=== PATIENT | female | born 1935 | race Caucasian/White ===

== ENCOUNTER → 2016-05-04 | Outpatient (REF) | payer MEDICARE, MEDICAID ==
[~2016-05-04] MED LIST: ACET650S3 PO; AMOX875T2 PO; ASPI1TAB PO; ATEN25TA PO; ATOR1TAB21 PO; BISA10SU4 PR; CALC20SPR; CELE20TA PO; CITA10TA5 PO; CITA20TA4 PO; COLA100C PO; CYMB60CA3 PO; DELT1TAB PO; DULO1CAP2 PO; DULO30CA PO; EYECAP PO; FERR325T69 PO; FERR32TA PO; FLEEENE4 PR; FLUD1TA PO; FURO40TA2 PO; HYDR1TAB97 PO; HYDR25T PO; LIDO1CRE2 TOP; LIDO5DIS36 TD; LOPE2TAB PO; LOPR50TA PO; MAG400TA PO; MAGN400T5 PO; MECL-68 PO; METO25TAB PO; MILKSUS PO; MIRA3350 PO; MIRA33504 PO; MULT1TAB8 PO; NAME10TA PO; OCUVTA PO; OCUVTAB PO; OMEP20CA3 PO; PRED10TA PO; PRED20TAB PO; PREG50CA PO; PROP10TAB PO; SENN-23 PO; SENO8.6T10 PO; TRAM50TA2 PO; VESI10TA PO; VIST25CA PO; VITA200015 PO; ZONE25CA5 PO; ZONI50CA PO; ZONI50CA3 PO
[2016-05-04 10:46] LABS: MEAN CORPUSCULAR HGB CONC 30.8 g/dl (32.0-36.5); MEAN CORPUSCULAR VOLUME 93.9 fl (80.0-96.0); RED CELL DISTRIBUTION WIDTH 15.6 % (11.5-14.5); WHITE BLOOD COUNT 7.2 K/mm3 (4.0-10.0)
[2016-05-04 11:16] LABS: CALCIUM LEVEL 8.9 MG/DL (8.8-10.2); CREATININE FOR GFR 1.04 MG/DL (0.55-1.02); GLOMERULAR FILTRATION RATE 54.4 (>39); MAGNESIUM LEVEL 2.1 MG/DL (1.8-2.4); POTASSIUM SERUM 3.7 MEQ/L (3.5-5.1)
== END ==
PROVIDERS: ATTEND Internal Medicine
DX: I50.9 Heart failure, unspecified (principal); D61.818 Other pancytopenia

== ENCOUNTER → 2016-05-06 | Outpatient (CLI) | payer MEDICARE, MEDICAID | LOC: EEVIPCON 21:30 | PROVIDERS: ATTEND Internal Medicine | DX: R30.0 Dysuria (principal) ==

== ENCOUNTER 2016-05-08 11:54 | Emergency (ER) | payer MEDICARE, MEDICAID ==
[2016-05-08] MEDS ORDERED: fentaNYL 100 MCG/2 ML INJECTION (J3010) As Ordered ONE (12:40)
[2016-05-08 12:55] LABS: BASO # 0.1 K/mm3 (0.0-0.2); BASO % 1.4 % (0.0-1.0); EOS # 0.1 K/mm3 (0.0-0.50); EOS % 2.2 % (0.0-3.0); LARGE UNSTAINED CELL # 0.1 K/mm3 (0.0-0.4); LARGE UNSTAINED CELL % 1.5 % (0.0-4.0); LYMPH # 0.9 K/mm3 (1.5-4.5); LYMPH % 13.5 % (24.0-44.0); MEAN CORPUSCULAR HEMOGLOBIN 28.5 pg (27.0-33.0); MEAN CORPUSCULAR HGB CONC 30.1 g/dl (32.0-36.5); MEAN CORPUSCULAR VOLUME 94.7 fl (80.0-96.0); MONO # 0.3 K/mm3 (0.0-0.8); MONO % 4.9 % (0.0-5.0); NEUTROPHILS # 4.7 K/mm3 (1.8-7.7); NEUTROPHILS % 76.4 % (36.0-66.0); PLATELET COUNT, AUTOMATED 153 k/mm3 (150-450); RED CELL DISTRIBUTION WIDTH 15.5 % (11.5-14.5); WHITE BLOOD COUNT 6.1 K/mm3 (4.0-10.0)
[2016-05-08 13:08] LABS: CALCIUM LEVEL 8.5 MG/DL (8.8-10.2); CREATININE FOR GFR 1.04 MG/DL (0.55-1.02); GLOMERULAR FILTRATION RATE 54.3 (>32); POTASSIUM SERUM 3.9 MEQ/L (3.5-5.1)
--- NOTE | 2016-05-08 15:02 | EDDOCDS ---
Physician Documentation [facility] Name: Katie Mccallum Age: 81 yrs Sex: Female : 1935 Arrival Date: 05/08/2016 Time: 11:54 Bed 10 Private MD: Irma Disposition: 05/08 14:14 Critical Care: Critical care not applicable. pc Disposition: 05/08/16 14:19 Discharged to Home/Self Care. Impression: Fall while being carried or supported by other persons, Displaced transverse fracture of shaft of right tibia, Displaced fracture of right tibial spine, Other fracture of shaft of right fibula - impacted fibular head. - Condition is Stable. - Discharge Instructions: Knee Immobilizer, Tibial and Fibular Fracture, Adult. - Prescriptions for Knee immobilizer to be worn at all trimes. Non-weight bearing. Keep right leg elevated when in chair. Will require Physical Therapy, to be arranged by Orthopedics at next appointment. - Medication Reconciliation, Local Pharmacy Hours form. - Follow up: Orthopaedics, [facility]; When: 4 - 5 days; Reason: Recheck today's complaints, Continuance of care. Follow up: Jai Solis MD; When: 2 - 3 days; Reason: Recheck today's complaints, Continuance of care. - Problem is new. - Symptoms have improved. HPI: 12:33 This 81 yrs old Female presents to ER via Ambulance with complaints of Leg pc Injury. 12:33 The history is obtained from the patient, EMS providers, care home records. She was pc being assisted from bed to her wheelchair and she fell. She believes an aid fell on top of her leg but is not sure. She complains of pain with an obvious deformity to her right proximal tibia. The patient has not experienced similar symptoms in the past. The patient has been recently seen by an orthopedic surgeon, for an ankle fracture . Historical: - Allergies: Motrin (Unknown); - Home Meds: 1. Gabapentin 200 mg Oral 3 times per day 2. Macrobid 100 mg Oral cap 1 cap every 12 hours 3. Celexa 20 mg Oral tab 1 tab once daily 4. Lasix 60mg Oral tab 1 tab 2 times per day 5. gabapentin 100 mg Oral cap 2 caps nightly 6. prednisone 5 mg oral tab 1 tab once daily 7. potassium chloride 10 mEq Oral cpER 1 cap once daily 8. Senna with Docusate Sodium 8.6-50 mg oral tab 2 tabs once daily 9. tramadol 50 mg Oral tab three times a day 10. atenolol 100 mg Oral tab 1 tab once daily 11. aspirin 81 mg Oral chew 1 tab once daily 12. albuterol sulfate 2.5 mg/0.5 mL Inhl nebu every 6 hours and Q 2 hrs prn 13. magnesium oxide 400 mg Oral cap 400 mg twice a day 14. Namenda 10 mg oral tab 1 tab 2 times per day 15. Miralax 17 gram/dose Oral powd 17 g once daily as needed 16. zonisamide 50 mg oral cap 1 cap 2 times per day 17. fludrocortisone 0.1 mg oral tab 1 tab once daily 18. bisacodyl 10 mg Rectal supp 1 suppository Daily as needed 19. Enema Rectal daily as needed 20. acetaminophen 500 mg Oral tab 2 tabs twice a day 21. Vitamin D Oral 2000 unit daily 22. multiple vitamin 1 tab daily 23. ferrous gluconate 324 mg (37.5 mg iron) Oral tab 325 mg twice a day 24. Colace 100 mg oral cap 1 cap 2 times per day - PMHx: afib; Dementia; Fibromyalgia; fracture of T11-T12; Hypertension; Lupus; neuropathy; orthostatic hypotension; Parkinson's Disease; TIA; ventricular tachycardia; Vertigo; - PSHx: Cataract Surgery- Bilateral; Cholecystectomy; Hysterectomy; - The history from nurses notes was reviewed: and I agree with what is documented. - Social history: Smoking status: Patient states was never smoker of tobacco. No barriers to communication noted, The patient speaks fluent Kittitian, Speaks appropriately for age. - Family history: Not pertinent. - : The pt / caregiver states he / she is not on anticoagulants. Home medication list is obtained from the facility JUN. - Hospitalizations: : No recent hospitalization is reported. - Exposure Risk Screening:: None identified. - Immunization history:: All immunizations up-to-date. - Social history:: the patient is a non-smoker, the patient does not drink alcohol. ROS: 12:37 All systems are negative except as listed. pc Exam: 12:37 General Appearance: alert, the patient is in moderate distress. pc 12:37 EENT: normal eye inspection, ears, nose and throat normal, pharynx normal, mucous membranes moist 12:37 Neck: The exam reveals no acute abnormalities. ROM is normal and painless. No nuchal rigidity is noted.. 12:37 Respiratory: no respiratory distress, normal breath sounds. 12:37 CVS: regular pulse rate, regular rhythm, normal S1 and S2, no murmurs, strong peripheral pulses. 12:37 Abdomen: soft, non-tender, no organomegaly, normal bowel sounds. 12:37 Back: 12:37 Skin: skin color is normal, warm, dry. 12:37 Extremities: grossly normal except: noted in the right jaramillo: deformity, pain, swelling, proximal tibia just distal to tubercle. NVT normal distally . 12:37 Neuro: oriented x 3, cranial nerves normal as tested, no motor deficits, no sensory deficits. 12:37 Psych: normal mood. Vital Signs: 12:12 BP 101 / 54; Pulse 53; Resp 18; Temp 98.2(TE); Pulse Ox 2 lpm NC; Weight 90.72 kg / 200 pml lbs (R); Pain 5/10; 12:27 Pulse Ox 99% on 2 lpm NC; pml 14:55 BP 108 / 54; Pulse 55; Resp 18; Temp 97.1; Pulse Ox 96% on 2 lpm NC; Pain 5/10; pml MDM: 12:31 IV Saline Lock ordered. pc 12:31 NS 0.9% 1000 ml IV at 100 mL/hr continuous ordered. pc 12:31 fentaNYL (PF) 25 mcg IVP once ordered. pc 12:32 NOTHING BY MOUTH+DIET ordered. EDMS 12:32 CBC with Diff Ordered. EDMS 12:32 MED Profile Ordered. EDMS 12:33 Knee, Complete Ordered. EDMS 12:33 Tibia/Fibula Ordered. EDMS 12:37 Differential Diagnosis: fall, right tib/fib fracture. Plan: meds, labs, imaging. pc 12:50 [facility] [place] was [place] into [employer] and attached to record. dm19 12:50 Financial registration complete. dm19 13:11 Chest, 1 View Ordered. EDMS 13:31 CBC with Diff Reviewed. pc 13:31 MED Profile Reviewed. pc 14:01 Data reviewed: old medical records, vital signs, nurses notes, lab test results, all pc radiology studies and available results. Test interpretation: LAB - all labs as ordered have been reviewed, interpreted and considered in the overall management of the clinical presentation; X-RAY - interpreted by Radiologist and personally reviewed, 1 view chest no acute disease, Knee Right Fracture TIbial plateau Proximal Tibia Tibia/Fibula Right Fracture Displaced proximal tibia, extending into the tibial plateau, and a nondisplaced fibular head fracture. The patient has been re-examined and re-evaluated. The patient's symptoms have markedly improved after treatment. Physician consultation: Dr. Faustino Garcia regarding patient's condition, and will see patient in ED. 14:14 Disposition: The historical points, examination findings, and any diagnostic results pc supporting the provided diagnosis, were discussed with the patient or legal guardian. The need for outpatient follow up with the provider listed on their discharge instructions was discussed. They were encouraged to return to [facility], or the nearest ED, if symptoms worsen/persist, or for any other questions/concerns. Administered Medications: 12:42 Drug: fentaNYL (PF) 25 mcg [fentanyl (PF) 50 mcg/mL injection solution (0.5 mL)] Route: pml IVP; Site: left hand; 12:52 Drug: NS 0.9% 1000 ml [sodium chloride 0.9 % injection solution] Route: IV; Rate: 100 pml mL/hr; Site: left antecubital; Signatures: Dispatcher [employer] EDMS Joey Warren MD MD pc Jobson, Karen, RN RN kpj Quay, Paulina, RN RN pml McLear, Diane [email or web address] The chart was reviewed and I authenticate all verbal orders and agree with the evaluation and treatment provided.Corrections: (The following items were deleted from the chart) 12:37 12:33 The patient has been recently seen by an orthopedic surgeon, leslie pc 14:12 13:19 TYPE & SCREEN+BBK ordered. EDMS EDMS 14:12 13:19 PT & APTT+LAB ordered. EDMS EDMS Attachments: 12:50 [facility] Payment Agreement [email or web address] MTDD
--- NOTE | 2016-05-08 15:02 | EDDOCDS ---
Nurse's Notes [facility] Name: Katie Mccallum Age: 81 yrs Sex: Female : 1935 Arrival Date: 05/08/2016 Time: 11:54 Bed 10 Private MD: Irma Diagnosis: Fall while being carried or supported by other persons;Displaced transverse fracture of shaft of right tibia;Displaced fracture of right tibial spine;Other fracture of shaft of right fibula-impacted fibular head Presentation: 05/08 12:09 Presenting complaint: Patient states: she was transferring out of bed and she thinks pml she blacked out and when she woke up she was "on the floor with one of the girls landing on top of me, she says she didn't so I must have imagined that" V reports falling during transfer and landing on her knees. pt complains of pain to right knee and swelling and deformity noted to lateral aspect right leg below knee joint. also complains of pain to palpation at lateral margin above knee joint. Adult Sepsis Screening: The patient does not have new or worsening altered mentation. Patient's respiratory rate is less than 22. Systolic blood pressure is greater than 100. Patient has a qSOFA score of 0- Negative Sepsis Screen. Suicide/Homicide risk assessment- the patient denies having any suicidal and/or homicidal ideations and does not present with any other emotional, behavioral or mental health complaints. Status: Patient is not a manager of environmental services or dependent. Transition of care: patient was received from [facility]. 12:09 Acuity: MIC Level 3 pml 12:09 Method Of Arrival: Ambulance pml Triage Assessment: 12:12 General: Appears uncomfortable, Behavior is appropriate for age, cooperative. Pain: pml Location: lateral aspect of right calf Pain currently is 5 out of 10 on a pain scale. The patient is triaged at the bedside. See Assessment in Nurses Notes section of ED record. Neurological: Level of Consciousness is awake, alert, Oriented to person, place, time. Cardiovascular: Capillary refill < 3 seconds. Cardiovascular: Pulses are palpable in right posterior tibial artery and right dorsalis pedis artery. Respiratory: Airway is patent Respiratory effort is even, unlabored. GI: Abdomen is non- distended. Derm: Skin is pink, warm & dry. Swollen area noted on lateral aspect of right calf. Musculoskeletal: Circulation, motion, and sensation intact Capillary refill < 3 seconds. Historical: - Allergies: Motrin (Unknown); - Home Meds: 1. Gabapentin 200 mg Oral 3 times per day 2. Macrobid 100 mg Oral cap 1 cap every 12 hours 3. Celexa 20 mg Oral tab 1 tab once daily 4. Lasix 60mg Oral tab 1 tab 2 times per day 5. gabapentin 100 mg Oral cap 2 caps nightly 6. prednisone 5 mg oral tab 1 tab once daily 7. potassium chloride 10 mEq Oral cpER 1 cap once daily 8. Senna with Docusate Sodium 8.6-50 mg oral tab 2 tabs once daily 9. tramadol 50 mg Oral tab three times a day 10. atenolol 100 mg Oral tab 1 tab once daily 11. aspirin 81 mg Oral chew 1 tab once daily 12. albuterol sulfate 2.5 mg/0.5 mL Inhl nebu every 6 hours and Q 2 hrs prn 13. magnesium oxide 400 mg Oral cap 400 mg twice a day 14. Namenda 10 mg oral tab 1 tab 2 times per day 15. Miralax 17 gram/dose Oral powd 17 g once daily as needed 16. zonisamide 50 mg oral cap 1 cap 2 times per day 17. fludrocortisone 0.1 mg oral tab 1 tab once daily 18. bisacodyl 10 mg Rectal supp 1 suppository Daily as needed 19. Enema Rectal daily as needed 20. acetaminophen 500 mg Oral tab 2 tabs twice a day 21. Vitamin D Oral 2000 unit daily 22. multiple vitamin 1 tab daily 23. ferrous gluconate 324 mg (37.5 mg iron) Oral tab 325 mg twice a day 24. Colace 100 mg oral cap 1 cap 2 times per day - PMHx: afib; Dementia; Fibromyalgia; fracture of T11-T12; Hypertension; Lupus; neuropathy; orthostatic hypotension; Parkinson's Disease; TIA; ventricular tachycardia; Vertigo; - PSHx: Cataract Surgery- Bilateral; Cholecystectomy; Hysterectomy; - The history from nurses notes was reviewed: and I agree with what is documented. - Social history: Smoking status: Patient states was never smoker of tobacco. No barriers to communication noted, The patient speaks fluent Mexican, Speaks appropriately for age. - Family history: Not pertinent. - : The pt / caregiver states he / she is not on anticoagulants. Home medication list is obtained from the facility JUN. - Hospitalizations: : No recent hospitalization is reported. - Exposure Risk Screening:: None identified. - Immunization history:: All immunizations up-to-date. - Social history:: the patient is a non-smoker, the patient does not drink alcohol. Screenin:15 Screening information is obtained from the patient. Fall risk: At risk due to age, gait pml disturbance, immobility, prior history of falls. Assistance ADL's: requires no assistance with activities of daily living. Abuse/DV Screen: The patient / caregiver reports he/she is: not in a situation that causes fear, pain or injury. Nutritional screening: No deficits noted. Advance Directives: Currently, there is no health care proxy. home support is adequate. Assessment: 12:15 General: see triage note. pml 13:39 General: Appears in no apparent distress, comfortable, Behavior is appropriate for age, pml cooperative. Pain: Location: lateral aspect of right calf. Neurological: Level of Consciousness is awake, alert, Oriented to person, place, time. Cardiovascular: Capillary refill < 3 seconds. Respiratory: Airway is patent Respiratory effort is even, unlabored. Derm: Skin is pink, warm & dry. 14:55 General: Appears in no apparent distress, comfortable, Behavior is appropriate for age, pml cooperative. Pain: Location: right leg Pain currently is 6 out of 10 on a pain scale. Neurological: Level of Consciousness is awake, alert, Oriented to person, place, time. Cardiovascular: Capillary refill < 3 seconds. Respiratory: Airway is patent Respiratory effort is even, unlabored. Derm: Skin is pink, warm & dry. Vital Signs: 12:12 BP 101 / 54; Pulse 53; Resp 18; Temp 98.2(TE); Pulse Ox 2 lpm NC; Weight 90.72 kg (R); pml Pain 5/10; 12:27 Pulse Ox 99% on 2 lpm NC; pml 14:55 BP 108 / 54; Pulse 55; Resp 18; Temp 97.1; Pulse Ox 96% on 2 lpm NC; Pain 5/10; pml Vitals: 12:12 Log In Time N/A - ambulance arrival. [facility] ED Course: 11:55 Patient visited by Elvi Altamirano PCA. ar3 11:55 Kianna Miles RN is Primary Nurse. ar3 11:55 Irma is Private Physician. ar3 11:55 Patient moved to Waiting ar3 11:55 Patient moved to 10 ar3 12:06 Joey Warren MD is Attending Physician. pc 12:11 Triage Initiated pml 12:15 The patient / caregiver is instructed regarding the plan of care and ED course. Patient pml has correct armband on for positive identification. Placed in gown. Bed in low position. Call light in reach. Side rails up X2. 12:15 Maintain field IV. Dressing intact. Good blood return noted. Site clean & dry. Gauge & pml site: 22g left hand. 12:16 Patient visited by Kianna Miles,ILANA. pml 12:27 Patient visited by Joey Warren MD. pc 12:37 Patient visited by Kianna Miles RN. pml 12:50 [facility] Payment Agreement was scanned into [employer] and attached to record. dm19 12:52 Discontinued lock intact, bleeding controlled, pressure dressing applied, No pml redness/swelling at site. 12:52 Inserted peripheral IV: 20gauge IV in left antecubital area and blood collected. pml Patient tolerated the procedure well. 12:53 Patient visited by Kianna Miles RN. pml 13:53 Patient visited by Joye Warren MD. pc [facility] pc 14:18 Jai Solis MD is Referral Physician. pc 14:55 Discontinued lock intact, bleeding controlled, pressure dressing applied, No pml redness/swelling at site. No procedures done that require assistance. Knee immobilizer applied on right knee. Patient with positive distal sensation and brisk distal capillary refill after application. Administered Medications: 12:42 Drug: fentaNYL (PF) 25 mcg [fentanyl (PF) 50 mcg/mL injection solution (0.5 mL)] Route: pml IVP; Site: left hand; 12:52 Drug: NS 0.9% 1000 ml [sodium chloride 0.9 % injection solution] Route: IV; Rate: 100 pml mL/hr; Site: left antecubital; Order Results: Lab Order: CBC with Diff; SPEC'M 05/08/16 12:47 Test: WHITE BLOOD COUNT; Value: 6.1; Range: 4.0-10.0; Units: K/mm3; Status: F Test: RED BLOOD COUNT; Value: 3.47; Range: 4.00-5.40; Abnormal: Below low normal; Units: M/mm3; Status: F Test: HEMOGLOBIN; Value: 9.9; Range: 12.0-16.0; Abnormal: Below low normal; Units: g/dl; Status: F Test: HEMATOCRIT; Value: 32.9; Range: 36.0-47.0; Abnormal: Below low normal; Units: %; Status: F Test: MEAN CORPUSCULAR VOLUME; Value: 94.7; Range: 80.0-96.0; Units: fl; Status: F Test: MEAN CORPUSCULAR HEMOGLOBIN; Value: 28.5; Range: 27.0-33.0; Units: pg; Status: F Test: MEAN CORPUSCULAR HGB CONC; Value: 30.1; Range: 32.0-36.5; Abnormal: Below low normal; Units: g/dl; Status: F Test: RED CELL DISTRIBUTION WIDTH; Value: 15.5; Range: 11.5-14.5; Abnormal: Above high normal; Units: %; Status: F Test: PLATELET COUNT, AUTOMATED; Value: 153; Range: 150-450; Units: k/mm3; Status: F Test: NEUTROPHILS %; Value: 76.4; Range: 36.0-66.0; Abnormal: Above high normal; Units: %; Status: F Test: LYMPH %; Value: 13.5; Range: 24.0-44.0; Abnormal: Below low normal; Units: %; Status: F Test: MONO %; Value: 4.9; Range: 0.0-5.0; Units: %; Status: F Test: EOS %; Value: 2.2; Range: 0.0-3.0; Units: %; Status: F Test: BASO %; Value: 1.4; Range: 0.0-1.0; Abnormal: Above high normal; Units: %; Status: F Test: LARGE UNSTAINED CELL %; Value: 1.5; Range: 0.0-4.0; Units: %; Status: F Test: NEUTROPHILS #; Value: 4.7; Range: 1.8-7.7; Units: K/mm3; Status: F Test: LYMPH #; Value: 0.9; Range: 1.5-4.5; Abnormal: Below low normal; Units: K/mm3; Status: F Test: MONO #; Value: 0.3; Range: 0.0-0.8; Units: K/mm3; Status: F Test: EOS #; Value: 0.1; Range: 0.0-0.50; Units: K/mm3; Status: F Test: BASO #; Value: 0.1; Range: 0.0-0.2; Units: K/mm3; Status: F Test: LARGE UNSTAINED CELL #; Value: 0.1; Range: 0.0-0.4; Units: K/mm3; Status: F Lab Order: MED Profile; SPEC'M 05/08/16 12:47 Test: GLUCOSE, FASTING; Value: 122; Range: 83-110; Abnormal: Above high normal; Units: MG/DL; Status: F Test: BLOOD UREA NITROGEN; Value: 27; Range: 7-18; Abnormal: Above high normal; Units: MG/DL; Status: F Test: CREATININE FOR GFR; Value: 1.04; Range: 0.55-1.02; Abnormal: Above high normal; Units: MG/DL; Status: F Test: GLOMERULAR FILTRATION RATE; Value: 54.3; Range: >32; Status: F Test: SODIUM LEVEL; Value: 144; Range: 136-145; Units: MEQ/L; Status: F Test: POTASSIUM SERUM; Value: 3.9; Range: 3.5-5.1; Units: MEQ/L; Status: F Test: CHLORIDE LEVEL; Value: 100; Range: 98-107; Units: MEQ/L; Status: F Test: CARBON DIOXIDE LEVEL; Value: 39; Range: 21-32; Abnormal: Above high normal; Units: MEQ/L; Status: F Test: ANION GAP; Value: 5; Range: 8-16; Abnormal: Below low normal; Units: MEQ/L; Status: F Test: CALCIUM LEVEL; Value: 8.5; Range: 8.8-10.2; Abnormal: Below low normal; Units: MG/DL; Status: F Test Note: ; Units are mL/min/1.73 m2 Chronic Kidney Disease Staging per NKF: Stage I & II GFR >=60 Normal to Mildly Decreased Stage III GFR 30-59 Moderately Decreased Stage IV GFR 15-29 Severely Decreased Stage V GFR <15 Very Little GFR Left ESRD GFR <15 on SCIENTIFIC HELPER Outcome: 14:19 Discharge ordered by Provider. pc 14:55 Discharge Assessment: Patient awake, alert and oriented x 3. No cognitive and/or pml functional deficits noted. Patient verbalized understanding of disposition instructions. patient administered narcotics - yes. Pt provided with safe discharge. The following High Risk Discharge criteria are identified: None. Discharged to home via ambulance. Condition: good Condition: stable. Discharge instructions given to patient, care home, Instructed on discharge instructions, follow up and referral plans. medication usage, Demonstrated understanding of instructions, Pt was receptive of discharge instructions/ teaching. No special radiology studies were completed. Admission hand-off: Report called to [facility]. Property sent home with patient. 15:00 Patient left the ED. [facility] Signatures: Joey Warren MD MD pc Jobson, Karen, RN RN Elvi Martinez, ADDICTION SOCIAL WORKER ADDICTION SOCIAL WORKER ar3 Kianna Miles RN RN pml McLear, Diane dm19 [email or web address]
--- NOTE | 2016-05-08 16:41 | REP ---
Chest x-ray: Single view. History: Preop. Comparison chest x-ray January 09, 2016. Findings: Moderate cardiomegaly is observed. Diffuse interstitial fibrosis pattern is seen in the lower lobes and in the periphery of the upper lobes. This is unchanged allowing for differences in technique. The aorta is calcific and tortuous. There appears to be partial wedging of the T12 vertebral body. Diffuse osteopenia is noted. Impression: Cardiomegaly and diffuse interstitial fibrosis in the lung louise. No acute abnormality. Signed by Albino Grijalva MD 05/08/2016 04:55 P
--- NOTE | 2016-05-08 16:46 | REP ---
Right knee series: Two views. History: Trauma. Findings: There is profound diffuse osteoporosis. A comminuted diametaphyseal fracture of the proximal tibia is seen. This may extend up to the proximal tibial knee joint line. There is an associated impaction fracture of the proximal fibula. Vascular calcification is noted. Impression: Comminuted proximal tibial diametaphyseal fracture which may extend in the knee joint. Associated impacted fracture of the proximal fibula. Signed by Albino Grijalva MD 05/08/2016 04:55 P
--- NOTE | 2016-05-08 16:47 | REP ---
Right tib-fib series: Four views. History: Trauma. Findings: There is marked diffuse osteoporosis. There is a complex fracture of the diametaphyseal zone of the proximal tibia which extends into what appears to be in the lateral tibial plateau. There is an impacted fracture of the proximal fibula. The tibial fracture shows minimal medial displacement at the diametaphyseal zone. There is extensive vascular calcification. Impression: Complex fracture of the diametaphyseal zone of the proximal tibia which extends into the lateral tibial plateau. Associated impacted fracture of the proximal fibular head. Diffuse osteoporosis and vascular calcification. Signed by Albino Grijalva MD 05/08/2016 04:55 P
--- NOTE | 2016-05-10 09:01 | ER ---
DATE OF CONSULTATION: 05/08/2016 She is an 81-year-old female with an orthopedic diagnosis of a right proximal tibia and proximal fibula comminuted fragility fracture and tibial plateau fracture. Orthopedics was consulted to evaluate an recommend treatment. She is an 81-year-old female with a long medical history, to include a history of stroke, which by her own report makes her nonoperative candidate for arthritis in the opposite knee. She has been wheelchair ambulator for some time with occasional assisted weight bearing on her lower extremities for transfers only. During this process, with excessive weight on her right lower extremity, she twisted and felt a "pop" and had severe pain in her right leg. PHYSICAL EXAMINATION: She has swelling and tenderness to palpation along the proximal tibia. She has gross sensation and weak motor intact bilaterally to the lower extremities. Her compartments are soft. The skin is closed. X-rays demonstrate severe osteopenia and a proximal tibia fibula fracture with an interarticular component, overall alignment of the limb is generally straight. IMPRESSION: Osteoporotic fracture of right proximal tibial. RECOMMENDATION: Given the fact that she is currently a non-ambulator and given the status of her osteopenia, would recommend nonoperative management with pain control and knee immobilizer, icing, activity modification and regular followup and x-rays. Emergency room may consult the medicine service for any management of her medical issues if necessary.
--- NOTE | 2016-05-11 11:15 | EDDOCDS ---
Nurse's Notes [facility] Name: Katie Mccallum Age: 81 yrs Sex: Female : 1935 Arrival Date: 05/08/2016 Time: 11:54 Bed 10 Private MD: Irma Diagnosis: Fall while being carried or supported by other persons;Displaced transverse fracture of shaft of right tibia;Displaced fracture of right tibial spine;Other fracture of shaft of right fibula-impacted fibular head Presentation: 05/08 12:09 Presenting complaint: Patient states: she was transferring out of bed and she thinks pml she blacked out and when she woke up she was "on the floor with one of the girls landing on top of me, she says she didn't so I must have imagined that" V reports falling during transfer and landing on her knees. pt complains of pain to right knee and swelling and deformity noted to lateral aspect right leg below knee joint. also complains of pain to palpation at lateral margin above knee joint. Adult Sepsis Screening: The patient does not have new or worsening altered mentation. Patient's respiratory rate is less than 22. Systolic blood pressure is greater than 100. Patient has a qSOFA score of 0- Negative Sepsis Screen. Suicide/Homicide risk assessment- the patient denies having any suicidal and/or homicidal ideations and does not present with any other emotional, behavioral or mental health complaints. 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 Transition of care: patient was received from [facility]. 12:09 Acuity: MIC Level 3 pml 12:09 Method Of Arrival: Ambulance pml Triage Assessment: 12:12 General: Appears uncomfortable, Behavior is appropriate for age, cooperative. Pain: pml Location: lateral aspect of right calf Pain currently is 5 out of 10 on a pain scale. The patient is triaged at the bedside. See Assessment in Nurses Notes section of ED record. Neurological: Level of Consciousness is awake, alert, Oriented to person, place, time. Cardiovascular: Capillary refill < 3 seconds. Cardiovascular: Pulses are palpable in right posterior tibial artery and right dorsalis pedis artery. Respiratory: Airway is patent Respiratory effort is even, unlabored. GI: Abdomen is non- distended. Derm: Skin is pink, warm & dry. Swollen area noted on lateral aspect of right calf. Musculoskeletal: Circulation, motion, and sensation intact Capillary refill < 3 seconds. Historical: - Allergies: Motrin (Unknown); - Home Meds: 1. Gabapentin 200 mg Oral 3 times per day 2. Macrobid 100 mg Oral cap 1 cap every 12 hours 3. Celexa 20 mg Oral tab 1 tab once daily 4. Lasix 60mg Oral tab 1 tab 2 times per day 5. gabapentin 100 mg Oral cap 2 caps nightly 6. prednisone 5 mg oral tab 1 tab once daily 7. potassium chloride 10 mEq Oral cpER 1 cap once daily 8. Senna with Docusate Sodium 8.6-50 mg oral tab 2 tabs once daily 9. tramadol 50 mg Oral tab three times a day 10. atenolol 100 mg Oral tab 1 tab once daily 11. aspirin 81 mg Oral chew 1 tab once daily 12. albuterol sulfate 2.5 mg/0.5 mL Inhl nebu every 6 hours and Q 2 hrs prn 13. magnesium oxide 400 mg Oral cap 400 mg twice a day 14. Namenda 10 mg oral tab 1 tab 2 times per day 15. Miralax 17 gram/dose Oral powd 17 g once daily as needed 16. zonisamide 50 mg oral cap 1 cap 2 times per day 17. fludrocortisone 0.1 mg oral tab 1 tab once daily 18. bisacodyl 10 mg Rectal supp 1 suppository Daily as needed 19. Enema Rectal daily as needed 20. acetaminophen 500 mg Oral tab 2 tabs twice a day 21. Vitamin D Oral 2000 unit daily 22. multiple vitamin 1 tab daily 23. ferrous gluconate 324 mg (37.5 mg iron) Oral tab 325 mg twice a day 24. Colace 100 mg oral cap 1 cap 2 times per day - PMHx: afib; Dementia; Fibromyalgia; fracture of T11-T12; Hypertension; Lupus; neuropathy; orthostatic hypotension; Parkinson's Disease; TIA; ventricular tachycardia; Vertigo; - PSHx: Cataract Surgery- Bilateral; Cholecystectomy; Hysterectomy; - The history from nurses notes was reviewed: and I agree with what is documented. - Social history: Smoking status: Patient states was never smoker of tobacco. No barriers to communication noted, The patient speaks fluent Citizen [place], Speaks appropriately for age. - Family history: Not pertinent. - : The pt / caregiver states he / she is not on anticoagulants. Home medication list is obtained from the facility JUN. - Hospitalizations: : No recent hospitalization is reported. - Exposure Risk Screening:: None identified. - Immunization history:: All immunizations up-to-date. - Social history:: the patient is a non-smoker, the patient does not drink alcohol. Screenin:15 Screening information is obtained from the patient. Fall risk: At risk due to age, gait pml disturbance, immobility, prior history of falls. Assistance ADL's: requires no assistance with activities of daily living. Abuse/DV Screen: The patient / caregiver reports he/she is: not in a situation that causes fear, pain or injury. Nutritional screening: No deficits noted. Advance Directives: Currently, there is no health care proxy. home support is adequate. Assessment: 12:15 General: see triage note. pml 13:39 General: Appears in no apparent distress, comfortable, Behavior is appropriate for age, pml cooperative. Pain: Location: lateral aspect of right calf. Neurological: Level of Consciousness is awake, alert, Oriented to person, place, time. Cardiovascular: Capillary refill < 3 seconds. Respiratory: Airway is patent Respiratory effort is even, unlabored. Derm: Skin is pink, warm & dry. 14:55 General: Appears in no apparent distress, comfortable, Behavior is appropriate for age, pml cooperative. Pain: Location: right leg Pain currently is 6 out of 10 on a pain scale. Neurological: Level of Consciousness is awake, alert, Oriented to person, place, time. Cardiovascular: Capillary refill < 3 seconds. Respiratory: Airway is patent Respiratory effort is even, unlabored. Derm: Skin is pink, warm & dry. Vital Signs: 12:12 BP 101 / 54; Pulse 53; Resp 18; Temp 98.2(TE); Pulse Ox 2 lpm NC; Weight 90.72 kg (R); pml Pain 5/10; 12:27 Pulse Ox 99% on 2 lpm NC; pml 14:55 BP 108 / 54; Pulse 55; Resp 18; Temp 97.1; Pulse Ox 96% on 2 lpm NC; Pain 5/10; pml Vitals: 12:12 Log In Time N/A - ambulance arrival. [facility] ED Course: 11:55 Patient visited by Elvi Altamirano PCA. ar3 11:55 Kianna Miles RN is Primary Nurse. ar3 11:55 Irma is Private Physician. ar3 11:55 Patient moved to Waiting ar3 11:55 Patient moved to 10 ar3 12:06 Joey Warren MD is Attending Physician. pc 12:11 Triage Initiated pml 12:15 The patient / caregiver is instructed regarding the plan of care and ED course. Patient pml has correct armband on for positive identification. Placed in gown. Bed in low position. Call light in reach. Side rails up X2. 12:15 Maintain field IV. Dressing intact. Good blood return noted. Site clean & dry. Gauge & pml site: 22g left hand. 12:16 Patient visited by Kianna Miles,ILANA. pml 12:27 Patient visited by Joey Warren MD. pc 12:37 Patient visited by Kianna Miles RN. pml 12:50 [facility] Payment Agreement was scanned into [employer] and attached to record. dm19 12:52 Discontinued lock intact, bleeding controlled, pressure dressing applied, No pml redness/swelling at site. 12:52 Inserted peripheral IV: 20gauge IV in left antecubital area and blood collected. pml Patient tolerated the procedure well. 12:53 Patient visited by Kianna Miles RN. pml 13:53 Patient visited by Joey Warren MD. pc 14[facility] pc 14:18 Jai Solis MD is Referral Physician. pc 14:55 Discontinued lock intact, bleeding controlled, pressure dressing applied, No pml redness/swelling at site. No procedures done that require assistance. Knee immobilizer applied on right knee. Patient with positive distal sensation and brisk distal capillary refill after application. 17:10 Chest, 1 View Returned. EDMS 17:10 Knee, Complete Returned. EDMS 17:10 Tibia/Fibula Returned. EDMS Administered Medications: 12:42 Drug: fentaNYL (PF) 25 mcg [fentanyl (PF) 50 mcg/mL injection solution (0.5 mL)] Route: pml IVP; Site: left hand; 12:52 Drug: NS 0.9% 1000 ml [sodium chloride 0.9 % injection solution] Route: IV; Rate: 100 pml mL/hr; Site: left antecubital; Order Results: Lab Order: CBC with Diff; SPEC'M 05/08/16 12:47 Test: WHITE BLOOD COUNT; Value: 6.1; Range: 4.0-10.0; Units: K/mm3; Status: F Test: RED BLOOD COUNT; Value: 3.47; Range: 4.00-5.40; Abnormal: Below low normal; Units: M/mm3; Status: F Test: HEMOGLOBIN; Value: 9.9; Range: 12.0-16.0; Abnormal: Below low normal; Units: g/dl; Status: F Test: HEMATOCRIT; Value: 32.9; Range: 36.0-47.0; Abnormal: Below low normal; Units: %; Status: F Test: MEAN CORPUSCULAR VOLUME; Value: 94.7; Range: 80.0-96.0; Units: fl; Status: F Test: MEAN CORPUSCULAR HEMOGLOBIN; Value: 28.5; Range: 27.0-33.0; Units: pg; Status: F Test: MEAN CORPUSCULAR HGB CONC; Value: 30.1; Range: 32.0-36.5; Abnormal: Below low normal; Units: g/dl; Status: F Test: RED CELL DISTRIBUTION WIDTH; Value: 15.5; Range: 11.5-14.5; Abnormal: Above high normal; Units: %; Status: F Test: PLATELET COUNT, AUTOMATED; Value: 153; Range: 150-450; Units: k/mm3; Status: F Test: NEUTROPHILS %; Value: 76.4; Range: 36.0-66.0; Abnormal: Above high normal; Units: %; Status: F Test: LYMPH %; Value: 13.5; Range: 24.0-44.0; Abnormal: Below low normal; Units: %; Status: F Test: MONO %; Value: 4.9; Range: 0.0-5.0; Units: %; Status: F Test: EOS %; Value: 2.2; Range: 0.0-3.0; Units: %; Status: F Test: BASO %; Value: 1.4; Range: 0.0-1.0; Abnormal: Above high normal; Units: %; Status: F Test: LARGE UNSTAINED CELL %; Value: 1.5; Range: 0.0-4.0; Units: %; Status: F Test: NEUTROPHILS #; Value: 4.7; Range: 1.8-7.7; Units: K/mm3; Status: F Test: LYMPH #; Value: 0.9; Range: 1.5-4.5; Abnormal: Below low normal; Units: K/mm3; Status: F Test: MONO #; Value: 0.3; Range: 0.0-0.8; Units: K/mm3; Status: F Test: EOS #; Value: 0.1; Range: 0.0-0.50; Units: K/mm3; Status: F Test: BASO #; Value: 0.1; Range: 0.0-0.2; Units: K/mm3; Status: F Test: LARGE UNSTAINED CELL #; Value: 0.1; Range: 0.0-0.4; Units: K/mm3; Status: F Lab Order: MED Profile; SPEC'M 05/08/16 12:47 Test: GLUCOSE, FASTING; Value: 122; Range: 83-110; Abnormal: Above high normal; Units: MG/DL; Status: F Test: BLOOD UREA NITROGEN; Value: 27; Range: 7-18; Abnormal: Above high normal; Units: MG/DL; Status: F Test: CREATININE FOR GFR; Value: 1.04; Range: 0.55-1.02; Abnormal: Above high normal; Units: MG/DL; Status: F Test: GLOMERULAR FILTRATION RATE; Value: 54.3; Range: >32; Status: F Test: SODIUM LEVEL; Value: 144; Range: 136-145; Units: MEQ/L; Status: F Test: POTASSIUM SERUM; Value: 3.9; Range: 3.5-5.1; Units: MEQ/L; Status: F Test: CHLORIDE LEVEL; Value: 100; Range: 98-107; Units: MEQ/L; Status: F Test: CARBON DIOXIDE LEVEL; Value: 39; Range: 21-32; Abnormal: Above high normal; Units: MEQ/L; Status: F Test: ANION GAP; Value: 5; Range: 8-16; Abnormal: Below low normal; Units: MEQ/L; Status: F Test: CALCIUM LEVEL; Value: 8.5; Range: 8.8-10.2; Abnormal: Below low normal; Units: MG/DL; Status: F Test Note: ; Units are mL/min/1.73 m2 Chronic Kidney Disease Staging per NKF: Stage I & II GFR >=60 Normal to Mildly Decreased Stage III GFR 30-59 Moderately Decreased Stage IV GFR 15-29 Severely Decreased Stage V GFR <15 Very Little GFR Left ESRD GFR <15 on SR. OPERATIONS MANAGER Radiology Order: Knee, Complete Test: Knee, Complete REASON FOR EXAMINATION: Trauma; Right knee series: Two views.; ; History: Trauma.; ; Findings: There is profound diffuse osteoporosis. A comminuted diametaphyseal; fracture of the proximal tibia is seen. This may extend up to the proximal; tibial knee joint line. There is an associated impaction fracture of the; proximal fibula. Vascular calcification is noted.; ; Impression:; ; Comminuted proximal tibial diametaphyseal fracture which may extend in the knee; joint. Associated impacted fracture of the proximal fibula.; ; ; Signed by; Albnio Grijalva MD 05/08/2016 04:55 P; Radiology Order: Tibia/Fibula Test: Tibia/Fibula REASON FOR EXAMINATION: Trauma; Right tib-fib series: Four views.; ; History: Trauma.; ; Findings: There is marked diffuse osteoporosis. There is a complex fracture of; the diametaphyseal zone of the proximal tibia which extends into what appears to; be in the lateral tibial plateau. There is an impacted fracture of the proximal; fibula. The tibial fracture shows minimal medial displacement at the; diametaphyseal zone. There is extensive vascular calcification.; ; Impression:; ; Complex fracture of the diametaphyseal zone of the proximal tibia which extends; into the lateral tibial plateau. Associated impacted fracture of the proximal; fibular head. Diffuse osteoporosis and vascular calcification.; ; ; Signed by; Albino Grijalva MD 05/08/2016 04:55 P; Radiology Order: Chest, 1 View Test: Chest, 1 View REASON FOR EXAMINATION: pre-op; Chest x-ray: Single view.; ; History: Preop. Comparison chest x-ray January 09, 2016.; ; Findings: Moderate cardiomegaly is observed. Diffuse interstitial fibrosis; pattern is seen in the lower lobes and in the periphery of the upper lobes. This; is unchanged allowing for differences in technique. The aorta is calcific and; tortuous. There appears to be partial wedging of the T12 vertebral body.; Diffuse osteopenia is noted.; ; Impression:; ; Cardiomegaly and diffuse interstitial fibrosis in the lung louise. No acute; abnormality.; ; ; Signed by; Albino Grijalva MD 05/08/2016 04:55 P; Outcome: 14:19 Discharge ordered by Provider. 14:55 Discharge Assessment: Patient awake, alert and oriented x 3. No cognitive and/or pml functional deficits noted. Patient verbalized understanding of disposition instructions. patient administered narcotics - yes. Pt provided with safe discharge. The following High Risk Discharge criteria are identified: None. Discharged to home via ambulance. Condition: good Condition: stable. Discharge instructions given to patient, pen[facility]entiary, Instructed on discharge instructions, follow up and referral plans. medication usage, Demonstrated understanding of instructions, Pt was receptive of discharge instructions/ teaching. No special radiology studies were completed. Admission hand-off: Report called to [facility]UNITY [facility]GAN[facility]ATION AIDE. Property sent home with patient. 15:00 [facility] Signatures: Dispatcher [employer] EDMS Joey Warren MD MD pc Jobson, Karen RN RN [facility] Elvi Altamirano, VIGNESH SENIOR JAVA SOFTWARE DEVELOPER ar3 Kianna Miles RN RN Aneta Collins dm19 Chart Complete MTDD
--- NOTE | 2016-05-11 11:15 | EDDOCDS ---
Physician Documentation [facility] Name: Katie Mccallum Age: 81 yrs Sex: Female : 1935 Arrival Date: 05/08/2016 Time: 11:54 Bed 10 Private MD: Irma Disposition: 05/08 14:14 Critical Care: Critical care not applicable. pc Disposition: 05/08/16 14:19 Discharged to Home/Self Care. Impression: Fall while being carried or supported by other persons, Displaced transverse fracture of shaft of right tibia, Displaced fracture of right tibial spine, Other fracture of shaft of right fibula - impacted fibular head. - Condition is Stable. - Discharge Instructions: Knee Immobilizer, Tibial and Fibular Fracture, Adult. - Prescriptions for Knee immobilizer to be worn at all trimes. Non-weight bearing. Keep right leg elevated when in chair. Will require Physical Therapy, to be arranged by Orthopedics at next appointment. - Medication Reconciliation, Local Pharmacy Hours form. - Follow up: Orthopaedics, [facility]; When: 4 - 5 days; Reason: Recheck today's complaints, Continuance of care. Follow up: Jai Solis MD; When: 2 - 3 days; Reason: Recheck today's complaints, Continuance of care. - Problem is new. - Symptoms have improved. HPI: 12:33 This 81 yrs old Female presents to ER via Ambulance with complaints of Leg pc Injury. 12:33 The history is obtained from the patient, EMS providers, [facility] records. She was pc being assisted from bed to her wheelchair and she fell. She believes an aid fell on top of her leg but is not sure. She complains of pain with an obvious deformity to her right proximal tibia. The patient has not experienced similar symptoms in the past. The patient has been recently seen by an orthopedic surgeon, for an ankle fracture . Historical: - Allergies: Motrin (Unknown); - Home Meds: 1. Gabapentin 200 mg Oral 3 times per day 2. Macrobid 100 mg Oral cap 1 cap every 12 hours 3. Celexa 20 mg Oral tab 1 tab once daily 4. Lasix 60mg Oral tab 1 tab 2 times per day 5. gabapentin 100 mg Oral cap 2 caps nightly 6. prednisone 5 mg oral tab 1 tab once daily 7. potassium chloride 10 mEq Oral cpER 1 cap once daily 8. Senna with Docusate Sodium 8.6-50 mg oral tab 2 tabs once daily 9. tramadol 50 mg Oral tab three times a day 10. atenolol 100 mg Oral tab 1 tab once daily 11. aspirin 81 mg Oral chew 1 tab once daily 12. albuterol sulfate 2.5 mg/0.5 mL Inhl nebu every 6 hours and Q 2 hrs prn 13. magnesium oxide 400 mg Oral cap 400 mg twice a day 14. Namenda 10 mg oral tab 1 tab 2 times per day 15. Miralax 17 gram/dose Oral powd 17 g once daily as needed 16. zonisamide 50 mg oral cap 1 cap 2 times per day 17. fludrocortisone 0.1 mg oral tab 1 tab once daily 18. bisacodyl 10 mg Rectal supp 1 suppository Daily as needed 19. Enema Rectal daily as needed 20. acetaminophen 500 mg Oral tab 2 tabs twice a day 21. Vitamin D Oral 2000 unit daily 22. multiple vitamin 1 tab daily 23. ferrous gluconate 324 mg (37.5 mg iron) Oral tab 325 mg twice a day 24. Colace 100 mg oral cap 1 cap 2 times per day - PMHx: afib; Dementia; Fibromyalgia; fracture of T11-T12; Hypertension; Lupus; neuropathy; orthostatic hypotension; Parkinson's Disease; TIA; ventricular tachycardia; Vertigo; - PSHx: Cataract Surgery- Bilateral; Cholecystectomy; Hysterectomy; - The history from nurses notes was reviewed: and I agree with what is documented. - Social history: Smoking status: Patient states was never smoker of tobacco. No barriers to communication noted, The patient speaks fluent [place], Speaks appropriately for age. - Family history: Not pertinent. - : The pt / caregiver states he / she is not on anticoagulants. Home medication list is obtained from the facility JUN. - Hospitalizations: : No recent hospitalization is reported. - Exposure Risk Screening:: None identified. - Immunization history:: All immunizations up-to-date. - Social history:: the patient is a non-smoker, the patient does not drink alcohol. ROS: 12:37 All systems are negative except as listed. pc Exam: 12:37 General Appearance: alert, the patient is in moderate distress. pc 12:37 EENT: normal eye inspection, ears, nose and throat normal, pharynx normal, mucous membranes moist 12:37 Neck: The exam reveals no acute abnormalities. ROM is normal and painless. No nuchal rigidity is noted.. 12:37 Respiratory: no respiratory distress, normal breath sounds. 12:37 CVS: regular pulse rate, regular rhythm, normal S1 and S2, no murmurs, strong peripheral pulses. 12:37 Abdomen: soft, non-tender, no organomegaly, normal bowel sounds. 12:37 Back: 12:37 Skin: skin color is normal, warm, dry. 12:37 Extremities: grossly normal except: noted in the right jaramillo: deformity, pain, swelling, proximal tibia just distal to tubercle. NVT normal distally . 12:37 Neuro: oriented x 3, cranial nerves normal as tested, no motor deficits, no sensory deficits. 12:37 Psych: normal mood. Vital Signs: 12:12 BP 101 / 54; Pulse 53; Resp 18; Temp 98.2(TE); Pulse Ox 2 lpm NC; Weight 90.72 kg / 200 pml lbs (R); Pain 5/10; 12:27 Pulse Ox 99% on 2 lpm NC; pml 14:55 BP 108 / 54; Pulse 55; Resp 18; Temp 97.1; Pulse Ox 96% on 2 lpm NC; Pain 5/10; pml MDM: 12:31 IV Saline Lock ordered. pc 12:31 NS 0.9% 1000 ml IV at 100 mL/hr continuous ordered. pc 12:31 fentaNYL (PF) 25 mcg IVP once ordered. pc 12:32 NOTHING BY MOUTH+DIET ordered. EDMS 12:32 CBC with Diff Ordered. EDMS 12:32 MED Profile Ordered. EDMS 12:33 Knee, Complete Ordered. EDMS 12:33 Tibia/Fibula Ordered. EDMS 12:37 Differential Diagnosis: fall, right tib/fib fracture. Plan: meds, labs, imaging. pc 12:50 [facility] Payment Agreement was scanned into [employer] and attached to record. dm19 12:50 Financial registration complete. dm19 13:11 Chest, 1 View Ordered. EDMS 13:31 CBC with Diff Reviewed. pc 13:31 MED Profile Reviewed. pc 14:01 Data reviewed: old medical records, vital signs, nurses notes, lab test results, all pc radiology studies and available results. Test interpretation: LAB - all labs as ordered have been reviewed, interpreted and considered in the overall management of the clinical presentation; X-RAY - interpreted by Radiologist and personally reviewed, 1 view chest no acute disease, Knee Right Fracture TIbial plateau Proximal Tibia Tibia/Fibula Right Fracture Displaced proximal tibia, extending into the tibial plateau, and a nondisplaced fibular head fracture. The patient has been re-examined and re-evaluated. The patient's symptoms have markedly improved after treatment. Physician consultation: Dr. Faustino Garcia regarding patient's condition, and will see patient in ED. 14:14 Disposition: The historical points, examination findings, and any diagnostic results pc supporting the provided diagnosis, were discussed with the patient or legal guardian. The need for outpatient follow up with the provider listed on their discharge instructions was discussed. They were encouraged to return to [facility], or the nearest ED, if symptoms worsen/persist, or for any other questions/concerns. Administered Medications: 12:42 Drug: fentaNYL (PF) 25 mcg [fentanyl (PF) 50 mcg/mL injection solution (0.5 mL)] Route: pml IVP; Site: left hand; 12:52 Drug: NS 0.9% 1000 ml [sodium chloride 0.9 % injection solution] Route: IV; Rate: 100 pml mL/hr; Site: left antecubital; Signatures: Dispatcher [employer] EDMS Joey Warren MD MD pc Jobson, Karen, RN RN kpj Quay, Paulina, RN RN pml McLear, Diane dm19 The chart was reviewed and I authenticate all verbal orders and agree with the evaluation and treatment provided.Corrections: (The following items were deleted from the chart) 12:37 12:33 The patient has been recently seen by an orthopedic surgeon, leslie pc 14:12 13:19 TYPE & SCREEN+BBK ordered. EDMS EDMS 14:12 13:19 PT & APTT+LAB ordered. EDMS EDMS Attachments: 12:50 [facility] Payment Agreement dm19 Chart Complete MTDD
--- NOTE | 2016-05-11 11:15 | EDDOCDS ---
Physician Documentation [facility] Name: Katie Mccallum Age: 81 yrs Sex: Female : 1935 Arrival Date: 05/08/2016 Time: 11:54 Bed 10 Private MD: Irma Disposition: 05/08 14:14 Critical Care: Critical care not applicable. pc Disposition: 05/08/16 14:19 Discharged to Home/Self Care. Impression: Fall while being carried or supported by other persons, Displaced transverse fracture of shaft of right tibia, Displaced fracture of right tibial spine, Other fracture of shaft of right fibula - impacted fibular head. - Condition is Stable. - Discharge Instructions: Knee Immobilizer, Tibial and Fibular Fracture, Adult. - Prescriptions for Knee immobilizer to be worn at all trimes. Non-weight bearing. Keep right leg elevated when in chair. Will require Physical Therapy, to be arranged by Orthopedics at next appointment. - Medication Reconciliation, Local Pharmacy Hours form. - Follow up: Orthopaedics, [facility]; When: 4 - 5 days; Reason: Recheck today's complaints, Continuance of care. Follow up: Jai Solis MD; When: 2 - 3 days; Reason: Recheck today's complaints, Continuance of care. - Problem is new. - Symptoms have improved. HPI: 12:33 This 81 yrs old Female presents to ER via Ambulance with complaints of Leg pc Injury. 12:33 The history is obtained from the patient, EMS providers, group home records. She was pc being assisted from bed to her wheelchair and she fell. She believes an aid fell on top of her leg but is not sure. She complains of pain with an obvious deformity to her right proximal tibia. The patient has not experienced similar symptoms in the past. The patient has been recently seen by an orthopedic surgeon, for an ankle fracture . Historical: - Allergies: Motrin (Unknown); - Home Meds: 1. Gabapentin 200 mg Oral 3 times per day 2. Macrobid 100 mg Oral cap 1 cap every 12 hours 3. Celexa 20 mg Oral tab 1 tab once daily 4. Lasix 60mg Oral tab 1 tab 2 times per day 5. gabapentin 100 mg Oral cap 2 caps nightly 6. prednisone 5 mg oral tab 1 tab once daily 7. potassium chloride 10 mEq Oral cpER 1 cap once daily 8. Senna with Docusate Sodium 8.6-50 mg oral tab 2 tabs once daily 9. tramadol 50 mg Oral tab three times a day 10. atenolol 100 mg Oral tab 1 tab once daily 11. aspirin 81 mg Oral chew 1 tab once daily 12. albuterol sulfate 2.5 mg/0.5 mL Inhl nebu every 6 hours and Q 2 hrs prn 13. magnesium oxide 400 mg Oral cap 400 mg twice a day 14. Namenda 10 mg oral tab 1 tab 2 times per day 15. Miralax 17 gram/dose Oral powd 17 g once daily as needed 16. zonisamide 50 mg oral cap 1 cap 2 times per day 17. fludrocortisone 0.1 mg oral tab 1 tab once daily 18. bisacodyl 10 mg Rectal supp 1 suppository Daily as needed 19. Enema Rectal daily as needed 20. acetaminophen 500 mg Oral tab 2 tabs twice a day 21. Vitamin D Oral 2000 unit daily 22. multiple vitamin 1 tab daily 23. ferrous gluconate 324 mg (37.5 mg iron) Oral tab 325 mg twice a day 24. Colace 100 mg oral cap 1 cap 2 times per day - PMHx: afib; Dementia; Fibromyalgia; fracture of T11-T12; Hypertension; Lupus; neuropathy; orthostatic hypotension; Parkinson's Disease; TIA; ventricular tachycardia; Vertigo; - PSHx: Cataract Surgery- Bilateral; Cholecystectomy; Hysterectomy; - The history from nurses notes was reviewed: and I agree with what is documented. - Social history: Smoking status: Patient states was never smoker of tobacco. No barriers to communication noted, The patient speaks fluent Kazakh, Speaks appropriately for age. - Family history: Not pertinent. - : The pt / caregiver states he / she is not on anticoagulants. Home medication list is obtained from the facility JUN. - Hospitalizations: : No recent hospitalization is reported. - Exposure Risk Screening:: None identified. - Immunization history:: All immunizations up-to-date. - Social history:: the patient is a non-smoker, the patient does not drink alcohol. ROS: 12:37 All systems are negative except as listed. pc Exam: 12:37 General Appearance: alert, the patient is in moderate distress. pc 12:37 EENT: normal eye inspection, ears, nose and throat normal, pharynx normal, mucous membranes moist 12:37 Neck: The exam reveals no acute abnormalities. ROM is normal and painless. No nuchal rigidity is noted.. 12:37 Respiratory: no respiratory distress, normal breath sounds. 12:37 CVS: regular pulse rate, regular rhythm, normal S1 and S2, no murmurs, strong peripheral pulses. 12:37 Abdomen: soft, non-tender, no organomegaly, normal bowel sounds. 12:37 Back: 12:37 Skin: skin color is normal, warm, dry. 12:37 Extremities: grossly normal except: noted in the right jaramillo: deformity, pain, swelling, proximal tibia just distal to tubercle. NVT normal distally . 12:37 Neuro: oriented x 3, cranial nerves normal as tested, no motor deficits, no sensory deficits. 12:37 Psych: normal mood. Vital Signs: 12:12 BP 101 / 54; Pulse 53; Resp 18; Temp 98.2(TE); Pulse Ox 2 lpm NC; Weight 90.72 kg / 200 pml lbs (R); Pain 5/10; 12:27 Pulse Ox 99% on 2 lpm NC; pml 14:55 BP 108 / 54; Pulse 55; Resp 18; Temp 97.1; Pulse Ox 96% on 2 lpm NC; Pain 5/10; pml MDM: 12:31 IV Saline Lock ordered. pc 12:31 NS 0.9% 1000 ml IV at 100 mL/hr continuous ordered. pc 12:31 fentaNYL (PF) 25 mcg IVP once ordered. pc 12:32 NOTHING BY MOUTH+DIET ordered. EDMS 12:32 CBC with Diff Ordered. EDMS 12:32 MED Profile Ordered. EDMS 12:33 Knee, Complete Ordered. EDMS 12:33 Tibia/Fibula Ordered. EDMS 12:37 Differential Diagnosis: fall, right tib/fib fracture. Plan: meds, labs, imaging. pc 12:[address] [facility] Payment Agreement was scanned into [employer] and attached to record. [id number] 12:50 Financial registration complete. dm19 13:11 Chest, 1 View Ordered. EDMS 13:31 CBC with Diff Reviewed. pc 13:31 MED Profile Reviewed. pc 14:01 Data reviewed: old medical records, vital signs, nurses notes, lab test results, all pc radiology studies and available results. Test interpretation: LAB - all labs as ordered have been reviewed, interpreted and considered in the overall management of the clinical presentation; X-RAY - interpreted by Radiologist and personally reviewed, 1 view chest no acute disease, Knee Right Fracture TIbial plateau Proximal Tibia Tibia/Fibula Right Fracture Displaced proximal tibia, extending into the tibial plateau, and a nondisplaced fibular head fracture. The patient has been re-examined and re-evaluated. The patient's symptoms have markedly improved after treatment. Physician consultation: Dr. Faustino Garcia regarding patient's condition, and will see patient in ED. 14:14 Disposition: The historical points, examination findings, and any diagnostic results pc supporting the provided diagnosis, were discussed with the patient or legal guardian. The need for outpatient follow up with the provider listed on their discharge instructions was discussed. They were encouraged to return to [facility], or the nearest ED, if symptoms worsen/persist, or for any other questions/concerns. Administered Medications: 12:42 Drug: fentaNYL (PF) 25 mcg [fentanyl (PF) 50 mcg/mL injection solution (0.5 mL)] Route: pml IVP; Site: left hand; 12:52 Drug: NS 0.9% 1000 ml [sodium chloride 0.9 % injection solution] Route: IV; Rate: 100 pml mL/hr; Site: left antecubital; Signatures: Dispatcher [employer] EDMS Joey Warren MD MD pc Jobson, Karen, RN RN kpj Quay, Paulina, RN RN pml McLear, Diane [email or web address] The chart was reviewed and I authenticate all verbal orders and agree with the evaluation and treatment provided.Corrections: (The following items were deleted from the chart) 12:37 12:33 The patient has been recently seen by an orthopedic surgeon, leslie pc 14:12 13:19 TYPE & SCREEN+BBK ordered. EDMS EDMS 14:12 13:19 PT & APTT+LAB ordered. EDMS EDMS Attachments: 12:50 [facility] Payment Agreement [email or web address] Chart Complete MTDD
== END 2016-05-08 15:00 | disposition home or self-care (01) ==
LOC: M ED 11:54
DX: M80.061A Age-related osteoporosis with current pathological fracture, right lower leg, initial encounter for fracture (principal); I10 Essential (primary) hypertension; I48.91 Unspecified atrial fibrillation; I95.1 Orthostatic hypotension; G62.9 Polyneuropathy, unspecified; G20 Parkinson's disease; F03.90 Unspecified dementia, unspecified severity, without behavioral disturbance, psychotic disturbance, mood disturbance, and anxiety; M32.9 Systemic lupus erythematosus, unspecified; M79.7 Fibromyalgia; I47.2 Ventricular tachycardia; R42 Dizziness and giddiness; Z86.73 Personal history of transient ischemic attack (TIA), and cerebral infarction without residual deficits; Z88.8 Allergy status to other drugs, medicaments and biological substances; Z79.899 Other long term (current) drug therapy; Z79.52 Long term (current) use of systemic steroids; Z79.82 Long term (current) use of aspirin; Z79.891 Long term (current) use of opiate analgesic
CPT/HCPCS: 36415; 71010; 73564; 73590; 80048; 85025; 96374; 99284; J3010

== ENCOUNTER → 2016-05-10 | Outpatient (REF) | payer MEDICARE, MEDICAID ==
[~2016-05-10] MED LIST changes: +ALBU83IN INH; +ASPI81CH PO; +ATEN100T PO; +FURO20TA2 PO; +GABA-279 PO; +GABA300C3 PO; +KLOR1CAP2 PO; +NITR100C37 PO; +PRED5TA PO; +SENN8.6T7 PO; +TYLE325T5 PO; +TYLE500T78 PO
[2016-05-10 12:17] LABS: MEAN CORPUSCULAR HEMOGLOBIN 29.7 pg (27.0-33.0); MEAN CORPUSCULAR HGB CONC 32.5 g/dl (32.0-36.5); MEAN CORPUSCULAR VOLUME 91.5 fl (80.0-96.0); WHITE BLOOD COUNT 6.8 K/mm3 (4.0-10.0)
[2016-05-10 13:17] LABS: CALCIUM LEVEL 8.4 MG/DL (8.8-10.2); CREATININE FOR GFR 1.27 MG/DL (0.55-1.02); GLOMERULAR FILTRATION RATE 43.1 (>32); POTASSIUM SERUM 4.1 MEQ/L (3.5-5.1)
== END ==
PROVIDERS: ATTEND Internal Medicine
DX: D64.9 Anemia, unspecified (principal); R73.9 Hyperglycemia, unspecified; Z79.899 Other long term (current) drug therapy

== ENCOUNTER 2016-05-12 15:50 | Inpatient (IN) | payer MEDICARE, MEDICAID ==
[~2016-05-12] VITALS: Ht 172.7 cm; Wt 93.8 kg
[~2016-05-12 15:50] MED LIST changes: -ALBU83IN INH; -ASPI81CH PO; -ATEN100T PO; -FURO20TA2 PO; -GABA-279 PO; -GABA300C3 PO; +HYDR-3713 PO; -HYDR1TAB97 PO; -KLOR1CAP2 PO; +LOPR1TAB6 PO; -LOPR50TA PO; -NITR100C37 PO; -PRED5TA PO; +PROP10TA56 PO; -PROP10TAB PO; -SENN8.6T7 PO; -TYLE325T5 PO; -TYLE500T78 PO
[2016-05-12 16:42] LABS: BASO # 0.1 K/mm3 (0.0-0.2); EOS # 0.1 K/mm3 (0.0-0.50); EOS % 1.5 % (0.0-3.0); LARGE UNSTAINED CELL # 0.1 K/mm3 (0.0-0.4); LYMPH # 0.8 K/mm3 (1.5-4.5); LYMPH % 10.8 % (24.0-44.0); MEAN CORPUSCULAR HEMOGLOBIN 28.6 pg (27.0-33.0); MEAN CORPUSCULAR HGB CONC 31.6 g/dl (32.0-36.5); MEAN CORPUSCULAR VOLUME 90.4 fl (80.0-96.0); MONO # 0.4 K/mm3 (0.0-0.8); MONO % 5.5 % (0.0-5.0); NEUTROPHILS # 5.2 K/mm3 (1.8-7.7); NEUTROPHILS % 79.3 % (36.0-66.0); PLATELET COUNT, AUTOMATED 150 k/mm3 (150-450); RED CELL DISTRIBUTION WIDTH 16.4 % (11.5-14.5); WHITE BLOOD COUNT 6.5 K/mm3 (4.0-10.0)
[2016-05-12 17:04] LABS: ALBUMIN 2.8 GM/DL (3.2-5.2); ALBUMIN/GLOBULIN RATIO 0.68 (1.00-1.93); BILIRUBIN,DIRECT 0.2 MG/DL (0.0-0.2); BILIRUBIN,TOTAL 0.6 MG/DL (0.2-1.0); CALCIUM LEVEL 8.4 MG/DL (8.8-10.2); CREATININE FOR GFR 1.57 MG/DL (0.55-1.02); GLOMERULAR FILTRATION RATE 33.7 (>32); POTASSIUM SERUM 4.2 MEQ/L (3.5-5.1); TOTAL PROTEIN 6.9 GM/DL (6.4-8.2)
--- NOTE | 2016-05-12 17:26 | REP ---
CT brain without contrast 05/12/2016: Indication: CVA greater than 4.5 hours. Comparison: CT scanning 10/11/2015, 07/17/2015 Findings: Ventricles are of normal size and configuration for age. Calcifications are seen in the basal ganglia bilaterally and in the cerebellum bilaterally consistent with iron deposition. The appearance is not significantly changed on prior study. There is no intracranial hemorrhage or extra-axial fluid collection. Small amount of periventricular and subcortical white matter hypodensities are noted consistent with mild chronic small vessel ischemic disease. Dense calcification is seen in the distal right vertebral artery, and in the bilateral carotid siphons. The skull is without fracture. Visualized portions of the paranasal sinuses and mastoid sinuses are clear. Impression: No acute intracranial pathology or hemorrhage. Mild chronic small vessel ischemic disease. Moderate bilateral basal ganglia and cerebellar calcifications consistent with iron deposition. Extensive atherosclerotic disease. Signed by Nikkie De Leon MD 05/13/2016 08:02 P
--- NOTE | 2016-05-12 17:42 | REP ---
Portable chest: 05/12/2016: Comparison 05/08/2016, 01/09/2016. Clinical history: Infiltrate. Altered mental status. Supine portable chest shows elevation of the right diaphragm as on the previous study. There are right upper quadrant surgical clips. There is underlying fibrosis as before and crowding of markings due to low levels of inflation overall. Some atelectatic changes in the left base. Underlying fibrosis is grossly similar to previous studies. Tortuous calcified aorta. I do not see any definite vascular congestion or layering effusion. Airway deviates around the aorta. Impression: 1. COPD fibrosis and elevated right diaphragm with volume loss right hemithorax. Heavier basilar fibrotic or atelectatic changes left greater than right with crowding of markings. No rahul edema. Tortuous calcified aorta and the cardiac silhouette enlarge but not changed from previous study. Signed by Landon Willett MD 05/12/2016 08:02 P
[2016-05-12] MEDS ORDERED: TICAGRELOR 90 MG TABLET (BRILINTA) As Ordered ONE (17:54)
[2016-05-12] MEDS ORDERED: ASPIRIN 81 MG CHEW TABLET As Ordered ONE (17:54)
[2016-05-12] MEDS ORDERED: ENOXAPARIN 100MG/1ML SYRINGE (J1650) SC SCH (18:00)
[2016-05-12] MEDS ORDERED: NITROGLYCERIN 0.4 MG SUBL TABLET SL PRN (18:00)
[2016-05-12] MEDS ORDERED: NITR100C37 PO ×2 (18:14)
--- NOTE | 2016-05-12 18:15 | ECGEPIP ---
Stationary ECG Study [facility] - ED Test Date: 2016-05-12 Pat Name: CECIL CASPER Department: Room: - Gender: F Feller Operator: aster : 1935 Requested By: JAVON Mi Order Number: [id number] Reading MD: Shaylee De Measurements Intervals [place] Rate: 55 P: 50 OH: 173 QRS: -17 QRSD: 93 T: -29 QT: 434 QTc: 418 Interpretive Statements SINUS BRADYCARDIA MODERATE VOLTAGE CRITERIA FOR LVH, CONSIDER NORMAL VARIANT ST DEVIATION AND MODERATE T-WAVE ABNORMALITY, CONSIDER ANTERIOR ISCHEMIA, MORE PRONOUNCED COMPARED 10/12/15, CLINICAL CORRELATION Electronically Signed On 05-12-2016 18:15:07 EST by Shaylee De
[2016-05-12] MEDS ORDERED: GABA300C3 PO (18:17)
[2016-05-12] MEDS ORDERED: FURO20TA2 PO (18:17)
[2016-05-12] MEDS ORDERED: CITA20TA4 PO (18:17)
[2016-05-12] MEDS ORDERED: GABA-279 PO (18:17)
[2016-05-12] MEDS ORDERED: ASPI81CH PO (18:31)
[2016-05-12] MEDS ORDERED: TYLE325T5 PO (18:31)
[2016-05-12] MEDS ORDERED: KLOR1CAP2 PO (18:31)
[2016-05-12] MEDS ORDERED: PRED5TA PO (18:31)
[2016-05-12] MEDS ORDERED: SENN8.6T7 PO (18:31)
[2016-05-12] MEDS ORDERED: ALBU83IN INH ×2 (18:31)
[2016-05-12] MEDS ORDERED: ATEN100T PO (18:31)
[2016-05-12] MEDS ORDERED: TYLE500T78 PO (18:31)
[2016-05-12] MEDS ORDERED: TRAM50TA2 PO (18:31)
[2016-05-12 19:47] LABS: RETIC HEMOGLOBIN CONTENT CHr 32.4 PG (24-36); RETICULOCYTE ABSOLUTE ADVIA212 79 x10(9)/L (17-77)
[2016-05-12 19:53] LABS: REASON FOR REVIEW COMPREHENSIVE REVIEW
[2016-05-12 19:59] LABS: PERCENT SATURATION 12.1 % (13.2-37.4)
[2016-05-12] MEDS ORDERED: MORPHINE 2 MG/ML 1ML SYRINGE As Ordered ONE (20:19)
[2016-05-12] MEDS ORDERED: FLEET ENEMA PR PRN (20:30)
[2016-05-12] MEDS ORDERED: MIRALAX *UNIT DOSE* 17GM PACKET PO PRN (20:30)
[2016-05-12] MEDS ORDERED: MOM 30ML SUSPENSION UDC PO PRN (20:30)
[2016-05-12] MEDS ORDERED: BISACODYL 10 MG SUPP PR PRN (20:30)
[2016-05-12] MEDS ORDERED: FUROSEMIDE 20 MG TAB PO SCH (21:00)
--- NOTE | 2016-05-12 21:00 | REPUSA ---
CLINICAL HISTORY: Altered mental status. TECHNIQUE: MRI of the brain was performed utilizing multiple sequences in axial, coronal and sagittal planes without IV contrast material. COMMENTS: Comparison is made with the prior MRI dated 10/13/2015. Correlation is made also with CT of the brain of the same date. Note is made of several small foci demonstrating restricted diffusion in the left and right parietal lobe most compatible with embolic stroke phenomenon. This is new in comparison with the prior MRI. There are dense calcifications noted within left and right basal ganglia. This is better seen on CT. Dense calcification is also seen within left and right cerebellum. The sella and parasellar region are unremarkable in appearance. The corpus callosum and cerebellar to nsils are of normal configuration and position. There are no intra or extra-axial collections. There is no mass effect or midline shift. There is no evidence of hematoma formation. There is no hydroceph alus. The visualized arterial structures demonstrate normal appearing flow voids. The seventh and eighth ne rve bundles are visualized and are unremarkable in appearance. Several foci of T2/FLAIR hyperintensity are noted in the bilateral periventricular and subcortical wh ite matter compatible with mild chronic white matter ischemic changes. Generalized proportionate dilatation of ventricles and sulci is present compatible with age-appropria te parenchymal atrophy. IMPRESSION: 1. Several small foci demonstrating restricted diffusion in the left and right parietal lobe most com patible with acute embolic stroke. This is new in comparison with the prior MRI. 2. There are dense calcifications noted within left and right basal ganglia. This is better seen on CT. Dense calcification is also seen within left and right cerebellum. 3. Generalized age-appropriate parenchymal atrophy. 4. Mild chronic white matter microvascular ischemic changes. Message was left for Dr Mariano with an answering service. Thank you for your kind referral of this patient. We appreciate the opportunity to participate in thi s patient's care.
--- NOTE | 2016-05-12 22:13 | HPE ---
DATE OF ADMISSION: 05/12/2016 Patient is a [facility] resident at [facility]. INPATIENT HOSPITALIST: Gennaro Anne. CHIEF COMPLAINT: Word finding difficulty. Chest pain. 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 According to the son patient was having difficulty finding the correct words to say and appeared to be disoriented asking "how did we get back so fast." when they were still at the orthopedic appointment today. Patient complained of "my chest is hurting." for the past three days according to the daughter without accompanying diaphoresis, palpitations, lightheadedness, cyanosis or feeling of a pending doom. No medications were given at the penitentiary aside for her chronic pain medications given for the fracture Ultram one tab, 50 mg every 8 hours and Tylenol 2 tabs twice daily. Patient was recently diagnosed with urinary tract infection started on Macrobid and was sent to the emergency room for further evaluation for altered mental status and complains of chest pain. Fingerstick was 218. Patient is oriented. CT of the head showed no acute intracranial pathology or hemorrhage, mild chronic small vessel ischemic disease and moderate bilateral basal ganglia and cerebral calcifications consistent with iron deposition and extensive atherosclerotic disease. She currently denies nausea or vomiting, epigastric discomfort, fever, chills or cough, complains of her chest hurting in the mid sternal area without any radiation rating this as 1-2 out of 10. No recent weight gain, weight loss, changes in appetite. She has been mostly bed bound secondary to the recent tibial fibular fracture. In the emergency room she was found to be hypoxic at 75% on room air, was emergently placed on 4 liters nasal canal at 98%. Electrocardiogram showed T-wave inversions in the lateral leads V1 through V5. Troponin was elevated at 1.67. Hospitalist was called for admission for acute coronary syndrome with complaints of chest pain and electrocardiogram findings. PAST MEDICAL HISTORY: 1. Lupus. 2. Parkinson's disease. 3. Dementia. 4. Fibromyalgia. 5. Atrial fibrillation. 6. Compression fracture T11-T12. 7. Neuropathy. 8. Orthostatic hypotension. 9. Transient ischemic attack (TIA). 10. Nonsustained V-tach 11. Chronic vertigo. 12. Echocardiogram in August 2015 showed grade 2 diastolic dysfunction. Ejection fraction of 70% read by Dr. Soraida Newby. 13. Seizure versus narcolepsy on chronic zonisamide with abnormal EEG. 14. Chronic hypoxic respiratory failure on 2 liters of oxygen. 15. Urinary tract infection with enteric coccus faecalis and Klebsiella. 16. 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 17. Chronic kidney disease stage 3. Baseline creatinine 1.2 to 1.3. PAST SURGICAL HISTORY: 1. Cholecystectomy. 2. Hysterectomy. SOCIAL HISTORY: [facility]. Nonsmoker. No alcohol use. Prior to penitentiary patient lived with her son. DO NOT RESUSCITATE, DO NOT INTUBATE. REVIEW OF SYSTEMS: Poor historian per history of present illness obtained from the son and daughter at the bed side. PHYSICAL EXAMINATION: Blood pressure 103/51, pulse 61, respiratory rate 16, temperature 98.3, 75% on room air, 98% on 4 liters nasal cannula. 94.62 kilos, 68 inches in height. GENERAL: Patient is oriented to person only. Disoriented to time and date. Answers questions appropriately. Word findings difficulties with mild expressive aphagia and no slurring of speech. Speech is nonfluent and slow to answer but appropriate. No facial asymmetry. Tongue is midline. No sensory disturbances in the face bilaterally. Motor function is limited by right tibia fibular fracture. Bilateral upper extremities motor function is 5/5. Pupils are round and reactive. Moist mucous membranes. No jugular venous distention or thyromegaly, cervical lymphadenopathy, or pharyngeal erythema. LUNGS: Clear to auscultation. No wheezing, rales or rhonchi. HEART: S1, S2. Sinus bradycardia. No murmurs noted. ABDOMEN: Obese, soft, non-tender, non-distended. Positive bowel sounds. No hepatosplenomegaly. No rebound or guarding. EXTREMITIES: No cyanosis, clubbing or pitting edema. Palpable pulses. Patient has wound on the left anterior leg which is well-healed and scabbed. Right lower extremity is in a cast due to recent tibial fibular fracture. IMAGING: Electrocardiogram sinus bradycardia. Ventricular rate of 55. T-wave inversion V1 to V5. CT of the head no acute intracranial pathology or hemorrhage. Mild chronic small vessel ischemic disease. Moderate bibasilar bilateral basal ganglia, cerebellar calcifications consistent with iron deposition. Extensive atherosclerotic disease. LABORATORY DATA: White count 6.5, hemoglobin 8.4, previous hemoglobin 05/10/2016 was 8.5 and 26, unchanged. Platelet count of 150. Sodium 144, potassium 4.2, chloride 99, bicarbonate 39, BUN 45, creatinine 1.57, glucose of 143. Calcium 8.4, iron 40, TRBC 331, AST 38, ALT 21, alkaline phosphatase 92, troponin 1.67, total CK 98, MB fraction 1.1, relative index 1.12, myoglobin is pending. ASSESSMENT AND PLAN: This is an 81-year-old female with history of transient ischemic attack (TIA), atrial fibrillation on chronic aspirin, not on anticoagulation due to history of recurrent falls, dementia, Parkinson's disease , neuropathy, orthostatic hypotension, hypertension compression [id number] to T12 , non sustained T-tach, chronic vertigo, seizure versus narcolepsy, chronic hypoxic respiratory failure on 2 liters of oxygen with a recent fall a week ago with a right tibia fibular fracture presents to the emergency room with word finding difficulties and complains of three days of chest pain found to have a non St elevation myocardial infarction (IN) with T-wave inversions in the lateral leads, troponin 1.67 admitted for medical management as well as word finding difficulties. CT of the head is negative. Patient will be admitted for an inpatient for two midnights, assigned to Dr. Gennaro Anne at 7 a.m. on 05/13/2016 for the following issues: 1. Non ST elevation myocardial infarction (IN) acute coronary syndrome. Patient continues to have substernal chest pain minimal at this time at 2/10. Currently on aspirin on Lovenox. Continue with atenolol. Dr. Willams has been consulted for medical management. Patient has refused transfer to [place] for cardiac catheterization. Monitor for ongoing symptoms. Nitroglycerine as needed. Defer to Dr. Willams for institution of Plavix or statins. No overt GI bleed, we will transfuse one unit of blood to decrease the <<13:37>> ischemia that can be caused by severe anemia. Patient has been consented via Health Care Proxy. Patient's son signed the consent form for blood transfusion. Continue to monitor cardiac markers every 8 hours and monitor for ongoing symptoms. She will be admitted to Progressive care unit (PCU) under telemetry. 2. Word finding difficulties. CT of the head is negative. Iron deposition and bilateral basal ganglia and cerebellum per Dr. Matias's a common finding. Awaiting MRI of the brain report. No formal consult for neurology. Continue with neuro checks every 4 hours. Naomy FLYNN for any new neurological findings. Continue with aspirin and Lovenox for now. 3. Acute on chronic hypoxic respiratory failure on chronic 2 liters of oxygen. Patient was found to be 75% on room air in the emergency room is currently on 4 liters of oxygen. In light of patient's recent tibia and fibular fracture and hypoxia and complains of chest pain, patient will be evaluated for pulmonary embolism with a V/Q scan. We are unable to do a CT angio of the chest in light of patient's creatinine of 1.57 and chronic kidney disease stage 3 with increased risk of contrast induced neuropathy. Therefore patient will be treated with Lovenox for acute coronary syndrome, non ST elevation myocardial infarction (IN) and rule out pulmonary embolism in the morning. Patient is not tachycardic as she takes atenolol for her paroxysmal atrial fibrillation which is currently sinus rhythm. 4. Recent history of urinary tract infection. Check UA urine, C S. This may be a potential source of her confusion as well. We will discontinue patient's Macrobid for now in light of patient's renal failure. Await culture results before starting on antibiotics as she is asymptomatic currently. 5. Atrial fibrillation currently sinus bradycardia. Continue on atenolol with holding parameters. Currently on aspirin due to her risk of increased bleeding with recurrent falls. 6. History of Lupus, seizure induced by Lupus, currently on zonisamide. Followed as outpatient by neurology. 7. Right tibia fibular fracture. Continue with current management as recommended by orthopedic surgery as outpatient. Patient had been bed rest. Conservative management not a surgical candidate. Monitor for bleeding due to institution of anticoagulation. 8. Depression. Continue on Celexa. 9. Neuropathy. Continue on gabapentin. 10. History of dementia. 11. History of Parkinson's disease. Continue on current neurologic medications. 12. History of orthostatic hypotension. Continue on fludrocortisone. 13. Expressive Aphasia. CT Brain showed no acute intracranial pathology. Per Neurology property assessment monitor, Dr. Damir Matias, iron deposition in bilateral basal ganglia and cerebellum is a common finding. Admit to telemetry, neurochecks q4hrs. If no contraindication, continue on ASA, start on statin, and check an MRI Brain. If positive MRI Brain for acute CVA, speech therapy and continue with lovenox for anticoagulation in light of patient's history of Atrial Fibrillation. Monitor for any new neurological deficits as an embolic CVA has a risk of bleeding. Will formally consult Neurology if the MRI of the brain shows acute CVA. Patient will be assigned to Dr. Gennaro Anne at 7 a.m. on 0-05/13/2016. CODE STATUS: DO NOT RESUSCITATE, DO NOT INTUBATE. 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 Matias was informed and was formally consulted. He agrees in anticoagulation for now, but will discuss with the patient and her family risk of bleeding. [facility]asha
[2016-05-12] MEDS ORDERED: DOCUSATE SODIUM 100 MG CAP As Ordered ONE (22:16)
[2016-05-12] MEDS ORDERED: ENOXAPARIN 30 MG/0.3 ML SYR (J1650) As Ordered ONE (22:16)
[2016-05-12] MEDS ORDERED: GABAPENTIN 100 MG CAP As Ordered ONE (22:16)
[2016-05-12] MEDS ORDERED: traMADol 50 MG TAB As Ordered ONE (22:17)
[2016-05-12] MEDS ORDERED: ENOXAPARIN 60 MG/0.6 ML SYR (J1650) As Ordered ONE (22:17)
[2016-05-12] MEDS: ZONISAMIDE 50 MG CAP (ZONEGRAN) PO SCH (22:25)
[2016-05-12] MEDS: GABAPENTIN 100 MG CAP PO SCH (22:25)
[2016-05-12] MEDS: MEMANTINE 5MG TABLET (NAMENDA) PO SCH (22:25)
[2016-05-12] MEDS: SENOKOT S TAB PO SCH (22:25)
[2016-05-12] MEDS: DOCUSATE SODIUM 100 MG CAP PO SCH (22:25)
[2016-05-12] MEDS: MAGNESIUM OXIDE 400 MG TAB (MAG-OX) PO SCH (22:25)
[2016-05-12] MEDS: traMADol 50 MG TAB PO SCH (22:25)
[2016-05-12] MEDS: ENOXAPARIN 100MG/1ML SYRINGE (J1650) SC SCH (22:25)
[2016-05-12] MEDS: ALBUTEROL SULFATE 2.5 MG/0.5 ML INH NEB SOLN INH SCH (22:32)
[2016-05-13] VITALS (8 sets, daily range): BP systolic 102–149; BP diastolic 55–86
[2016-05-13] MEDS: FUROSEMIDE 20 MG TAB PO SCH ×3 (01:11→17:00)
[2016-05-13] MEDS ORDERED: ENOXAPARIN 100MG/1ML SYRINGE (J1650) As Ordered ONE (01:21)
[2016-05-13] MEDS: ENOXAPARIN 100MG/1ML SYRINGE (J1650) SC SCH ×2 (01:28→21:10)
[2016-05-13] MEDS: GABAPENTIN 300 MG CAP PO SCH ×2 (06:49→10:16)
[2016-05-13 07:21] LABS: MEAN CORPUSCULAR HEMOGLOBIN 30.1 pg (27.0-33.0); MEAN CORPUSCULAR HGB CONC 33.2 g/dl (32.0-36.5); MEAN CORPUSCULAR VOLUME 90.7 fl (80.0-96.0); RED CELL DISTRIBUTION WIDTH 15.8 % (11.5-14.5); WHITE BLOOD COUNT 6.8 K/mm3 (4.0-10.0)
[2016-05-13 07:37] LABS: CALCIUM LEVEL 8.2 MG/DL (8.8-10.2); CREATININE FOR GFR 1.36 MG/DL (0.55-1.02); GLOMERULAR FILTRATION RATE 39.8 (>32); POTASSIUM SERUM 3.5 MEQ/L (3.5-5.1)
[2016-05-13] MEDS ORDERED: ALBUTEROL SULFATE 2.5 MG/0.5 ML INH NEB SOLN As Ordered ONE ×2 (08:10→12:40)
[2016-05-13] MEDS: ALBUTEROL SULFATE 2.5 MG/0.5 ML INH NEB SOLN INH SCH ×4 (08:17→19:22)
--- NOTE | 2016-05-13 08:48 | REP ---
BILATERAL LOWER EXTREMITY VENOUS DOPPLER: Indication: 81 -year-old female, exclude DVT. LEFT LOWER EXTREMITY FINDINGS: Color-flow, spectral wave, and hammonds scale imaging were used to evaluate the deep lower extremity veins at common femoral, superficial femoral and popliteal venous levels. There is normal compressibility of veins at the above stated levels. There is normal response to augmentation of flow. The profunda femoris vein is also patent. IMPRESSION: No evidence of DVT in the left lower extremity. RIGHT LOWER EXTREMITY FINDINGS: Color-flow Doppler, spectral wave Doppler and hammonds scale imaging used to evaluate the deep right lower extremity veins at common femoral, superficial femoral and popliteal venous levels. The popliteal veins were not able to be visualized due to patient's leg cast from the tibia/fibular fracture. The remainder of the deep veins to include common femoral vein, proximal mid and distal superficial femoral veins as well as the origin of the right profunda femoris and greater saphenous veins were patent and compressible. IMPRESSION: No visualized deep venous thrombosis in right lower extremity. Popliteal vein, however, could not be assessed due to overlying cast from tibial/fibular fracture. Signed by Nikkie De Leon MD 05/13/2016 08:04 P
[2016-05-13] MEDS ORDERED: ATENOLOL 50 MG TAB PO SCH (09:00)
[2016-05-13] MEDS: MAGNESIUM OXIDE 400 MG TAB (MAG-OX) PO SCH ×2 (10:14→21:10)
[2016-05-13] MEDS: ASPIRIN 81 MG CHEW TABLET PO SCH (10:14)
[2016-05-13] MEDS: DOCUSATE SODIUM 100 MG CAP PO SCH ×2 (10:14→21:10)
[2016-05-13] MEDS: VITAMIN D 1,000 INTERNATIONAL UNITS TABLET PO SCH (10:14)
[2016-05-13] MEDS: DULoxetine 30 MG CAP (CYMBALTA) PO SCH (10:14)
[2016-05-13] MEDS: ATORVASTATIN 20 MG TAB PO SCH (10:14)
[2016-05-13] MEDS: MEMANTINE 5MG TABLET (NAMENDA) PO SCH ×2 (10:15→21:10)
[2016-05-13] MEDS: SENOKOT S TAB PO SCH ×2 (10:15→21:10)
[2016-05-13] MEDS: CitaloPRAM (CeleXA) 20 MG TAB PO SCH (10:15)
[2016-05-13] MEDS: FLUDROCORTISONE ACETATE 0.1 MG TAB PO SCH (10:15)
[2016-05-13] MEDS: PANTOPRAZOLE 40MG TAB (PROTONIX) PO SCH (10:15)
[2016-05-13] MEDS: ZONISAMIDE 50 MG CAP (ZONEGRAN) PO SCH ×2 (10:15→21:11)
[2016-05-13] MEDS: predniSONE 5 MG TAB PO SCH (10:16)
[2016-05-13] MEDS ORDERED: traMADol 50 MG TAB As Ordered ONE ×2 (12:20→16:16)
[2016-05-13] MEDS: traMADol 50 MG TAB PO SCH ×3 (12:22→21:09)
--- NOTE | 2016-05-13 13:44 | REP ---
VENTILATION-PERFUSION LUNG SCAN: History: Hypoxia and chest pain. Tib-fib fracture. Comparison chest x-ray is from the previous day. Technique: 1.0 mCi technetium 99m DTPA aerosol is utilized for the ventilation study and is followed by a 5.3 mCi intravenous dose of technetium-99m MAA for the perfusion exam. Eight planar images are acquired for each portion of the exam. Scintigraphic findings: There is mild central bronchial deposition of inspired ventilatory tracer bilaterally. There is a matched VQ defect in the posterior segment of the right upper lobe visible on posterior oblique images. No other significant perfusion defect is seen. Impression: Low probability scan for pulmonary embolus. Signed by Albino Grijalva MD 05/13/2016 03:10 P
--- NOTE | 2016-05-13 17:24 | IPNPDOC ---
Date of Service/Time 05/13/16 Progress Note SUBJECTIVE: The patient complains of feeling tired and weak she denies chest pressure shortness of breath lightheadedness or dizziness at this time she denies nausea vomiting or diaphoresis. She does exhibit some difficulty with word finding as per her children but I do not appreciate any significant deficit OBJECTIVE: PHYSICAL EXAMINATION: VITAL SIGNS: Mildly bradycardic otherwise Please see below. GENERAL: Frail obese elderly female lying flat in bed he does not appear to be in any acute distress HEENT: Pupils recommend rectal N do not appreciate any facial droop cranial 2 through 12 appear grossly intact CARDIOVASCULAR: S1-S2 bradycardic irregularly irregular. RESPIRATORY: Clear to auscultation anteriorly the patient refuses to cooperate with the posterior exam. ABDOMINAL: Sounds present abdomen soft EXTREMITIES: No clubbing cyanosis or edema NEUROLOGICAL: Nonfocal on my exam LABORATORY DATA: Improved anemia status post 1 unit PRBCs hgb 9.2 up from 8.4, elevated reticulocyte count, elevated troponin at 1.6 trending 1.7 and 1.8-6 within normal limits otherwise Please see below. MICROBIOLOGY: Urine culture pending otherwise Please see below. IMAGING: Patient had a CT scan of the head revealed no intracranial pathology or hemorrhage extensive atherosclerotic disease Chest x-ray COPD fibrosis and elevated right diaphragm no rahul edema cardiac silhouette enlarged but unchanged from previous study MRI of the brain left and right parietal lobe most compatible with acute embolic stroke Dunst desiccation noted within the left and right basal ganglia discussed occasional seen within the left and right cerebellum Duplex ultrasound revealed no evidence of DVT bilaterally VQ scan reveals low probability for PE Echocardiogram: Ordered but not yet completed. DVT prophylaxis ordered?: Therapeutic Lovenox ASSESSMENT AND PLAN: This is a 81-year-old female with acute CVA and an STEMI in the setting of a recent fall with inoperable femur fracture on the right. Problem #1 NSTEMI: The patient is being anticoagulated she is on aspirin and beta mary and a statin she did receive Brilinta patient has been seen and evaluated by cardiology that help is greatly appreciated cardiac catheterization was offered and the patient's family declined this intervention and as such we are treating medically as best capable knowing that her clinical status remains quite guarded Problem #2 acute CVA the patient on aspirin and statin given her acute coronary syndrome PTOT has not been involved to evaluate as of yet she is not having any difficulty with swallowing acid to see no indication for speech therapy evaluation she is tolerating a 2 g sodium diet quite well Dr. Matias of neurology consult at. The patient has a history of known atrial fibrillation and the decision not to anticoagulate was made in the past and the patient's propensity for frequent falls. The patient has had a fall recently at her long-term with an inoperable right femur fracture. Inoperable secondary to her comorbidities and advanced age the patient is essentially bedridden now. She is likely a better candidate for anticoagulation at this time Problem #3 right femoral fracture: The patient previously seen by orthopedic surgery previously and is not a candidate for any operative repair given her advanced age comorbidities systems previously made Problem #4 dementia: The patient is a long-term resident she is on Namenda she does not remember previous conversations, felt to be related to Parkinson's disease Problem #5 seizure disorder the patient on zonisamide problem #6 depression fibromyalgia the patient is on Celexa Cymbalta Problem #7 systemic lupus the patient is on prednisone Problem #8 chronic pain the patient on Neurontin all TRAM Problem #9 Chronic hypoxic respiratory failure the patient is chronically on 2 L of home O2. Problem #10 chronic kidney disease: The patient is continued on her home diuretic Problem #11 gastroesophageal reflux disease patient is on Protonix Problem #12 vitamin E deficiency the patient is on supplementation Problem #13 urinary tract infection: The patient was on Macrobid on the outpatient setting at this time we are holding antibiotics her UA is not suggestive of an infection and urine cultures pending DISPOSITION: Given the multitude of comorbidities her immobility her overall prognosis is quite poor I did discuss this with her children bedside this morning we will attempt best medical therapy she is a DNR/DNI should her condition worsen would discuss with healthcare proxy potential comfort measures before escalating care any further. VS, I&O, 24H, Fishbone VS, I&O, 24H, Fishbone Vital Signs Date Time Temp Pulse Resp B/P Pulse Ox O2 Delivery O2 Flow Rate FiO2 05/13/16 16:22 18 05/13/16 16:00 98.3 59 113/64 100 Nasal Cannula 3.0 I&O- Last 24 Hours up to 6 AM 05/13/16 06:00 Intake Total 0 ml Output Total 300 ml Balance -300 ml Laboratory Tests 2 05/12/16 23:56: Creatine Kinase MB 1.3, Creatine Kinase MB Relative Index 1.38, Total Creatine Kinase 94, Troponin I 1.70*H 05/13/16 00:06: Urine Amorphous Sediment , Urine Appearance CLEAR, Urine Color YELLOW, Urine pH 7.0, Urine Specific [place] 1.011, Urine Protein NEGATIVE, Urine Glucose (UA) NEGATIVE, Urine Ketones NEGATIVE, Urine Urobilinogen 0.2, Urine Bilirubin NEGATIVE, Urine Leukocyte Esterase TRACEH, Urine Bacteria (Auto) NEGATIVE, Urine Blood NEGATIVE, Urine Calcium Carbonate Cryst(Auto) , Urine Calcium Oxalate Cryst (Auto) , Urine Calcium Phosphate [place] (Auto) , Urine Cellular Casts , Urine Cystine Crystals , Urine Granular Casts (Auto) , Urine Hyaline Casts (Auto) 8, Urine Leucine Crystals , Urine Mucus (Auto) SMALL, Urine Nitrite NEGATIVE, Urine Oval Fat Bodies (Auto) , Urine RBC (Auto) 3, Urine Renal Epithelial Cells , Urine Sperm (Auto) , Urine Squamous Epithelial Cells 0 , Urine Transitional Epithelial Cells , Urine Trichomonas (Auto) , Urine Triple Phosphate Cryst (Auto) , Urine Tyrosine Crystals , Urine Uric Acid Crystals ( Auto) , Urine WBC (Auto) 3, Urine Waxy Casts (Auto) , Urine Yeast-Like Cells ( Auto) 05/13/16 06:53: Troponin I 1.83*H, Anion Gap 8, Blood Urea Nitrogen 43H, Creatinine 1.36H, Sodium Level 144, Potassium Level 3.5, Chloride Level 100, Carbon Dioxide Level 36H, Calcium Level 8.2L, Glomerular Filtration Rate 39.8 05/13/16 16:14: Laboratory Tests 05/13/16 06:53 Calcium Level 8.2 L, Red Blood Count 3.05 L, Mean Corpuscular Volume 90.7, Mean Corpuscular Hemoglobin 30.1, Mean Corpuscular Hemoglobin Concent 33.2, Red Cell Distribution Width 15.8 H Microbiology 05/13/16 Urine Culture, Received Pending TAMMIE HERNANDEZ MD May 13, 2016 17:24
[2016-05-13] MEDS ORDERED: FUROSEMIDE 20 MG TAB As Ordered ONE (17:47)
[2016-05-13] MEDS: METOPROLOL TART 25 MG TABLET PO SCH (18:00)
--- NOTE | 2016-05-13 18:10 | EDDOCDS ---
Nurse's Notes [facility] Name: Cecil Mccallum Age: 81 yrs Sex: Female : 1935 Arrival Date: 05/12/2016 Time: 15:50 Bed Admit Hold Private MD: Irma Diagnosis: Non-ST elevation (NSTEMI) myocardial infarction;Anemia, unspecified Presentation: 05/12 15:55 Presenting complaint: Patient states: [facility] , SKILLED. ALTERED MENTAL [facility] STATUS NOTED TODAY. Has UTI, on macrobid, and 1 week ago fell and incurred tib/ fib fx. FS 218 en route. Adult Sepsis Screening: Patient has new or worsening altered mentation (1 point). Patient's respiratory rate is less than 22. Systolic blood pressure is greater than 100. Patient has a qSOFA score of 1- Negative Sepsis Screen. Suicide/Homicide risk assessment- the patient denies having any suicidal and/or homicidal ideations and does not present with any other emotional, behavioral or mental health complaints. Status: Patient is not a coordinator cardiopulmonary services or dependent. Transition of care: patient was not received from another setting of care. 15:55 Acuity: MIC Level 4 [facility] 15:55 Method Of Arrival: Ambulance [facility] Triage Assessment: 16:08 General: Appears alert and aware of surroundings recognizes son. Neurological: Level of [facility] Consciousness is awake, Oriented to person. Historical: - Allergies: Motrin (Unknown, Vomit); - Home Meds: 1. acetaminophen 500 mg Oral tab 2 tabs twice a day 2. albuterol sulfate 2.5 mg/0.5 mL Inhl nebu every 6 hours and Q 2 hrs prn 3. aspirin 81 mg Oral tab 1 tab once daily 4. atenolol 100 mg Oral tab 1 tab once daily 5. bisacodyl 10 mg Rectal supp 1 suppository Daily as needed 6. Celexa 20 mg Oral tab 1 tab once daily 7. Colace 100 mg oral cap 1 cap 2 times per day 8. Macrobid 100 mg Oral cap 1 cap every 12 hours 9. Lasix 60mg Oral tab 1 tab 2 times per day 10. gabapentin 300 mg oral tab twice a day 11. Gabapentin 200 mg Oral once daily 12. prednisone 5 mg/mL Oral conc once daily 13. potassium chloride 20 mEq oral TbER once daily 14. Senna with Docusate Sodium 8.6-50 mg oral tab 2 tabs once daily 15. Ultram 50 mg Oral tab 1 tab every 8 h 16. atenolol 100 mg Oral tab 1 tab once daily 17. magnesium oxide 400 mg Oral cap 400 mg twice a day 18. Namenda 10 mg oral tab 1 tab 2 times per day 19. Miralax 17 gram/dose Oral powd 17 g once daily as needed 20. zonisamide 50 mg oral cap 1 cap 2 times per day 21. fludrocortisone 0.1 mg oral tab 1 tab once daily 22. Cymbalta 60 mg Oral cpDR 1 cap once daily - PMHx: afib; Dementia; Fibromyalgia; fracture of T11-T12; Hypertension; Lupus; neuropathy; orthostatic hypotension; Parkinson's Disease; TIA; ventricular tachycardia; Vertigo; - PSHx: Cholecystectomy; Hysterectomy; - Social history: Smoking status: Patient states was never smoker of tobacco. No barriers to communication noted, The patient speaks fluent Qatari. - Family history: Not pertinent. - : The pt / caregiver states he / she is not on anticoagulants. Home medication list is obtained from family members. - Exposure Risk Screening:: None identified. - Advance directive:: Yes. Screenin:09 Screening information is obtained from the patient. Fall risk: At risk due to prior [facility] history of falls. Assistance ADL's: Requires assistance with meal preparation, this assistance is provided by residence staff, bathing, assistance is provided by residence staff, dressing, assistance is provided by residence staff, toileting, assistance is provided by residence staff, ambulation, assistance is provided by residence staff, housework, assistance is provided by residence staff, medication administration, assistance is provided by residence staff. Abuse/DV Screen: The patient / caregiver reports he/she is: not in a situation that causes fear, pain or injury. Nutritional screening: No deficits noted. Advance Directives: Currently, there is a health care proxy, son, zak mccallum. There is an active DNR order There is a living will, There is an active Power of Employment Programs Analyst, britt mccallum. home support is adequate. Assessment: 16:13 General: Appears quietly resting o=n stretcher. alert to place and time. has no k recollection of leg FX. denies pain. PERRLA strength equal bilaterally to ext. Neurological: Level of Consciousness is awake, confused, Coat Hanger Shaper Machine Operator are equal bilaterally Moves all extremities. Speech is normal, Facial symmetry appears normal, Pupils are PERRLA. Cardiovascular: Capillary refill < 3 seconds Clubbing of nail beds is absent Heart tones S1 S2 present. Respiratory: No deficits noted. Airway is patent Respiratory effort is even, unlabored, Respiratory pattern is regular, Breath sounds are clear bilaterally. GI: Abdomen is flat, non- distended. 17:41 General: Appears splint in place to right leg. pulse is intact. CARPET MEASURER less than 2 sec. jmk rolled from side to side to accommodate rectal exam and tolerated well. denies discomfort. reports fatigue, and just wants to sleep. comfort measures provided. 19:47 General: Appears in no apparent distress, comfortable, well developed, Behavior is jp6 appropriate for age, cooperative, flat, pleasant. Pain: Denies pain. Neurological: Level of Consciousness is awake, confused. EENT: No deficits noted. Cardiovascular: No deficits noted. Capillary refill < 3 seconds Heart tones S1 S2 present Rhythm is atrial fibrillation. Respiratory: No deficits noted. Airway is patent Respiratory effort is even, unlabored, Respiratory pattern is regular, Breath sounds are clear bilaterally. GI: Abdomen is flat, non- distended Bowel sounds present X 4 quads. : No deficits noted. Derm: Skin is dry, Skin is pale, Skin temperature is warm. Musculoskeletal: No deficits noted. 21:00 Reassessment: Patient appears in no apparent distress at this time. Patient denies pain jp6 at this time. General: Behavior is appropriate for age, cooperative. Neurological: Level of Consciousness is awake, alert, confused. Cardiovascular: Rhythm is atrial fibrillation with no ectopy. Respiratory: Airway is patent Respiratory effort is even, unlabored, Respiratory pattern is regular, symmetrical. Derm: Skin is dry, Skin is pale, Skin temperature is warm. 22:00 Reassessment: Patient appears in no apparent distress at this time. Patient denies pain jp6 at this time. Neurological: Level of Consciousness is awake, alert, confused. Cardiovascular: Rhythm is atrial fibrillation with no ectopy. Respiratory: Airway is patent Respiratory effort is even, unlabored, Respiratory pattern is regular, symmetrical, Derm: Skin is dry, Skin is pale, Skin temperature is warm. Musculoskeletal: Circulation, motion, and sensation intact Swelling present in right leg. 23:04 Reassessment: Patient appears in no apparent distress at this time. Patient denies pain jp6 at this time. General: Appears in no apparent distress, comfortable, Behavior is appropriate for age, cooperative. Neurological: Level of Consciousness is awake, alert, confused. Cardiovascular: Rhythm is atrial fibrillation with no ectopy. Respiratory: Airway is patent Respiratory effort is even, unlabored, Respiratory pattern is regular, symmetrical. : No deficits noted. Derm: Skin is dry, Skin is pale, Skin temperature is warm. 05/13 00:12 Reassessment: Patient appears in no apparent distress at this time. Patient denies pain jp6 at this time. repeat cardiac enzymes and UA and UC obtained and sent.Pt continually taking oxygen off-reapplied several times.. Cardiovascular: Rhythm is atrial fibrillation with no ectopy. Derm: Skin is dry, Skin is pale, Skin temperature is warm. Vital Signs: 05/12 16:02 BP 103 / 51 RA Supine (auto/reg); Pulse 61; Resp 16; Temp 98.3(TE); Pulse Ox 75% on rs6 R/A; Weight 94.62 kg (M); Height 68 in. (172.72 cm) (M); 16:02 Pulse Ox 98% on 4 lpm NC; rs6 17:42 Pulse 57 MON; Pulse Ox 97% ; jmk 17:43 BP 137 / 62 (auto/); jmk 17:44 Pulse 57 MON; Pulse Ox 98% ; jmk 17:45 BP 112 / 64 (auto/); jmk 19:44 BP 118 / 59 (auto/); jp6 19:45 Pulse 55 MON; Pulse Ox 98% ; jp6 19:59 Pulse 56 MON; Pulse Ox 98% ; jp6 20:00 BP 115 / 57 (auto/); jp6 20:09 Pulse 56 MON; Pulse Ox 78% ; jp6 20:20 Pulse 56 MON; Pulse Ox 99% ; jp6 20:30 BP 124 / 59 (auto/); jp6 20:30 Pulse 54 MON; Pulse Ox 99% ; jp6 20:54 Pulse 52 MON; Pulse Ox 100% ; jp6 21:00 BP 103 / 67 (auto/); jp6 21:02 Pulse 54 MON; Pulse Ox 99% ; jp6 21:30 BP 103 / 60 (auto/); jp6 21:30 Pulse 56 MON; Pulse Ox 95% ; jp6 22:00 BP 123 / 66 (auto/); jp6 22:00 Pulse 54 MON; jp6 22:23 BP 127 / 61 (auto/); jp6 22:25 Pulse 55 MON; Pulse Ox 100% ; jp6 22:26 Pulse 55 MON; Pulse Ox 99% ; jp6 22:26 Resp 18; Temp 98(O); Pulse Ox 98% on 4 lpm NC; jp6 22:30 BP 114 / 57 (auto/); jp6 22:31 Pulse 54 MON; jp6 23:00 BP 118 / 83 (auto/); jp6 23:00 Pulse 68 MON; jp6 23:16 BP 108 / 72 (auto/); jp6 23:27 Pulse 91 MON; Pulse Ox 95% ; jp6 23:29 Pulse 60 MON; Pulse Ox 95% ; jp6 23:30 BP 110 / 63 (auto/); jp6 05/13 00:00 BP 102 / 56 (auto/); jp6 00:01 Pulse 57 MON; Pulse Ox 95% ; jp6 00:01 Resp 16; Temp 98.2; Pulse Ox 98% on 4 lpm NC; Pain 0/10; jp6 05/12 16:02 Body Mass Index 31.72 (94.62 kg, 172.72 cm) rs6 Vitals: 05/12 16:02 Log In Time N/A - ambulance arrival. rs6 ED Course: 15:52 Patient visited by Samreen Schulte, Referral Agent. lbd 15:52 Irma is Private Physician. lbd 15:52 Patient moved to Waiting lbd 15:53 Patient moved to 1 lbd 15:57 Triage Initiated jmk 16:03 Patient visited by Jeniffer Montoya PCA. rs6 16:03 Javon Joiner MD is Attending Physician. br1 16:09 The patient / caregiver is instructed regarding the plan of care and ED course. jmk 16:15 Patient visited by Javon Joiner MD. br1 16:25 EKG done. (by ED staff). Reviewed by Javon Joiner MD. jlf 16:30 Patient visited by Jm Busch PCA. jlf 17:16 Patient visited by Jm Busch PCA. jlf 17:42 bus driver/monitor on. jmk 17:42 Maintain field IV. Gauge & site: 18 rac. jmk 17:52 Patient visited by Jm Busch PCA. jlf 18:02 hSira Mariano is Hospitalizing Provider. br1 18:11 Patient moved to Admit Hold mcp 18:14 CT Head Without Contrast Returned. EDMS 18:14 Chest, 1 View Returned. EDMS 18:18 [place] [place] Agreement was scanned into [employer] and attached to record. zo 18:37 Patient moved to 1 mcp 18:37 Patient moved to Admit Hold mcp 18:55 Patient moved to MRI ml3 19:00 Patient moved to Admit Hold ml3 19:08 Amanda Vargas,RN is Primary Nurse. jp6 19:08 Patient visited by Amanda Vargas,ILANA. jp6 19:13 EKG-ADULT Returned. EDMS 19:45 O2 via nasal cannula \T\ 4L/min. jp6 20:54 Blood products: PRBCs X 1 unit given. See transfusion record. jp6 21:31 MRI Brain without Contrast Returned. EDMS 21:45 Cleaned of incontinence. Linen changed. jose elias 23:00 No procedures done that require assistance. jp6 01/12 07:33 Patient moved to I8 / 16 eg2 07:33 Patient moved to Ultrasound eg2 08:10 Patient moved to I8 / 16 eg2 09:10 Duplex, Ext LOWER veins, bilat Returned. EDMS 09:30 Patient moved to Admit Hold srm 13:36 T-Sheet-- Draft Copy was scanned into [employer] and attached to record. gb 13:45 VENT & PERFUSION LUNG SCAN Returned. EDMS Administered Medications: 05/12 18:05 Drug: Aspirin 81 mg [aspirin 81 mg chewable tablet (1 tabs)] Route: PO; jmk 18:05 Drug: Brilinta 180 mg Route: PO; [facility] Point of Care Testing: Blood Glucose: 16:42 Blood Glucose: 196 mg/dL; [facility] Ranges: Order Results: Lab Order: CBC with Diff; SPEC'M 05/12/16 16:21 Test: WHITE BLOOD COUNT; Value: 6.5; Range: 4.0-10.0; Units: K/mm3; Status: F Test: RED BLOOD COUNT; Value: 2.94; Range: 4.00-5.40; Abnormal: Below low normal; Units: M/mm3; Status: F Test: HEMOGLOBIN; Value: 8.4; Range: 12.0-16.0; Abnormal: Below low normal; Units: g/dl; Status: F Test: HEMATOCRIT; Value: 26.5; Range: 36.0-47.0; Abnormal: Below low normal; Units: %; Status: F Test: MEAN CORPUSCULAR VOLUME; Value: 90.4; Range: 80.0-96.0; Units: fl; Status: F Test: MEAN CORPUSCULAR HEMOGLOBIN; Value: 28.6; Range: 27.0-33.0; Units: pg; Status: F Test: MEAN CORPUSCULAR HGB CONC; Value: 31.6; Range: 32.0-36.5; Abnormal: Below low normal; Units: g/dl; Status: F Test: RED CELL DISTRIBUTION WIDTH; Value: 16.4; Range: 11.5-14.5; Abnormal: Above high normal; Units: %; Status: F Test: PLATELET COUNT, AUTOMATED; Value: 150; Range: 150-450; Units: k/mm3; Status: F Test: NEUTROPHILS %; Value: 79.3; Range: 36.0-66.0; Abnormal: Above high normal; Units: %; Status: F Test: LYMPH %; Value: 10.8; Range: 24.0-44.0; Abnormal: Below low normal; Units: %; Status: F Test: MONO %; Value: 5.5; Range: 0.0-5.0; Abnormal: Above high normal; Units: %; Status: F Test: EOS %; Value: 1.5; Range: 0.0-3.0; Units: %; Status: F Test: BASO %; Value: 1.0; Range: 0.0-1.0; Units: %; Status: F Test: LARGE UNSTAINED CELL %; Value: 2.0; Range: 0.0-4.0; Units: %; Status: F Test: NEUTROPHILS #; Value: 5.2; Range: 1.8-7.7; Units: K/mm3; Status: F Test: LYMPH #; Value: 0.8; Range: 1.5-4.5; Abnormal: Below low normal; Units: K/mm3; Status: F Test: MONO #; Value: 0.4; Range: 0.0-0.8; Units: K/mm3; Status: F Test: EOS #; Value: 0.1; Range: 0.0-0.50; Units: K/mm3; Status: F Test: BASO #; Value: 0.1; Range: 0.0-0.2; Units: K/mm3; Status: F Test: LARGE UNSTAINED CELL #; Value: 0.1; Range: 0.0-0.4; Units: K/mm3; Status: F Lab Order: Cardiac Injury Profile; SPEC'M 05/12/16 16:21 Test: CPK CREATINE PHOSPHOKINASE; Value: 98; Range: 26-192; Units: U/L; Status: F Test: CK-MB VALUE MASS; Value: 1.1; Range: 0.0-3.6; Units: NG/ML; Status: F Test: MB/CK RELATIVE INDEX; Value: 1.12; Range: < OR =4; Status: F Test Note: ; DIAGNOSIS CRITERIA MMB ng/ml Relative Index (RI) NON-AMI < or = 5 N/A [place] ZONE > 5 < or = 4 AMI > 5 > 4 Lab Order: Liver Profile; SPEC'M 05/12/16 16:21 Test: AST/SGOT; Value: 38; Range: 15-37; Abnormal: Above high normal; Units: U/L; Status: F Test: ALT/SGPT; Value: 21; Range: 12-78; Units: U/L; Status: F Test: ALKALINE PHOSPHATASE; Value: 92; Range: 45-117; Units: U/L; Status: F Test: BILIRUBIN,TOTAL; Value: 0.6; Range: 0.2-1.0; Units: MG/DL; Status: F Test: BILIRUBIN,DIRECT; Value: 0.2; Range: 0.0-0.2; Units: MG/DL; Status: F Test: TOTAL PROTEIN; Value: 6.9; Range: 6.4-8.2; Units: GM/DL; Status: F Test: ALBUMIN; Value: 2.8; Range: 3.2-5.2; Abnormal: Below low normal; Units: GM/DL; Status: F Test: ALBUMIN/GLOBULIN RATIO; Value: 0.68; Range: 1.00-1.93; Abnormal: Below low normal; Status: F Lab Order: MED Profile; SPEC'05/12/16 16:21 Test: GLUCOSE, FASTING; Value: 143; Range: 83-110; Abnormal: Above high normal; Units: MG/DL; Status: F Test: BLOOD UREA NITROGEN; Value: 45; Range: 7-18; Abnormal: Above high normal; Units: MG/DL; Status: F Test: CREATININE FOR GFR; Value: 1.57; Range: 0.55-1.02; Abnormal: Above high normal; Units: MG/DL; Status: F Test: GLOMERULAR FILTRATION RATE; Value: 33.7; Range: >32; Status: F Test: SODIUM LEVEL; Value: 144; Range: 136-145; Units: MEQ/L; Status: F Test: POTASSIUM SERUM; Value: 4.2; Range: 3.5-5.1; Units: MEQ/L; Status: F Test: CHLORIDE LEVEL; Value: 99; Range: 98-107; Units: MEQ/L; Status: F Test: CARBON DIOXIDE LEVEL; Value: 39; Range: 21-32; Abnormal: Above high normal; Units: MEQ/L; Status: F Test: ANION GAP; Value: 6; Range: 8-16; Abnormal: Below low normal; Units: MEQ/L; Status: F Test: CALCIUM LEVEL; Value: 8.4; Range: 8.8-10.2; Abnormal: Below low normal; Units: MG/DL; Status: F Test Note: ; Units are mL/min/1.73 m2 Chronic Kidney Disease Staging per NKF: Stage I & II GFR >=60 Normal to Mildly Decreased Stage III GFR 30-59 Moderately Decreased Stage IV GFR 15-29 Severely Decreased Stage V GFR <15 Very Little GFR Left ESRD GFR <15 on EARTH MOVING MACHINE OPERATOR Lab Order: Thyroid Stimulating Hormone; SPEC'05/12/16 16:21 Test: THYROID STIMULATING HORMONE; Value: 2.650; Range: 0.358-3.740; Units: uIU/ML; Status: F Lab Order: Troponin; SPEC'05/12/16 16:21 Test: TROPONIN I; Value: 1.67; Range: < 0.10; Abnormal: Above upper panic limits; Units: NG/ML; Status: F Test Note: ; Troponin I Reference Interval for [employer] LOCI: 99th Percentile= 0.00-0.045 ng/ml Risk Stratification: <= 0.10 ng/ml Decreased Risk for Adverse Clinical Events. 0.10-1.50 ng/ml Increased Risk for Adverse Clinical Events. Evaluation of additional criterion and/or repeat testing in 2-6 hours is suggested to rule out myocardial damage. >= 1.50 ng/ml Indicative of Myocardial Injury. Lab Order: Urinalysis; SPEC'M 05/13/16 00:06 Test: APPEARANCE, URINE; Value: CLEAR; Range: CLEAR; Status: F Test: COLOR, URINE; Value: YELLOW; Range: YELLOW; Status: F Test: PH,URINE; Value: 7.0; Range: 5.0-9.0; Units: UNITS; Status: F Test: SPECIFIC GRAVITY URINE AUTO; Value: 1.011; Range: 1.002-1.035; Status: F Test: PROTEIN, URINE AUTO; Value: NEGATIVE; Range: NEGATIVE; Units: mg/dL; Status: F Test: GLUCOSE, URINE (UA) AUTO; Value: NEGATIVE; Range: NEGATIVE; Units: mg/dL; Status: F Test: KETONE, URINE AUTO; Value: NEGATIVE; Range: NEGATIVE; Units: mg/dL; Status: F Test: UROBILINOGEN, URINE AUTO; Value: 0.2; Range: 0.0-2.0; Units: mg/dL; Status: F Test: BILIRUBIN, URINE AUTO; Value: NEGATIVE; Range: NEGATIVE; Status: F Test: NITRITE, URINE AUTO; Value: NEGATIVE; Range: NEGATIVE; Status: F Test: LEUKOCYTE ESTERASE, URINE AUTO; Value: TRACE; Range: NEGATIVE; Abnormal: Above high normal; Status: F Test: BLOOD, URINE BLOOD; Value: NEGATIVE; Range: NEGATIVE; Status: F Test: WBC, URINE AUTO; Value: 3; Range: 0-3; Units: /HPF; Status: F Test: RBC, URINE AUTO; Value: 3; Range: 0-3; Units: /HPF; Status: F Test: BACTERIA, URINE AUTO; Value: NEGATIVE; Range: NEGATIVE; Status: F Test: SQUAMOUS EPITHELIAL CELL UR AU; Value: 0; Range: 0-6; Units: /HPF; Status: F Test: MUCUS, URINE; Value: SMALL; Range: NEGATIVE; Status: F Test: HYALINE CAST, URINE AUTO; Value: 8; Range: 0-1; Units: /LPF; Status: F Lab Order: Fingerstick Blood Sugar; [facility] 05/12/16 16:41 Test: BEDSIDE GLUCOSE; Value: 196; Range: 83-110; Abnormal: Above high normal; Units: MG/DL; Status: F Lab Order: CARDIAC MARKER PANEL; [facility] 05/12/16 23:56 Test: CPK CREATINE PHOSPHOKINASE; Value: 94; Range: 26-192; Units: U/L; Status: F Test: CK-MB VALUE MASS; Value: 1.3; Range: 0.0-3.6; Units: NG/ML; Status: F Test: MB/CK RELATIVE INDEX; Value: 1.38; Range: < OR =4; Status: F Test: TROPONIN I; Value: 1.70; Range: < 0.10; Abnormal: Above upper panic limits; Units: NG/ML; Status: F Test Note: ; DIAGNOSIS CRITERIA MMB ng/ml Relative Index (RI) NON-AMI < or = 5 N/A [place]ONE > 5 < or = 4 AMI > 5 > 4 Lab Order: COMPLETE BLOOD COUNT; [facility] 05/13/16 06:53 Test: WHITE BLOOD COUNT; Value: 6.8; Range: 4.0-10.0; Units: K/mm3; Status: F Test: RED BLOOD COUNT; Value: 3.05; Range: 4.00-5.40; Abnormal: Below low normal; Units: M/mm3; Status: F Test: HEMOGLOBIN; Value: 9.2; Range: 12.0-16.0; Abnormal: Below low normal; Units: g/dl; Status: F Test: HEMATOCRIT; Value: 27.7; Range: 36.0-47.0; Abnormal: Below low normal; Units: %; Status: F Test: MEAN CORPUSCULAR VOLUME; Value: 90.7; Range: 80.0-96.0; Units: fl; Status: F Test: MEAN CORPUSCULAR HEMOGLOBIN; Value: 30.1; Range: 27.0-33.0; Units: pg; Status: F Test: MEAN CORPUSCULAR HGB CONC; Value: 33.2; Range: 32.0-36.5; Units: g/dl; Status: F Test: RED CELL DISTRIBUTION WIDTH; Value: 15.8; Range: 11.5-14.5; Abnormal: Above high normal; Units: %; Status: F Test: PLATELET COUNT, AUTOMATED; Value: 150; Range: 150-450; Units: k/mm3; Status: F Lab Order: TYPE & SCREEN; [facility]05/12/16 16:22 Test: BLOOD TYPE; Value: A POS; Status: F Test: AB SCREEN (INDIRECT LESLIE)GEL; Value: NEGATIVE; Status: F Test: IMMEDIATE SPIN CROSSMATCH; Value: [id number] A POSITIVE Compatible? Y; Status: F Lab Order: PATHOLOGIST REVIEW COMPREHENSI; 05/12/16 16:21 Test: SLIDE REVIEW; Value: Report; Status: F Test: SOURCE; Value: PERIPHERAL SMEAR; Status: F Test: REASON FOR REVIEW; Value: COMPREHENSIVE REVIEW; Status: F Test Note: ; Slide and/or specimen referred to Pathologist for review. Results of the review are located in the EMR Pathology module under Peripheral Smear when completed. Lab Order: RETICULOCYTE COUNT; [facility]05/12/16 16:21 Test: RETICULOCYTE % [id number]; Value: 2.70; Range: 0.5-1.5; Abnormal: Above high normal; Units: %; Status: F Test: RETICULOCYTE ABSOLUTE [id number]; Value: 79; Range: 17-77; Abnormal: Above high normal; Units: x10(9)/L; Status: F Test: RETIC HEMOGLOBIN CONTENT CHr; Value: 32.4; Range: 24-36; Units: PG; Status: F Lab Order: TOTAL IRON BINDING CAPACIT; [facility]05/12/16 16:21 Test: IRON (FE); Value: 40; Range: 50-170; Abnormal: Below low normal; Units: UG/DL; Status: F Test: TOTAL IRON BINDING CAPACITY; Value: 331; Range: 250-450; Units: UG/DL; Status: F Test: PERCENT SATURATION; Value: 12.1; Range: 13.2-37.4; Abnormal: Below low normal; Units: %; Status: F Lab Order: FERRITIN; [facility] 05/12/16 16:21 Test: FERRITIN; Value: 144; Range: 8-252; Units: NG/ML; Status: F Lab Order: TROPONIN; [facility] 05/13/16 06:53 Test: TROPONIN I; Value: 1.83; Range: < 0.10; Abnormal: Above upper panic limits; Units: NG/ML; Status: F Test Note: ; Troponin I Reference Interval for [employer] LOCI: 99th Percentile= 0.00-0.045 ng/ml Risk Stratification: <= 0.10 ng/ml Decreased Risk for Adverse Clinical Events. 0.10-1.50 ng/ml Increased Risk for Adverse Clinical Events. Evaluation of additional criterion and/or repeat testing in 2-6 hours is suggested to rule out myocardial damage. >= 1.50 ng/ml Indicative of Myocardial Injury. Lab Order: BASIC METABOLIC PROFILE; [facility]' 05/13/16 06:53 Test: GLUCOSE, FASTING; Value: 105; Range: 83-110; Units: MG/DL; Status: F Test: BLOOD UREA NITROGEN; Value: 43; Range: 7-18; Abnormal: Above high normal; Units: MG/DL; Status: F Test: CREATININE FOR GFR; Value: 1.36; Range: 0.55-1.02; Abnormal: Above high normal; Units: MG/DL; Status: F Test: GLOMERULAR FILTRATION RATE; Value: 39.8; Range: >32; Status: F Test: SODIUM LEVEL; Value: 144; Range: 136-145; Units: MEQ/L; Status: F Test: POTASSIUM SERUM; Value: 3.5; Range: 3.5-5.1; Units: MEQ/L; Status: F Test: CHLORIDE LEVEL; Value: 100; Range: 98-107; Units: MEQ/L; Status: F Test: CARBON DIOXIDE LEVEL; Value: 36; Range: 21-32; Abnormal: Above high normal; Units: MEQ/L; Status: F Test: ANION GAP; Value: 8; Range: 8-16; Units: MEQ/L; Status: F Test: CALCIUM LEVEL; Value: 8.2; Range: 8.8-10.2; Abnormal: Below low normal; Units: MG/DL; Status: F Test Note: ; Units are mL/min/1.73 m2 Chronic Kidney Disease Staging per NKF: Stage I & II GFR >=60 Normal to Mildly Decreased Stage III GFR 30-59 Moderately Decreased Stage IV GFR 15-29 Severely Decreased Stage V GFR <15 Very Little GFR Left ESRD GFR <15 on EARTH MOVING MACHINE OPERATOR Lab Order: TROPONIN; SPEC'M 05/13/16 16:14 Test: TROPONIN I; Value: 1.30; Range: < 0.10; Abnormal: High; Units: NG/ML; Status: F Test Note: ; Troponin I Reference Interval for [employer] LOCI: 99th Percentile= 0.00-0.045 ng/ml Risk Stratification: <= 0.10 ng/ml Decreased Risk for Adverse Clinical Events. 0.10-1.50 ng/ml Increased Risk for Adverse Clinical Events. Evaluation of additional criterion and/or repeat testing in 2-6 hours is suggested to rule out myocardial damage. >= 1.50 ng/ml Indicative of Myocardial Injury. Radiology Order: CT Head Without Contrast Test: CT Head Without Contrast REASON FOR EXAMINATION: CVA >4.5hrs; CT brain without contrast 05/12/2016:; ; Indication: CVA greater than 4.5 hours.; ; Comparison: CT scanning 10/11/2015, 07/17/2015; ; Findings: are of normal size and configuration for age.; Ossifications are seen in the basal ganglia bilaterally and in the cerebellum; bilaterally consistent with iron deposition. The appearance is not significantly; changed on prior study. There is no intracranial hemorrhage or extra-axial fluid; collection. Small amount of periventricular and subcortical white matter; hypodensities are noted consistent with mild chronic small vessel ischemic; disease.; ; Dense calcification is seen in the distal right vertebral artery, and in the; bilateral carotid siphons.; ; There is single basal ganglia calcification and cerebellar calcification.; ; The skull is without fracture. Visualized portions of the paranasal sinuses and; mastoid sinuses are clear.; ; Impression:; No acute intracranial pathology or hemorrhage. Mild chronic small vessel ischemic; disease.; ; Moderate bilateral basal ganglia and cerebellar calcifications consistent with; iron deposition. Extensive atherosclerotic disease.; ; ; ; ; Unreviewed; Radiology Order: Chest, 1 View Test: Chest, 1 View REASON FOR EXAMINATION: altered eval for infiltrate; Portable chest: 05/12/2016:; ; Comparison 05/08/2016, 01/09/2016.; ; Clinical history: Infiltrate. Altered mental status.; ; Supine portable chest shows elevation of the right diaphragm as on the previous; study. There are right upper quadrant surgical clips. There is underlying; fibrosis as before and crowding of markings due to low levels of inflation; overall. Some atelectatic changes in the left base. Underlying fibrosis is; grossly similar to previous studies. Tortuous calcified aorta. I do not see any; definite vascular congestion or layering effusion. Airway deviates around the; aorta.; ; Impression:; ; 1. COPD fibrosis and elevated right diaphragm with volume loss right hemithorax.; Heavier basilar fibrotic or atelectatic changes left greater than right with; crowding of markings. No rahul edema. Tortuous calcified aorta and the cardiac; silhouette enlarge but not changed from previous study.; ; ; Signed by; Landon Wileltt MD 05/12/2016 08:02 P; Radiology Order: EKG-ADULT Test: EKG-ADULT REASON FOR EXAMINATION: dysrhythmia; Stationary ECG Study; [facility] - ED; ; Test Date: 2016-05-12; Pat Name: CECIL MCCALLUM Department:; Room: -; Gender: F Systems Spec: aster; : 1935 Requested By: JAVON Mi; Order Number: [id number] Reading MD: Shaylee De; Measurements; Intervals [place]; Rate: 55 P: 50; VA: 173 QRS: -17; QRSD: 93 T: -29; QT: 434; QTc: 418; Interpretive Statements; SINUS BRADYCARDIA; MODERATE VOLTAGE CRITERIA FOR LVH, CONSIDER NORMAL VARIANT; ST DEVIATION AND MODERATE T-WAVE ABNORMALITY, CONSIDER ANTERIOR ISCHEMIA,; MORE; PRONOUNCED COMPARED 10/12/15, CLINICAL CORRELATION; ; Electronically Signed On 05-12-2016 18:15:07 EST by Shaylee De; Radiology Order: MRI Brain without Contrast Test: MRI Brain without Contrast REASON FOR EXAMINATION: AMS IRON DEPOSITION ON CT BRAIN; ; CLINICAL HISTORY: Altered mental status.; ; TECHNIQUE: MRI of the brain was performed utilizing multiple sequences in axial, coronal and sagittal; planes without IV contrast material.; ; COMMENTS:; Comparison is made with the prior MRI dated 10/13/2015. Correlation is made also with CT of the brain; of the same date.; ; Note is made of several small foci demonstrating restricted diffusion in the left and right parietal; lobe most compatible with embolic stroke phenomenon. This is new in comparison with the prior MRI.; There are dense calcifications noted within left and right basal ganglia. This is better seen on CT.; Dense calcification is also seen within left and right cerebellum.; ; The sella and parasellar region are unremarkable in appearance. The corpus callosum and cerebellar to; nsils are of normal configuration and position. There are no intra or extra-axial collections. There; is no mass effect or midline shift. There is no evidence of hematoma formation. There is no hydroceph; alus.; ; The visualized arterial structures demonstrate normal appearing flow voids. The seventh and eighth ne; rve bundles are visualized and are unremarkable in appearance.; ; Several foci of T2/FLAIR hyperintensity are noted in the bilateral periventricular and subcortical wh; ite matter compatible with mild chronic white matter ischemic changes.; ; Generalized proportionate dilatation of ventricles and sulci is present compatible with age-appropria; te parenchymal atrophy.; ; IMPRESSION:; 1. Several small foci demonstrating restricted diffusion in the left and right parietal lobe most com; patible with acute embolic stroke. This is new in comparison with the prior MRI.; 2. There are dense calcifications noted within left and right basal ganglia. This is better seen on; CT. Dense calcification is also seen within left and right cerebellum.; 3. Generalized age-appropriate parenchymal atrophy.; 4. Mild chronic white matter microvascular ischemic changes.; ; Message was left for Dr Mariano with an answering service.; ; ; Thank you for your kind referral of this patient. We appreciate the opportunity to participate in thi; s patient's care.; ; ; Radiology Order: VENT & PERFUSION LUNG SCAN Test: VENT & PERFUSION LUNG SCAN REASON FOR EXAMINATION: hypoxia chest pain tib fib fracture; VENTILATION-PERFUSION LUNG SCAN:; ; History: Hypoxia and chest pain. Tib-fib fracture.; ; Comparison chest x-ray is from the previous day.; ; Technique: 1.0 mCi technetium 99m DTPA aerosol is utilized for the ventilation; study and is followed by a 5.3 mCi intravenous dose of technetium-99m MAA for the; perfusion exam. Eight planar images are acquired for each portion of the exam.; ; Scintigraphic findings: There is mild central bronchial deposition of inspired; ventilatory tracer bilaterally. There is a matched VQ defect in the posterior; segment of the right upper lobe visible on posterior oblique images. No other; significant perfusion defect is seen.; ; Impression:; ; Low probability scan for pulmonary embolus.; ; ; Signed by; Albino Grijalva MD 05/13/2016 03:10 P; Radiology Order: Duplex, Ext LOWER veins, bilat Test: Duplex, Ext LOWER veins, bilat REASON FOR EXAMINATION: dvt; BILATERAL LOWER EXTREMITY VENOUS DOPPLER:; ; Indication: 81 -year-old female, exclude DVT.; ; ; LEFT LOWER EXTREMITY FINDINGS:; Color-flow, spectral wave, and shelton scale imaging were used to evaluate the lower; extremity vein, common femoral, superficial femoral and popliteal venous levels.; There is normal compressibility of veins at the above stated levels. There is; normal response to augmentation of flow. The profunda femoris vein is also; patent.; ; IMPRESSION:; No evidence of DVT in the left lower extremity.; ; ; RIGHT LOWER EXTREMITY FINDINGS:; Color-flow Doppler, spectral wave Doppler and shelton scale imaging used to evaluate; the deep right lower extremity veins at common femoral, superficial femoral and; popliteal venous levels. The popliteal veins were not able to be visualized due; to patient's leg cast from the tibia/fibular fracture. The remainder of the deep; veins to include common femoral vein, proximal mid and distal superficial femoral; veins as well as the origin of the right profunda femoris and greater saphenous; veins were patent and compressible.; ; IMPRESSION:; No visualized deep venous thrombosis in right lower extremity. Popliteal vein,; however, could not be assessed due to overlying cast from tibial/fibular; fracture.; ; ; ; ; ; ; ; ; ; Unreviewed; Outcome: 18:03 Decision to Hospitalize by Provider. br1 05/13 18:08 Patient left the ED. nr1 Signatures: Dispatcher [employer] EDMS Samreen Schulte, Referral Agent Unit lbd Chapincito Willoughby RN RN jmk Michelson, Staci, RN RN srm Peters, Mary, RN RN Ann Marie Stallings, Reg Reg gb Travis, NattyGlo, Referral Agent Unit ml3 Laly Chawla eg2 Andrew Yoon Brian, MD MD br1 Ric, Tess, PAYER SPECIALIST PAYER SPECIALIST jose elias [place], Peytonain, PAYER SPECIALIST PAYER SPECIALIST jlf Montoya, Jeniffer, PAYER SPECIALIST PAYER SPECIALIST rs6 Grisel Sarabia,RN ILANA Eng, Renetta, PAYER SPECIALIST PAYER SPECIALIST polan Amanda Vargas,RN RN jp6 Corrections: (The following items were deleted from the chart) 00:16 00:11 URINALYSIS sent. cln EDMS 00:17 00:11 URINE CULTURE sent. cln EDMS MTDD
--- NOTE | 2016-05-13 18:10 | EDDOCDS ---
Physician Documentation [facility] Name: Katie Mccallum Age: 81 yrs Sex: Female : 1935 Arrival Date: 05/12/2016 Time: 15:50 Bed Admit Hold Private : Irma Disposition: 05/12/16 18:03 Hospitalization ordered by Shira Mariano for Inpatient Admission. Preliminary diagnosis are Non-ST elevation (NSTEMI) myocardial infarction, Anemia, unspecified. - [facility] - Status is Inpatient Admission. nr1 - Condition is Stable. - Problem is new. - Symptoms are unchanged. Historical: - Allergies: Motrin (Unknown, Vomit); - Home Meds: 1. acetaminophen 500 mg Oral tab 2 tabs twice a day 2. albuterol sulfate 2.5 mg/0.5 mL Inhl nebu every 6 hours and Q 2 hrs prn 3. aspirin 81 mg Oral tab 1 tab once daily 4. atenolol 100 mg Oral tab 1 tab once daily 5. bisacodyl 10 mg Rectal supp 1 suppository Daily as needed 6. Celexa 20 mg Oral tab 1 tab once daily 7. Colace 100 mg oral cap 1 cap 2 times per day 8. Macrobid 100 mg Oral cap 1 cap every 12 hours 9. Lasix 60mg Oral tab 1 tab 2 times per day 10. gabapentin 300 mg oral tab twice a day 11. Gabapentin 200 mg Oral once daily 12. prednisone 5 mg/mL Oral conc once daily 13. potassium chloride 20 mEq oral TbER once daily 14. Senna with Docusate Sodium 8.6-50 mg oral tab 2 tabs once daily 15. Ultram 50 mg Oral tab 1 tab every 8 h 16. atenolol 100 mg Oral tab 1 tab once daily 17. magnesium oxide 400 mg Oral cap 400 mg twice a day 18. Namenda 10 mg oral tab 1 tab 2 times per day 19. Miralax 17 gram/dose Oral powd 17 g once daily as needed 20. zonisamide 50 mg oral cap 1 cap 2 times per day 21. fludrocortisone 0.1 mg oral tab 1 tab once daily 22. Cymbalta 60 mg Oral cpDR 1 cap once daily - PMHx: afib; Dementia; Fibromyalgia; fracture of T11-T12; Hypertension; Lupus; neuropathy; orthostatic hypotension; Parkinson's Disease; TIA; ventricular tachycardia; Vertigo; - PSHx: Cholecystectomy; Hysterectomy; - Social history: Smoking status: Patient states was never smoker of tobacco. No barriers to communication noted, The patient speaks fluent Upper Sorbian. - Family history: Not pertinent. - : The pt / caregiver states he / she is not on anticoagulants. Home medication list is obtained from family members. - Exposure Risk Screening:: None identified. - Advance directive:: Yes. Vital Signs: 05/12 16:02 BP 103 / 51 RA Supine (auto/reg); Pulse 61; Resp 16; Temp 98.3(TE); Pulse Ox 75% on rs6 R/A; Weight 94.62 kg / 208.6 lbs (M); Height 68 in. (172.72 cm) (M); 16:02 Pulse Ox 98% on 4 lpm NC; rs6 17:42 Pulse 57 MON; Pulse Ox 97% ; jmk 17:43 BP 137 / 62 (auto/); jmk 17:44 Pulse 57 MON; Pulse Ox 98% ; jmk 17:45 BP 112 / 64 (auto/); jmk 19:44 BP 118 / 59 (auto/); jp6 19:45 Pulse 55 MON; Pulse Ox 98% ; jp6 19:59 Pulse 56 MON; Pulse Ox 98% ; jp6 20:00 BP 115 / 57 (auto/); jp6 20:09 Pulse 56 MON; Pulse Ox 78% ; jp6 20:20 Pulse 56 MON; Pulse Ox 99% ; jp6 20:30 BP 124 / 59 (auto/); jp6 20:30 Pulse 54 MON; Pulse Ox 99% ; jp6 20:54 Pulse 52 MON; Pulse Ox 100% ; jp6 21:00 BP 103 / 67 (auto/); jp6 21:02 Pulse 54 MON; Pulse Ox 99% ; jp6 21:30 BP 103 / 60 (auto/); jp6 21:30 Pulse 56 MON; Pulse Ox 95% ; jp6 22:00 BP 123 / 66 (auto/); jp6 22:00 Pulse 54 MON; jp6 22:23 BP 127 / 61 (auto/); jp6 22:25 Pulse 55 MON; Pulse Ox 100% ; jp6 22:26 Pulse 55 MON; Pulse Ox 99% ; jp6 22:26 Resp 18; Temp 98(O); Pulse Ox 98% on 4 lpm NC; jp6 22:30 BP 114 / 57 (auto/); jp6 22:31 Pulse 54 MON; jp6 23:00 BP 118 / 83 (auto/); jp6 23:00 Pulse 68 MON; jp6 23:16 BP 108 / 72 (auto/); jp6 23:27 Pulse 91 MON; Pulse Ox 95% ; jp6 23:29 Pulse 60 MON; Pulse Ox 95% ; jp6 23:30 BP 110 / 63 (auto/); jp6 01 00:00 BP 102 / 56 (auto/); jp6 00:01 Pulse 57 MON; Pulse Ox 95% ; jp6 00:01 Resp 16; Temp 98.2; Pulse Ox 98% on 4 lpm NC; Pain 0/10; jp6 05/12 16:02 Body Mass Index 31.72 (94.62 kg, 172.72 cm) rs6 MDM: 05/12 16:17 Machine Sprayer/Pulse Ox/q 15 min VS ordered. br1 16:17 Accucheck ordered. br1 16:17 IV Saline Lock ordered. br1 16:17 Rhythm Strip to chart ordered. br1 16:17 CBC with Diff Ordered. EDMS 16:18 Cardiac Injury Profile Ordered. EDMS 16:18 Liver Profile Ordered. EDMS 16:18 MED Profile Ordered. EDMS 16:18 Thyroid Stimulating Hormone Ordered. EDMS 16:18 Troponin Ordered. EDMS 16:18 Urinalysis Ordered. EDMS 16:18 Urine Culture Ordered. EDMS 16:18 Chest, 1 View Ordered. EDMS 16:18 CT Head Without Contrast Ordered. EDMS 16:18 ECG WITH READING ER PHYS+CARDIAG ordered. EDMS 16:49 Fingerstick Blood Sugar Ordered. EDMS 17:02 CBC with Diff Reviewed. br1 17:02 Fingerstick Blood Sugar Reviewed. br1 17:03 BED REQUEST+ADM ordered. EDMS 17:10 Liver Profile Reviewed. br1 17:10 MED Profile Reviewed. br1 17:10 Troponin Reviewed. br1 17:52 Aspirin Chewable Tablet 81 mg PO once ordered. br1 17:52 Brilinta 180 mg PO once ordered. br1 17:58 ED course: EKG shows ST depression/TWI. Trop 1.67. Patient denies any active chest br1 pain. Daughter thinks there was an episode of chest pain 2 days ago. Discussed with patient and family. Patient is DNR/DNI. Does not want cardiac catheterization or transfer to [place] at this time. Discussed with Dr. Willams, agrees with patient staying at [facility], will see patient, recommends aspirin 81 mg and Brilinta 180 mg now. Recommends discussing with Ortho for Lovenox approval. Discussed with Dr. Lira of Ortho, okay for Lovenox. Discussed with Dr. Schwartz - agrees with plan, will admit patient.. 18:00 MRI Brain without Contrast Ordered. EDMS 18:03 Liver Profile Reviewed. br1 18:03 MED Profile Reviewed. br1 18:03 Troponin Reviewed. br1 18:03 Cardiac Injury Profile Reviewed. br1 18:03 Thyroid Stimulating Hormone Reviewed. br1 18:07 Admission / Observation Status ordered. EDMS 18:07 ECHOCARD,DOPPLER/COLOR FLOW ordered. EDMS 18:07 2 GRAM SODIUM DIET ordered. EDMS 18:15 Financial registration complete. zo 18:18 [facility] [place] was [place] into [employer] and attached to record. zo 19:33 CARDIAC MARKER PANEL Ordered. EDMS 19:34 COMPLETE BLOOD COUNT Ordered. EDMS 19:35 PACKED CELLS Ordered. EDMS 19:35 TYPE & SCREEN Ordered. EDMS 20:18 VENT & PERFUSION LUNG SCAN Ordered. EDMS 05/13 06:28 TROPONIN Ordered. EDMS 06:35 BASIC METABOLIC PROFILE Ordered. EDMS 07:01 Duplex, Ext LOWER veins, bilat Ordered. EDMS 13:36 T-Sheet-- Draft Copy was scanned into [employer] and attached to record. gb 15:56 TROPONIN Ordered. EDIA Point of Care Testing: Blood Glucose: 05/12 16:42 Blood Glucose: 196 mg/dL; brittany Ranges: Administered Medications: 18:05 Drug: Aspirin 81 mg [aspirin 81 mg chewable tablet (1 tabs)] Route: PO; brittany 18:05 Drug: Brilinta 180 mg Route: PO; brittany Signatures: Dispatcher [employer] EDIA Jose Miguel Girard RN RN dwg Knapp, Jean, RN RN jmk Barnhardt, Gloria, Reg Reg Andrew Gomez Brian, MD MD br1 Rillera,Grisel,RN Amanda Ortiz RN RN jp6 The chart was reviewed and I authenticate all verbal orders and agree with the evaluation and treatment provided.Corrections: (The following items were deleted from the chart) 19:41 19:36 IRON (FE) ordered. EDMS EDMS :41 19:36 TOTAL IRON BINDING CAPACIT ordered. EDMS EDMS : 19:36 FERRITIN ordered. EDMS EDMS 19:36 RETICULOCYTE COUNT ordered. EDMS EDMS : 19:36 PATHOLOGIST REVIEW COMPREHENSI ordered. EDMS EDMS 05/13 00:16 05/12 21:01 URINALYSIS ordered. EDMS EDMS 05/13 00:17 05/12 20:59 URINE CULTURE ordered. EDMS EDMS 05/13 06:29 05/12 19:33 CARDIAC MARKER PANEL ordered. EDMS EDMS 05/13 06:30 05/12 19:33 CARDIAC MARKER PANEL ordered. EDMS EDMS 05/13 06:35 05/12 19:34 BASIC METABOLIC PROFILE ordered. EDMS EDMS Attachments: 18:18 [facility] [place] Agreement zo 05/13 13:36 T-Sheet-- Draft Copy gb MTDD
--- NOTE | 2016-05-13 18:42 | CR ---
DATE OF CONSULTATION: 05/13/2016 REFERRING PHYSICIAN: Dr. Anne. INDICATION: [id number] myocardial infarction. HISTORY OF PRESENT ILLNESS: Mrs. Mccallum is known to me. She is an 81-year-old lady who resides in [facility]. She presented to emergency room after she was found confused and with difficulty finding words and had also some complaints about chest pains. On presentation to hospital, she had nonspecific repolarization abnormalities on EKG suggestive of ischemia and her cardiac enzymes were mildly elevated; troponin was 1.7. It is not clear when she had her symptoms. Based on history provided principally by the family, it appears that she had some complains about chest discomfort for several days. She also fell last Tuesday and broke her jaramillo and there apparently was some concern about her cardiac condition at that point as well. At her bedside, the patient tells me that she does not have any chest discomfort as we speak. Unfortunately, she is able to provide only very limited history due to underlying dementia and probably to some degree also due to consequences of pain medications she has been receiving. The patient is not known to have established coronary artery disease. She had episode of nonsustained ventricular tachycardia during her prior hospitalization 6 months ago. At that point, I saw her in the hospital and then later in the office but we decided not to pursue any further evaluation due to her poor mental status and declining overall condition. PAST MEDICAL HISTORY: 1. Parkinson's disease. 2. Dementia. 3. Depression. 4. Recurrent episodes of orthostatic hypotension. 5. Lupus. 6. History of transient ischemic attack (TIA). 7. History of seizure disorder. 8. Chronic respiratory insufficiency with O2 dependency. 9. Chronic renal insufficiency, stage III. 10. Fibromyalgia. SURGICAL HISTORY: Positive for cholecystectomy and hysterectomy. She reports intolerance to MOTRIN. OUTPATIENT MEDICATIONS: According to my office note, she was taking atenolol 50 mg two tablets a day, Lipitor 20 mg a day, Cymbalta 60 mg a day, multivitamin, fludrocortisone 0.1 mg a day, furosemide three tablets a day and gabapentin 100 mg two tablets three times a day, Milk of Magnesia, MiraLAX, memantine 10 mg a day, magnesium oxide 400 mg twice a day, loperimide, prednisone 10 mg a day, iron gluconate, hydrocodone/acetaminophen as needed, hydroxyzine as needed, omeprazole 20 mg a day, Ultram and zonisamide 50 mg twice a day SOCIAL HISTORY: The patient is a . She is a [facility] resident. She is the mother of six children. She never smoked and there is no alcohol use. FAMILY HISTORY: Her mother of Hodgkin's disease and father of heart disease at the age of 87. SURGICAL HISTORY: Positive for hysterectomy, cholecystectomy and eye surgery. REVIEW OF SYSTEMS: The review of systems is somewhat difficult to obtain, but it appears that as of lately the patient has been essentially completely sedentary. She is not able to walk without assistance and basically is transported via wheelchair. There has been chronic shortness of breath and chronic complains about back pain and depression. According to her family, there was not, to their recollection, a recent chest discomfort until the last few days. There have been numerous episodes of syncope that were felt to be orthostatic in nature. No recent abdominal symptoms. The rest is unable to obtain. PHYSICAL EXAMINATION: Mrs. Mccallum is an elderly female who appears probably older than her age. She lays in emergency room bed and does not appear to be any distress but does appear unhappy. Vital signs: Blood pressure was 122/70, heart rate was in low 50s. She saturates in mid 90s on 3 liters of oxygen by nasal cannula. She is alert and oriented time one. Her jugular venous pressure (JVP) is not elevated. Lungs are relatively clear to auscultation even though air movement has been rather shallow. Heart exam reveals regular rhythm. I do not appreciate gallop or rub, but there is a murmur best heard left from the sternum, systolic ejection about 2/6 intensity. Abdomen is soft without tenderness or rebound tenderness. There is a cast applied on her right jaramillo and knee. There is definite hematoma discoloration peripherally from the cast. Peripheral pulses palpable on both sides. Neurologically, there is generalized weakness, she will respond to simple commands and is able to carry a conversation that is to some degree meaningful LABORATORY DATA: As of this morning, hemoglobin 9.2, hematocrit 27 and platelet count 150,000. Basic metabolic panel: Potassium 3.5, BUN 43, creatinine 1.4 and glucose 105. Troponin I initially 1.7, remains about flat even though there has been slight increase as time goes. CK, CK-MB have been negative. ECG reveals sinus rhythm and subtle precordial T-wave abnormalities. She had a VQ scan and lower extremity ultrasound revealing no evidence for deep vein thrombosis (DVT). 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 There are extensive vascular calcifications. Chest x-ray reveals abnormalities consistent with COPD and fibrosis. CURRENT MEDICATIONS: Pantoprazole 40 mg daily, Lipitor 80 mg a day, aspirin 81 mg a day, atenolol 100 mg a day, vitamin D, citalopram 20 mg a day, Cymbalta 60 mg a day, fludrocortisone 0.1 mg a day, prednisone 5 mg a day and gabapentin 300 mg a day, enoxaparin 90 mg once a day and Namenda 10 mg twice a day, Ultram 50 mg three times a day, zonisamide 50 mg twice a day, and bronchodilators and morphine as needed. She initially received 180 mg of Brilinta, and she takes furosemide 20 mg twice a day. ASSESSMENT AND PLAN: Mrs. Mccallum is an 81-year-old female who has Parkinson's disease and dementia, and she presents with acute coronary syndrome and also evidence for probably acute stroke which is probably embolic in nature. I had a discussion with her family. Unfortunately, the patient's mental status is not good enough to make informed decisions. We agree that we will continue medical support, but no heroics will be performed. She previously was decided to be DO NOT INTUBATE/DO NOT RESUSCITATE (DNI/DNR) and this will be followed. I think it is reasonable to continue administration of aspirin, Lovenox, possibly also a second antiplatelet agent. I would continue beta mary with holding parameters for her blood pressure and heart rate and high-dose atorvastatin. At this point, I am mostly concerned about her neurologic status as her orientation is marginal at baseline, and she has a strong history of depression. I had a discussion with her son and two [id number], and I explained that even though her prognosis is certainly guarded, she probably will survive with purely medical management. Their few questions were answered.
[2016-05-13] MEDS: GABAPENTIN 100 MG CAP PO SCH (21:09)
[2016-05-14] MEDS ORDERED: SLF 3 ML SYR IV PRN (01:15)
[2016-05-14 05:00] VITALS: BP 117/56
[2016-05-14] MEDS: SLF 3 ML SYR IV SCH ×3 (05:21→21:49)
[2016-05-14] MEDS: METOPROLOL TART 25 MG TABLET PO SCH ×5 (05:21→23:53)
[2016-05-14 05:29] LABS: MEAN CORPUSCULAR HEMOGLOBIN 29.4 pg (27.0-33.0); MEAN CORPUSCULAR HGB CONC 32.6 g/dl (32.0-36.5); RED CELL DISTRIBUTION WIDTH 16.9 % (11.5-14.5); WHITE BLOOD COUNT 6.6 K/mm3 (4.0-10.0)
[2016-05-14 05:41] LABS: CALCIUM LEVEL 8.2 MG/DL (8.8-10.2); CREATININE FOR GFR 1.29 MG/DL (0.55-1.02); GLOMERULAR FILTRATION RATE 42.3 (>32); POTASSIUM SERUM 3.4 MEQ/L (3.5-5.1)
[2016-05-14] MEDS: GABAPENTIN 300 MG CAP PO SCH ×2 (06:28→12:43)
--- NOTE | 2016-05-14 07:15 | CR ---
DATE OF CONSULTATION: 05/13/2016 REFERRING PHYSICIAN: Dr. Gennaro Anne REASON FOR CONSULTATION: Word-finding difficulty. HISTORY OF PRESENT ILLNESS: Katie Mccallum is an 81-year-old woman who lives at a residential facility and has a DO NOT RESUSCITATE, DO NOT INTUBATE order that is in place who has been on oxygen for hypoxemia, atrial fibrillation, dementia, and Parkinson's disease who fell last Tuesday and has fracture of the right leg and she is wearing a brace. She presented to [facility] after she was noted to be disoriented and had difficulty with her speech. She was found to have basal ganglia calcifications and calcifications in her bilateral cerebellum. She was also found to have non-ST elevation myocardial infarction with elevated troponin. She was started on aspirin and Lovenox because of her coronary artery disease. The patient complains of right leg pain. She denies any neck or back pain. She denies any chest pain. She denies any numbness or weakness in her arms or legs currently. She does complain of headache currently. PAST MEDICAL HISTORY: 1. Lupus. 2. Parkinson's disease. 3. Dementia. 4. Fibromyalgia. 5. Atrial fibrillation. 6. Neuropathy. 7. Orthostatic hypotension. 8. Hypoxemia. 9. Pancytopenia. 10. Chronic kidney disease. 11. Cholecystectomy. 12. Hysterectomy. SOCIAL HISTORY: She was at residential facility. She has a capital DO NOT RESUSCITATE and DO NOT INTUBATE order in place. The patient used to live with her son in the past. FAMILY HISTORY: Noncontributory. REVIEW OF SYSTEMS: All systems were reviewed and found to be noncontributory. PHYSICAL EXAMINATION: Temperature 97.2, pulse 58, blood pressure 128/56, and 93% saturation on room air. Heart: Irregularly irregular. Lungs: Clear to auscultation. Abdomen: Soft, nontender, nondistended. She has subcutaneous petechiae under skin of her legs and arms. No pedal edema. Neurological Examination: The patient is awake, alert, oriented to self mostly. She is able to tell me name of month and year. She is unable to tell me the name of the president, city and name of hospital. Extraocular muscles are intact. No facial weakness. Tongue and uvula are midline. 5/5 strength in all four extremities. Deep tendon reflexes are 1+ in arms and knees and absent at ankles. Right knee reflex could not be tested due to her brace. She has decreased cold, pinprick vibration sensation in her feet. Gait could not be tested. DIAGNOSTIC STUDIES: CT scan of head is described above. She had MRI scan of brain after CT scan which showed small left parietal ischemic strokes. She has a questionable right parietal small lacunar stroke. ASSESSMENT: 1. 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 The right parietal lesion is questionable. 2. Acute non-ST elevation myocardial infarction. 3. Chronic bilateral basal ganglia and cerebellar calcifications. PLAN 1. Continue aspirin 81 mg by mouth daily and she is also on Lovenox at renally adjusted dose. 2. Physical and occupational therapy. 3. Follow with our office in 2 weeks after hospital discharge.
[2016-05-14] MEDS: ALBUTEROL SULFATE 2.5 MG/0.5 ML INH NEB SOLN INH SCH ×4 (07:42→20:00)
[2016-05-14 08:00] VITALS: BP 128/59
[2016-05-14] MEDS: ZONISAMIDE 50 MG CAP (ZONEGRAN) PO SCH ×2 (09:12→21:50)
[2016-05-14] MEDS: ATORVASTATIN 20 MG TAB PO SCH (09:12)
[2016-05-14] MEDS: SENOKOT S TAB PO SCH ×2 (09:13→21:50)
[2016-05-14] MEDS: MEMANTINE 5MG TABLET (NAMENDA) PO SCH ×2 (09:13→21:50)
[2016-05-14] MEDS: DULoxetine 30 MG CAP (CYMBALTA) PO SCH (09:13)
[2016-05-14] MEDS: predniSONE 5 MG TAB PO SCH (09:14)
[2016-05-14] MEDS: DOCUSATE SODIUM 100 MG CAP PO SCH ×2 (09:14→21:50)
[2016-05-14] MEDS: ASPIRIN 81 MG CHEW TABLET PO SCH (09:14)
[2016-05-14] MEDS: MAGNESIUM OXIDE 400 MG TAB (MAG-OX) PO SCH ×2 (09:14→21:50)
[2016-05-14] MEDS: traMADol 50 MG TAB PO SCH ×3 (09:14→21:51)
[2016-05-14] MEDS: CitaloPRAM (CeleXA) 20 MG TAB PO SCH (09:14)
[2016-05-14] MEDS: PANTOPRAZOLE 40MG TAB (PROTONIX) PO SCH (09:14)
[2016-05-14] MEDS: FLUDROCORTISONE ACETATE 0.1 MG TAB PO SCH (09:14)
[2016-05-14] MEDS: FUROSEMIDE 20 MG TAB PO SCH ×2 (09:15→17:53)
[2016-05-14] MEDS: VITAMIN D 1,000 INTERNATIONAL UNITS TABLET PO SCH (09:18)
--- NOTE | 2016-05-14 10:03 | IPNPDOC ---
[facility] Cardiology Progress Note Date of Service/Time The patient was seen on 05/14/16 at 09:52. Cardiology Progress Note Ms Mccallum is an 81 y/o female who initially presented with the complaint of decreasing mental status, increased confusion, vague chest pressure complaints, word finding difficulties and found to have NSTEMI on EKG in the ED. OBJECTIVE: PHYSICAL EXAMINATION: VITAL SIGNS: Please see below. GENERAL APPEARANCE: appears comfortable, laying in bed, pleasant but lethargic, appears difficulty with communicating efficiently with word choice HEENT: NCAT, nares patent b/l, EOMI, moist mucus membranes LUNGS: diminished bases b/l, no rhonchi, rales or wheezing appreciated HEART: normal s1 and s2, no murmurs, rubs or gallops can be appreciated ABDOMEN: soft, non-distended, non-tender, no organomegaly, [id number] SKIN: dry but intact EXTREMITIES: +1 edema b/l LE, note right lower extremity has soft brace from fall one week ago at care home that resulted in fracture NEUROLOGICAL: lethargic, arousable to verbal and painful stimuli PSYCHIATRIC: seems lethargic, decreased mental status from baseline as per family, attempts to answer questions but has some difficultly articulating responses LABORATORY WORK: Please see below. ASSESSMENT AND PLAN: Ms Mccallum was visited by Neurology for her findings of embolic stroke to the left parietal region, recommended continued anticoagulation with aspirin and Lovenox, agree with this plan. The patient's blood pressure (128/59 today) and heart rate ( 57-86 BPM) have been stable on her atorvastatin and metoprolol medical therapy. Her troponin has also decreased to 1.16 today from 1.30. At this point, would not recommend further changes in medication. Vital Signs/I&O VS/I&O Vital Signs Date Time Temp Pulse Resp B/P Pulse Ox O2 Delivery O2 Flow Rate FiO2 05/14/16 09:14 20 05/14/16 08:00 98.3 86 128/59 93 Nasal Cannula 2.0 I&O- Last 24 Hours up to 6 AM 05/14/16 06:00 Intake Total 990 ml Output Total 300 ml Balance 690 ml Laboratory Data 24H LABS Laboratory Tests 2 05/13/16 16:14: Troponin I 1.30#H 05/14/16 05:09: Troponin I 1.16H, Anion Gap 6L, Blood Urea Nitrogen 38H, Creatinine 1.29H, Sodium Level 145, Potassium Level 3.4L, Chloride Level 103, Carbon Dioxide Level 36H, Calcium Level 8.2L, Glomerular Filtration Rate 42.3 CBC/BMP Laboratory Tests 05/14/16 05:09 Calcium Level 8.2 L, Red Blood Count 3.06 L, Mean Corpuscular Volume 90.0, Mean Corpuscular Hemoglobin 29.4, Mean Corpuscular Hemoglobin Concent 32.6, Red Cell Distribution Width 16.9 H Microbiology Microbiology 05/13/16 Urine Culture - Final, Complete GME ATTESTATION GME ATTESTATION My preceptor for this patient encounter was physically present in the building during the encounter and was fully available. As needed, all aspects of the patient interview, examination, medical decision making process, and medical care plan development were reviewed and approved by the preceptor. Preceptor is aware and concurs with the plan as stated in the body of this note and will attest to such by his/her cosignature. LINDA JAIMES DO May 14, 2016 10:03
--- NOTE | 2016-05-14 10:14 | IPNPDOC ---
Date of Service/Time 05/14/16 Progress Note SUBJECTIVE: The patient complains of feeling tired she denies any chest pain shortness of breath or pain otherwise at this time OBJECTIVE: PHYSICAL EXAMINATION: VITAL SIGNS: Mildly bradycardic otherwise Please see below. GENERAL: Frail obese elderly female lying flat in bed she does not appear to be in any acute distress HEENT: I do not appreciate any facial droop cranial nerves 2 through 12 appear grossly intact CARDIOVASCULAR: S1-S2 bradycardic appears regular at this time RESPIRATORY: Clear to auscultation anteriorly the patient refuses to cooperate with the posterior exam. ABDOMINAL: Sounds present abdomen soft EXTREMITIES: No clubbing cyanosis or edema NEUROLOGICAL: Nonfocal on my exam LABORATORY DATA: Improved anemia status post 1 unit PRBCs with stable response mild thrombocytopenia downtrending troponin, potassium 3.4 magnesium level pending otherwise Please see below. MICROBIOLOGY: Urine culture negative otherwise Please see below. IMAGING: Patient had a CT scan of the head revealed no intracranial pathology or hemorrhage extensive atherosclerotic disease, Chest x-ray COPD fibrosis and elevated right diaphragm no rahul edema cardiac silhouette enlarged but unchanged from previous study MRI of the brain left and right parietal lobe most compatible with acute embolic stroke Dunst desiccation noted within the left and right basal ganglia discussed occasional seen within the left and right cerebellum Duplex ultrasound revealed no evidence of DVT bilaterally VQ scan reveals low probability for PE Echocardiogram: Ordered but not yet completed. DVT prophylaxis ordered?: Therapeutic Lovenox ASSESSMENT AND PLAN: This is a 81-year-old female with acute CVA and NSTEMI in the setting of a recent fall with inoperable fracture on the right. Problem #1 NSTEMI: The patient is being anticoagulated with renally dosed Lovenox she is on aspirin and beta mary and a statin she did receive Brilinta patient has been seen and evaluated by cardiology that help is greatly appreciated cardiac catheterization was offered and the patient's family declined this intervention and as such we are treating medically as best capable knowing that her clinical status remains quite guarded Problem #2 acute CVA the patient on aspirin and statin. Physical therapy has not been ordered as the patient is bedridden secondary to an inoperable fracture NOT documented ordered today as well as speech eval. Dr. Matias of neurology has seen the patient and recommended outpatient follow-up with neurology. The patient has a history of known atrial fibrillation and the decision not to anticoagulate was made in the past due to the the patient's propensity for frequent falls. The patient has had a [facility] with an inoperable right femur fracture. Inoperable secondary to her comorbidities and advanced age the patient is essentially bedridden now. She is likely a better candidate for anticoagulation at this time will allow her to stabilize over the next several days before deciding on any long-term anticoagulation. This may be embolic related atrial ablation versus cardiogenic source secondary to her OR Problem #3 right femoral fracture: The patient previously seen by orthopedic surgery previously and is not a candidate for any operative repair given her advanced age comorbidities systems previously made Problem #4 dementia: The patient is a prison resident she is on Namenda she does not remember previous conversations, felt to be related to Parkinson's disease Problem #5 seizure disorder the patient on zonisamide problem #6 depression fibromyalgia the patient is on Celexa Cymbalta Problem #7 systemic lupus the patient is on prednisone Problem #8 chronic pain the patient on Neurontin ulTRAM Problem #9 Chronic hypoxic respiratory failure the patient is chronically on 2 L of home O2. She is at her baseline Problem #10 chronic kidney disease: The patient is continued on her home diuretic Problem #11 gastroesophageal reflux disease patient is on Protonix Problem #12 vitamin d deficiency the patient is on supplementation Problem #13 urinary tract infection: The patient was on Macrobid on the outpatient setting her UA is unremarkable here and urine cultures negative is been discontinued DISPOSITION: Given the multitude of comorbidities and her immobility her overall prognosis is quite poor I did discuss this with her children previously we will attempt best medical therapy she is a DNR/DNI should her condition worsen would discuss with healthcare proxy potential comfort measures before escalating care any further. Should she continue to remain stable she may be able to return back to her prison as early as this coming week VS, I&O, 24H, Fishbone VS, I&O, 24H, Fishbone Vital Signs Date Time Temp Pulse Resp B/P Pulse Ox O2 Delivery O2 Flow Rate FiO2 05/14/16 09:14 20 05/14/16 08:00 98.3 86 128/59 93 Nasal Cannula 2.0 I&O- Last 24 Hours up to 6 AM 05/14/16 06:00 Intake Total 990 ml Output Total 300 ml Balance 690 ml Laboratory Tests 2 05/13/16 16:14: Troponin I 1.30#H 05/14/16 05:09: Troponin I 1.16H, Anion Gap 6L, Blood Urea Nitrogen 38H, Creatinine 1.29H, Sodium Level 145, Potassium Level 3.4L, Chloride Level 103, Carbon Dioxide Level 36H, Calcium Level 8.2L, Glomerular Filtration Rate 42.3 Laboratory Tests 05/14/16 05:09 Calcium Level 8.2 L, Red Blood Count 3.06 L, Mean Corpuscular Volume 90.0, Mean Corpuscular Hemoglobin 29.4, Mean Corpuscular Hemoglobin Concent 32.6, Red Cell Distribution Width 16.9 H Microbiology 05/13/16 Urine Culture - Final, Complete TAMMIE HERNANDEZ MD May 14, 2016 10:14
[2016-05-14 10:54] LABS: MAGNESIUM LEVEL 2.6 MG/DL (1.8-2.4)
[2016-05-14 12:00] VITALS: BP 119/58
[2016-05-14] MEDS: MORPHINE 2 MG/ML 1ML SYRINGE IV PRN (12:44)
[2016-05-14 16:00] VITALS: BP 101/57
[2016-05-14 20:00] VITALS: BP 106/55
--- NOTE | 2016-05-14 20:33 | ECHO ---
DATE OF PROCEDURE: 05/14/2016 REFERRING PHYSICIAN: Gennaro Anne MD PATIENT LOCATION: Room 3213 REASON FOR ECHOCARDIOGRAM: Abnormal EKG. 2D MEASUREMENTS: IVS: 1.4 cm LV: 4.4 cm LVPW: 1.3 cm LA: 4.2 cm Aorta: 3.3 cm DOPPLER MEASUREMENTS: Peak velocity across the aortic valve: 2.1 m/s Peak velocity across the LVOT: 0.76 m/s Mitral E: 0.87, Mitral A: 0.79, with a ratio of 1.1 Maximum tricuspid valve velocity: 2.8 m/s 2D COMMENTS: 1. Mildly increased left ventricular wall thickness with normal left ventricular size and a normal global left ventricular systolic function. The estimated global left ventricular systolic ejection fraction is 65 to 70%. 2. Mildly enlarged left atrium. Normal right atrium and right ventricle. 3. The atrial septum appeared to be normal without evidence of defect or shunt. 4. Normal aortic root. 5. No pericardial effusion seen. 6. Mildly calcified aortic valve with minimal restricted leaflet motion. Mildly calcified mitral annulus with normal anterior mitral valve leaflet motion. Normal tricuspid valve. The pulmonic valve and proximal pulmonary artery branches were not well visualized. 7. The inferior vena cava was not visualized. DOPPLER: It detects mild aortic regurgitation, mild to moderate mitral regurgitation and mild tricuspid regurgitation. The calculated pulmonary artery systolic pressure varies between 30 to 40 mmHg. Assessment of the left ventricular diastolic function appeared to be normal. IMPRESSION: 1. Normal global left ventricular systolic function with mild concentric left ventricular hypertrophy. 2. Aortic valve sclerosis with mild aortic regurgitation and mild aortic stenosis. 3. Mitral annulus calcification with mildly enlarged left atrium and mild to moderate mitral regurgitation. 3. Mild tricuspid regurgitation with mild pulmonary hypertension.
[2016-05-14] MEDS: ENOXAPARIN 100MG/1ML SYRINGE (J1650) SC SCH (21:48)
[2016-05-14] MEDS: GABAPENTIN 100 MG CAP PO SCH (21:51)
[2016-05-14] MEDS: ACETAMINOPHEN TAB 650MG DOSE (2X325MG) PO PRN (23:49)
[2016-05-15] VITALS (7 sets, daily range): BP systolic 103–140; BP diastolic 54–69
[2016-05-15 05:28] LABS: MEAN CORPUSCULAR HEMOGLOBIN 29.5 pg (27.0-33.0); MEAN CORPUSCULAR HGB CONC 32.6 g/dl (32.0-36.5); MEAN CORPUSCULAR VOLUME 90.5 fl (80.0-96.0)
[2016-05-15 05:41] LABS: CALCIUM LEVEL 8.5 MG/DL (8.8-10.2); CREATININE FOR GFR 1.23 MG/DL (0.55-1.02); GLOMERULAR FILTRATION RATE 44.7 (>32); POTASSIUM SERUM 3.2 MEQ/L (3.5-5.1)
[2016-05-15] MEDS: METOPROLOL TART 25 MG TABLET PO SCH ×3 (06:00→18:26)
[2016-05-15] MEDS: SLF 3 ML SYR IV SCH ×3 (06:32→22:21)
[2016-05-15] MEDS: ALBUTEROL SULFATE 2.5 MG/0.5 ML INH NEB SOLN INH SCH ×4 (07:08→19:40)
[2016-05-15] MEDS: GABAPENTIN 300 MG CAP PO SCH ×2 (07:15→12:37)
[2016-05-15] MEDS: ZONISAMIDE 50 MG CAP (ZONEGRAN) PO SCH ×2 (08:48→22:19)
[2016-05-15] MEDS: ATORVASTATIN 20 MG TAB PO SCH (08:48)
[2016-05-15] MEDS: MEMANTINE 5MG TABLET (NAMENDA) PO SCH ×2 (08:48→22:19)
[2016-05-15] MEDS: VITAMIN D 1,000 INTERNATIONAL UNITS TABLET PO SCH (08:48)
[2016-05-15] MEDS: predniSONE 5 MG TAB PO SCH (08:49)
[2016-05-15] MEDS: traMADol 50 MG TAB PO SCH ×3 (08:49→22:21)
[2016-05-15] MEDS: MAGNESIUM OXIDE 400 MG TAB (MAG-OX) PO SCH ×2 (08:50→22:20)
[2016-05-15] MEDS: PANTOPRAZOLE 40MG TAB (PROTONIX) PO SCH (08:50)
[2016-05-15] MEDS: SENOKOT S TAB PO SCH ×2 (08:50→22:19)
[2016-05-15] MEDS: DOCUSATE SODIUM 100 MG CAP PO SCH ×2 (08:50→22:19)
[2016-05-15] MEDS: FUROSEMIDE 20 MG TAB PO SCH ×2 (08:50→16:52)
[2016-05-15] MEDS: DULoxetine 30 MG CAP (CYMBALTA) PO SCH (08:51)
[2016-05-15] MEDS: FLUDROCORTISONE ACETATE 0.1 MG TAB PO SCH (08:51)
[2016-05-15] MEDS: CitaloPRAM (CeleXA) 20 MG TAB PO SCH (08:51)
[2016-05-15] MEDS: ASPIRIN 81 MG CHEW TABLET PO SCH (08:51)
[2016-05-15] MEDS ORDERED: POTASSIUM CHLORIDE 10 MEQ SR TABLET PO ONE (12:30)
--- NOTE | 2016-05-15 12:31 | IPNPDOC ---
Date/Time Seen The patient was seen on 05/15/16 at 12:26. Progress Note SUBJECTIVE: The patient complains of feeling tired she denies any chest pain shortness of breath PHYSICAL EXAMINATION: VITAL SIGNS: Mildly bradycardic otherwise Please see below. GENERAL: Frail obese elderly female lying in bed she does not appear to be in any acute distress HEENT: I do not appreciate any facial droop cranial nerves 2 through 12 appear grossly intact CARDIOVASCULAR: S1-S2 bradycardic appears regular at this time RESPIRATORY: Clear to auscultation ABDOMINAL: Sounds present abdomen soft EXTREMITIES: No clubbing cyanosis or edema NEUROLOGICAL: Nonfocal on my exam LABORATORY DATA: Downtrending hemoglobin platelets although only mildly, hypokalemia repleted Please see below. MICROBIOLOGY: Urine culture negative otherwise Please see below. IMAGING: Patient had a CT scan of the head revealed no intracranial pathology or hemorrhage extensive atherosclerotic disease, Chest x-ray COPD fibrosis and elevated right diaphragm no rahul edema cardiac silhouette enlarged but unchanged from previous study MRI of the brain left and right parietal lobe most compatible with acute embolic stroke Dunst desiccation noted within the left and right basal ganglia discussed occasional seen within the left and right cerebellum Duplex ultrasound revealed no evidence of DVT bilaterally VQ scan reveals low probability for PE Echocardiogram: Normal global LV systolic function with mild concentric LVH DVT prophylaxis ordered?: Therapeutic renally dosed Lovenox ASSESSMENT AND PLAN: This is a 81-year-old female with acute CVA and NSTEMI in the setting of a recent fall with inoperable fracture on the right. Problem #1 NSTEMI: The patient is being anticoagulated with renally dosed Lovenox she is on aspirin and beta mary {although she is not receiving it secondary to bradycardia arrhythmia] and a statin she did receive Brilinta upon arrival patient has been seen and evaluated by cardiology that help is greatly appreciated, cardiac catheterization was offered and the patient's family declined this intervention and as such we are treating medically as best capable knowing that her clinical status remains quite guarded Problem #2 acute CVA the patient on aspirin and statin therapeutical renally dosed Lovenox. Physical therapy has not been ordered as the patient is bedridden secondary to an inoperable fracture. Dr. Matias of neurology has seen the patient and recommended outpatient follow-up with neurology. The patient has a history of known atrial fibrillation and the decision not to anticoagulate was made in the past due to the the patient's propensity for frequent falls. The patient has had a fall recently at her detention with an inoperable right femur fracture. Inoperable secondary to her comorbidities and advanced age the patient is essentially bedridden now. She is likely a better candidate for anticoagulation at this time. I did discuss with Dr. Newby we will allow her to stabilize over the next several days before deciding on any long-term anticoagulation. This may be embolic related atrial ablation. Problem #3 right femoral fracture: The patient previously seen by orthopedic surgery previously and is not a candidate for any operative repair given her advanced age comorbidities systems previously made Problem #4 dementia: The patient is a detention resident she is on Namenda she does not remember previous conversations, felt to be related to Parkinson's disease Problem #5 seizure disorder the patient on zonisamide problem #6 depression fibromyalgia the patient is on Celexa Cymbalta Problem #7 systemic lupus the patient is on prednisone Problem #8 chronic pain the patient on Neurontin ulTRAM Problem #9 Chronic hypoxic respiratory failure the patient is chronically on 2 L of home O2. She is at her baseline Problem #10 chronic kidney disease: The patient is continued on her home diuretic Problem #11 gastroesophageal reflux disease patient is on Protonix Problem #12 vitamin d deficiency the patient is on supplementation Problem #13 urinary tract infection: The patient was on Macrobid on the outpatient setting her UA is unremarkable here and urine cultures negative is been discontinued DISPOSITION: Given the multitude of comorbidities and her immobility her overall prognosis is quite poor, I did discuss this with her children previously we will attempt best medical therapy she is a DNR/DNI should her condition worsen would discuss with healthcare proxy potential comfort measures before escalating care any further. Should she continue to remain stable she may be able to return back to her detention as early as this coming week VS, I&O, 24H, Fishbone VS, I&O, 24H, Fishbone Vital Signs Date Time Temp Pulse Resp B/P Pulse Ox O2 Delivery O2 Flow Rate FiO2 05/15/16 08:57 Nasal Cannula 2.0 05/15/16 08:49 18 05/15/16 08:00 96.2 56 110/54 97 I&O- Last 24 Hours up to 6 AM 05/15/16 06:00 Intake Total 985 ml Output Total 50 ml Balance 935 ml Laboratory Tests 2 05/15/16 04:57: Anion Gap 5L, Blood Urea Nitrogen 33H, Creatinine 1.23H, Sodium Level 146H, Potassium Level 3.2L, Chloride Level 102, Carbon Dioxide Level 39H, Calcium Level 8.5L, Glomerular Filtration Rate 44.7 Laboratory Tests 05/15/16 04:57 Calcium Level 8.5 L, Red Blood Count 2.94 L, Mean Corpuscular Volume 90.5, Mean Corpuscular Hemoglobin 29.5, Mean Corpuscular Hemoglobin Concent 32.6, Red Cell Distribution Width 17.0 H Microbiology 05/13/16 Urine Culture - Final, Complete TAMMIE HERNANDEZ MD May 15, 2016 12:31
[2016-05-15] MEDS: ACETAMINOPHEN TAB 650MG DOSE (2X325MG) PO PRN (13:35)
--- NOTE | 2016-05-15 19:09 | EDDOCDS ---
Physician Documentation [facility] Name: Katie Mccallum Age: 81 yrs Sex: Female : 1935 Arrival Date: 05/12/2016 Time: 15:50 Bed Admit Hold Private : Irma Disposition: 05/12/16 18:03 Hospitalization ordered by Shira Mariano for Inpatient Admission. Preliminary diagnosis are Non-ST elevation (NSTEMI) myocardial infarction, Anemia, unspecified. - [facility] - Status is Inpatient Admission. nr1 - Condition is Stable. - Problem is new. - Symptoms are unchanged. Historical: - Allergies: Motrin (Unknown, Vomit); - Home Meds: 1. acetaminophen 500 mg Oral tab 2 tabs twice a day 2. albuterol sulfate 2.5 mg/0.5 mL Inhl nebu every 6 hours and Q 2 hrs prn 3. aspirin 81 mg Oral tab 1 tab once daily 4. atenolol 100 mg Oral tab 1 tab once daily 5. bisacodyl 10 mg Rectal supp 1 suppository Daily as needed 6. Celexa 20 mg Oral tab 1 tab once daily 7. Colace 100 mg oral cap 1 cap 2 times per day 8. Macrobid 100 mg Oral cap 1 cap every 12 hours 9. Lasix 60mg Oral tab 1 tab 2 times per day 10. gabapentin 300 mg oral tab twice a day 11. Gabapentin 200 mg Oral once daily 12. prednisone 5 mg/mL Oral conc once daily 13. potassium chloride 20 mEq oral TbER once daily 14. Senna with Docusate Sodium 8.6-50 mg oral tab 2 tabs once daily 15. Ultram 50 mg Oral tab 1 tab every 8 h 16. atenolol 100 mg Oral tab 1 tab once daily 17. magnesium oxide 400 mg Oral cap 400 mg twice a day 18. Namenda 10 mg oral tab 1 tab 2 times per day 19. Miralax 17 gram/dose Oral powd 17 g once daily as needed 20. zonisamide 50 mg oral cap 1 cap 2 times per day 21. fludrocortisone 0.1 mg oral tab 1 tab once daily 22. Cymbalta 60 mg Oral cpDR 1 cap once daily - PMHx: afib; Dementia; Fibromyalgia; fracture of T11-T12; Hypertension; Lupus; neuropathy; orthostatic hypotension; Parkinson's Disease; TIA; ventricular tachycardia; Vertigo; - PSHx: Cholecystectomy; Hysterectomy; - Social history: Smoking status: Patient states was never smoker of tobacco. No barriers to communication noted, The patient speaks fluent Persian. - Family history: Not pertinent. - : The pt / caregiver states he / she is not on anticoagulants. Home medication list is obtained from family members. - Exposure Risk Screening:: None identified. - Advance directive:: Yes. Vital Signs: 05/12 16:02 BP 103 / 51 RA Supine (auto/reg); Pulse 61; Resp 16; Temp 98.3(TE); Pulse Ox 75% on rs6 R/A; Weight 94.62 kg / 208.6 lbs (M); Height 68 in. (172.72 cm) (M); 16:02 Pulse Ox 98% on 4 lpm NC; rs6 17:42 Pulse 57 MON; Pulse Ox 97% ; jmk 17:43 BP 137 / 62 (auto/); jmk 17:44 Pulse 57 MON; Pulse Ox 98% ; jmk 17:45 BP 112 / 64 (auto/); jmk 19:44 BP 118 / 59 (auto/); jp6 19:45 Pulse 55 MON; Pulse Ox 98% ; jp6 19:59 Pulse 56 MON; Pulse Ox 98% ; jp6 20:00 BP 115 / 57 (auto/); jp6 20:09 Pulse 56 MON; Pulse Ox 78% ; jp6 20:20 Pulse 56 MON; Pulse Ox 99% ; jp6 20:30 BP 124 / 59 (auto/); jp6 20:30 Pulse 54 MON; Pulse Ox 99% ; jp6 20:54 Pulse 52 MON; Pulse Ox 100% ; jp6 21:00 BP 103 / 67 (auto/); jp6 21:02 Pulse 54 MON; Pulse Ox 99% ; jp6 21:30 BP 103 / 60 (auto/); jp6 21:30 Pulse 56 MON; Pulse Ox 95% ; jp6 22:00 BP 123 / 66 (auto/); jp6 22:00 Pulse 54 MON; jp6 22:23 BP 127 / 61 (auto/); jp6 22:25 Pulse 55 MON; Pulse Ox 100% ; jp6 22:26 Pulse 55 MON; Pulse Ox 99% ; jp6 22:26 Resp 18; Temp 98(O); Pulse Ox 98% on 4 lpm NC; jp6 22:30 BP 114 / 57 (auto/); jp6 22:31 Pulse 54 MON; jp6 23:00 BP 118 / 83 (auto/); jp6 23:00 Pulse 68 MON; jp6 23:16 BP 108 / 72 (auto/); jp6 23:27 Pulse 91 MON; Pulse Ox 95% ; jp6 23:29 Pulse 60 MON; Pulse Ox 95% ; jp6 23:30 BP 110 / 63 (auto/); jp6 01 00:00 BP 102 / 56 (auto/); jp6 00:01 Pulse 57 MON; Pulse Ox 95% ; jp6 00:01 Resp 16; Temp 98.2; Pulse Ox 98% on 4 lpm NC; Pain 0/10; jp6 05/12 16:02 Body Mass Index 31.72 (94.62 kg, 172.72 cm) rs6 MDM: 05/12 16:17 Retail Zone Specialist/Pulse Ox/q 15 min VS ordered. br1 16:17 Accucheck ordered. br1 16:17 IV Saline Lock ordered. br1 16:17 Rhythm Strip to chart ordered. br1 16:17 CBC with Diff Ordered. EDMS 16:18 Cardiac Injury Profile Ordered. EDMS 16:18 Liver Profile Ordered. EDMS 16:18 MED Profile Ordered. EDMS 16:18 Thyroid Stimulating Hormone Ordered. EDMS 16:18 Troponin Ordered. EDMS 16:18 Urinalysis Ordered. EDMS 16:18 Urine Culture Ordered. EDMS 16:18 Chest, 1 View Ordered. EDMS 16:18 CT Head Without Contrast Ordered. EDMS 16:18 ECG WITH READING ER PHYS+CARDIAG ordered. EDMS 16:49 Fingerstick Blood Sugar Ordered. EDMS 17:02 CBC with Diff Reviewed. br1 17:02 Fingerstick Blood Sugar Reviewed. br1 17:03 BED REQUEST+ADM ordered. EDMS 17:10 Liver Profile Reviewed. br1 17:10 MED Profile Reviewed. br1 17:10 Troponin Reviewed. br1 17:52 Aspirin Chewable Tablet 81 mg PO once ordered. br1 17:52 Brilinta 180 mg PO once ordered. br1 17:58 ED course: EKG shows ST depression/TWI. Trop 1.67. Patient denies any active chest br1 pain. Daughter thinks there was an episode of chest pain 2 days ago. Discussed with patient and family. Patient is DNR/DNI. Does not want cardiac catheterization or transfer to [place] at this time. Discussed with Dr. Willams, agrees with patient staying at [facility], will see patient, recommends aspirin 81 mg and Brilinta 180 mg now. Recommends discussing with Ortho for Lovenox approval. Discussed with Dr. Lira of Ortho, okay for Lovenox. Discussed with Dr. Schwartz - agrees with plan, will admit patient.. 18:00 MRI Brain without Contrast Ordered. EDMS 18:03 Liver Profile Reviewed. br1 18:03 MED Profile Reviewed. br1 18:03 Troponin Reviewed. br1 18:03 Cardiac Injury Profile Reviewed. br1 18:03 Thyroid Stimulating Hormone Reviewed. br1 18:07 Admission / Observation Status ordered. EDMS 18:07 ECHOCARD,DOPPLER/COLOR FLOW ordered. EDMS 18:07 2 GRAM SODIUM DIET ordered. EDMS 18:15 Financial registration complete. zo 18:18 [facility] Payment Agreement was scanned into [employer] and attached to record. zo 19:33 CARDIAC MARKER PANEL Ordered. EDMS 19:34 COMPLETE BLOOD COUNT Ordered. EDMS 19:35 PACKED CELLS Ordered. EDMS 19:35 TYPE & SCREEN Ordered. EDMS 20:18 VENT & PERFUSION LUNG SCAN Ordered. EDMS 05/13 06:28 TROPONIN Ordered. EDMS 06:35 BASIC METABOLIC PROFILE Ordered. EDMS 07:01 Duplex, Ext LOWER veins, bilat Ordered. EDMS 13:36 T-Sheet-- Draft Copy was scanned into [employer] and attached to record. gb 15:56 TROPONIN Ordered. EDPR Point of Care Testing: Blood Glucose: 05/12 16:42 Blood Glucose: 196 mg/dL; brittany Ranges: Administered Medications: 18:05 Drug: Aspirin 81 mg [aspirin 81 mg chewable tablet (1 tabs)] Route: PO; brittany 18:05 Drug: Brilinta 180 mg Route: PO; brittany Signatures: Dispatcher [employer] EDPR Jose Miguel Girard RN RN dwg Knapp, Jean, RN RN jmk Barnhardt, Gloria, Reg Reg Andrew Gomez Brian, MD MD br1 Grisel Sarabia RN RN nr1 Amanda Vargas RN RN jp6 The chart was reviewed and I authenticate all verbal orders and agree with the evaluation and treatment provided.Corrections: (The following items were deleted from the chart) 19:41 19:36 IRON (FE) ordered. EDMS EDMS :41 19:36 TOTAL IRON BINDING CAPACIT ordered. EDMS EDMS : 19:36 FERRITIN ordered. EDMS EDMS 19:36 RETICULOCYTE COUNT ordered. EDMS EDMS : 19:36 PATHOLOGIST REVIEW COMPREHENSI ordered. EDMS EDMS 05/13 00:16 05/12 21:01 URINALYSIS ordered. EDMS EDMS 05/13 00:17 05/12 20:59 URINE CULTURE ordered. EDMS EDMS 05/13 06:29 05/12 19:33 CARDIAC MARKER PANEL ordered. EDMS EDMS 05/13 06:30 05/12 19:33 CARDIAC MARKER PANEL ordered. EDMS EDMS 05/13 06:35 05/12 19:34 BASIC METABOLIC PROFILE ordered. EDMS EDMS Attachments: 18:18 [facility] Payment Agreement zo 05/13 13:36 T-Sheet-- Draft Copy gb Chart Complete MTDD
--- NOTE | 2016-05-15 19:09 | EDDOCDS ---
Physician Documentation [facility] Name: Katie Mccallum Age: 81 yrs Sex: Female : 1935 Arrival Date: 05/12/2016 Time: 15:50 Bed Admit Hold Private : Irma Disposition: 05/12/16 18:03 Hospitalization ordered by Shira Mariano for Inpatient Admission. Preliminary diagnosis are Non-ST elevation (NSTEMI) myocardial infarction, Anemia, unspecified. - [facility]. - Status is Inpatient Admission. nr1 - Condition is Stable. - Problem is new. - Symptoms are unchanged. Historical: - Allergies: Motrin (Unknown, Vomit); - Home Meds: 1. acetaminophen 500 mg Oral tab 2 tabs twice a day 2. albuterol sulfate 2.5 mg/0.5 mL Inhl nebu every 6 hours and Q 2 hrs prn 3. aspirin 81 mg Oral tab 1 tab once daily 4. atenolol 100 mg Oral tab 1 tab once daily 5. bisacodyl 10 mg Rectal supp 1 suppository Daily as needed 6. Celexa 20 mg Oral tab 1 tab once daily 7. Colace 100 mg oral cap 1 cap 2 times per day 8. Macrobid 100 mg Oral cap 1 cap every 12 hours 9. Lasix 60mg Oral tab 1 tab 2 times per day 10. gabapentin 300 mg oral tab twice a day 11. Gabapentin 200 mg Oral once daily 12. prednisone 5 mg/mL Oral conc once daily 13. potassium chloride 20 mEq oral TbER once daily 14. Senna with Docusate Sodium 8.6-50 mg oral tab 2 tabs once daily 15. Ultram 50 mg Oral tab 1 tab every 8 h 16. atenolol 100 mg Oral tab 1 tab once daily 17. magnesium oxide 400 mg Oral cap 400 mg twice a day 18. Namenda 10 mg oral tab 1 tab 2 times per day 19. Miralax 17 gram/dose Oral powd 17 g once daily as needed 20. zonisamide 50 mg oral cap 1 cap 2 times per day 21. fludrocortisone 0.1 mg oral tab 1 tab once daily 22. Cymbalta 60 mg Oral cpDR 1 cap once daily - PMHx: afib; Dementia; Fibromyalgia; fracture of T11-T12; Hypertension; Lupus; neuropathy; orthostatic hypotension; Parkinson's Disease; TIA; ventricular tachycardia; Vertigo; - PSHx: Cholecystectomy; Hysterectomy; - Social history: Smoking status: Patient states was never smoker of tobacco. No barriers to communication noted, The patient speaks fluent Thai. - Family history: Not pertinent. - : The pt / caregiver states he / she is not on anticoagulants. Home medication list is obtained from family members. - Exposure Risk Screening:: None identified. - Advance directive:: Yes. Vital Signs: 05/12 16:02 BP 103 / 51 RA Supine (auto/reg); Pulse 61; Resp 16; Temp 98.3(TE); Pulse Ox 75% on rs6 R/A; Weight 94.62 kg / 208.6 lbs (M); Height 68 in. (172.72 cm) (M); 16:02 Pulse Ox 98% on 4 lpm NC; rs6 17:42 Pulse 57 MON; Pulse Ox 97% ; jmk 17:43 BP 137 / 62 (auto/); jmk 17:44 Pulse 57 MON; Pulse Ox 98% ; jmk 17:45 BP 112 / 64 (auto/); jmk 19:44 BP 118 / 59 (auto/); jp6 19:45 Pulse 55 MON; Pulse Ox 98% ; jp6 19:59 Pulse 56 MON; Pulse Ox 98% ; jp6 20:00 BP 115 / 57 (auto/); jp6 20:09 Pulse 56 MON; Pulse Ox 78% ; jp6 20:20 Pulse 56 MON; Pulse Ox 99% ; jp6 20:30 BP 124 / 59 (auto/); jp6 20:30 Pulse 54 MON; Pulse Ox 99% ; jp6 20:54 Pulse 52 MON; Pulse Ox 100% ; jp6 21:00 BP 103 / 67 (auto/); jp6 21:02 Pulse 54 MON; Pulse Ox 99% ; jp6 21:30 BP 103 / 60 (auto/); jp6 21:30 Pulse 56 MON; Pulse Ox 95% ; jp6 22:00 BP 123 / 66 (auto/); jp6 22:00 Pulse 54 MON; jp6 22:23 BP 127 / 61 (auto/); jp6 22:25 Pulse 55 MON; Pulse Ox 100% ; jp6 22:26 Pulse 55 MON; Pulse Ox 99% ; jp6 22:26 Resp 18; Temp 98(O); Pulse Ox 98% on 4 lpm NC; jp6 22:30 BP 114 / 57 (auto/); jp6 22:31 Pulse 54 MON; jp6 23:00 BP 118 / 83 (auto/); jp6 23:00 Pulse 68 MON; jp6 23:16 BP 108 / 72 (auto/); jp6 23:27 Pulse 91 MON; Pulse Ox 95% ; jp6 23:29 Pulse 60 MON; Pulse Ox 95% ; jp6 23:30 BP 110 / 63 (auto/); jp6 01 00:00 BP 102 / 56 (auto/); jp6 00:01 Pulse 57 MON; Pulse Ox 95% ; jp6 00:01 Resp 16; Temp 98.2; Pulse Ox 98% on 4 lpm NC; Pain 0/10; jp6 05/12 16:02 Body Mass Index 31.72 (94.62 kg, 172.72 cm) rs6 MDM: 05/12 16:17 Pricing Supervisor/Pulse Ox/q 15 min VS ordered. br1 16:17 Accucheck ordered. br1 16:17 IV Saline Lock ordered. br1 16:17 Rhythm Strip to chart ordered. br1 16:17 CBC with Diff Ordered. EDMS 16:18 Cardiac Injury Profile Ordered. EDMS 16:18 Liver Profile Ordered. EDMS 16:18 MED Profile Ordered. EDMS 16:18 Thyroid Stimulating Hormone Ordered. EDMS 16:18 Troponin Ordered. EDMS 16:18 Urinalysis Ordered. EDMS 16:18 Urine Culture Ordered. EDMS 16:18 Chest, 1 View Ordered. EDMS 16:18 CT Head Without Contrast Ordered. EDMS 16:18 ECG WITH READING ER PHYS+CARDIAG ordered. EDMS 16:49 Fingerstick Blood Sugar Ordered. EDMS 17:02 CBC with Diff Reviewed. br1 17:02 Fingerstick Blood Sugar Reviewed. br1 17:03 BED REQUEST+ADM ordered. EDMS 17:10 Liver Profile Reviewed. br1 17:10 MED Profile Reviewed. br1 17:10 Troponin Reviewed. br1 17:52 Aspirin Chewable Tablet 81 mg PO once ordered. br1 17:52 Brilinta 180 mg PO once ordered. br1 17:58 ED course: EKG shows ST depression/TWI. Trop 1.67. Patient denies any active chest br1 pain. Daughter thinks there was an episode of chest pain 2 days ago. Discussed with patient and family. Patient is DNR/DNI. Does not want cardiac catheterization or transfer to [place] at this time. Discussed with Dr. Willams, agrees with patient staying at [facility], will see patient, recommends aspirin 81 mg and Brilinta 180 mg now. Recommends discussing with Ortho for Lovenox approval. Discussed with Dr. Lira of Ortho, okay for Lovenox. Discussed with Dr. Schwartz - agrees with plan, will admit patient.. 18:00 MRI Brain without Contrast Ordered. EDMS 18:03 Liver Profile Reviewed. br1 18:03 MED Profile Reviewed. br1 18:03 Troponin Reviewed. br1 18:03 Cardiac Injury Profile Reviewed. br1 18:03 Thyroid Stimulating Hormone Reviewed. br1 18:07 Admission / Observation Status ordered. EDMS 18:07 ECHOCARD,DOPPLER/COLOR FLOW ordered. EDMS 18:07 2 GRAM SODIUM DIET ordered. EDMS 18:15 Financial registration complete. zo 18:18 [facility] Payment Agreement was scanned into [employer] and attached to record. zo 19:33 CARDIAC MARKER PANEL Ordered. EDMS 19:34 COMPLETE BLOOD COUNT Ordered. EDMS 19:35 PACKED CELLS Ordered. EDMS 19:35 TYPE & SCREEN Ordered. EDMS 20:18 VENT & PERFUSION LUNG SCAN Ordered. EDMS 05/13 06:28 TROPONIN Ordered. EDMS 06:35 BASIC METABOLIC PROFILE Ordered. EDMS 07:01 Duplex, Ext LOWER veins, bilat Ordered. EDMS 13:36 T-Sheet-- Draft Copy was scanned into [employer] and attached to record. gb 15:56 TROPONIN Ordered. EDMI Point of Care Testing: Blood Glucose: 05/12 16:42 Blood Glucose: 196 mg/dL; brittany Ranges: Administered Medications: 18:05 Drug: Aspirin 81 mg [aspirin 81 mg chewable tablet (1 tabs)] Route: PO; brittany 18:05 Drug: Brilinta 180 mg Route: PO; brittany Signatures: Dispatcher [employer] EDMI Jose Miguel Girard RN RN dwg Knapp, Jean, RN RN jmk Barnhardt, Gloria, Reg Reg Andrew Gomez Brian, MD MD br1 Grisel Sarabia RN RN nr1 Amanda Vargas RN RN jp6 The chart was reviewed and I authenticate all verbal orders and agree with the evaluation and treatment provided.Corrections: (The following items were deleted from the chart) 19:41 19:36 IRON (FE) ordered. EDMS EDMS :41 19:36 TOTAL IRON BINDING CAPACIT ordered. EDMS EDMS : 19:36 FERRITIN ordered. EDMS EDMS 19:36 RETICULOCYTE COUNT ordered. EDMS EDMS : 19:36 PATHOLOGIST REVIEW COMPREHENSI ordered. EDMS EDMS 05/13 00:16 05/12 21:01 URINALYSIS ordered. EDMS EDMS 05/13 00:17 05/12 20:59 URINE CULTURE ordered. EDMS EDMS 05/13 06:29 05/12 19:33 CARDIAC MARKER PANEL ordered. EDMS EDMS 05/13 06:30 05/12 19:33 CARDIAC MARKER PANEL ordered. EDMS EDMS 05/13 06:35 05/12 19:34 BASIC METABOLIC PROFILE ordered. EDMS EDMS Attachments: 18:18 [facility] Payment Agreement zo 05/13 13:36 T-Sheet-- Draft Copy gb Chart Complete MTDD
--- NOTE | 2016-05-15 19:09 | EDDOCDS ---
Nurse's Notes [facility] Name: Cecil Mccallum Age: 81 yrs Sex: Female : 1935 Arrival Date: 05/12/2016 Time: 15:50 Bed Admit Hold Private MD: Irma Diagnosis: Non-ST elevation (NSTEMI) myocardial infarction;Anemia, unspecified Presentation: 05/12 15:55 Presenting complaint: Patient states: [facility] , SKILLED. ALTERED MENTAL [facility] STATUS NOTED TODAY. Has UTI, on macrobid, and 1 week ago fell and incurred tib/ fib fx. FS 218 en route. Adult Sepsis Screening: Patient has new or worsening altered mentation (1 point). Patient's respiratory rate is less than 22. Systolic blood pressure is greater than 100. Patient has a qSOFA score of 1- Negative Sepsis Screen. Suicide/Homicide risk assessment- the patient denies having any suicidal and/or homicidal ideations and does not present with any other emotional, behavioral or mental health complaints. Status: Patient is not a account manager forest service or dependent. Transition of care: patient was not received from another setting of care. 15:55 Acuity: MIC Level 4 [facility] 15:55 Method Of Arrival: Ambulance [facility] Triage Assessment: 16:08 General: Appears alert and aware of surroundings recognizes son. Neurological: Level of [facility] Consciousness is awake, Oriented to person. Historical: - Allergies: Motrin (Unknown, Vomit); - Home Meds: 1. acetaminophen 500 mg Oral tab 2 tabs twice a day 2. albuterol sulfate 2.5 mg/0.5 mL Inhl nebu every 6 hours and Q 2 hrs prn 3. aspirin 81 mg Oral tab 1 tab once daily 4. atenolol 100 mg Oral tab 1 tab once daily 5. bisacodyl 10 mg Rectal supp 1 suppository Daily as needed 6. Celexa 20 mg Oral tab 1 tab once daily 7. Colace 100 mg oral cap 1 cap 2 times per day 8. Macrobid 100 mg Oral cap 1 cap every 12 hours 9. Lasix 60mg Oral tab 1 tab 2 times per day 10. gabapentin 300 mg oral tab twice a day 11. Gabapentin 200 mg Oral once daily 12. prednisone 5 mg/mL Oral conc once daily 13. potassium chloride 20 mEq oral TbER once daily 14. Senna with Docusate Sodium 8.6-50 mg oral tab 2 tabs once daily 15. Ultram 50 mg Oral tab 1 tab every 8 h 16. atenolol 100 mg Oral tab 1 tab once daily 17. magnesium oxide 400 mg Oral cap 400 mg twice a day 18. Namenda 10 mg oral tab 1 tab 2 times per day 19. Miralax 17 gram/dose Oral powd 17 g once daily as needed 20. zonisamide 50 mg oral cap 1 cap 2 times per day 21. fludrocortisone 0.1 mg oral tab 1 tab once daily 22. Cymbalta 60 mg Oral cpDR 1 cap once daily - PMHx: afib; Dementia; Fibromyalgia; fracture of T11-T12; Hypertension; Lupus; neuropathy; orthostatic hypotension; Parkinson's Disease; TIA; ventricular tachycardia; Vertigo; - PSHx: Cholecystectomy; Hysterectomy; - Social history: Smoking status: Patient states was never smoker of tobacco. No barriers to communication noted, The patient speaks fluent [place]. - Family history: Not pertinent. - : The pt / caregiver states he / she is not on anticoagulants. Home medication list is obtained from family members. - Exposure Risk Screening:: None identified. - Advance directive:: Yes. Screenin:09 Screening information is obtained from the patient. Fall risk: At risk due to prior [facility] history of falls. Assistance ADL's: Requires assistance with meal preparation, this assistance is provided by residence staff, bathing, assistance is provided by residence staff, dressing, assistance is provided by residence staff, toileting, assistance is provided by residence staff, ambulation, assistance is provided by residence staff, housework, assistance is provided by residence staff, medication administration, assistance is provided by residence staff. Abuse/DV Screen: The patient / caregiver reports he/she is: not in a situation that causes fear, pain or injury. Nutritional screening: No deficits noted. Advance Directives: Currently, there is a health care proxy, son, zak mccallum. There is an active DNR order There is a living will, There is an active Power of Core Oven Tender, britt mccallum. home support is adequate. Assessment: 16:13 General: Appears quietly resting o=n stretcher. alert to place and time. has no k recollection of leg FX. denies pain. PERRLA strength equal bilaterally to ext. Neurological: Level of Consciousness is awake, confused, Lopper are equal bilaterally Moves all extremities. Speech is normal, Facial symmetry appears normal, Pupils are PERRLA. Cardiovascular: Capillary refill < 3 seconds Clubbing of nail beds is absent Heart tones S1 S2 present. Respiratory: No deficits noted. Airway is patent Respiratory effort is even, unlabored, Respiratory pattern is regular, Breath sounds are clear bilaterally. GI: Abdomen is flat, non- distended. 17:41 General: Appears splint in place to right leg. pulse is intact. CUTTER INSPECTOR less than 2 sec. jmk rolled from side to side to accommodate rectal exam and tolerated well. denies discomfort. reports fatigue, and just wants to sleep. comfort measures provided. 19:47 General: Appears in no apparent distress, comfortable, well developed, Behavior is jp6 appropriate for age, cooperative, flat, pleasant. Pain: Denies pain. Neurological: Level of Consciousness is awake, confused. EENT: No deficits noted. Cardiovascular: No deficits noted. Capillary refill < 3 seconds Heart tones S1 S2 present Rhythm is atrial fibrillation. Respiratory: No deficits noted. Airway is patent Respiratory effort is even, unlabored, Respiratory pattern is regular, Breath sounds are clear bilaterally. GI: Abdomen is flat, non- distended Bowel sounds present X 4 quads. : No deficits noted. Derm: Skin is dry, Skin is pale, Skin temperature is warm. Musculoskeletal: No deficits noted. 21:00 Reassessment: Patient appears in no apparent distress at this time. Patient denies pain jp6 at this time. General: Behavior is appropriate for age, cooperative. Neurological: Level of Consciousness is awake, alert, confused. Cardiovascular: Rhythm is atrial fibrillation with no ectopy. Respiratory: Airway is patent Respiratory effort is even, unlabored, Respiratory pattern is regular, symmetrical. Derm: Skin is dry, Skin is pale, Skin temperature is warm. 22:00 Reassessment: Patient appears in no apparent distress at this time. Patient denies pain jp6 at this time. Neurological: Level of Consciousness is awake, alert, confused. Cardiovascular: Rhythm is atrial fibrillation with no ectopy. Respiratory: Airway is patent Respiratory effort is even, unlabored, Respiratory pattern is regular, symmetrical, Derm: Skin is dry, Skin is pale, Skin temperature is warm. Musculoskeletal: Circulation, motion, and sensation intact Swelling present in right leg. 23:04 Reassessment: Patient appears in no apparent distress at this time. Patient denies pain jp6 at this time. General: Appears in no apparent distress, comfortable, Behavior is appropriate for age, cooperative. Neurological: Level of Consciousness is awake, alert, confused. Cardiovascular: Rhythm is atrial fibrillation with no ectopy. Respiratory: Airway is patent Respiratory effort is even, unlabored, Respiratory pattern is regular, symmetrical. : No deficits noted. Derm: Skin is dry, Skin is pale, Skin temperature is warm. 05/13 00:12 Reassessment: Patient appears in no apparent distress at this time. Patient denies pain jp6 at this time. repeat cardiac enzymes and UA and UC obtained and sent.Pt continually taking oxygen off-reapplied several times.. Cardiovascular: Rhythm is atrial fibrillation with no ectopy. Derm: Skin is dry, Skin is pale, Skin temperature is warm. Vital Signs: 05/12 16:02 BP 103 / 51 RA Supine (auto/reg); Pulse 61; Resp 16; Temp 98.3(TE); Pulse Ox 75% on rs6 R/A; Weight 94.62 kg (M); Height 68 in. (172.72 cm) (M); 16:02 Pulse Ox 98% on 4 lpm NC; rs6 17:42 Pulse 57 MON; Pulse Ox 97% ; jmk 17:43 BP 137 / 62 (auto/); jmk 17:44 Pulse 57 MON; Pulse Ox 98% ; jmk 17:45 BP 112 / 64 (auto/); jmk 19:44 BP 118 / 59 (auto/); jp6 19:45 Pulse 55 MON; Pulse Ox 98% ; jp6 19:59 Pulse 56 MON; Pulse Ox 98% ; jp6 20:00 BP 115 / 57 (auto/); jp6 20:09 Pulse 56 MON; Pulse Ox 78% ; jp6 20:20 Pulse 56 MON; Pulse Ox 99% ; jp6 20:30 BP 124 / 59 (auto/); jp6 20:30 Pulse 54 MON; Pulse Ox 99% ; jp6 20:54 Pulse 52 MON; Pulse Ox 100% ; jp6 21:00 BP 103 / 67 (auto/); jp6 21:02 Pulse 54 MON; Pulse Ox 99% ; jp6 21:30 BP 103 / 60 (auto/); jp6 21:30 Pulse 56 MON; Pulse Ox 95% ; jp6 22:00 BP 123 / 66 (auto/); jp6 22:00 Pulse 54 MON; jp6 22:23 BP 127 / 61 (auto/); jp6 22:25 Pulse 55 MON; Pulse Ox 100% ; jp6 22:26 Pulse 55 MON; Pulse Ox 99% ; jp6 22:26 Resp 18; Temp 98(O); Pulse Ox 98% on 4 lpm NC; jp6 22:30 BP 114 / 57 (auto/); jp6 22:31 Pulse 54 MON; jp6 23:00 BP 118 / 83 (auto/); jp6 23:00 Pulse 68 MON; jp6 23:16 BP 108 / 72 (auto/); jp6 23:27 Pulse 91 MON; Pulse Ox 95% ; jp6 23:29 Pulse 60 MON; Pulse Ox 95% ; jp6 23:30 BP 110 / 63 (auto/); jp6 05/13 00:00 BP 102 / 56 (auto/); jp6 00:01 Pulse 57 MON; Pulse Ox 95% ; jp6 00:01 Resp 16; Temp 98.2; Pulse Ox 98% on 4 lpm NC; Pain 0/10; jp6 05/12 16:02 Body Mass Index 31.72 (94.62 kg, 172.72 cm) rs6 Vitals: 05/12 16:02 Log In Time N/A - ambulance arrival. rs6 ED Course: 15:52 Patient visited by Samreen Schulte, Deck Mate. lbd 15:52 Irma is Private Physician. lbd 15:52 Patient moved to Waiting lbd 15:53 Patient moved to 1 lbd 15:57 Triage Initiated jmk 16:03 Patient visited by Jeniffer Montoya PCA. rs6 16:03 Javon Joiner MD is Attending Physician. br1 16:09 The patient / caregiver is instructed regarding the plan of care and ED course. jmk 16:15 Patient visited by Javon Joiner MD. br1 16:25 EKG done. (by ED staff). Reviewed by Javon Joiner MD. jlf 16:30 Patient visited by Jm Busch PCA. jlf 17:16 Patient visited by Jm Busch PCA. jlf 17:42 appointment manager on. jmk 17:42 Maintain field IV. Gauge & site: 18 rac. jmk 17:52 Patient visited by Jm Busch PCA. jlf 18:02 Shira Mariano is Hospitalizing Provider. br1 18:11 Patient moved to Admit Hold mcp 18:14 CT Head Without Contrast Returned. EDMS 18:14 Chest, 1 View Returned. EDMS 18:18 [facility] Payment Agreement was scanned into [employer] and attached to record. zo 18:37 Patient moved to 1 mcp 18:37 Patient moved to Admit Hold mcp 18:55 Patient moved to MRI ml3 19:00 Patient moved to Admit Hold ml3 19:08 Amanda Vargas,RN is Primary Nurse. jp6 19:08 Patient visited by Amanda Vargas,ILANA. jp6 19:13 EKG-ADULT Returned. EDMS 19:45 O2 via nasal cannula \T\ 4L/min. jp6 20:54 Blood products: PRBCs X 1 unit given. See transfusion record. jp6 21:31 MRI Brain without Contrast Returned. EDMS 21:45 Cleaned of incontinence. Linen changed. jose elias 23:00 No procedures done that require assistance. jp6 01/12 07:33 Patient moved to I8 / 16 eg2 07:33 Patient moved to Ultrasound eg2 08:10 Patient moved to I8 / 16 eg2 09:10 Duplex, Ext LOWER veins, bilat Returned. EDMS 09:30 Patient moved to Admit Hold srm 13:36 T-Sheet-- Draft Copy was scanned into [employer] and attached to record. gb 13:45 VENT & PERFUSION LUNG SCAN Returned. EDMS Administered Medications: 05/12 18:05 Drug: Aspirin 81 mg [aspirin 81 mg chewable tablet (1 tabs)] Route: PO; jmk 18:05 Drug: Brilinta 180 mg Route: PO; [facility] Point of Care Testing: Blood Glucose: 16:42 Blood Glucose: 196 mg/dL; [facility] Ranges: Order Results: Lab Order: CBC with Diff; SPEC'M 05/12/16 16:21 Test: WHITE BLOOD COUNT; Value: 6.5; Range: 4.0-10.0; Units: K/mm3; Status: F Test: RED BLOOD COUNT; Value: 2.94; Range: 4.00-5.40; Abnormal: Below low normal; Units: M/mm3; Status: F Test: HEMOGLOBIN; Value: 8.4; Range: 12.0-16.0; Abnormal: Below low normal; Units: g/dl; Status: F Test: HEMATOCRIT; Value: 26.5; Range: 36.0-47.0; Abnormal: Below low normal; Units: %; Status: F Test: MEAN CORPUSCULAR VOLUME; Value: 90.4; Range: 80.0-96.0; Units: fl; Status: F Test: MEAN CORPUSCULAR HEMOGLOBIN; Value: 28.6; Range: 27.0-33.0; Units: pg; Status: F Test: MEAN CORPUSCULAR HGB CONC; Value: 31.6; Range: 32.0-36.5; Abnormal: Below low normal; Units: g/dl; Status: F Test: RED CELL DISTRIBUTION WIDTH; Value: 16.4; Range: 11.5-14.5; Abnormal: Above high normal; Units: %; Status: F Test: PLATELET COUNT, AUTOMATED; Value: 150; Range: 150-450; Units: k/mm3; Status: F Test: NEUTROPHILS %; Value: 79.3; Range: 36.0-66.0; Abnormal: Above high normal; Units: %; Status: F Test: LYMPH %; Value: 10.8; Range: 24.0-44.0; Abnormal: Below low normal; Units: %; Status: F Test: MONO %; Value: 5.5; Range: 0.0-5.0; Abnormal: Above high normal; Units: %; Status: F Test: EOS %; Value: 1.5; Range: 0.0-3.0; Units: %; Status: F Test: BASO %; Value: 1.0; Range: 0.0-1.0; Units: %; Status: F Test: LARGE UNSTAINED CELL %; Value: 2.0; Range: 0.0-4.0; Units: %; Status: F Test: NEUTROPHILS #; Value: 5.2; Range: 1.8-7.7; Units: K/mm3; Status: F Test: LYMPH #; Value: 0.8; Range: 1.5-4.5; Abnormal: Below low normal; Units: K/mm3; Status: F Test: MONO #; Value: 0.4; Range: 0.0-0.8; Units: K/mm3; Status: F Test: EOS #; Value: 0.1; Range: 0.0-0.50; Units: K/mm3; Status: F Test: BASO #; Value: 0.1; Range: 0.0-0.2; Units: K/mm3; Status: F Test: LARGE UNSTAINED CELL #; Value: 0.1; Range: 0.0-0.4; Units: K/mm3; Status: F Lab Order: Cardiac Injury Profile; SPEC'M 05/12/16 16:21 Test: CPK CREATINE PHOSPHOKINASE; Value: 98; Range: 26-192; Units: U/L; Status: F Test: CK-MB VALUE MASS; Value: 1.1; Range: 0.0-3.6; Units: NG/ML; Status: F Test: MB/CK RELATIVE INDEX; Value: 1.12; Range: < OR =4; Status: F Test Note: ; DIAGNOSIS CRITERIA MMB ng/ml Relative Index (RI) NON-AMI < or = 5 N/A [place]ONE > 5 < or = 4 AMI > 5 > 4 Lab Order: Liver Profile; SPEC'M 05/12/16 16:21 Test: AST/SGOT; Value: 38; Range: 15-37; Abnormal: Above high normal; Units: U/L; Status: F Test: ALT/SGPT; Value: 21; Range: 12-78; Units: U/L; Status: F Test: ALKALINE PHOSPHATASE; Value: 92; Range: 45-117; Units: U/L; Status: F Test: BILIRUBIN,TOTAL; Value: 0.6; Range: 0.2-1.0; Units: MG/DL; Status: F Test: BILIRUBIN,DIRECT; Value: 0.2; Range: 0.0-0.2; Units: MG/DL; Status: F Test: TOTAL PROTEIN; Value: 6.9; Range: 6.4-8.2; Units: GM/DL; Status: F Test: ALBUMIN; Value: 2.8; Range: 3.2-5.2; Abnormal: Below low normal; Units: GM/DL; Status: F Test: ALBUMIN/GLOBULIN RATIO; Value: 0.68; Range: 1.00-1.93; Abnormal: Below low normal; Status: F Lab Order: MED Profile; SPEC'05/12/16 16:21 Test: GLUCOSE, FASTING; Value: 143; Range: 83-110; Abnormal: Above high normal; Units: MG/DL; Status: F Test: BLOOD UREA NITROGEN; Value: 45; Range: 7-18; Abnormal: Above high normal; Units: MG/DL; Status: F Test: CREATININE FOR GFR; Value: 1.57; Range: 0.55-1.02; Abnormal: Above high normal; Units: MG/DL; Status: F Test: GLOMERULAR FILTRATION RATE; Value: 33.7; Range: >32; Status: F Test: SODIUM LEVEL; Value: 144; Range: 136-145; Units: MEQ/L; Status: F Test: POTASSIUM SERUM; Value: 4.2; Range: 3.5-5.1; Units: MEQ/L; Status: F Test: CHLORIDE LEVEL; Value: 99; Range: 98-107; Units: MEQ/L; Status: F Test: CARBON DIOXIDE LEVEL; Value: 39; Range: 21-32; Abnormal: Above high normal; Units: MEQ/L; Status: F Test: ANION GAP; Value: 6; Range: 8-16; Abnormal: Below low normal; Units: MEQ/L; Status: F Test: CALCIUM LEVEL; Value: 8.4; Range: 8.8-10.2; Abnormal: Below low normal; Units: MG/DL; Status: F Test Note: ; Units are mL/min/1.73 m2 Chronic Kidney Disease Staging per NKF: Stage I & II GFR >=60 Normal to Mildly Decreased Stage III GFR 30-59 Moderately Decreased Stage IV GFR 15-29 Severely Decreased Stage V GFR <15 Very Little GFR Left ESRD GFR <15 on FUNERAL PLANNING COUNSELOR Lab Order: Thyroid Stimulating Hormone; SPEC'05/12/16 16:21 Test: THYROID STIMULATING HORMONE; Value: 2.650; Range: 0.358-3.740; Units: uIU/ML; Status: F Lab Order: Troponin; SPEC'05/12/16 16:21 Test: TROPONIN I; Value: 1.67; Range: < 0.10; Abnormal: Above upper panic limits; Units: NG/ML; Status: F Test Note: ; Troponin I Reference Interval for [employer] LOCI: 99th Percentile= 0.00-0.045 ng/ml Risk Stratification: <= 0.10 ng/ml Decreased Risk for Adverse Clinical Events. 0.10-1.50 ng/ml Increased Risk for Adverse Clinical Events. Evaluation of additional criterion and/or repeat testing in 2-6 hours is suggested to rule out myocardial damage. >= 1.50 ng/ml Indicative of Myocardial Injury. Lab Order: Urinalysis; SPEC'M 05/13/16 00:06 Test: APPEARANCE, URINE; Value: CLEAR; Range: CLEAR; Status: F Test: COLOR, URINE; Value: YELLOW; Range: YELLOW; Status: F Test: PH,URINE; Value: 7.0; Range: 5.0-9.0; Units: UNITS; Status: F Test: SPECIFIC GRAVITY URINE AUTO; Value: 1.011; Range: 1.002-1.035; Status: F Test: PROTEIN, URINE AUTO; Value: NEGATIVE; Range: NEGATIVE; Units: mg/dL; Status: F Test: GLUCOSE, URINE (UA) AUTO; Value: NEGATIVE; Range: NEGATIVE; Units: mg/dL; Status: F Test: KETONE, URINE AUTO; Value: NEGATIVE; Range: NEGATIVE; Units: mg/dL; Status: F Test: UROBILINOGEN, URINE AUTO; Value: 0.2; Range: 0.0-2.0; Units: mg/dL; Status: F Test: BILIRUBIN, URINE AUTO; Value: NEGATIVE; Range: NEGATIVE; Status: F Test: NITRITE, URINE AUTO; Value: NEGATIVE; Range: NEGATIVE; Status: F Test: LEUKOCYTE ESTERASE, URINE AUTO; Value: TRACE; Range: NEGATIVE; Abnormal: Above high normal; Status: F Test: BLOOD, URINE BLOOD; Value: NEGATIVE; Range: NEGATIVE; Status: F Test: WBC, URINE AUTO; Value: 3; Range: 0-3; Units: /HPF; Status: F Test: RBC, URINE AUTO; Value: 3; Range: 0-3; Units: /HPF; Status: F Test: BACTERIA, URINE AUTO; Value: NEGATIVE; Range: NEGATIVE; Status: F Test: SQUAMOUS EPITHELIAL CELL UR AU; Value: 0; Range: 0-6; Units: /HPF; Status: F Test: MUCUS, URINE; Value: SMALL; Range: NEGATIVE; Status: F Test: HYALINE CAST, URINE AUTO; Value: 8; Range: 0-1; Units: /LPF; Status: F Lab Order: Fingerstick Blood Sugar; [facility] 05/12/16 16:41 Test: BEDSIDE GLUCOSE; Value: 196; Range: 83-110; Abnormal: Above high normal; Units: MG/DL; Status: F Lab Order: CARDIAC MARKER PANEL; [facility] 05/12/16 23:56 Test: CPK CREATINE PHOSPHOKINASE; Value: 94; Range: 26-192; Units: U/L; Status: F Test: CK-MB VALUE MASS; Value: 1.3; Range: 0.0-3.6; Units: NG/ML; Status: F Test: MB/CK RELATIVE INDEX; Value: 1.38; Range: < OR =4; Status: F Test: TROPONIN I; Value: 1.70; Range: < 0.10; Abnormal: Above upper panic limits; Units: NG/ML; Status: F Test Note: ; DIAGNOSIS CRITERIA MMB ng/ml Relative Index (RI) NON-AMI < or = 5 N/A [place] > 5 < or = 4 AMI > 5 > 4 Lab Order: COMPLETE BLOOD COUNT; [facility] 05/13/16 06:53 Test: WHITE BLOOD COUNT; Value: 6.8; Range: 4.0-10.0; Units: K/mm3; Status: F Test: RED BLOOD COUNT; Value: 3.05; Range: 4.00-5.40; Abnormal: Below low normal; Units: M/mm3; Status: F Test: HEMOGLOBIN; Value: 9.2; Range: 12.0-16.0; Abnormal: Below low normal; Units: g/dl; Status: F Test: HEMATOCRIT; Value: 27.7; Range: 36.0-47.0; Abnormal: Below low normal; Units: %; Status: F Test: MEAN CORPUSCULAR VOLUME; Value: 90.7; Range: 80.0-96.0; Units: fl; Status: F Test: MEAN CORPUSCULAR HEMOGLOBIN; Value: 30.1; Range: 27.0-33.0; Units: pg; Status: F Test: MEAN CORPUSCULAR HGB CONC; Value: 33.2; Range: 32.0-36.5; Units: g/dl; Status: F Test: RED CELL DISTRIBUTION WIDTH; Value: 15.8; Range: 11.5-14.5; Abnormal: Above high normal; Units: %; Status: F Test: PLATELET COUNT, AUTOMATED; Value: 150; Range: 150-450; Units: k/mm3; Status: F Lab Order: TYPE & SCREEN; [facility]05/12/16 16:22 Test: BLOOD TYPE; Value: A POS; Status: F Test: AB SCREEN (INDIRECT LESLIE)GEL; Value: NEGATIVE; Status: F Test: IMMEDIATE SPIN CROSSMATCH; Value: [id number] A POSITIVE Compatible? Y; Status: F Lab Order: PATHOLOGIST REVIEW COMPREHENSI; 05/12/16 16:21 Test: SLIDE REVIEW; Value: Report; Status: F Test: SOURCE; Value: PERIPHERAL SMEAR; Status: F Test: REASON FOR REVIEW; Value: COMPREHENSIVE REVIEW; Status: F Test Note: ; Slide and/or specimen referred to Pathologist for review. Results of the review are located in the EMR Pathology module under Peripheral Smear when completed. Lab Order: RETICULOCYTE COUNT; [facility]05/12/16 16:21 Test: RETICULOCYTE % [id number]; Value: 2.70; Range: 0.5-1.5; Abnormal: Above high normal; Units: %; Status: F Test: RETICULOCYTE ABSOLUTE [id number]; Value: 79; Range: 17-77; Abnormal: Above high normal; Units: x10(9)/L; Status: F Test: RETIC HEMOGLOBIN CONTENT CHr; Value: 32.4; Range: 24-36; Units: PG; Status: F Lab Order: TOTAL IRON BINDING CAPACIT; [facility]05/12/16 16:21 Test: IRON (FE); Value: 40; Range: 50-170; Abnormal: Below low normal; Units: UG/DL; Status: F Test: TOTAL IRON BINDING CAPACITY; Value: 331; Range: 250-450; Units: UG/DL; Status: F Test: PERCENT SATURATION; Value: 12.1; Range: 13.2-37.4; Abnormal: Below low normal; Units: %; Status: F Lab Order: FERRITIN; [facility]'M 05/12/16 16:21 Test: FERRITIN; Value: 144; Range: 8-252; Units: NG/ML; Status: F Lab Order: TROPONIN; [facility]'M 05/13/16 06:53 Test: TROPONIN I; Value: 1.83; Range: < 0.10; Abnormal: Above upper panic limits; Units: NG/ML; Status: F Test Note: ; Troponin I Reference Interval for [employer] LOCI: 99th Percentile= 0.00-0.045 ng/ml Risk Stratification: <= 0.10 ng/ml Decreased Risk for Adverse Clinical Events. 0.10-1.50 ng/ml Increased Risk for Adverse Clinical Events. Evaluation of additional criterion and/or repeat testing in 2-6 hours is suggested to rule out myocardial damage. >= 1.50 ng/ml Indicative of Myocardial Injury. Lab Order: BASIC METABOLIC PROFILE; [facility]' 05/13/16 06:53 Test: GLUCOSE, FASTING; Value: 105; Range: 83-110; Units: MG/DL; Status: F Test: BLOOD UREA NITROGEN; Value: 43; Range: 7-18; Abnormal: Above high normal; Units: MG/DL; Status: F Test: CREATININE FOR GFR; Value: 1.36; Range: 0.55-1.02; Abnormal: Above high normal; Units: MG/DL; Status: F Test: GLOMERULAR FILTRATION RATE; Value: 39.8; Range: >32; Status: F Test: SODIUM LEVEL; Value: 144; Range: 136-145; Units: MEQ/L; Status: F Test: POTASSIUM SERUM; Value: 3.5; Range: 3.5-5.1; Units: MEQ/L; Status: F Test: CHLORIDE LEVEL; Value: 100; Range: 98-107; Units: MEQ/L; Status: F Test: CARBON DIOXIDE LEVEL; Value: 36; Range: 21-32; Abnormal: Above high normal; Units: MEQ/L; Status: F Test: ANION GAP; Value: 8; Range: 8-16; Units: MEQ/L; Status: F Test: CALCIUM LEVEL; Value: 8.2; Range: 8.8-10.2; Abnormal: Below low normal; Units: MG/DL; Status: F Test Note: ; Units are mL/min/1.73 m2 Chronic Kidney Disease Staging per NKF: Stage I & II GFR >=60 Normal to Mildly Decreased Stage III GFR 30-59 Moderately Decreased Stage IV GFR 15-29 Severely Decreased Stage V GFR <15 Very Little GFR Left ESRD GFR <15 on [employer]ING COUNSELOR Lab Order: TROPONIN; SPEC'M 05/13/16 16:14 Test: TROPONIN I; Value: 1.30; Range: < 0.10; Abnormal: High; Units: NG/ML; Status: F Test Note: ; Troponin I Reference Interval for [employer] LOCI: 99th Percentile= 0.00-0.045 ng/ml Risk Stratification: <= 0.10 ng/ml Decreased Risk for Adverse Clinical Events. 0.10-1.50 ng/ml Increased Risk for Adverse Clinical Events. Evaluation of additional criterion and/or repeat testing in 2-6 hours is suggested to rule out myocardial damage. >= 1.50 ng/ml Indicative of Myocardial Injury. Radiology Order: CT Head Without Contrast Test: CT Head Without Contrast REASON FOR EXAMINATION: CVA >4.5hrs; CT brain without contrast 05/12/2016:; ; Indication: CVA greater than 4.5 hours.; ; Comparison: CT scanning 10/11/2015, 07/17/2015; ; Findings: are of normal size and configuration for age.; Ossifications are seen in the basal ganglia bilaterally and in the cerebellum; bilaterally consistent with iron deposition. The appearance is not significantly; changed on prior study. There is no intracranial hemorrhage or extra-axial fluid; collection. Small amount of periventricular and subcortical white matter; hypodensities are noted consistent with mild chronic small vessel ischemic; disease.; ; Dense calcification is seen in the distal right vertebral artery, and in the; bilateral carotid siphons.; ; There is single basal ganglia calcification and cerebellar calcification.; ; The skull is without fracture. Visualized portions of the paranasal sinuses and; mastoid sinuses are clear.; ; Impression:; No acute intracranial pathology or hemorrhage. Mild chronic small vessel ischemic; disease.; ; Moderate bilateral basal ganglia and cerebellar calcifications consistent with; iron deposition. Extensive atherosclerotic disease.; ; ; ; ; Unreviewed; Radiology Order: Chest, 1 View Test: Chest, 1 View REASON FOR EXAMINATION: altered eval for infiltrate; Portable chest: 05/12/2016:; ; Comparison 05/08/2016, 01/09/2016.; ; Clinical history: Infiltrate. Altered mental status.; ; Supine portable chest shows elevation of the right diaphragm as on the previous; study. There are right upper quadrant surgical clips. There is underlying; fibrosis as before and crowding of markings due to low levels of inflation; overall. Some atelectatic changes in the left base. Underlying fibrosis is; grossly similar to previous studies. Tortuous calcified aorta. I do not see any; definite vascular congestion or layering effusion. Airway deviates around the; aorta.; ; Impression:; ; 1. COPD fibrosis and elevated right diaphragm with volume loss right hemithorax.; Heavier basilar fibrotic or atelectatic changes left greater than right with; crowding of markings. No rhaul edema. 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; : 1935 Requested By: JAVON Mi; Order Number: [id number] Reading MD: Shaylee De; Measurements; Intervals [place]; Rate: 55 P: 50; IL: 173 QRS: -17; QRSD: 93 T: -29; QT: 434; QTc: 418; Interpretive Statements; SINUS BRADYCARDIA; MODERATE VOLTAGE CRITERIA FOR LVH, CONSIDER NORMAL VARIANT; ST DEVIATION AND MODERATE T-WAVE ABNORMALITY, CONSIDER ANTERIOR ISCHEMIA,; MORE; PRONOUNCED COMPARED 10/12/15, CLINICAL CORRELATION; ; Electronically Signed On 05-12-2016 18:15:07 EST by Shaylee De; Radiology Order: MRI Brain without Contrast Test: MRI Brain without Contrast REASON FOR EXAMINATION: AMS IRON DEPOSITION ON CT BRAIN; ; CLINICAL HISTORY: Altered mental status.; ; TECHNIQUE: MRI of the brain was performed utilizing multiple sequences in axial, coronal and sagittal; planes without IV contrast material.; ; COMMENTS:; Comparison is made with the prior MRI dated 10/13/2015. Correlation is made also with CT of the brain; of the same date.; ; Note is made of several small foci demonstrating restricted diffusion in the left and right parietal; lobe most compatible with embolic stroke phenomenon. This is new in comparison with the prior MRI.; There are dense calcifications noted within left and right basal ganglia. This is better seen on CT.; Dense calcification is also seen within left and right cerebellum.; ; The sella and parasellar region are unremarkable in appearance. The corpus callosum and cerebellar to; nsils are of normal configuration and position. There are no intra or extra-axial collections. There; is no mass effect or midline shift. There is no evidence of hematoma formation. There is no hydroceph; alus.; ; The visualized arterial structures demonstrate normal appearing flow voids. The seventh and eighth ne; rve bundles are visualized and are unremarkable in appearance.; ; Several foci of T2/FLAIR hyperintensity are noted in the bilateral periventricular and subcortical wh; ite matter compatible with mild chronic white matter ischemic changes.; ; Generalized proportionate dilatation of ventricles and sulci is present compatible with age-appropria; te parenchymal atrophy.; ; IMPRESSION:; 1. Several small foci demonstrating restricted diffusion in the left and right parietal lobe most com; patible with acute embolic stroke. This is new in comparison with the prior MRI.; 2. There are dense calcifications noted within left and right basal ganglia. This is better seen on; CT. Dense calcification is also seen within left and right cerebellum.; 3. Generalized age-appropriate parenchymal atrophy.; 4. Mild chronic white matter microvascular ischemic changes.; ; Message was left for Dr Mariano with an answering service.; ; ; Thank you for your kind referral of this patient. We appreciate the opportunity to participate in thi; s patient's care.; ; ; Radiology Order: VENT & PERFUSION LUNG SCAN Test: VENT & PERFUSION LUNG SCAN REASON FOR EXAMINATION: hypoxia chest pain tib fib fracture; VENTILATION-PERFUSION LUNG SCAN:; ; History: Hypoxia and chest pain. Tib-fib fracture.; ; Comparison chest x-ray is from the previous day.; ; Technique: 1.0 mCi technetium 99m DTPA aerosol is utilized for the ventilation; study and is followed by a 5.3 mCi intravenous dose of technetium-99m MAA for the; perfusion exam. Eight planar images are acquired for each portion of the exam.; ; Scintigraphic findings: There is mild central bronchial deposition of inspired; ventilatory tracer bilaterally. There is a matched VQ defect in the posterior; segment of the right upper lobe visible on posterior oblique images. No other; significant perfusion defect is seen.; ; Impression:; ; Low probability scan for pulmonary embolus.; ; ; Signed by; Albino Grijalva MD 05/13/2016 03:10 P; Radiology Order: Duplex, Ext LOWER veins, bilat Test: Duplex, Ext LOWER veins, bilat REASON FOR EXAMINATION: dvt; BILATERAL LOWER EXTREMITY VENOUS DOPPLER:; ; Indication: 81 -year-old female, exclude DVT.; ; ; LEFT LOWER EXTREMITY FINDINGS:; Color-flow, spectral wave, and shelton scale imaging were used to evaluate the lower; extremity vein, common femoral, superficial femoral and popliteal venous levels.; There is normal compressibility of veins at the above stated levels. There is; normal response to augmentation of flow. The profunda femoris vein is also; patent.; ; IMPRESSION:; No evidence of DVT in the left lower extremity.; ; ; RIGHT LOWER EXTREMITY FINDINGS:; Color-flow Doppler, spectral wave Doppler and shelton scale imaging used to evaluate; the deep right lower extremity veins at common femoral, superficial femoral and; popliteal venous levels. The popliteal veins were not able to be visualized due; to patient's leg cast from the tibia/fibular fracture. The remainder of the deep; veins to include common femoral vein, proximal mid and distal superficial femoral; veins as well as the origin of the right profunda femoris and greater saphenous; veins were patent and compressible.; ; IMPRESSION:; No visualized deep venous thrombosis in right lower extremity. Popliteal vein,; however, could not be assessed due to overlying cast from tibial/fibular; fracture.; ; ; ; ; ; ; ; ; ; Unreviewed; Outcome: 18:03 Decision to Hospitalize by Provider. br1 05/13 18:08 Patient left the ED. nr1 Signatures: Dispatcher [employer] EDMS Samreen Schulte, Deck Mate Unit lbd Chapincito Willoughby RN RN jmk Michelson, Staci, RN RN srm Peters, Mary, RN RN Ann Marie Stallings, Reg Reg gb Travis, aNttyGlo, Deck Mate [facility] ml3 Laly Chawla eg2 Andrew Yoon Brian, MD MD br1 Ric, Tess, [employer] jose elias Easley, Peytonain, [employer] jlf Montoya, Jeniffer, [employer] rs6 Grisel Sarabia,RN ILANA Eng, Renetta, [employer] cln Amanda Vargas,RN RN jp6 Corrections: (The following items were deleted from the chart) 00:16 00:11 URINALYSIS sent. cln EDMS 00:17 00:11 URINE CULTURE sent. cln EDMS Chart Complete MTDD
[2016-05-15] MEDS: GABAPENTIN 100 MG CAP PO SCH (22:19)
[2016-05-15] MEDS: ENOXAPARIN 100MG/1ML SYRINGE (J1650) SC SCH (22:19)
[2016-05-16] VITALS: BP 102/57
[2016-05-16] MEDS: ACETAMINOPHEN TAB 650MG DOSE (2X325MG) PO PRN (00:12)
[2016-05-16 04:00] VITALS: BP 101/58
[2016-05-16 05:31] LABS: MEAN CORPUSCULAR VOLUME 93.6 fl (80.0-96.0); RED CELL DISTRIBUTION WIDTH 15.9 % (11.5-14.5); WHITE BLOOD COUNT 5.8 K/mm3 (4.0-10.0)
[2016-05-16] MEDS: METOPROLOL TART 25 MG TABLET PO SCH ×5 (05:33→23:29)
[2016-05-16 05:41] LABS: CALCIUM LEVEL 8.5 MG/DL (8.8-10.2); CREATININE FOR GFR 1.22 MG/DL (0.55-1.02); GLOMERULAR FILTRATION RATE 45.1 (>32); POTASSIUM SERUM 3.7 MEQ/L (3.5-5.1)
[2016-05-16] MEDS: GABAPENTIN 300 MG CAP PO SCH ×2 (06:10→12:26)
[2016-05-16] MEDS: SLF 3 ML SYR IV SCH ×3 (06:11→22:43)
[2016-05-16] MEDS ORDERED: FUROSEMIDE 40 MG/4 ML VIAL (J1940) IV ONE (06:30)
[2016-05-16] MEDS: ALBUTEROL SULFATE 2.5 MG/0.5 ML INH NEB SOLN INH SCH ×4 (07:11→20:05)
[2016-05-16 08:00] VITALS: BP 114/66
[2016-05-16] MEDS: MEMANTINE 5MG TABLET (NAMENDA) PO SCH (08:33)
[2016-05-16] MEDS: SENOKOT S TAB PO SCH ×2 (08:33→22:39)
[2016-05-16] MEDS: ZONISAMIDE 50 MG CAP (ZONEGRAN) PO SCH ×2 (08:33→22:38)
[2016-05-16] MEDS: ATORVASTATIN 20 MG TAB PO SCH (08:33)
[2016-05-16] MEDS: traMADol 50 MG TAB PO SCH ×3 (08:34→22:40)
[2016-05-16] MEDS: DULoxetine 30 MG CAP (CYMBALTA) PO SCH (08:34)
[2016-05-16] MEDS: VITAMIN D 1,000 INTERNATIONAL UNITS TABLET PO SCH (08:35)
[2016-05-16] MEDS: MAGNESIUM OXIDE 400 MG TAB (MAG-OX) PO SCH ×2 (08:35→21:00)
[2016-05-16] MEDS: DOCUSATE SODIUM 100 MG CAP PO SCH ×2 (08:36→22:38)
[2016-05-16] MEDS: FUROSEMIDE 20 MG TAB PO SCH ×2 (08:36→16:18)
[2016-05-16] MEDS: predniSONE 5 MG TAB PO SCH (08:36)
[2016-05-16] MEDS: ASPIRIN 81 MG CHEW TABLET PO SCH (08:36)
[2016-05-16] MEDS: PANTOPRAZOLE 40MG TAB (PROTONIX) PO SCH (08:36)
[2016-05-16] MEDS: FLUDROCORTISONE ACETATE 0.1 MG TAB PO SCH (08:36)
[2016-05-16] MEDS: CitaloPRAM (CeleXA) 20 MG TAB PO SCH (08:36)
--- NOTE | 2016-05-16 09:22 | IPNPDOC ---
Date/Time Seen The patient was seen on 05/16/16 at 09:18. Progress Note SUBJECTIVE: The patient complains of feeling tired she does not remember me R recognize me she denies chest pain shortness of breath s PHYSICAL EXAMINATION: VITAL SIGNS: Mildly bradycardic otherwise Please see below. GENERAL: Frail obese elderly female sitting up in bed eating breakfast she does not appear to be in any acute distress HEENT: I do not appreciate any facial droop cranial nerves 2 through 12 appear grossly intact CARDIOVASCULAR: S1-S2 bradycardic appears regular at this time RESPIRATORY: Clear to auscultation ABDOMINAL: Sounds present abdomen soft EXTREMITIES: No clubbing cyanosis or edema NEUROLOGICAL: Nonfocal on my exam LABORATORY DATA: Downtrending hemoglobin platelets platelets although only mildly otherwise Please see below. MICROBIOLOGY: Urine culture negative otherwise Please see below. IMAGING: Patient had a CT scan of the head revealed no intracranial pathology or hemorrhage extensive atherosclerotic disease, Chest x-ray COPD fibrosis and elevated right diaphragm no rahul edema cardiac silhouette enlarged but unchanged from previous study MRI of the brain left and right parietal lobe most compatible with acute embolic stroke Dunst desiccation noted within the left and right basal ganglia discussed occasional seen within the left and right cerebellum Duplex ultrasound revealed no evidence of DVT bilaterally VQ scan reveals low probability for PE Echocardiogram: Normal global LV systolic function with mild concentric LVH DVT prophylaxis ordered?: Therapeutic renally dosed Lovenox ASSESSMENT AND PLAN: This is a 81-year-old female with acute CVA and NSTEMI in the setting of a recent fall with inoperable fracture on the right. Problem #1 NSTEMI: The patient is being anticoagulated with renally dosed Lovenox today is day 4 she is on aspirin and beta mary {although she is not receiving it at all secondary to bradycardia} and a statin, she did receive Brilinta upon arrival. patient has been seen and evaluated by cardiology that help is greatly appreciated, cardiac catheterization was offered and the patient 's family declined this intervention and as such we are treating medically as best capable knowing that her clinical status remains quite guarded Problem #2 acute CVA the patient on aspirin and statin therapeutical renally dosed Lovenox. Physical therapy has has been ordered the patient is nonweightbearing on the right. Dr. Matias of neurology has seen the patient and recommended outpatient follow-up with neurology. The patient has a history of known atrial fibrillation and the decision not to anticoagulate was made in the past due to the the patient's propensity for frequent falls. The patient has had a fall recently at her care home with an inoperable right femur fracture. Inoperable secondary to her comorbidities and advanced age the patient is nowhere near as mobile at this time. She is likely a better candidate for anticoagulation at this time. I did discuss with Dr. Newby we will allow her to stabilize over the next several days before deciding on any long-term anticoagulation. This may be embolic related atrial ablation. Problem #3 right femoral fracture: The patient previously seen by orthopedic surgery previously and is not a candidate for any operative repair given her advanced age comorbidities systems previously made she is nonweightbearing on the right Problem #4 dementia: The patient is a care home resident she is on Namenda she does not remember previous conversations, felt to be related to Parkinson's disease fairly advanced dementia Problem #5 seizure disorder the patient on zonisamide problem #6 depression fibromyalgia the patient is on Celexa Cymbalta Problem #7 systemic lupus the patient is on prednisone Problem #8 chronic pain the patient on Neurontin ulTRAM Problem #9 Chronic hypoxic respiratory failure the patient is chronically on 2 L of home O2. She is at her baseline Problem #10 chronic kidney disease: The patient is continued on her home diuretic Problem #11 gastroesophageal reflux disease patient is on Protonix Problem #12 vitamin d deficiency the patient is on supplementation Problem #13 urinary tract infection: The patient was on Macrobid on the outpatient setting her UA is unremarkable here and urine cultures negative is been discontinued DISPOSITION: Given the multitude of comorbidities and her immobility her overall prognosis is quite poor, I did discuss this with her children previously we will attempt best medical therapy she is a DNR/DNI should her condition worsen would discuss with healthcare proxy potential comfort measures before escalating care any further. Should she continue to remain stable she may be able to return back to her care home as early as this coming week VS, I&O, 24H, Reina VS, I&O, 24H, Reina Vital Signs Date Time Temp Pulse Resp B/P Pulse Ox O2 Delivery O2 Flow Rate FiO2 05/16/16 08:41 Room Air 05/16/16 08:34 18 05/16/16 08:00 96.5 62 114/66 97 2.0 I&O- Last 24 Hours up to 6 AM 05/16/16 06:00 Intake Total 1500 ml Output Total 0 ml Balance 1500 ml Laboratory Tests 2 05/16/16 04:49: Anion Gap 6L, Blood Urea Nitrogen 27H, Creatinine 1.22H, Sodium Level 145, Potassium Level 3.7, Chloride Level 103, Carbon Dioxide Level 36H, Calcium Level 8.5L, Glomerular Filtration Rate 45.1 Laboratory Tests 05/16/16 04:49 Calcium Level 8.5 L, Red Blood Count 2.81 L, Mean Corpuscular Volume 93.6, Mean Corpuscular Hemoglobin 30.0, Mean Corpuscular Hemoglobin Concent 32.0, Red Cell Distribution Width 15.9 H Microbiology 05/13/16 Urine Culture - Final, Complete TAMMIE HERNANDEZ MD May 16, 2016 09:22
[2016-05-16 14:00] VITALS: BP 122/68
[2016-05-16 22:00] VITALS: BP 123/87
[2016-05-16] MEDS: GABAPENTIN 100 MG CAP PO SCH (22:41)
[2016-05-16] MEDS: ENOXAPARIN 100MG/1ML SYRINGE (J1650) SC SCH (23:34)
[2016-05-17] MEDS: MORPHINE 2 MG/ML 1ML SYRINGE IV PRN ×2 (01:19→06:24)
[2016-05-17 06:00] VITALS: BP 120/66
[2016-05-17] MEDS: SLF 3 ML SYR IV SCH ×3 (06:00→22:00)
[2016-05-17] MEDS: METOPROLOL TART 25 MG TABLET PO SCH (06:00)
[2016-05-17] MEDS: GABAPENTIN 300 MG CAP PO SCH ×2 (06:24→13:47)
[2016-05-17 06:34] LABS: MEAN CORPUSCULAR HEMOGLOBIN 30.2 pg (27.0-33.0); MEAN CORPUSCULAR HGB CONC 32.9 g/dl (32.0-36.5); MEAN CORPUSCULAR VOLUME 91.8 fl (80.0-96.0); RED CELL DISTRIBUTION WIDTH 15.5 % (11.5-14.5); WHITE BLOOD COUNT 6.2 K/mm3 (4.0-10.0)
[2016-05-17 06:49] LABS: CALCIUM LEVEL 8.6 MG/DL (8.8-10.2); CREATININE FOR GFR 1.13 MG/DL (0.55-1.02); GLOMERULAR FILTRATION RATE 49.3 (>32); POTASSIUM SERUM 3.5 MEQ/L (3.5-5.1)
[2016-05-17] MEDS: traMADol 50 MG TAB PO SCH ×4 (09:00→20:51)
[2016-05-17] MEDS: MAGNESIUM OXIDE 400 MG TAB (MAG-OX) PO SCH ×2 (09:00→20:50)
[2016-05-17] MEDS: ALBUTEROL SULFATE 2.5 MG/0.5 ML INH NEB SOLN INH SCH ×4 (09:19→19:44)
[2016-05-17 10:08] LABS: INR 1.17
[2016-05-17] MEDS: ATORVASTATIN 20 MG TAB PO SCH (10:34)
[2016-05-17] MEDS: VITAMIN D 1,000 INTERNATIONAL UNITS TABLET PO SCH (10:34)
[2016-05-17] MEDS: ZONISAMIDE 50 MG CAP (ZONEGRAN) PO SCH ×2 (10:36→20:50)
[2016-05-17] MEDS: CitaloPRAM (CeleXA) 20 MG TAB PO SCH (10:37)
[2016-05-17] MEDS: SENOKOT S TAB PO SCH ×2 (10:37→20:50)
[2016-05-17] MEDS: FLUDROCORTISONE ACETATE 0.1 MG TAB PO SCH (10:37)
[2016-05-17] MEDS: ASPIRIN 81 MG CHEW TABLET PO SCH (10:37)
[2016-05-17] MEDS: predniSONE 5 MG TAB PO SCH (10:37)
[2016-05-17] MEDS: PANTOPRAZOLE 40MG TAB (PROTONIX) PO SCH (10:37)
[2016-05-17] MEDS: DULoxetine 30 MG CAP (CYMBALTA) PO SCH (10:37)
[2016-05-17] MEDS: DOCUSATE SODIUM 100 MG CAP PO SCH ×2 (10:44→20:50)
[2016-05-17] MEDS: FUROSEMIDE 20 MG TAB PO SCH ×2 (10:45→17:00)
[2016-05-17 12:10] LABS: MAGNESIUM LEVEL 2.1 MG/DL (1.8-2.4)
--- NOTE | 2016-05-17 13:48 | IPNPDOC ---
[facility] Cardiology Progress Note Date of Service/Time The patient was seen on 05/17/16 at 13:38. Cardiology Progress Note SUBJECTIVE: Ms. Mccallum is an 81 y/o female who initially presented with the complaint of decreasing mental status, increased confusion, vague chest pressure complaints, word finding difficulties and found to have NSTEMI on EKG in the ED. OBJECTIVE: PHYSICAL EXAMINATION: VITAL SIGNS: Please see below. GENERAL APPEARANCE: laying comfortably in bed, in no acute distress HEENT: NCAT, nares patent b/l, PERRLA, EOMI LUNGS: CTA b/l, no wheezing, rhonchi or rales appreciated HEART: normal s1 and s1, no murmurs, gallops, rubs appreciated ABDOMEN: soft, non-tender, non-distended, no pain to palpitation, NABSx4 SKIN: intact but dry EXTREMITIES: no edema, cyanosis or clubbing appreciated NEUROLOGICAL: no focal deficits appreciated PSYCHIATRIC: fatigued but appropriate LABORATORY WORK: Please see below. ASSESSMENT AND PLAN: Ms Landa blood pressure and heart rate have been stable on her current medical therapy of atorvastatin, her metoprolol has been discontinued, her heart rate has been in the 60's and her blood pressure has been around 120's/66. She appears comfortable today and denies CP, sob or palpitations and appears in no acute distress. Her troponin has decreased to 1.13 She was also found to have an embolic stroke in the left parietal region. The question now is whether to continue her anticoagulation due to her atrial fibrillation and this would be advised as the patient is now going to be primarily bed bound due to her leg injury. She is currently anticoagulated with 81 mg of Aspirin, the lovenox has been discontinued. No further recommendations or changes at this time. Vital Signs/I&O VS/I&O Vital Signs Date Time Temp Pulse Resp B/P Pulse Ox O2 Delivery O2 Flow Rate FiO2 05/17/16 10:47 18 05/17/16 10:00 Nasal Cannula 2.0 05/17/16 06:00 97.1 65 120/66 95 I&O- Last 24 Hours up to 6 AM 05/17/16 06:00 Intake Total 1580 ml Balance 1580 ml Laboratory Data 24H LABS Laboratory Tests 2 05/17/16 06:20: Prothromb Time International Ratio 1.17, Prothrombin Time 15.0H 05/17/16 06:23: Anion Gap 6L, Blood Urea Nitrogen 20H, Creatinine 1.13H, Sodium Level 144, Potassium Level 3.5, Chloride Level 102, Carbon Dioxide Level 36H, Calcium Level 8.6L, Glomerular Filtration Rate 49.3, Magnesium Level 2.1 CBC/BMP Laboratory Tests 05/17/16 06:23 Calcium Level 8.6 L, Red Blood Count 3.67 L, Mean Corpuscular Volume 91.8, Mean Corpuscular Hemoglobin 30.2, Mean Corpuscular Hemoglobin Concent 32.9, Red Cell Distribution Width 15.5 H Microbiology Microbiology 05/13/16 Urine Culture - Final, Complete GME ATTESTATION GME ATTESTATION My preceptor for this patient encounter was physically present in the building during the encounter and was fully available. As needed, all aspects of the patient interview, examination, medical decision making process, and medical care plan development were reviewed and approved by the preceptor. Preceptor is aware and concurs with the plan as stated in the body of this note and will attest to such by his/her cosignature. LINDA JAIMES DO May 17, 2016 13:48
[2016-05-17 14:00] VITALS: BP 107/56
--- NOTE | 2016-05-17 16:18 | IPNPDOC ---
Date/Time Seen The patient was seen on 05/17/16 at 16:14. Progress Note SUBJECTIVE: The patient complains of feeling tired, but otherwise denies other symptoms PHYSICAL EXAMINATION: VITAL SIGNS: Mildly bradycardic otherwise Please see below. GENERAL: Frail obese elderly female sitting up in bed eshe does not appear to be in any acute distress HEENT: I do not appreciate any facial droop cranial nerves 2 through 12 appear grossly intact CARDIOVASCULAR: S1-S2 bradycardic appears regular at this time RESPIRATORY: Clear to auscultation ABDOMINAL: Sounds present abdomen soft EXTREMITIES: No clubbing cyanosis or edema NEUROLOGICAL: Nonfocal on my exam LABORATORY DATA: improved hemoglobin, stable platelets otherwise Please see below. MICROBIOLOGY: Urine culture negative otherwise Please see below. IMAGING: Patient had a CT scan of the head revealed no intracranial pathology or hemorrhage extensive atherosclerotic disease, Chest x-ray COPD fibrosis and elevated right diaphragm no rahul edema cardiac silhouette enlarged but unchanged from previous study MRI of the brain left and right parietal lobe most compatible with acute embolic stroke Dunst desiccation noted within the left and right basal ganglia discussed occasional seen within the left and right cerebellum Duplex ultrasound revealed no evidence of DVT bilaterally VQ scan reveals low probability for PE Echocardiogram: Normal global LV systolic function with mild concentric LVH DVT prophylaxis ordered?: Therapeutic renally dosed Lovenox ASSESSMENT AND PLAN: This is a 81-year-old female with acute CVA and NSTEMI in the setting of a recent fall with inoperable fracture on the right. Problem #1 NSTEMI: The patient is been anticoagulated with renally dosed Lovenox for 5 days which I will discontinue at this time. she is on aspirin but not tolerating beta mary due to bradycardia and as such has been discontinued. She is on a statin, she did receive Brilinta upon arrival. patient has been seen and evaluated by cardiology that help is greatly appreciated, cardiac catheterization was offered and the patient's family declined this intervention and as such we are treating medically as best capable knowing that her clinical status remains quite guarded Problem #2 acute CVA the patient on aspirin and statin therapeutical renally dosed Lovenox. Physical therapy has has been ordered the patient is nonweightbearing on the right. Dr. Matias of neurology has seen the patient and recommended outpatient follow-up with neurology. The patient has a history of known atrial fibrillation and the decision not to anticoagulate was made in the past due to the the patient's propensity for frequent falls. The [facility] with an inoperable right femur fracture. Inoperable secondary to her comorbidities and advanced age the patient is nowhere near as mobile at this time. She is likely a better candidate for anticoagulation at this time. I did discuss with Dr. Newby we have decided to start the patient on coumadin. Problem #3 right femoral fracture: The patient previously seen by orthopedic surgery previously and is not a candidate for any operative repair given her advanced age comorbidities systems previously made she is nonweightbearing on the right Problem #4 dementia: The patient is a jail resident she is on Namenda she does not remember previous conversations, felt to be related to Parkinson's disease fairly advanced dementia Problem #5 seizure disorder the patient on zonisamide problem #6 depression fibromyalgia the patient is on Celexa Cymbalta Problem #7 systemic lupus the patient is on prednisone Problem #8 chronic pain the patient on Neurontin ulTRAM Problem #9 Chronic hypoxic respiratory failure the patient is chronically on 2 L of home O2. She is at her baseline Problem #10 chronic kidney disease: The patient is continued on her home diuretic Problem #11 gastroesophageal reflux disease patient is on Protonix Problem #12 vitamin d deficiency the patient is on supplementation Problem #13 urinary tract infection: The patient was on Macrobid on the outpatient setting her UA is unremarkable here and urine cultures negative is been discontinued DISPOSITION: Given the multitude of comorbidities and her immobility her overall prognosis is quite poor, I did discuss this with her children previously we will attempt best medical therapy she is a DNR/DNI should her condition worsen would discuss with healthcare proxy potential comfort measures before escalating care any further. Should she continue to remain stable she may be able to return back to her jail in the coming days VS, I&O, 24H, Fishbone VS, I&O, 24H, Fishbone Vital Signs Date Time Temp Pulse Resp B/P Pulse Ox O2 Delivery O2 Flow Rate FiO2 05/17/16 10:47 18 05/17/16 10:00 Nasal Cannula 2.0 05/17/16 06:00 97.1 65 120/66 95 I&O- Last 24 Hours up to 6 AM 05/17/16 06:00 Intake Total 1580 ml Balance 1580 ml Laboratory Tests 2 05/17/16 06:20: Prothromb Time International Ratio 1.17, Prothrombin Time 15.0H 05/17/16 06:23: Anion Gap 6L, Blood Urea Nitrogen 20H, Creatinine 1.13H, Sodium Level 144, Potassium Level 3.5, Chloride Level 102, Carbon Dioxide Level 36H, Calcium Level 8.6L, Glomerular Filtration Rate 49.3, Magnesium Level 2.1 Laboratory Tests 05/17/16 06:23 Calcium Level 8.6 L, Red Blood Count 3.67 L, Mean Corpuscular Volume 91.8, Mean Corpuscular Hemoglobin 30.2, Mean Corpuscular Hemoglobin Concent 32.9, Red Cell Distribution Width 15.5 H Microbiology 05/13/16 Urine Culture - Final, Complete TAMMIE HERNANDEZ MD May 17, 2016 16:18
[2016-05-17] MEDS ORDERED: WARFARIN SOD 5 MG TAB PO SCH (17:00)
[2016-05-17] MEDS: GABAPENTIN 100 MG CAP PO SCH (20:50)
[2016-05-17 22:00] VITALS: BP 116/64
[2016-05-18] MEDS: GABAPENTIN 300 MG CAP PO SCH (05:37)
[2016-05-18 06:00] VITALS: BP 123/61
[2016-05-18 06:59] LABS: INR 1.11
[2016-05-18] MEDS ORDERED: NITR4TASL SL (07:38)
[2016-05-18] MEDS ORDERED: PANT40TA2 PO (07:38)
[2016-05-18] MEDS ORDERED: COUM1TAB17 PO (07:38)
[2016-05-18] MEDS ORDERED: FURO20TA2 PO (07:38)
[2016-05-18] MEDS ORDERED: ATOR1TAB21 PO (07:38)
[2016-05-18] MEDS: ALBUTEROL SULFATE 2.5 MG/0.5 ML INH NEB SOLN INH SCH ×2 (07:41→11:12)
[2016-05-18] MEDS: ASPIRIN 81 MG CHEW TABLET PO SCH (09:28)
[2016-05-18] MEDS: SENOKOT S TAB PO SCH (09:28)
[2016-05-18] MEDS: VITAMIN D 1,000 INTERNATIONAL UNITS TABLET PO SCH (09:28)
[2016-05-18] MEDS: predniSONE 5 MG TAB PO SCH (09:28)
[2016-05-18] MEDS: FLUDROCORTISONE ACETATE 0.1 MG TAB PO SCH (09:28)
[2016-05-18] MEDS: ZONISAMIDE 50 MG CAP (ZONEGRAN) PO SCH (09:29)
[2016-05-18] MEDS: DOCUSATE SODIUM 100 MG CAP PO SCH (09:29)
[2016-05-18] MEDS: traMADol 50 MG TAB PO SCH (09:29)
[2016-05-18] MEDS: PANTOPRAZOLE 40MG TAB (PROTONIX) PO SCH (09:29)
[2016-05-18] MEDS: CitaloPRAM (CeleXA) 20 MG TAB PO SCH (09:29)
[2016-05-18] MEDS: DULoxetine 30 MG CAP (CYMBALTA) PO SCH (09:29)
[2016-05-18] MEDS: ATORVASTATIN 20 MG TAB PO SCH (09:30)
[2016-05-18] MEDS: FUROSEMIDE 20 MG TAB PO SCH (09:30)
[2016-05-18] MEDS: MAGNESIUM OXIDE 400 MG TAB (MAG-OX) PO SCH (09:30)
--- NOTE | 2016-05-18 12:20 | DSES ---
DATE OF ADMISSION: 05/12/2016 DATE OF DISCHARGE: PRIMARY CARE PROVIDER: [facility] CONSULTANTS: Dr. Matias and Dr. Newby PROCEDURES: None. COMPLICATIONS: None. ADMISSION/DISCHARGE DIAGNOSES: 1. Altered mental status with possible underlying transient ischemic attack. 2. Acute on chronic hypoxic respiratory failure requiring 2 liters of oxygen supplementation. 3. Recent history of urinary tract infection (UTI). 4. Atrial fibrillation with sinus bradycardia. 5. 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 6. Tibia and fibular fractures, felt not to be a surgical candidate by orthopedics. 7. Depression with history of fibromyalgia. 8. Systemic lupus erythematosus, on chronic prednisone. 9. Chronic pain syndrome. 10. Chronic kidney disease at baseline. 11. Gastroesophageal reflux disease (GERD). 12. Vitamin D deficiency. BRIEF HOSPITAL COURSE: Ms. Mccallum is a pleasant 81-year-old female who presented to the emergency department with altered mental status and felt to have a transient ischemic attack versus CVA and associated non ST elevation myocardial infarction in the setting of a recent fall, which was resulting in a right tibia fibular fracture and felt to be a nonsurgical candidate due to her multiple comorbidities and risk factors. Dr. Matias has seen the patient and medications were adjusted. She is currently on aspirin, statin therapy. She does have a known history of atrial fibrillation previously and it was decided not to anticoagulate her due to being a fall risk; however, due to the inoperable right tib-fib fracture, she likely will remain immobile. This was discussed with the family, who elected to go ahead and start her on anticoagulation therapy due to her elevated CHADs-VASc score, which was recommended by Dr. Newby as well, which she can followup outpatient and the half-way can continue to adjust her Coumadin dosing based on her INR with an INR goal between 2 to 3. She does have some underlying dementia that she continues on Namenda for, which may be related to her underlying Parkinson's disease. At any rate, she was felt to be close to her baseline today and appropriate for discharge back to the half-way. For further information regarding intake, physical, laboratories, diagnostics, please refer to the history and physical, refer to Dr. Matias and Dr. Newby's consultation notes as well for further delineation regarding neurologic and cardiac issues. PHYSICAL EXAMINATION: Today, temperature is 98.4, pulse 65, respiratory rate 18, blood pressure 123/61, SpO2 is 97% on 2 liters. GENERAL: The patient appears to be in no acute distress. Alert and oriented. HEENT: Unremarkable. LUNGS: Clear. HEART: Regular rate and rhythm. ABDOMEN: Soft. EXTREMITIES: No edema. No calf tenderness. LABORATORY DATA: White count 6.2, hemoglobin 11.1, platelets 138. Sodium 144, potassium 3.5, chloride 102, bicarbonate 36, anion gap 6, BUN is 20, creatinine 1.13 and at baseline, glucose is 94. DISCHARGE CONDITION: Good. DISPOSITION: Discharge to [facility]. DISCHARGE MEDICATIONS: - Lipitor 80 mg daily - Lasix 20 mg twice a day - Nitro Stat sublingual nitroglycerin 0.4 mg every 5 minutes angina - pantoprazole 40 mg daily - warfarin 5 mg daily - Tylenol 650 mg every 6 hours as needed - albuterol inhaler one to two puffs every 4 to 6 hours as needed - aspirin 81 mg daily - atenolol 100 mg daily - Bisacodyl 10 mg per rectum daily as needed for constipation - vitamin D 2000 units daily - citalopram 20 mg daily - docusate/Senna two tablets by mouth twice a day - Colace 100 mg twice a day - Cymbalta 60 mg daily - fludrocortisone 0.1 mg daily - gabapentin 300 mg twice a day and 200 mg at night - KlorCon 20 mEq daily - mag oxide 400 mg twice a day - Namenda 10 mg twice a day - milk of magnesia 30 mL daily as needed for constipation - nitrofurantoin 100 mg daily - MiraLAX 17 grams daily - prednisone 5 mg daily - Fleet enema one daily as needed for constipation - Tramadol 50 mg three times a day as needed for chronic back pain - zonisamide 50 mg twice a day DISCHARGE INSTRUCTIONS: Discharge to [facility]. She will need appropriate followup with her primary care provider. She will need INR check sometime later this week with appropriate Coumadin adjusting with a goal of INR between 2 to 3 regarding her atrial fibrillation and anticoagulation therapy. Continue with current diet. Return to the emergency department if symptoms worsen or progress. Discharge took approximately 35 minutes.
== END 2016-05-18 11:20 | DRG 280 ==
LOC: M ED 15:50 → M ED INP 17:58 → M PCU 05-13 17:53 → M MS5PR 05-16 11:43
PROVIDERS: ADMIT General Practice; ATTEND Internal Medicine
DX: I21.4 Non-ST elevation (NSTEMI) myocardial infarction (principal); J96.21 Acute and chronic respiratory failure with hypoxia; I63.40 Cerebral infarction due to embolism of unspecified cerebral artery; N39.0 Urinary tract infection, site not specified; D64.9 Anemia, unspecified; Z66 Do not resuscitate; Z79.899 Other long term (current) drug therapy; I48.91 Unspecified atrial fibrillation; K21.9 Gastro-esophageal reflux disease without esophagitis; E55.9 Vitamin D deficiency, unspecified; N18.3 Chronic kidney disease, stage 3 (moderate); Z79.52 Long term (current) use of systemic steroids; M79.7 Fibromyalgia; F32.9 Major depressive disorder, single episode, unspecified; G40.909 Epilepsy, unspecified, not intractable, without status epilepticus; G89.4 Chronic pain syndrome; Z79.82 Long term (current) use of aspirin; G20 Parkinson's disease; Z99.81 Dependence on supplemental oxygen; J44.9 Chronic obstructive pulmonary disease, unspecified; J84.10 Pulmonary fibrosis, unspecified

== ENCOUNTER → 2016-05-19 | Outpatient (REF) ==
[~2016-05-19] MED LIST changes: +ALBU83IN INH; +ASPI81CH PO; +ATEN100T PO; +COUM1TAB17 PO; +FURO20TA2 PO; +GABA-279 PO; +GABA300C3 PO; +KLOR1CAP2 PO; +NITR100C37 PO; +NITR4TASL SL; +PANT40TA2 PO; +PRED5TA PO; +SENN8.6T7 PO; +TYLE325T5 PO; +TYLE500T78 PO
[2016-05-19 19:21] LABS: CALCIUM LEVEL 8.3 MG/DL (8.8-10.2); CREATININE FOR GFR 1.33 MG/DL (0.55-1.02); GLOMERULAR FILTRATION RATE 40.9 (>32); POTASSIUM SERUM 4.3 MEQ/L (3.5-5.1)
[2016-05-19 20:12] LABS: MEAN CORPUSCULAR HEMOGLOBIN 29.8 pg (27.0-33.0); MEAN CORPUSCULAR HGB CONC 30.9 g/dl (32.0-36.5); MEAN CORPUSCULAR VOLUME 96.5 fl (80.0-96.0); WHITE BLOOD COUNT 8.6 K/mm3 (4.0-10.0)
== END ==
PROVIDERS: ATTEND Internal Medicine
DX: R50.9 Fever, unspecified (principal)

== ENCOUNTER → 2016-05-20 | Outpatient (REF) ==
--- NOTE | 2016-05-20 16:45 | REP ---
CHEST, ONE VIEW: HISTORY: Shortness of breath. COMPARISON: 05/12/2016 There is poor inspiratory effort. An increase in interstitial markings is present in the lungs consistent with chronic interstitial fibrosis. The cardiac silhouette is enlarged. The pulmonary vasculature is normal in appearance. IMPRESSION: 1. Chronic interstitial fibrosis. 2. Cardiomegaly. Signed by Juvencio Bernal MD 05/20/2016 04:47 P
== END ==
PROVIDERS: ATTEND Internal Medicine
DX: R06.02 Shortness of breath (principal); R06.2 Wheezing; I51.7 Cardiomegaly; J84.112 Idiopathic pulmonary fibrosis

== ENCOUNTER → 2016-05-25 | Outpatient (REF) ==
[2016-05-25 10:55] LABS: MEAN CORPUSCULAR HEMOGLOBIN 29.4 pg (27.0-33.0); MEAN CORPUSCULAR HGB CONC 31.5 g/dl (32.0-36.5); MEAN CORPUSCULAR VOLUME 93.4 fl (80.0-96.0); RED CELL DISTRIBUTION WIDTH 14.7 % (11.5-14.5); WHITE BLOOD COUNT 7.9 K/mm3 (4.0-10.0)
[2016-05-25 11:14] LABS: CALCIUM LEVEL 8.7 MG/DL (8.8-10.2); CREATININE FOR GFR 1.36 MG/DL (0.55-1.02); GLOMERULAR FILTRATION RATE 39.8 (>32); POTASSIUM SERUM 4.1 MEQ/L (3.5-5.1)
== END ==
PROVIDERS: ATTEND Internal Medicine
DX: I50.9 Heart failure, unspecified (principal)

== ENCOUNTER → 2016-05-26 | Outpatient (REF) ==
[2016-05-26 14:38] LABS: INR 17.87
[2016-05-26 23:44] LABS: INR 12.63
== END ==
PROVIDERS: ATTEND Internal Medicine
DX: I48.91 Unspecified atrial fibrillation (principal); I63.9 Cerebral infarction, unspecified

== ENCOUNTER → 2016-05-26 | Outpatient (REF) | payer MEDICARE, MEDICAID | LOC: M LAB 23:14 | PROVIDERS: ATTEND Internal Medicine | DX: R79.1 Abnormal coagulation profile (principal) ==

== ENCOUNTER → 2016-05-27 | Outpatient (REF) | payer MEDICARE, MEDICAID ==
[2016-05-27 06:12] LABS: INR 4.45
== END ==
PROVIDERS: ATTEND Internal Medicine
DX: R79.1 Abnormal coagulation profile (principal)

== ENCOUNTER → 2016-05-30 | Outpatient (REF) | payer MEDICAID, MEDICARE ==
[2016-05-30 17:51] LABS: INR 6.39
== END ==
PROVIDERS: ATTEND Internal Medicine
DX: I48.91 Unspecified atrial fibrillation (principal); I63.9 Cerebral infarction, unspecified

== ENCOUNTER → 2016-06-01 | Outpatient (REF) ==
[2016-06-01 10:56] LABS: MEAN CORPUSCULAR HEMOGLOBIN 29.2 pg (27.0-33.0); MEAN CORPUSCULAR HGB CONC 30.6 g/dl (32.0-36.5); MEAN CORPUSCULAR VOLUME 95.4 fl (80.0-96.0); RED CELL DISTRIBUTION WIDTH 15.4 % (11.5-14.5); WHITE BLOOD COUNT 9.5 K/mm3 (4.0-10.0)
[2016-06-01 10:57] LABS: INR 1.76
[2016-06-01 11:10] LABS: CALCIUM LEVEL 8.2 MG/DL (8.8-10.2); CREATININE FOR GFR 1.04 MG/DL (0.55-1.02); GLOMERULAR FILTRATION RATE 54.3 (>32)
== END ==
PROVIDERS: ATTEND Internal Medicine
DX: I50.9 Heart failure, unspecified (principal); I48.91 Unspecified atrial fibrillation; Z79.01 Long term (current) use of anticoagulants

== ENCOUNTER → 2016-06-03 | Outpatient (REF) ==
[2016-06-03 14:50] LABS: MEAN CORPUSCULAR VOLUME 93.6 fl (80.0-96.0); RED CELL DISTRIBUTION WIDTH 15.6 % (11.5-14.5); WHITE BLOOD COUNT 6.3 K/mm3 (4.0-10.0)
== END ==
PROVIDERS: ATTEND Internal Medicine
DX: D64.9 Anemia, unspecified (principal)

== ENCOUNTER → 2016-06-04 | Outpatient (REF) ==
[2016-06-04 10:02] LABS: INR 2.1
== END ==
PROVIDERS: ATTEND Internal Medicine
DX: I48.91 Unspecified atrial fibrillation (principal)

== ENCOUNTER → 2016-06-07 | Outpatient (REF) ==
[2016-06-07 15:17] LABS: MEAN CORPUSCULAR HEMOGLOBIN 29.6 pg (27.0-33.0); MEAN CORPUSCULAR HGB CONC 31.4 g/dl (32.0-36.5); MEAN CORPUSCULAR VOLUME 94.4 fl (80.0-96.0); RED CELL DISTRIBUTION WIDTH 15.5 % (11.5-14.5)
[2016-06-07 15:23] LABS: INR 3.12
[2016-06-07 15:55] LABS: CREATININE FOR GFR 0.99 MG/DL (0.55-1.02); GLOMERULAR FILTRATION RATE 57.5 (>32); POTASSIUM SERUM 3.9 MEQ/L (3.5-5.1)
== END ==
PROVIDERS: ATTEND Internal Medicine
DX: I48.91 Unspecified atrial fibrillation (principal)

== ENCOUNTER → 2016-06-11 | Outpatient (REF) ==
[2016-06-11 11:43] LABS: INR 2.29
== END ==
PROVIDERS: ATTEND Internal Medicine
DX: I48.91 Unspecified atrial fibrillation (principal)

== ENCOUNTER → 2016-06-22 | Outpatient (REF) | payer MEDICARE, MEDICAID ==
[2016-06-22 12:14] LABS: CALCIUM LEVEL 8.5 MG/DL (8.8-10.2); CREATININE FOR GFR 0.96 MG/DL (0.55-1.02); GLOMERULAR FILTRATION RATE 59.5 (>32); MAGNESIUM LEVEL 2.3 MG/DL (1.8-2.4); POTASSIUM SERUM 4.2 MEQ/L (3.5-5.1)
[2016-06-22 12:17] LABS: MEAN CORPUSCULAR HEMOGLOBIN 29.5 pg (27.0-33.0); MEAN CORPUSCULAR HGB CONC 31.3 g/dl (32.0-36.5); MEAN CORPUSCULAR VOLUME 94.4 fl (80.0-96.0); RED CELL DISTRIBUTION WIDTH 15.1 % (11.5-14.5); WHITE BLOOD COUNT 6.2 K/mm3 (4.0-10.0)
== END ==
PROVIDERS: ATTEND Internal Medicine
DX: I50.9 Heart failure, unspecified (principal)

== ENCOUNTER → 2016-07-15 | Outpatient (REF) ==
[2016-07-15 15:48] LABS: CALCIUM LEVEL 8.1 MG/DL (8.8-10.2); CREATININE FOR GFR 1.03 MG/DL (0.55-1.02); GLOMERULAR FILTRATION RATE 54.9 (>32); POTASSIUM SERUM 4.3 MEQ/L (3.5-5.1)
== END ==
PROVIDERS: ATTEND Internal Medicine
DX: I50.9 Heart failure, unspecified (principal)

== ENCOUNTER → 2016-07-19 | Outpatient (REF) ==
[2016-07-19 12:22] LABS: CALCIUM LEVEL 8.3 MG/DL (8.8-10.2); CREATININE FOR GFR 0.99 MG/DL (0.55-1.02); GLOMERULAR FILTRATION RATE 57.5 (>32); POTASSIUM SERUM 3.8 MEQ/L (3.5-5.1)
== END ==
PROVIDERS: ATTEND Internal Medicine
DX: I50.9 Heart failure, unspecified (principal); N18.9 Chronic kidney disease, unspecified

== ENCOUNTER → 2016-07-28 | Outpatient (REF) ==
[2016-07-28 11:03] LABS: MEAN CORPUSCULAR HEMOGLOBIN 29.1 pg (27.0-33.0); MEAN CORPUSCULAR HGB CONC 30.7 g/dl (32.0-36.5); RED CELL DISTRIBUTION WIDTH 14.9 % (11.5-14.5); WHITE BLOOD COUNT 5.7 K/mm3 (4.0-10.0)
[2016-07-28 11:09] LABS: CALCIUM LEVEL 8.4 MG/DL (8.8-10.2); CREATININE FOR GFR 1.19 MG/DL (0.55-1.02); GLOMERULAR FILTRATION RATE 46.5 (>32); MAGNESIUM LEVEL 2.4 MG/DL (1.8-2.4); POTASSIUM SERUM 3.8 MEQ/L (3.5-5.1)
== END ==
PROVIDERS: ATTEND Internal Medicine
DX: I50.9 Heart failure, unspecified (principal)

== ENCOUNTER → 2016-08-24 | Outpatient (REF) ==
[~2016-08-24] MED LIST changes: -COLA100C PO; +COLA100C3 PO; +GABA-282 PO; -GABA300C3 PO
[2016-08-24 11:16] LABS: MEAN CORPUSCULAR HEMOGLOBIN 28.6 pg (27.0-33.0); MEAN CORPUSCULAR HGB CONC 30.1 g/dl (32.0-36.5); MEAN CORPUSCULAR VOLUME 95.1 fl (80.0-96.0)
[2016-08-24 11:24] LABS: CALCIUM LEVEL 8.7 MG/DL (8.8-10.2); CREATININE FOR GFR 1.17 MG/DL (0.55-1.02); GLOMERULAR FILTRATION RATE 47.4 (>32); MAGNESIUM LEVEL 2.3 MG/DL (1.8-2.4); POTASSIUM SERUM 3.7 MEQ/L (3.5-5.1)
== END ==
PROVIDERS: ATTEND Internal Medicine
DX: I50.9 Heart failure, unspecified (principal)

== ENCOUNTER → 2016-08-26 | Outpatient (CLI) | payer MEDICARE, MEDICAID ==
--- NOTE | 2016-08-29 23:42 | ECWPNPC ---
PATIENT NAME: CECIL CASPER : 1935 GENDER: FEMALE VISIT DATE: 08/26/2016 DISCHARGE DATE: 08/26/16 1339 VISIT LOCKED DATE TIME: PHYSICIAN: JOSE FLORES RESOURCE: JOSE FLORES REASON FOR APPOINTMENT 1. LOW BACK PAIN HISTORY OF PRESENT ILLNESS HISTORY OF PRESENT ILLNESS: PAIN THE PATIENT DESCRIBES THE PAIN... 81 YEAR OLD FEMALE PATIENT WITH HISTORY OF CHRONIC LOW BACK PAIN. PATIENT DESCRIBES THE PAIN SHARP, STABBING, AND SORE WITH A PAIN SCORE OF 5-7/10 ON TODAY'S VISIT. PATIENT RECEIVED A L4-L5 LESI ON 04-23-2016 AND STATES THAT SHE RECEIVED GOOD PAIN RELIEF FOR ABOUT 3 MONTHS, AND A FEW WEEKS AGO THE PAIN RETURNED WITH RADIATING PAIN DOWN THE LEGS. PATIENT DENIES UNEXPLAINABLE WEIGHT LOSS, FEVER, CHILLS, NEW CHANGES ON HER URINARY OR BOWEL CONTROL. FALL RISK SCREENING: SCREENING :NO FALLS IN THE PAST YEAR CURRENT MEDICATIONS TAKING NAMENDA 10 MG TABLET 1 TABLET ORALLY TWICE A DAY TAKING DULOXETINE HCL 60 MG CAPSULE DELAYED RELEASE PARTICLES 1 CAPSULE ORALLY ONCE A DAY TAKING ACETAMINOPHEN EXTRA STRENGTH 500 MG TABLET 1 TABLET NEEDED ORALLY EVERY 6 HRS TAKING SENNA-DOCUSATE SODIUM 8.6-50 MG TABLET 1 TABLET IN THE EVENING NEEDED ORALLY ONCE A DAY TAKING ASPIR-81 81 MG TABLET DELAYED RELEASE 1 TABLET ORALLY ONCE A DAY TAKING COLACE 100 MG CAPSULE 1 CAPSULE NEEDED ORALLY BID TAKING MAGNESIUM OXIDE 400 MG CAPSULE 1 CAPSULE ORALLY TWICE A DAY TAKING PREDNISONE 5 MG TABLET 1 TABLET ORALLY ONCE A DAY TAKING ZONISAMIDE 50 MG CAPSULE 1 CAPSULE ORALLY TWICE A DAY TAKING VITAMIN D3 1000 UNIT CAPSULE 1 CAPSULE ORALLY ONCE A DAY TAKING ALBUTEROL SULFATE HFA 108 (90 BASE) MCG/ACT AEROSOL SOLUTION 2 PUFFS NEEDED INHALATION EVERY 4 HRS TAKING ATENOLOL 100 MG TABLET 1 TABLET ORALLY ONCE A DAY TAKING LASIX 60 MG TABLET 1 TABLET ORALLY BID TAKING GABAPENTIN 100 MG CAPSULE 2 TABS ORALLY ONCE DAILY TAKING ENSURE - LIQUID ORALLY DIRECTED TAKING POTASSIUM CHLORIDE 20 MEQ PACKET 1 PACKET WITH FOOD ORALLY ONCE A DAY TAKING NITROQUICK SUBLINGUALLY TAKING BISACODYL 10 MG SUPPOSITORY 1 SUPPOSITORY NEEDED RECTAL ONCE A DAY TAKING ENEMA - ENEMA RECTAL TAKING MILK OF MAGNESIA 1200 MG/15ML SUSPENSION 5 ML NEEDED ORALLY FOUR TIMES A DAY TAKING ABILIFY 2 MG TABLET 1 TABLET ORALLY ONCE A DAY TAKING ASPERCREME 10 % LOTION EXTERNALLY TAKING SALINE NASAL SPRAY 0.65 % SOLUTION NASALLY TAKING HYDROCODONE-ACETAMINOPHEN 5-325 MG TABLET 1 TAB ORALLY EVERY 6 HRS NEEDED FOR PAIN TAKING ATORVASTATIN CALCIUM 20 MG TABLET 1 TABLET ORALLY ONCE A DAY NOT-TAKING TRAMADOL HCL 50 MG TABLET ORALLY DIRECTED NOT-TAKING CELEXA 20 MG TABLET 1 TABLET ORALLY ONCE A DAY NOT-TAKING PENNSAID 2 % SOLUTION 2 APPLICATIONS TO AFFECTED AREA TRANSDERMAL TWICE A DAY FOR LEFT KNEE PAIN NOT-TAKING MIRALAX _ POWDER 17 GRAMS/LARGE TEASPOON ORALLY ONCE A DAY NOT-TAKING FLUDROCORTISONE ACETATE 0.1 MG TABLET 1 TABLET ORALLY ONCE A DAY NOT-TAKING FERROUS GLUCONATE 324 (38 FE) MG TABLET 1 TABLET ORALLY TWICE A DAY NOT-TAKING MULTIVITAMIN TABLET CHEWABLE ORALLY ONCE DAILY NOT-TAKING LIDODERM 5 % PATCH 1 PATCH TO INTACT SKIN REMOVE AFTER 12 HOURS EXTERNALLY ONCE A DAY NOT-TAKING FUROSEMIDE 40 MG TABLET 1 TABLET ORALLY ONCE A DAY NOT-TAKING VOLTAREN 1 % GEL 2 GRAMS TO LOW BACK TRANSDERMAL THREE TIMES DAILY NOT-TAKING LYRICA 50 MG CAPSULE 1 CAPSULE ORALLY THREE TIMES A DAY NOT-TAKING OCCUVITE _ TABLET 1 TAB(S) ORAL DAILY NOT-TAKING HYDROXYZINE HCL 25 MG TABLET 1 TABLET NEEDED ORALLY EVERY 8 HRS NOT-TAKING BENZONATATE 200 MG CAPSULE 1 CAPSULE NEEDED ORALLY THREE TIMES A DAY NOT-TAKING OMEPRAZOLE 20 MG TABLET DELAYED RELEASE 1 TABLET ORALLY ONCE A DAY NOT-TAKING LOPERAMIDE HCL 2 MG CAPSULE 1 CAPSULE ORALLY 8 TIME(S) A DAY/PRN MEDICATION LIST REVIEWED AND RECONCILED WITH THE PATIENT PAST MEDICAL HISTORY DEPRESSION GERD ALLERGIES LUPUS ANEMIA CVA 11/2010 PARKINSON'S DISEASE MILD RENAL INSUFFICIENCY IMPAIRED FASTING GLUCOSE SEIZURE DISORDER ORTHOSTATIC HYPOTENSION ALLERGIES MOTRIN: N/V MYCOPHENOLATE MOFETIL HCL: DIZZINESS SURGICAL HISTORY CATARAC SURGERY BOTH EYES HYSTERECTOMY COMPLETE CHOLECYSTECTOMY FAMILY HISTORY NO FAMILY HISTORY DOCUMENTED. SOCIAL HISTORY GENERAL: TOBACCO USE ARE YOU A:NONSMOKER LEARNING BARRIERS / SPECIAL NEEDS ORIENTED TO PLAN OF CARE: PATIENT, PAIN MANAGEMENT PATIENT, ORIENTED TO PLAN OF CARE: PATIENT, PAIN MANAGEMENT PATIENT. NEW PATIENT PAIN DIARY TODAY'S VISITNOTES FROM 0-10, WHAT LEVEL IS YOUR PAIN TODAY?0 PAIN CLINIC PFS, CLERGY, PUBLIC HEALTH REFERRALS PFS REFERRAL NEEDED?NO CLERGY REFERRAL NEEDED?NO PUBLIC HEALTH REFERRAL NEEDED?NO WAS THE PROVIDER NOTIFIED OF ANY PERTINENT INFO?NO PFS REFERRAL NEEDED?NO CLERGY REFERRAL NEEDED?NO PUBLIC HEALTH REFERRAL NEEDED?NO WAS THE PROVIDER NOTIFIED OF ANY PERTINENT INFO?NO HOSPITALIZATION/MAJOR DIAGNOSTIC PROCEDURE NO HOSPITALIZATION HISTORY. REVIEW OF SYSTEMS CONSTITUTIONAL: ANY CHANGE IN YOUR MEDICAL CONDITION? NO . CHILLS NO . FEVER NO . INFECTION: DO YOU HAVE NEW INFECTIONS? NO . DO YOU HAVE HISTORY OF MRSA? NO . MUSCULOSKELETAL: ANY NEW PATTERNS OF PAIN OR NUMBNESS? NO . GASTROENTEROLOGY: ANY NEW CHANGE IN BOWEL CONTROL? NO . GENITOURINARY: ANY NEW CHANGE IN BLADDER CONTROL? NO . IS THERE A CHANCE YOU COULD BE ? NO . HEMATOLOGY/LYMPH: DO YOU TAKE ANY BLOOD THINNERS? (FOR EXAMPLE- COUMADIN, PLAVIX, AGGRENOX, PLATEL, PRADAXA, OR XARELTO) NO . WHEN WAS YOUR LAST DOSE? DATE: TIME: . NEUROLOGY: HAVE YOU FALLEN IN THE PAST 6 MONTHS? YES . ANY NEW EXTREMITY NUMBNESS OR WEAKNESS? NO . CARDIOLOGY: DO YOU HAVE A PACEMAKER OR DEFIBRILLATOR? NO . RESPIRATORY: HAVE YOU BEEN SICK IN THE PAST WEEK? NO . FEVER NO . FLU LIKE SYMPTOMS? NO . COUGH NO . INTEGUMENTARY: DO YOU HAVE ANY RASHES OR OPEN SORES? NO . ALLERGIC/IMMUNO: ARE YOU ALLERGIC TO SHELLFISH OR IV DYE? NO . ANY NEW ALLERGIES? NO . PSYCHIATRIC: DO YOU HAVE THOUGHTS OF HURTING YOURSELF OR SOMEONE ELSE? NO . ARE YOU ABUSED, NEGLECTED, OR IN AN UNSAFE ENVIRONMENT? NO . ENDOCRINOLOGY: ARE YOU DIABETIC? NO . OTHER: DO YOU NEED ANY PRESCRIPTIONS? NO . IF YES, PLEASE LIST: ____ . ANY NEW PROBLEMS WITH YOUR MEDICATIONS? NO . WHEN DID YOU LAST EAT? ____ . WHEN DID YOU LAST DRINK? ____ . WHAT DID YOU LAST DRINK? ____ . NAME OF PERSON DRIVING YOU HOME? ____ . DO YOU HAVE ANY OTHER QUESTIONS OR CONCERNS NO . REVIEWED BY: PROVIDER: JOSE FLORES MD . VITAL SIGNS WT 212.0 LBS, HT 5'3", BMI 37.55 INDEX, BP 118/66 MM HG, HR 68 /MIN, RR 16 /MIN, TEMP 97.5 F, OXYGEN SAT % 2L/94%, SAFE IN ENV? (Y/N) Y, NA INITIALS TL 1306, REVIEWED BY: ZHENG. EXAMINATION : PATIENT IS ALERT O X 3 AND COOPERATIVE. PATIENT CAME IN TODAY IN A WHEEL CHAIR. THERE IS TENDERNESS IN THE LOW BACK PARASPINAL MUSCLE GROUP. MRI OF THE LUMBAR SPINE DONE ON 09/19/2015 SHOWS STENOSIS, FACET ARTHROPATHY, AND DISC BULGES AT MULTIPLE LEVELS. ASSESSMENTS INTERVERTEBRAL DISC DISORDERS WITH RADICULOPATHY, LUMBAR REGION - M51.16 (PRIMARY) SPINAL STENOSIS, LUMBAR REGION - M48.06 TREATMENT INTERVERTEBRAL DISC DISORDERS WITH RADICULOPATHY, LUMBAR REGION NOTES: WE DISCUSSED SEVERAL ISSUES WITH MRS. CASPER'S PAIN MANAGEMENT CASE. AT THIS TIME THE PATIENT WILL CONTINUE WITH THE SAME MEDICATION REGIME THAT SHE IS ON. AFTER EXAMINING THE PATIENT, REVIEWING THE MRI, AND WITH GOOD RESULTS FROM THE LAST LESI, PATIENT IS A GOOD CANDIDATE FOR ANOTHER LESI. WE DISCUSSED THE RISK, BENEFITS, AND ALTERNATIVES AND THE PATIENT WOULD LIKE TO PROCEED. PATIENT WILL BE BOOKED PENDING APPROVAL. SINCE THE PATIENT IS TAKING A BLOOD THINNER, I DISCUSSED WITH HER THAT SHE WILL NEED TO STOP IT FOR 5 DAYS PRIOR TO THE INJECTION. INSTRUCTIONS WERE GIVEN, QUESTIONS WERE ANSWERED, PATIENT REPORTS UNDERSTANDING AND AGREES WITH THE PLAN. I, LESLEY OATES, DOCUMENTED THE ABOVE INFORMATION ACTING A SCRIBE FOR DR. FLORES. I HAVE REVIEWED THE ABOVE DOCUMENT, WRITTEN BY LESLEY CULLENIBJunior AND I VERIFY THAT IT IS ACCURATE. OTHERS NOTES: WHAT IS LUMBAR EPIDURAL INJECTION? MATERIAL WAS PRINTED. PROCEDURE CODES FA211 ESTABILISHED PATIENT [facility]AC[facility] CHARGE G2830 PAIN ASSESS POS TOOL F/U PLAN DOC G8427 DOC MEDS VERIFIED W/PT OR RE DISPOSITION & COMMUNICATION FOLLOW UP LESI PENDING APPROVAL ELECTRONICALLY SIGNED BY JOSE FLORES MD ON 08/29/2016 AT 12:40 PM EDT DISCLAIMER : THIS IS A VISIT SUMMARY EXTRACTED FROM THE [employer] CHART. IT IS NOT A COPY OF THE [employer] PROGRESS NOTE. BOUCHRA
== END ==
LOC: M PAIN 13:00
PROVIDERS: ATTEND Anesthesiology
DX: G89.29 Other chronic pain (principal); M51.16 Intervertebral disc disorders with radiculopathy, lumbar region; M48.06 Spinal stenosis, lumbar region; F32.9 Major depressive disorder, single episode, unspecified; K21.9 Gastro-esophageal reflux disease without esophagitis; M32.9 Systemic lupus erythematosus, unspecified; G20 Parkinson's disease; G40.909 Epilepsy, unspecified, not intractable, without status epilepticus; I95.1 Orthostatic hypotension; Z88.6 Allergy status to analgesic agent; Z88.8 Allergy status to other drugs, medicaments and biological substances; Z79.82 Long term (current) use of aspirin; Z79.52 Long term (current) use of systemic steroids; Z79.899 Other long term (current) drug therapy

== ENCOUNTER → 2016-08-30 | Outpatient (CLI) | payer MEDICARE, MEDICAID ==
[~2016-08-30] MED LIST changes: +ISOVUE-M 300 61% 15ML VIAL (Q9967) As Ordered ONE; +LIDOCAINE 1% SDV INJ 30 ML VIAL As Ordered ONE; +methylPREDNISolone SUSP 40 MG/ML (DEPO-medrol) VIAL (J1030) As Ordered ONE
--- NOTE | 2016-08-30 17:19 | REP ---
FLUOROSCOPIC GUIDED SPINAL INJECTION: The films were reviewed with Dr. Ayala. The patient has a history of low back pain. The portable C-ARM was provided in the OR by Dr. Easton for fluoroscopic guidance. 2 intraoperative fluoroscopic spot films were obtained for needle placement verification for lumbar epidural injection. The films are on the PACS system and are available for review. 15 seconds of fluoroscopic time was utilized for this procedure. Reviewed by JANNET Gonsales 08/31/2016 05:42 PEdited and Signed by Jose Miguel Ayala MD 08/31/2016 07:42 P
--- NOTE | 2016-09-05 23:37 | ECWPNPC ---
PATIENT NAME: CECIL CASPER : 1935 GENDER: FEMALE VISIT DATE: 08/30/2016 DISCHARGE DATE: 08/30/16 1122 VISIT LOCKED DATE TIME: PHYSICIAN: JOSE FLORES RESOURCE: JOSE FLORES REASON FOR APPOINTMENT 1. LESI HISTORY OF PRESENT ILLNESS HISTORY OF PRESENT ILLNESS: PAIN THE PATIENT DESCRIBES THE PAIN... FALL RISK SCREENING: SCREENING :NO FALLS IN THE PAST YEAR CURRENT MEDICATIONS TAKING NAMENDA 10 MG TABLET 1 TABLET ORALLY TWICE A DAY, NOTES: 08/29/16 4PM TAKING DULOXETINE HCL 60 MG CAPSULE DELAYED RELEASE PARTICLES 1 CAPSULE ORALLY ONCE A DAY, NOTES: 08/29/16 TAKING ACETAMINOPHEN EXTRA STRENGTH 500 MG TABLET 1 TABLET NEEDED ORALLY EVERY 6 HRS, NOTES: 08/29/16 1232 TAKING SENNA-DOCUSATE SODIUM 8.6-50 MG TABLET 1 TABLET IN THE EVENING NEEDED ORALLY ONCE A DAY, NOTES: 08/29/162049 TAKING ASPIR-81 81 MG TABLET DELAYED RELEASE 1 TABLET ORALLY ONCE A DAY, NOTES: 08/29/16 1000 TAKING COLACE 100 MG CAPSULE 1 CAPSULE NEEDED ORALLY BID, NOTES: 08/29/16 0947 TAKING MAGNESIUM OXIDE 400 MG CAPSULE 1 CAPSULE ORALLY TWICE A DAY, NOTES: 08/29/16 1613 TAKING PREDNISONE 5 MG TABLET 1 TABLET ORALLY ONCE A DAY, NOTES: 08/29/16 1002 TAKING ZONISAMIDE 50 MG CAPSULE 1 CAPSULE ORALLY TWICE A DAY, NOTES: 08/29/16 09 TAKING VITAMIN D3 1000 UNIT CAPSULE 1 CAPSULE ORALLY ONCE A DAY, NOTES: 08/29/160946 TAKING ALBUTEROL SULFATE HFA 108 (90 BASE) MCG/ACT AEROSOL SOLUTION 2 PUFFS NEEDED INHALATION EVERY 4 HRS TAKING ATENOLOL 100 MG TABLET 1 TABLET ORALLY ONCE A DAY, NOTES: 08/29/16 1003 TAKING LASIX 60 MG TABLET 1 TABLET ORALLY BID, NOTES: 08/29/16 100 TAKING GABAPENTIN 100 MG CAPSULE 2 TABS ORALLY ONCE DAILY, NOTES: 08/30/16 0631 TAKING ENSURE - LIQUID ORALLY DIRECTED TAKING POTASSIUM CHLORIDE 20 MEQ PACKET 1 PACKET WITH FOOD ORALLY ONCE A DAY, NOTES: 08/29/16 1003 TAKING NITROQUICK SUBLINGUALLY TAKING BISACODYL 10 MG SUPPOSITORY 1 SUPPOSITORY NEEDED RECTAL ONCE A DAY TAKING ENEMA - ENEMA RECTAL TAKING MILK OF MAGNESIA 1200 MG/15ML SUSPENSION 5 ML NEEDED ORALLY FOUR TIMES A DAY TAKING ABILIFY 2 MG TABLET 1 TABLET ORALLY ONCE A DAY, NOTES: 08/29/16 1002 TAKING ASPERCREME 10 % LOTION EXTERNALLY , NOTES: 08/29/16 TAKING SALINE NASAL SPRAY 0.65 % SOLUTION NASALLY , NOTES: 08/29/161001 TAKING ATORVASTATIN CALCIUM 20 MG TABLET 1 TABLET ORALLY ONCE A DAY, NOTES: 08/29/162049 TAKING PERCOCET 5-325 MG TABLET 1/2 TABLET NEEDED ORALLY 1/2 TABLET TID, NOTES: LAST AUGUST 30 AT 0632 NOT-TAKING HYDROCODONE-ACETAMINOPHEN 5-325 MG TABLET 1 TAB ORALLY EVERY 6 HRS NEEDED FOR PAIN NOT-TAKING TRAMADOL HCL 50 MG TABLET ORALLY DIRECTED NOT-TAKING CELEXA 20 MG TABLET 1 TABLET ORALLY ONCE A DAY NOT-TAKING PENNSAID 2 % SOLUTION 2 APPLICATIONS TO AFFECTED AREA TRANSDERMAL TWICE A DAY FOR LEFT KNEE PAIN NOT-TAKING MIRALAX _ POWDER 17 GRAMS/LARGE TEASPOON ORALLY ONCE A DAY NOT-TAKING FLUDROCORTISONE ACETATE 0.1 MG TABLET 1 TABLET ORALLY ONCE A DAY NOT-TAKING FERROUS GLUCONATE 324 (38 FE) MG TABLET 1 TABLET ORALLY TWICE A DAY NOT-TAKING MULTIVITAMIN TABLET CHEWABLE ORALLY ONCE DAILY NOT-TAKING LIDODERM 5 % PATCH 1 PATCH TO INTACT SKIN REMOVE AFTER 12 HOURS EXTERNALLY ONCE A DAY NOT-TAKING FUROSEMIDE 40 MG TABLET 1 TABLET ORALLY ONCE A DAY NOT-TAKING VOLTAREN 1 % GEL 2 GRAMS TO LOW BACK TRANSDERMAL THREE TIMES DAILY NOT-TAKING LYRICA 50 MG CAPSULE 1 CAPSULE ORALLY THREE TIMES A DAY NOT-TAKING OCCUVITE _ TABLET 1 TAB(S) ORAL DAILY NOT-TAKING HYDROXYZINE HCL 25 MG TABLET 1 TABLET NEEDED ORALLY EVERY 8 HRS NOT-TAKING BENZONATATE 200 MG CAPSULE 1 CAPSULE NEEDED ORALLY THREE TIMES A DAY NOT-TAKING OMEPRAZOLE 20 MG TABLET DELAYED RELEASE 1 TABLET ORALLY ONCE A DAY NOT-TAKING LOPERAMIDE HCL 2 MG CAPSULE 1 CAPSULE ORALLY 8 TIME(S) A DAY/PRN MEDICATION LIST REVIEWED AND RECONCILED WITH THE PATIENT PAST MEDICAL HISTORY DEPRESSION GERD ALLERGIES LUPUS ANEMIA CVA 11/2010 PARKINSON'S DISEASE MILD RENAL INSUFFICIENCY IMPAIRED FASTING GLUCOSE SEIZURE DISORDER ORTHOSTATIC HYPOTENSION ALLERGIES MOTRIN: N/V MYCOPHENOLATE MOFETIL HCL: DIZZINESS REVIEW OF SYSTEMS CONSTITUTIONAL: ANY CHANGE IN YOUR MEDICAL CONDITION? NO . CHILLS NO . FEVER NO . INFECTION: DO YOU HAVE NEW INFECTIONS? NO . DO YOU HAVE HISTORY OF MRSA? NO . MUSCULOSKELETAL: ANY NEW PATTERNS OF PAIN OR NUMBNESS? NO . GASTROENTEROLOGY: ANY NEW CHANGE IN BOWEL CONTROL? NO . GENITOURINARY: ANY NEW CHANGE IN BLADDER CONTROL? NO . IS THERE A CHANCE YOU COULD BE ? NO . HEMATOLOGY/LYMPH: DO YOU TAKE ANY BLOOD THINNERS? (FOR EXAMPLE- COUMADIN, PLAVIX, AGGRENOX, PLATEL, PRADAXA, OR XARELTO) NO . WHEN WAS YOUR LAST DOSE? DATE: TIME: . NEUROLOGY: HAVE YOU FALLEN IN THE PAST 6 MONTHS? YES, FELL OUT OF WHEELCHAIR LAST NIGHT WHEN REACHING FOR SOMETHING. STATES NO INJURY FROM THIS . ANY NEW EXTREMITY NUMBNESS OR WEAKNESS? NO . CARDIOLOGY: DO YOU HAVE A PACEMAKER OR DEFIBRILLATOR? NO . RESPIRATORY: HAVE YOU BEEN SICK IN THE PAST WEEK? NO . FEVER NO . FLU LIKE SYMPTOMS? NO . COUGH NO . INTEGUMENTARY: DO YOU HAVE ANY RASHES OR OPEN SORES? NO . ALLERGIC/IMMUNO: ARE YOU ALLERGIC TO SHELLFISH OR IV DYE? NO . ANY NEW ALLERGIES? NO . PSYCHIATRIC: DO YOU HAVE THOUGHTS OF HURTING YOURSELF OR SOMEONE ELSE? NO . ARE YOU ABUSED, NEGLECTED, OR IN AN UNSAFE ENVIRONMENT? NO . ENDOCRINOLOGY: ARE YOU DIABETIC? NO . OTHER: DO YOU NEED ANY PRESCRIPTIONS? NO . IF YES, PLEASE LIST: ____ . ANY NEW PROBLEMS WITH YOUR MEDICATIONS? NO . WHEN DID YOU LAST EAT? LAST NIGHT . WHEN DID YOU LAST DRINK? 0630 . WHAT DID YOU LAST DRINK? ORANGE JUICE . NAME OF PERSON DRIVING YOU HOME? [employer] . DO YOU HAVE ANY OTHER QUESTIONS OR CONCERNS PT ON 2 LITERS OF OXYGEN AT [id number] . REVIEWED BY: PROVIDER: . VITAL SIGNS WT 212 LBS, HT 5'3", BMI 37.55 INDEX, BP 105/53 MM HG, HR 63 /MIN, RR 16 /MIN, TEMP 98.2 F, OXYGEN SAT % 98%, NA INITIALS SC 09:41, REVIEWED BY: NL. ASSESSMENTS INTERVERTEBRAL DISC DISORDERS WITH RADICULOPATHY, LUMBAR REGION - M51.16 (PRIMARY) PROCEDURES PRE PROCEDURE DIAGNOSIS LUMBAR DISC DISORDER WITH RADICULOPATHY POST PROCEDURE DIAGNOSIS LUMBAR DISC DISORDER WITH RADICULOPATHY PROCEDURE LUMBAR EPIDURAL STEROID INJECTION UNDER FLUOROSCOPIC GUIDANCE SURGEON DR. JOSE FLORES SYSTEM ENGINEER NONE ANESTHESIA LOCAL PRE PROCEDURE NOTE THE PATIENT HAS A HISTORY OF CHRONIC LOW BACK PAIN. I EVALUATE THE PATIENT AND REVIEWED THE CHART. I WENT OVER THE RISKS, ALTERNATIVES, AND BENEFITS ASSOCIATED WITH THIS PROCEDURE. THE PATIENT WOULD LIKE TO PROCEED AND GIVE CONSENT TO PERFORMED THE PROCEDURE. THE PATIENT DENIES UNEXPLAINABLE WEIGHT LOSS, FEVER, CHILLS, OR NEW CHANGES IN URINARY OR BOWEL CONTROL DESCRIPTION OF PROCEDURE THE PATIENT WAS BROUGHT TO THE PROCEDURE ROOM AND PLACED IN THE PRONE POSITION. THE LUMBOSACRAL AREA WAS CLEANED WITH BETADINE SOLUTION AND DRAPED ASEPTICALLY. THE PROCEDURE WAS DONE UNDER STERILE CONDITIONS. I CHECKED LATERALITY AND THE LEVEL WHERE THE PROCEDURE WAS GOING TO BE PERFORMED WITH THE PATIENT AND THE SUPPORTING STAFF AT THE MOMENT OF THE TIME OUT IN THE PROCEDURE ROOM. UNDER FLUOROSCOPIC GUIDANCE, THE TARGET POINT WAS SELECTED AT THE INTERLAMINAR LEVEL OF L4-L5. LIDOCAINE WAS USED TO NUMB THE SKIN AND THE SUBCUTANEOUS TISSUE BELOW IT. EPIDURAL TUOHY NEEDLE, 17-GAUGE, WAS ADVANCED UNDER FLUOROSCOPIC GUIDANCE AND FOLLOWING PATIENT FEEDBACK UNTIL THE EPIDURAL SPACE WAS REACHED, 7 CM DEEP INTO THE SKIN BY THE LOSS OF RESISTANCE TECHNIQUE. ISOVUE M DYE 30%, 0.25 ML, WAS INJECTED SHOWING ADEQUATE SPREAD OF THE DYE. THEN, A SOLUTION OF 3 ML OF NORMAL SALINE WITH DEPO-MEDROL 60 MG WAS INJECTED SLOWLY FOLLOWING PATIENT FEEDBACK. THERE WAS NO EVIDENCE OF BLOOD, PARESTHESIA OR CEREBROSPINAL FLUID DURING THE PROCEDURE. THE PATIENT WAS SENT TO THE RECOVERY ROOM. THE PATIENT WAS MOVING THE EXTREMITIES AND DOING WELL. THERE WAS NO COMPLICATION DURING THE PROCEDURE. FLUOROSCOPY TIME WAS 15 SECONDS POST PROCEDURE NOTE THE PATIENT WILL BE SEEN IN A FOLLOW UP IN THE NEXT FEW WEEKS. INSTRUCTIONS WERE GIVEN, QUESTIONS WERE ANSWERED, AND THE PATIENT EXPRESSED UNDERSTANDING AND AGREES WITH THE PLAN. I, DONALD GUZMÁN, DOCUMENTED THE ABOVE INFORMATION ACTING A SCRIBE FOR DR. FLORES. I HAVE REVIEWED THE ABOVE DOCUMENT, WRITTEN BY DONALD MCKENZIE AND I VERIFY THAT IT IS ACCURATE DIAGNOSTIC IMAGING [facility] FLUORO GUIDE SPINE INJECTION (PAIN)[id number] PROCEDURE CODES 03942 LUMBAR/SACRAL W/ IMAGING 6045F RADXPS IN END [id number] PXD DISPOSITION & COMMUNICATION FOLLOW UP 3 WEEKS ELECTRONICALLY SIGNED BY JOSE FLORES MD ON 09/05/2016 AT 05:41 PM EDT DISCLAIMER : THIS IS A VISIT SUMMARY EXTRACTED FROM THE [employer] CHART. IT IS NOT A COPY OF THE [employer] PROGRESS NOTE. BOUCHRA
== END ==
LOC: M PAIN 09:30
PROVIDERS: ATTEND Anesthesiology
DX: G89.29 Other chronic pain (principal); M51.16 Intervertebral disc disorders with radiculopathy, lumbar region; F32.9 Major depressive disorder, single episode, unspecified; K21.9 Gastro-esophageal reflux disease without esophagitis; M32.9 Systemic lupus erythematosus, unspecified; D64.9 Anemia, unspecified; G20 Parkinson's disease; N18.9 Chronic kidney disease, unspecified; G40.919 Epilepsy, unspecified, intractable, without status epilepticus; Z88.6 Allergy status to analgesic agent; Z88.8 Allergy status to other drugs, medicaments and biological substances; Z79.82 Long term (current) use of aspirin; Z79.52 Long term (current) use of systemic steroids
CPT/HCPCS: 62323; J1030; Q9967

== ENCOUNTER → 2016-09-22 | Outpatient (REF) | payer MEDICARE, MEDICAID ==
[~2016-09-22] MED LIST changes: -ISOVUE-M 300 61% 15ML VIAL (Q9967) As Ordered ONE; -LIDOCAINE 1% SDV INJ 30 ML VIAL As Ordered ONE; -methylPREDNISolone SUSP 40 MG/ML (DEPO-medrol) VIAL (J1030) As Ordered ONE
[2016-09-22 08:12] LABS: MEAN CORPUSCULAR HEMOGLOBIN 29.2 pg (27.0-33.0); MEAN CORPUSCULAR HGB CONC 30.5 g/dl (32.0-36.5); MEAN CORPUSCULAR VOLUME 95.8 fl (80.0-96.0); RED CELL DISTRIBUTION WIDTH 15.6 % (11.5-14.5); WHITE BLOOD COUNT 5.2 K/mm3 (4.0-10.0)
[2016-09-22 08:17] LABS: CALCIUM LEVEL 8.4 MG/DL (8.8-10.2); CREATININE FOR GFR 0.99 MG/DL (0.55-1.02); GLOMERULAR FILTRATION RATE 57.5 (>32); MAGNESIUM LEVEL 2.3 MG/DL (1.8-2.4); POTASSIUM SERUM 3.6 MEQ/L (3.5-5.1)
== END ==
PROVIDERS: ATTEND Internal Medicine
DX: I50.9 Heart failure, unspecified (principal)

== ENCOUNTER → 2016-09-23 | Outpatient (CLI) | payer MEDICARE, MEDICAID ==
[~2016-09-23] MED LIST changes: +ABIL1TAB13 PO; +ASPE4PAD TOP; +ATOR80TA59 PO; -COLA100C3 PO; +COLA100C5 PO; +ENEM1ENE4 PR; +FLUD0.1T PO; -FLUD1TA PO; +HYDR-3363 PO; -HYDR25T PO; +LEVA1TAB2 PO; -LIDO5DIS36 TD; +LIDO5DIS41 TD; +LOPE2CAP PO; -LOPE2TAB PO; +METO25TA PO; +MOM30SS PO; -NITR100C37 PO; +NITR100C39 PO; +OXYC1TAB23 PO; +PERC5TAB12 PO; +POTA10CA PO; -VESI10TA PO; +VESI10TA2 PO; +XARE15TA PO; +XARE20TA PO; +ZONI100C2 PO
--- NOTE | 2016-10-06 02:26 | ECWPNPC ---
PATIENT NAME: CECIL CASPER : 1935 GENDER: FEMALE VISIT DATE: 09/23/2016 DISCHARGE DATE: 09/23/16 1556 VISIT LOCKED DATE TIME: PHYSICIAN: JOSE FLORES RESOURCE: JOSE FLORES HISTORY OF PRESENT ILLNESS HISTORY OF PRESENT ILLNESS: PAIN THE PATIENT DESCRIBES THE PAIN... 81 YEAR OLD FEMALE PATIENT WITH HISTORY OF CHRONIC LOW BACK PAIN. PATIENT DESCRIBES THE PAIN ACHING WITH A PAIN SCORE OF 5/10 ON TODAY'S VISIT. PATIENT REPORTS THAT THE PAIN IN THE LEGS IS A LOT BETTER SINCE THE LUMBAR EPIDURAL INJECTION, BUT THE BACK PAIN IS STILL THERE. PATIENT DENIES UNEXPLAINABLE WEIGHT LOSS, FEVER, CHILLS, NEW CHANGES ON HER URINARY OR BOWEL CONTROL. FALL RISK SCREENING: SCREENING :NO FALLS IN THE PAST YEAR CURRENT MEDICATIONS TAKING NAMENDA 10 MG TABLET 1 TABLET ORALLY TWICE A DAY TAKING DULOXETINE HCL 60 MG CAPSULE DELAYED RELEASE PARTICLES 1 CAPSULE ORALLY ONCE A DAY TAKING ACETAMINOPHEN EXTRA STRENGTH 500 MG TABLET 1 TABLET NEEDED ORALLY EVERY 6 HRS, NOTES: 08/29/16 1232 TAKING SENNA-DOCUSATE SODIUM 8.6-50 MG TABLET 1 TABLET IN THE EVENING NEEDED ORALLY ONCE A DAY, NOTES: 08/29/162049 TAKING ASPIR-81 81 MG TABLET DELAYED RELEASE 1 TABLET ORALLY ONCE A DAY, NOTES: 08/29/16 1000 TAKING COLACE 100 MG CAPSULE 1 CAPSULE NEEDED ORALLY BID, NOTES: 08/29/16 0947 TAKING MAGNESIUM OXIDE 400 MG CAPSULE 1 CAPSULE ORALLY TWICE A DAY, NOTES: 08/29/16 1613 TAKING PREDNISONE 5 MG TABLET 1 TABLET ORALLY ONCE A DAY, NOTES: 08/29/16 1002 TAKING ZONISAMIDE 50 MG CAPSULE 1 CAPSULE ORALLY TWICE A DAY, NOTES: 08/29/16 09 TAKING VITAMIN D3 1000 UNIT CAPSULE 1 CAPSULE ORALLY ONCE A DAY, NOTES: 08/29/1646 TAKING ALBUTEROL SULFATE HFA 108 (90 BASE) MCG/ACT AEROSOL SOLUTION 2 PUFFS NEEDED INHALATION EVERY 4 HRS TAKING ATENOLOL 100 MG TABLET 1 TABLET ORALLY ONCE A DAY, NOTES: 08/29/16 1003 TAKING LASIX 60 MG TABLET 1 TABLET ORALLY BID, NOTES: 08/29/16 1003 TAKING GABAPENTIN 100 MG CAPSULE 2 TABS ORALLY ONCE DAILY, NOTES: 08/30/16 0631 TAKING ENSURE - LIQUID ORALLY DIRECTED TAKING POTASSIUM CHLORIDE 20 MEQ PACKET 1 PACKET WITH FOOD ORALLY ONCE A DAY, NOTES: 08/29/16 1003 TAKING NITROQUICK SUBLINGUALLY TAKING BISACODYL 10 MG SUPPOSITORY 1 SUPPOSITORY NEEDED RECTAL ONCE A DAY TAKING ENEMA - ENEMA RECTAL TAKING MILK OF MAGNESIA 1200 MG/15ML SUSPENSION 5 ML NEEDED ORALLY FOUR TIMES A DAY TAKING ABILIFY 2 MG TABLET 1 TABLET ORALLY ONCE A DAY, NOTES: 08/29/16 1002 TAKING ASPERCREME 10 % LOTION EXTERNALLY , NOTES: 08/29/16 TAKING SALINE NASAL SPRAY 0.65 % SOLUTION NASALLY , NOTES: 08/29/161001 TAKING ATORVASTATIN CALCIUM 20 MG TABLET 1 TABLET ORALLY ONCE A DAY, NOTES: 08/29/162049 TAKING PERCOCET 5-325 MG TABLET 1/2 TABLET NEEDED ORALLY 1/2 TABLET TID, NOTES: LAST AUGUST 30 AT 0632 TAKING XARELTO 20 MG TABLET 1 TABLET WITH FOOD ORALLY ONCE A DAY NOT-TAKING HYDROCODONE-ACETAMINOPHEN 5-325 MG TABLET 1 TAB ORALLY EVERY 6 HRS NEEDED FOR PAIN NOT-TAKING TRAMADOL HCL 50 MG TABLET ORALLY DIRECTED NOT-TAKING CELEXA 20 MG TABLET 1 TABLET ORALLY ONCE A DAY NOT-TAKING PENNSAID 2 % SOLUTION 2 APPLICATIONS TO AFFECTED AREA TRANSDERMAL TWICE A DAY FOR LEFT KNEE PAIN NOT-TAKING MIRALAX _ POWDER 17 GRAMS/LARGE TEASPOON ORALLY ONCE A DAY NOT-TAKING FLUDROCORTISONE ACETATE 0.1 MG TABLET 1 TABLET ORALLY ONCE A DAY NOT-TAKING FERROUS GLUCONATE 324 (38 FE) MG TABLET 1 TABLET ORALLY TWICE A DAY NOT-TAKING MULTIVITAMIN TABLET CHEWABLE ORALLY ONCE DAILY NOT-TAKING LIDODERM 5 % PATCH 1 PATCH TO INTACT SKIN REMOVE AFTER 12 HOURS EXTERNALLY ONCE A DAY NOT-TAKING FUROSEMIDE 40 MG TABLET 1 TABLET ORALLY ONCE A DAY NOT-TAKING VOLTAREN 1 % GEL 2 GRAMS TO LOW BACK TRANSDERMAL THREE TIMES DAILY NOT-TAKING LYRICA 50 MG CAPSULE 1 CAPSULE ORALLY THREE TIMES A DAY NOT-TAKING OCCUVITE _ TABLET 1 TAB(S) ORAL DAILY NOT-TAKING HYDROXYZINE HCL 25 MG TABLET 1 TABLET NEEDED ORALLY EVERY 8 HRS NOT-TAKING BENZONATATE 200 MG CAPSULE 1 CAPSULE NEEDED ORALLY THREE TIMES A DAY NOT-TAKING OMEPRAZOLE 20 MG TABLET DELAYED RELEASE 1 TABLET ORALLY ONCE A DAY NOT-TAKING LOPERAMIDE HCL 2 MG CAPSULE 1 CAPSULE ORALLY 8 TIME(S) A DAY/PRN MEDICATION LIST REVIEWED AND RECONCILED WITH THE PATIENT PAST MEDICAL HISTORY DEPRESSION GERD ALLERGIES LUPUS ANEMIA CVA 11/2010 PARKINSON'S DISEASE MILD RENAL INSUFFICIENCY IMPAIRED FASTING GLUCOSE SEIZURE DISORDER ORTHOSTATIC HYPOTENSION ALLERGIES MOTRIN: N/V MYCOPHENOLATE MOFETIL HCL: DIZZINESS SURGICAL HISTORY NO SURGICAL HISTORY DOCUMENTED. FAMILY HISTORY NO FAMILY HISTORY DOCUMENTED. SOCIAL HISTORY GENERAL: TOBACCO USE ARE YOU A:NONSMOKER LEARNING BARRIERS / SPECIAL NEEDS ORIENTED TO PLAN OF CARE: PATIENT, PAIN MANAGEMENT PATIENT, ORIENTED TO PLAN OF CARE: PATIENT, PAIN MANAGEMENT PATIENT. NEW PATIENT PAIN DIARY TODAY'S VISITNOTES FROM 0-10, WHAT LEVEL IS YOUR PAIN TODAY?0 PAIN CLINIC PFS, CLERGY, PUBLIC HEALTH REFERRALS PFS REFERRAL NEEDED?NO CLERGY REFERRAL NEEDED?NO PUBLIC HEALTH REFERRAL NEEDED?NO WAS THE PROVIDER NOTIFIED OF ANY PERTINENT INFO?NO PFS REFERRAL NEEDED?NO CLERGY REFERRAL NEEDED?NO PUBLIC HEALTH REFERRAL NEEDED?NO WAS THE PROVIDER NOTIFIED OF ANY PERTINENT INFO?NO HOSPITALIZATION/MAJOR DIAGNOSTIC PROCEDURE NO HOSPITALIZATION HISTORY. REVIEW OF SYSTEMS CONSTITUTIONAL: ANY CHANGE IN YOUR MEDICAL CONDITION? NO . CHILLS NO . FEVER NO . INFECTION: DO YOU HAVE NEW INFECTIONS? NO . DO YOU HAVE HISTORY OF MRSA? NO . MUSCULOSKELETAL: ANY NEW PATTERNS OF PAIN OR NUMBNESS? NO . GASTROENTEROLOGY: ANY NEW CHANGE IN BOWEL CONTROL? NO . GENITOURINARY: ANY NEW CHANGE IN BLADDER CONTROL? NO . IS THERE A CHANCE YOU COULD BE ? NO . HEMATOLOGY/LYMPH: DO YOU TAKE ANY BLOOD THINNERS? (FOR EXAMPLE- COUMADIN, PLAVIX, AGGRENOX, PLATEL, PRADAXA, OR XARELTO) NO . WHEN WAS YOUR LAST DOSE? DATE: TIME: . NEUROLOGY: HAVE YOU FALLEN IN THE PAST 6 MONTHS? YES, HAS NOT FALLEN SINCE LAST INJECTION. . ANY NEW EXTREMITY NUMBNESS OR WEAKNESS? NO . CARDIOLOGY: DO YOU HAVE A PACEMAKER OR DEFIBRILLATOR? NO . RESPIRATORY: HAVE YOU BEEN SICK IN THE PAST WEEK? NO . FEVER NO . FLU LIKE SYMPTOMS? NO . COUGH NO . INTEGUMENTARY: DO YOU HAVE ANY RASHES OR OPEN SORES? NO . ALLERGIC/IMMUNO: ARE YOU ALLERGIC TO SHELLFISH OR IV DYE? NO . ANY NEW ALLERGIES? NO . PSYCHIATRIC: DO YOU HAVE THOUGHTS OF HURTING YOURSELF OR SOMEONE ELSE? NO . ARE YOU ABUSED, NEGLECTED, OR IN AN UNSAFE ENVIRONMENT? NO . ENDOCRINOLOGY: ARE YOU DIABETIC? YES . OTHER: DO YOU NEED ANY PRESCRIPTIONS? NO . IF YES, PLEASE LIST: ____ . ANY NEW PROBLEMS WITH YOUR MEDICATIONS? NO . WHEN DID YOU LAST EAT? ____ . WHEN DID YOU LAST DRINK? ____ . WHAT DID YOU LAST DRINK? ____ . NAME OF PERSON DRIVING YOU HOME? ____ . DO YOU HAVE ANY OTHER QUESTIONS OR CONCERNS YES, NOT MUCH RELIEF FROM PROCEDURE.A LITTLE BETTER NOW.&QUOT; CAN SHE HAVE ANOTHER SHOT?&QUOT; . REVIEWED BY: PROVIDER: JOSE FLORES MD . VITAL SIGNS WT 212 LBS, HT 5'3", BMI 37.55 INDEX, BP 114/60 MM HG, HR 58 /MIN, RR 16 /MIN, TEMP 97.2 F, OXYGEN SAT % 99%, NA INITIALS SC 15:00, REVIEWED BY: CM. EXAMINATION : PATIENT IS ALERT O X 3 AND COOPERATIVE. PATIENT CAME IN A WHEEL CHAIR TODAY. THERE IS TENDERNESS IN THE LOW BACK. MRI OF THE LUMBAR SPINE DONE ON 09/19/2015 SHOWS STENOSIS, FACET ARTHROPATHY, AND DISC BULGES AT MULTIPLE LEVELS. ASSESSMENTS SPONDYLOSIS WITHOUT MYELOPATHY OR RADICULOPATHY, LUMBAR REGION - M47.816 (PRIMARY) SPONDYLOSIS WITHOUT MYELOPATHY OR RADICULOPATHY, LUMBOSACRAL REGION - M47.817 TREATMENT SPONDYLOSIS WITHOUT MYELOPATHY OR RADICULOPATHY, LUMBAR REGION NOTES: WE DISCUSSED SEVERAL ISSUES WITH MRS. CASPER'S PAIN MANAGEMENT CASE. AT THIS TIME THE PATIENT WILL CONTINUE WITH THE SAME MEDICATION REGIMEN A BEFORE. AFTER EXAMINING THE PATIENT AND REVIEWING THE MRI OF THE LUMBAR SPINE PATIENT IS A GOOD CANDIDATE FOR A LUMBAR FACET BLOCK THERAPEUTIC INJECTION. PATIENT IS TAKING XARELTO AND DISCUSSED WITH THE PATIENT THAT I WILL NEED A CLEARANCE FROM HER PRIMARY FOR THE INJECTION AND FOR HER TO STOP XARELTO FOR A SET NUMBER OF DAYS. WE DISCUSSED THE RISK, BENEFITS, AND ALTERNATIVES AND THE PATIENT WOULD LIKE TO PROCEED FORWARD. PATIENT WILL BE BOOKED PENDING APPROVAL. PATIENT WILL FOLLOW UP WITH ELVIRA GARCIA IN 1 MONTH. INSTRUCTIONS WERE GIVEN, QUESTIONS WERE ANSWERED, PATIENT REPORTS UNDERSTANDING AND AGREES WITH THE PLAN. I, LESLEY OATES, DOCUMENTED THE ABOVE INFORMATION ACTING A SCRIBE FOR DR. FLORES. I HAVE REVIEWED THE ABOVE DOCUMENT, WRITTEN BY LESLEY MCKENZIE AND I VERIFY THAT IT IS ACCURATE. PROCEDURE CODES FA211 ESTABILISHED PATIENT [facility] CHARGE G8730 PAIN ASSESS POS TOOL F/U PLAN DOC G8427 DOC MEDS VERIFIED W/PT OR RE DISPOSITION & COMMUNICATION FOLLOW UP 4 WEEKS ELECTRONICALLY SIGNED BY JOSE FLORES MD ON 10/05/2016 AT 06:20 PM EDT DISCLAIMER : THIS IS A VISIT SUMMARY EXTRACTED FROM THE [employer] CHART. IT IS NOT A COPY OF THE [employer] PROGRESS NOTE. ANNYD
== END ==
LOC: M PAIN 14:20
PROVIDERS: ATTEND Anesthesiology
DX: M47.816 Spondylosis without myelopathy or radiculopathy, lumbar region (principal); M47.817 Spondylosis without myelopathy or radiculopathy, lumbosacral region; G89.29 Other chronic pain; Z79.82 Long term (current) use of aspirin; Z79.891 Long term (current) use of opiate analgesic; Z79.899 Other long term (current) drug therapy; Z88.6 Allergy status to analgesic agent; Z88.8 Allergy status to other drugs, medicaments and biological substances; F03.90 Unspecified dementia, unspecified severity, without behavioral disturbance, psychotic disturbance, mood disturbance, and anxiety; N18.3 Chronic kidney disease, stage 3 (moderate); F32.9 Major depressive disorder, single episode, unspecified; M79.1 Myalgia; M51.27 Other intervertebral disc displacement, lumbosacral region; M48.06 Spinal stenosis, lumbar region; M51.17 Intervertebral disc disorders with radiculopathy, lumbosacral region; M51.16 Intervertebral disc disorders with radiculopathy, lumbar region

== ENCOUNTER → 2016-10-21 | Outpatient (REF) | payer MEDICARE, MEDICAID ==
[~2016-10-21] MED LIST changes: -ABIL1TAB13 PO; +ABIL2TAB2 PO; +ATOR1TAB18 PO; -ATOR80TA59 PO; +COLA100C3 PO; -COLA100C5 PO; -FLUD0.1T PO; +FLUD1TA PO; -HYDR-3363 PO; +HYDR25T PO; -LEVA1TAB2 PO; +LIDO5DIS36 TD; -LIDO5DIS41 TD; -LOPE2CAP PO; +LOPE2TAB PO; +NITR100C37 PO; -NITR100C39 PO; -PERC5TAB12 PO; +PERC5TAB6 PO; +VESI10TA PO; -VESI10TA2 PO; -XARE15TA PO
[2016-10-21 12:19] LABS: CALCIUM LEVEL 8.6 MG/DL (8.8-10.2); CREATININE FOR GFR 1.38 MG/DL (0.55-1.02); GLOMERULAR FILTRATION RATE 39.2 (>32)
== END ==
PROVIDERS: ATTEND Internal Medicine
DX: I50.9 Heart failure, unspecified (principal)

== ENCOUNTER 2016-10-24 08:33 | Emergency (ER) | payer MEDICARE, MEDICAID ==
[~2016-10-24] VITALS: Ht 157.5 cm; Wt 96.4 kg
[~2016-10-24 08:33] MED LIST changes: -ABIL2TAB2 PO; -ASPE4PAD TOP; -ATOR1TAB18 PO; -COLA100C3 PO; +COLA100C5 PO; -ENEM1ENE4 PR; +FLUD0.1T PO; -FLUD1TA PO; +HYDR-3363 PO; -HYDR25T PO; -LIDO5DIS36 TD; +LIDO5DIS41 TD; +LOPE2CAP PO; -LOPE2TAB PO; -METO25TA PO; -MOM30SS PO; -NITR100C37 PO; +NITR100C39 PO; -OXYC1TAB23 PO; -PERC5TAB6 PO; -POTA10CA PO; -VESI10TA PO; +VESI10TA2 PO; -XARE20TA PO; -ZONI100C2 PO
[2016-10-24] MEDS ORDERED: OXYC1TAB23 PO (09:46)
[2016-10-24] MEDS ORDERED: METO25TA PO (09:48)
[2016-10-24] MEDS ORDERED: ABIL1TAB13 PO (09:48)
[2016-10-24] MEDS ORDERED: XARE20TA PO (09:48)
[2016-10-24 10:13] VITALS: BP 119/56
--- NOTE | 2016-10-24 11:26 | REP ---
LEFT ANKLE COMPLETE: 10/24/2016 CLINICAL HISTORY: Trauma. COMPARISON: None. FINDINGS: Four views are provided. The bones are severely demineralized. The mortise joint is symmetric and preserved. I do not see a talar dome osteochondral defect. There is soft tissue swelling about the lower leg and ankle. Degenerative changes at the inferior margins of the medial and lateral malleoli. Diffuse vascular calcifications throughout the trifurcation vessels of the lower leg to the ankle. Subtalar joints are intact. There is a small Achilles and larger plantar calcaneal spur. There is soft tissue swelling about the heel. Talonavicular and calcaneocuboid joints are grossly intact. Swelling anterior to the ankle is noted. I cannot confirm a definite fracture but the demineralization and overlap of bones may certainly obscure a nondisplaced fracture. IMPRESSION: 1. No visible displaced fracture or focal lesion. Bones demineralized with degenerative changes at the ankle and hind foot. 2. Soft tissue swelling around the ankle and hind foot. The mortise joint is preserved. Tarsal bones grossly intact. There are heel spurs and vascular calcifications of the trifurcation vessels throughout the lower leg and ankle. Signed by Landon Willett MD 10/24/2016 07:32 P
== END 2016-10-24 11:34 | disposition home or self-care (01) ==
LOC: EDBD 08:33 → M ED 10:30
DX: S93.402A Sprain of unspecified ligament of left ankle, initial encounter (principal); W17.89XA Other fall from one level to another, initial encounter; Y92.129 Unspecified place in nursing home as the place of occurrence of the external cause; Y93.9 Activity, unspecified; Y99.9 Unspecified external cause status; M77.32 Calcaneal spur, left foot; F03.90 Unspecified dementia, unspecified severity, without behavioral disturbance, psychotic disturbance, mood disturbance, and anxiety; G89.29 Other chronic pain; M54.5 Low back pain; I48.91 Unspecified atrial fibrillation; Z86.73 Personal history of transient ischemic attack (TIA), and cerebral infarction without residual deficits; R56.9 Unspecified convulsions; F32.9 Major depressive disorder, single episode, unspecified; N18.9 Chronic kidney disease, unspecified; K21.9 Gastro-esophageal reflux disease without esophagitis; Z79.899 Other long term (current) drug therapy; Z88.6 Allergy status to analgesic agent

== ENCOUNTER → 2016-10-25 | Outpatient (REF) | payer MEDICARE, MEDICAID ==
[~2016-10-25] MED LIST changes: +ABIL1TAB13 PO; +ASPE4PAD TOP; +ATOR80TA59 PO; +ENEM1ENE4 PR; +LEVA1TAB2 PO; +METO25TA PO; +MOM30SS PO; +OXYC1TAB23 PO; +PERC5TAB12 PO; +POTA10CA PO; +XARE15TA PO; +XARE20TA PO; +ZONI100C2 PO
--- NOTE | 2016-10-25 12:23 | REP ---
Portable chest, 12, 23 p.m., 10/25/2016, single AP view, the patient upright: Comparisons are the AP chest of 05/20/2016 and AP and lateral chest of 10/13/2015. The patient's chin superimposed over the upper lung zones suggesting kyphosis which may result in decreased lung volumes. There is diffuse interstitial coarsening, unchanged from both prior studies. Could this represent chronic lung disease or chronic pulmonary vascular engorgement. There are no focal infiltrates. No definite pleural effusions are identified. Cardiac size appears upper normal, unchanged. Impression: No significant interval change. I suspect there is kyphosis with the patient's head and chin superimposed over the upper lobes, likely resulting in reduced lung volumes. Signed by Jose Miguel Sanchez MD 10/25/2016 12:14 P
[2016-10-25 13:05] LABS: BASO % 0.4 % (0.0-1.0); EOS # 0.4 K/mm3 (0.0-0.50); LARGE UNSTAINED CELL # 0.1 K/mm3 (0.0-0.4); LARGE UNSTAINED CELL % 1.3 % (0.0-4.0); LYMPH # 1.5 K/mm3 (1.5-4.5); MEAN CORPUSCULAR HEMOGLOBIN 27.7 pg (27.0-33.0); MEAN CORPUSCULAR HGB CONC 30.2 g/dl (32.0-36.5); MEAN CORPUSCULAR VOLUME 91.6 fl (80.0-96.0); MONO # 0.6 K/mm3 (0.0-0.8); MONO % 7.3 % (0.0-5.0); NEUTROPHILS % 70.1 % (36.0-66.0); PLATELET COUNT, AUTOMATED 243 k/mm3 (150-450); RED CELL DISTRIBUTION WIDTH 16.1 % (11.5-14.5); WHITE BLOOD COUNT 8.6 K/mm3 (4.0-10.0)
[2016-10-25 13:58] LABS: ALBUMIN 2.8 GM/DL (3.2-5.2); ALBUMIN/GLOBULIN RATIO 0.64 (1.00-1.93); BILIRUBIN,TOTAL 0.6 MG/DL (0.2-1.0); CALCIUM LEVEL 8.6 MG/DL (8.8-10.2); CREATININE FOR GFR 1.37 MG/DL (0.55-1.02); GLOMERULAR FILTRATION RATE 39.5 (>32); POTASSIUM SERUM 3.5 MEQ/L (3.5-5.1); TOTAL PROTEIN 7.2 GM/DL (6.4-8.2)
[2016-10-25 14:01] LABS: ERYTHROCYTE SEDIMENTATION RATE 126 mm/hr (0-30)
== END ==
PROVIDERS: ATTEND Internal Medicine
DX: R09.02 Hypoxemia (principal)

== ENCOUNTER 2016-10-26 12:16 | Outpatient (CLI) | payer MEDICARE, MEDICAID ==
[~2016-10-26 12:16] MED LIST changes: -ASPE4PAD TOP; -ATOR80TA59 PO; -ENEM1ENE4 PR; -LEVA1TAB2 PO; -MOM30SS PO; -PERC5TAB12 PO; -POTA10CA PO; -XARE15TA PO; -ZONI100C2 PO
[2016-10-26 22:00] VITALS: BP 136/63
[2016-10-28] MEDS ORDERED: ASPE4PAD TOP (12:28)
[2016-10-28] MEDS ORDERED: PRED5TA PO (12:28)
[2016-10-28] MEDS ORDERED: ATEN100T PO (12:28)
[2016-10-28] MEDS ORDERED: POTA10CA PO (15:06)
[2016-10-28] MEDS ORDERED: MOM30SS PO (15:35)
[2016-10-28] MEDS ORDERED: ATOR80TA59 PO (15:35)
[2016-10-28] MEDS ORDERED: NITR4TASL SL (15:35)
[2016-10-28] MEDS ORDERED: ENEM1ENE4 PR (15:35)
[2016-10-28] MEDS ORDERED: ZONI100C2 PO (15:35)
[2016-10-28] MEDS ORDERED: FURO20TA2 PO (15:35)
[2016-10-28] MEDS ORDERED: CYMB60CA3 PO (15:35)
[2016-10-28] MEDS ORDERED: DULO1CAP2 PO (15:35)
[2016-10-28] MEDS ORDERED: PERC5TAB12 PO (15:35)
[2016-10-28] MEDS ORDERED: MILKSUS PO (16:56)
== END 2016-10-27 00:05 ==
LOC: M OPCLI4PV 12:16 → M MSPAV 12:19 → M OPCLI4PV 10-27 00:05
PROVIDERS: ATTEND Nurse Practitioner Adult Health
DX: D64.9 Anemia, unspecified (principal); R09.02 Hypoxemia; Z88.8 Allergy status to other drugs, medicaments and biological substances; Z79.01 Long term (current) use of anticoagulants

== ENCOUNTER 2016-10-28 11:21 | Inpatient (IN) | payer MEDICARE, MEDICAID ==
[~2016-10-28] VITALS: Ht 172.7 cm; Wt 94.4 kg
[~2016-10-28 11:21] MED LIST changes: -ASPE4PAD TOP; -ATOR80TA59 PO; -ENEM1ENE4 PR; -LEVA1TAB2 PO; -MOM30SS PO; -PERC5TAB12 PO; -POTA10CA PO; -XARE15TA PO; -ZONI100C2 PO
[2016-10-28] MEDS ORDERED: NS 1,000 ML IV SCH (12:21)
[2016-10-28] MEDS ORDERED: ASPE4PAD TOP (12:28)
[2016-10-28] MEDS ORDERED: PRED5TA PO (12:28)
[2016-10-28] MEDS ORDERED: ATEN100T PO (12:28)
[2016-10-28 12:41] LABS: BASO % 0.4 % (0.0-1.0); EOS # 0.3 K/mm3 (0.0-0.50); EOS % 4.5 % (0.0-3.0); LARGE UNSTAINED CELL # 0.1 K/mm3 (0.0-0.4); LARGE UNSTAINED CELL % 1.4 % (0.0-4.0); LYMPH # 0.7 K/mm3 (1.5-4.5); MEAN CORPUSCULAR HEMOGLOBIN 28.9 pg (27.0-33.0); MEAN CORPUSCULAR HGB CONC 31.1 g/dl (32.0-36.5); MONO # 0.3 K/mm3 (0.0-0.8); MONO % 4.9 % (0.0-5.0); NEUTROPHILS # 5.5 K/mm3 (1.8-7.7); NEUTROPHILS % 78.7 % (36.0-66.0); PLATELET COUNT, AUTOMATED 204 k/mm3 (150-450); RED CELL DISTRIBUTION WIDTH 15.1 % (11.5-14.5); WHITE BLOOD COUNT 6.9 K/mm3 (4.0-10.0)
[2016-10-28 13:02] LABS: ALBUMIN 2.7 GM/DL (3.2-5.2); ALBUMIN/GLOBULIN RATIO 0.61 (1.00-1.93); BILIRUBIN,DIRECT 0.2 MG/DL (0.0-0.2); BILIRUBIN,TOTAL 0.5 MG/DL (0.2-1.0); CALCIUM LEVEL 8.4 MG/DL (8.8-10.2); CREATININE FOR GFR 1.51 MG/DL (0.55-1.02); FREE T4 1.05 NG/DL (0.76-1.46); GLOMERULAR FILTRATION RATE 35.3 (>32); POTASSIUM SERUM 3.4 MEQ/L (3.5-5.1); TOTAL PROTEIN 7.1 GM/DL (6.4-8.2)
--- NOTE | 2016-10-28 13:05 | REP ---
CT BRAIN WITHOUT CONTRAST: HISTORY: Altered mental status. Comparison brain CT study is from May 12, 2016. CT FINDINGS: Bone window settings show no bony calvarial lesion. There is heavy vascular calcification in the distal carotid and distal vertebral arteries bilaterally. Digital lateral toll ticket clerk radiograph is unremarkable. On soft tissue window settings, there is multifocal parenchymal dystrophic calcification involving the basal ganglia and cerebellar hemispheres bilaterally. This is unchanged from the comparison CT study of May 12, 2016. 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 This is unchanged from July 17, 2015 study. There is no evidence of intracranial hemorrhage. No infarct, extra-axial fluid collection, mass, or midline shift is seen. IMPRESSION: Vascular calcification, diffuse atrophy, and basal ganglia and bilateral cerebellar dystrophic calcification pattern unchanged. No acute intracranial lesion. Signed by Albino Grijalva MD 10/28/2016 03:33 P
--- NOTE | 2016-10-28 13:05 | REP ---
Clinical: Altered mental status. Technique: AP and lateral. Comparison: 05/20/2016. Findings: Evaluation is severely limited by technique and poor inspiratory effort. Diffuse chronic interstitial changes are similar to prior examination. Superimposed pulmonary vascular congestion and scattered atelectasis cannot be excluded. Impression: Limited examination. Cannot exclude pulmonary vascular congestion as well as scattered atelectasis. Signed by Cody Villalobos MD 10/28/2016 12:56 P
[2016-10-28] MEDS ORDERED: POTASSIUM CHLORIDE 10 MEQ SR TABLET PO ONE (13:30)
[2016-10-28] MEDS ORDERED: cefTRIAXone SOD 1 GM in D5W MINI-BAG PLUS 50 ML IV ONE (14:00)
[2016-10-28] MEDS ORDERED: AZITHROMYCIN INJ 500 MG, VIAL MATE ADAPTER 1 EACH in D5W 250 ML IV ONE (14:00)
--- NOTE | 2016-10-28 14:23 | REP ---
Clinical: Trauma. Technique: AP and lateral views of the left tibia / fibula. Findings: Advanced osteopenia and degenerative changes at the knee and ankle joint noted along with extensive atherosclerotic changes to the vasculature. No acute fracture dislocation identified. No subcutaneous emphysema or radiodense foreign body. Impression: Osteopenia and degenerative changes. No acute fracture or dislocation. Signed by Cody Villalobos MD 10/28/2016 02:14 P
[2016-10-28] MEDS ORDERED: POTA10CA PO (15:06)
[2016-10-28] MEDS ORDERED: CYMB60CA3 PO (15:35)
[2016-10-28] MEDS ORDERED: DULO1CAP2 PO (15:35)
[2016-10-28] MEDS ORDERED: ENEM1ENE4 PR (15:35)
[2016-10-28] MEDS ORDERED: NITR4TASL SL (15:35)
[2016-10-28] MEDS ORDERED: FURO20TA2 PO (15:35)
[2016-10-28] MEDS ORDERED: ATOR80TA59 PO (15:35)
[2016-10-28] MEDS ORDERED: MOM30SS PO (15:35)
[2016-10-28] MEDS ORDERED: ZONI100C2 PO (15:35)
[2016-10-28] MEDS ORDERED: PERC5TAB12 PO (15:35)
[2016-10-28] MEDS ORDERED: MILKSUS PO (16:56)
[2016-10-28] MEDS ORDERED: ACETAMINOPHEN TAB 650MG DOSE (2X325MG) PO PRN (17:15)
[2016-10-28] MEDS ORDERED: DEXTROSE 50% 50 ML SYRINGE IV PRN (17:15)
[2016-10-28] MEDS ORDERED: ASPIRIN 81 MG CHEW TABLET PO ONE (17:15)
[2016-10-28 18:35] VITALS: BP 122/60
[2016-10-28] MEDS: HumaLOG INSULIN (NovoLOG) PER UNIT SC SCH ×2 (18:57→21:00)
[2016-10-28 20:00] VITALS: BP 126/53
[2016-10-28 22:30] VITALS: BP 115/56
[2016-10-28] MEDS ORDERED: BISACODYL 10 MG SUPP PR PRN (23:00)
[2016-10-28] MEDS ORDERED: NITROGLYCERIN 0.4 MG SUBL TABLET SL PRN (23:00)
[2016-10-28] MEDS ORDERED: PERCOCET 5MG/325MG TAB PO PRN (23:00)
[2016-10-28] MEDS ORDERED: MOM 30ML SUSPENSION UDC PO PRN (23:00)
[2016-10-28] MEDS ORDERED: ALBUTEROL SULFATE 2.5 MG/0.5 ML INH NEB SOLN INH PRN (23:00)
[2016-10-28] MEDS: SENOKOT S TAB PO SCH (23:37)
[2016-10-28] MEDS: ZONISAMIDE 50 MG CAP (ZONEGRAN) PO SCH (23:37)
[2016-10-28] MEDS: GABAPENTIN 100 MG CAP PO SCH (23:38)
[2016-10-28] MEDS: ATORVASTATIN 20 MG TAB PO SCH (23:38)
[2016-10-28] MEDS: MAGNESIUM OXIDE 400 MG TAB (MAG-OX) PO SCH (23:38)
[2016-10-28] MEDS: DULoxetine 30 MG CAP (CYMBALTA) PO SCH (23:39)
[2016-10-28] MEDS: PERCOCET 5MG/325MG TAB PO SCH (23:39)
[2016-10-28] MEDS: DOCUSATE SODIUM 100 MG CAP PO SCH (23:40)
[2016-10-28] MEDS: MEMANTINE 5MG TABLET (NAMENDA) PO SCH (23:45)
--- NOTE | 2016-10-29 00:39 | HPE ---
DATE OF ADMISSION: 10/28/2016 PRIMARY CARE PROVIDER: Jai Solis MD. CHIEF COMPLAINT: Altered mental status. HISTORY OF PRESENT ILLNESS: 81-year-old female was sent from long-term to be evaluated for altered mental status presenting as increased confusion and lethargy. Patient had fallen on Tuesday and was brought to the emergency department (ED), evaluated, found to have right ankle sprain without a fracture. Patient apparently has no idea why she is in the hospital. Likewise, her daughter at the bedside does not also have that information. History is mostly from ED physician and the chart. Patient appears unreliable with her questions, but denies cough, shortness of breath, chest pain, fever, chills, etc. In the ED, she was found to have a urinary infection, was treated with Rocephin and azithromycin a dose. REVIEW OF SYSTEMS: 10-point systems assessed unreliably, listed above. PAST MEDICAL HISTORY: 1. Parkinson's disease or dementia. 2. Fibromyalgia. 3. Atrial fibrillation. 4. Lupus. 5. Compression fractures. 6. Neuropathy. 7. Transient ischemic attack (TIA). 8. Chronic vertigo. 9. Nonsustained ventricular tachycardia (V-TACH). 10. Seizure. 11. Chronic hypoxic respiratory failure on oxygen. 12. History of urinary tract infection with Enterococcus faecalis and Klebsiella. 13. Chronic kidney disease (CKD) stage III. 14. Grade 2 diastolic dysfunction. PAST SURGICAL HISTORY: 1. Cholecystectomy. 2. Hysterectomy. SOCIAL HISTORY: Patient is a resident of a long-term. Denies smoking, alcohol, illicit drug use. Patient is a DO NOT RESUSCITATE/DO NOT INTUBATE. ALLERGIES TO MEDICATION: IBUPROFEN. MEDICATIONS: Include: - albuterol sulfate - Abilify 10 mg in the morning - atenolol 100 mg every morning - atorvastatin 80 mg nightly - bisacodyl 10 mg suppository as needed for constipation - vitamin D 2000 units in the morning - docusate sodium with Senokot 1-2 tablets by mouth twice a day - Colace 100 mg twice a day - duloxetine 30 mg by mouth nightly - gabapentin 100 mg tablets 200 mg nightly - gabapentin 300 mg twice a day - magnesium oxide 400 mg by mouth twice a day - Namenda 10 mg by mouth twice a day - metolazone 2.5 mg every morning - milk of magnesia - nitroglycerin 0.4 mg sublingual as needed for chest pain - Percocet 1/2 tablet for pain receiving 5-10 every 4 hours as needed and 0.5 mg by mouth three times a day - potassium chloride 10 mEq tablets 40 mEq daily - prednisone 5 mg in the morning - zonisamide 50 mg by mouth every morning and 100 mg by mouth nightly - enema - Cymbalta 60 mg by mouth every morning - Tylenol PHYSICAL EXAMINATION: VITAL SIGNS: Stable. Blood pressure 126/53, pulse 67, respiratory rate 20, oxygen saturation 98% on 3 liters, temperature 98.6 degrees Fahrenheit. GENERAL: She is alert, oriented to person and place, but not time and circumstance. She appears comfortable, but confused. HEENT: Pupils are equal, round and reactive to light. Extraocular muscles are intact. Anicteric sclerae. Mucous membranes are dry. Nasal septum at midline. Neck is non-supple, nontender. CARDIOVASCULAR SYSTEM: S1, S2 present with irregular rate. RESPIRATORY SYSTEM: Lungs are clear to auscultation bilaterally. GASTROINTESTINAL: Abdomen is soft, nontender, nondistended. Bowel sounds are normal. MUSCULOSKELETAL SYSTEM: No edema, cyanosis or calf tenderness. Pulses are palpable in all extremities. SKIN: She has bruises on both upper extremities. NEUROLOGIC: Unable to evaluate. Patient is able to move her extremities. LABORATORIES: Hematology: White blood cell is 7000, hemoglobin 10, hematocrit 32.4, platelets 204. Chemistry: Sodium 135, potassium 3.4, chloride 83, bicarbonate 50, BUN 48, creatinine 1.51, fasting glucose 274, osmolarity 316, lactic acid 1.5, calcium 8.4. Liver function tests within normal limits. Ammonia 22. Troponin 0.30. Repeat 0.22. CRP 3.80. BNP 428. Total protein 7.1, albumin 2.5. TSH 3.7. Urinalysis is significant for positive leukocyte esterase, positive WBC, positive bacteria. IMAGING STUDIES: CT scan of the head no acute intracranial pathology. Chest x-ray limited exam and cannot exclude pulmonary vascular congestion, as well as scattered atelectasis. X-ray of the tibia and fibula osteopenia and degenerative joint disease (DJD), no fracture or dislocation noted. IMPRESSION: 1. Infectious and metabolic encephalopathy. 2. Urinary tract infection. 3. Acute kidney injury. 4. Hyponatremia. 5. Hypokalemia. 6. Dehydration. 7. Elevated troponin likely secondary to elevated creatinine level on impaired kidney function. Patient is asymptomatic. There was a new EKG change of ST depression in V3-V5. PLAN: Patient is admitted to progressive care unit (PCU). She is on telemetry. Will monitor on telemetry. Status post aspirin. Continue antibiotic Rocephin and hydration. Home medications were resumed as well. Monitoring fingersticks and covering with insulin sliding scale. Will trend troponin. Echocardiogram ordered and pending. Consider cardiology evaluation. Patient's primer charger is Dr. Newby. Please followup urine culture, electrolytes, creatinine levels in the morning. Deep venous thrombosis (DVT) prophylaxis is subcutaneous Lovenox.
[2016-10-29 03:02] LABS: MEAN CORPUSCULAR HEMOGLOBIN 28.6 pg (27.0-33.0); MEAN CORPUSCULAR HGB CONC 31.6 g/dl (32.0-36.5); MEAN CORPUSCULAR VOLUME 90.7 fl (80.0-96.0); RED CELL DISTRIBUTION WIDTH 15.5 % (11.5-14.5)
[2016-10-29 03:20] LABS: ALBUMIN 2.5 GM/DL (3.2-5.2); ALBUMIN/GLOBULIN RATIO 0.54 (1.00-1.93); BILIRUBIN,TOTAL 0.5 MG/DL (0.2-1.0); CALCIUM LEVEL 8.4 MG/DL (8.8-10.2); CREATININE FOR GFR 1.25 MG/DL (0.55-1.02); GLOMERULAR FILTRATION RATE 43.9 (>32); POTASSIUM SERUM 3.5 MEQ/L (3.5-5.1); TOTAL PROTEIN 7.1 GM/DL (6.4-8.2)
[2016-10-29 04:00] VITALS: BP 105/59
[2016-10-29] MEDS: GABAPENTIN 300 MG CAP PO SCH ×2 (05:32→12:14)
[2016-10-29] MEDS: PERCOCET 5MG/325MG TAB PO SCH ×3 (05:32→21:37)
[2016-10-29 08:00] VITALS: BP 110/56
[2016-10-29] MEDS ORDERED: ATENOLOL 50 MG TAB PO SCH (09:00)
[2016-10-29] MEDS ORDERED: ENOXAPARIN 40 MG/0.4 ML SYRINGE (J1650) SC SCH (09:00)
[2016-10-29] MEDS: cefTRIAXone SOD 2 GM in D5W MINI-BAG PLUS 50 ML IV SCH (09:32)
[2016-10-29] MEDS: HumaLOG INSULIN (NovoLOG) PER UNIT SC SCH ×4 (09:32→21:00)
[2016-10-29] MEDS: ZONISAMIDE 50 MG CAP (ZONEGRAN) PO SCH ×2 (09:33→21:35)
[2016-10-29] MEDS: MEMANTINE 5MG TABLET (NAMENDA) PO SCH ×2 (09:33→21:36)
[2016-10-29] MEDS: POTASSIUM CHLORIDE 10 MEQ SR TABLET PO SCH (09:33)
[2016-10-29] MEDS: MAGNESIUM OXIDE 400 MG TAB (MAG-OX) PO SCH ×2 (09:35→21:36)
[2016-10-29] MEDS: VITAMIN D 1,000 INTERNATIONAL UNITS TABLET PO SCH (09:35)
[2016-10-29] MEDS: DULoxetine 30 MG CAP (CYMBALTA) PO SCH ×2 (09:36→21:36)
[2016-10-29] MEDS: predniSONE 5 MG TAB PO SCH (09:36)
[2016-10-29] MEDS: metOLazone 2.5 MG TAB PO SCH (09:36)
[2016-10-29] MEDS: DOCUSATE SODIUM 100 MG CAP PO SCH ×2 (09:36→21:36)
[2016-10-29] MEDS: SENOKOT S TAB PO SCH ×2 (09:36→21:36)
[2016-10-29 12:00] VITALS: BP 106/56
[2016-10-29] MEDS: ARIPiprazole 2 MG TAB PO SCH (12:14)
--- NOTE | 2016-10-29 15:04 | IPNPDOC ---
Subjective Date Seen The patient was seen on 10/29/16. Subjective Chief Complaint/HPI The patient is a 81-year-old female admitted with a reason for visit of Encephalopathy. General: Denies: Chills, Night Sweats Constitutional: Denies: Chills, Fever Eyes: Denies: Pain, Vision change ENT: Denies: Head Aches, Ear Pain Skin: Denies: Rash, Lesions Pulmonary: Denies: Dyspnea, Cough Cardiovascular: Denies: Chest Pain, Palpitations Gastrointestinal: Denies: Nausea, Vomiting Objective Physical Examination General Exam: Positive: Cooperative, No Acute Distress, Other (Patient states that she is sleepy but is answering questions appropriately and following commands) ENT Exam: Positive: Atraumatic, Mucous membr. moist/pink Neck Exam: Negative: JVD Chest Exam: Positive: Diminished Heart Exam: Positive: Bradycardic Telemetry: Positive: Atrial fibrillation Abdomen Exam: Positive: Soft, Negative: Tenderness Extremity Exam: Negative: Tenderness, Swelling Assessment /Plan Plan/VTE VTE Prophylaxis Ordered?: Yes Plan Metabolic encephalopathy 2/2 UTI vs Progression of Underlying Dementia/Parkinson 's Dz CT Head with no acute changes UA suggestive of possible UTI--however may possibly be colonization? Urine Culture ordered We will continue to treat the patient with Rocephin We will continue to rule out infectious causes or reversible etiologies of current clinical presentation We will continue to monitor the patient's progress Elevated Troponin level EKG with no acute ST changes compared to previous tracing Peak Troponin 0.22 and downtrending Possibly 2/2 underlying demand ischemia from acute infection Patient denies any complaints of any chest pain/palpitations/SOB Patient did have an N-STEMI in 05/2016 here and was seen by Cardiology--given the patient's overall clinical condition, it was decided that the patient be treated medically 2D ECHO ordered We will continue to monitor on telemetry here History of Atrial fibrillation, Embolic CVA Patient off of Aspirin and Xarelto following a fall from [employer] lift 6 days ago, and acute anemia on 10/25 requiring 2 Units of PRBC's on 10/26 We will check a stool occult study here--If negative we will consider restarting ASA, Xarelto here EKG, Telemonitor reveals A-Fib with bradycardia (HR in 50s)--consistent with last hospitalization in May 2016 We will hold Atenolol for now Cont Statin Chronic kidney disease Serum creatinine appears to be at baseline Chronic hypoxic respiratory failure Patient on her baseline 2 L of oxygen History of depression/fibromyalgia Cont Cymbalta, Abilify History of SLE Continue on prednisone Neuropathy Cont Gabapentin Dyslipidemia Cont Statin Hx of Parkinson's Disease DVT Prophylaxis Lovenox SC Disposition-we will continue to monitor the patient's progress at this time VS, I&O, 24H, Fishbone Vital Signs/I&O Vital Signs Date Time Temp Pulse Resp B/P (MAP) Pulse Ox O2 Delivery O2 Flow Rate FiO2 10/29/16 14:54 18 10/29/16 12:00 97.5 53 106/56 (73) 97 Nasal Cannula 2.0 I&O- Last 24 Hours up to 6 AM 10/29/16 06:00 Intake Total 1220 ml Output Total 50 ml Balance 1170 ml Laboratory Data 24H LABS Laboratory Tests 2 10/28/16 17:53: Troponin I 0.22#H 10/28/16 21:00: Bedside Glucose (Misc Panel) 117H 10/28/16 22:12: Bedside Glucose (Misc Panel) 128H 10/29/16 02:50: Troponin I 0.21H, Anion Gap 3L, Glomerular Filtration Rate 43.9, Blood Urea Nitrogen 45H, Creatinine 1.25H, Sodium Level 138, Potassium Level 3.5, Chloride Level 88L, Carbon Dioxide Level 47H, Calcium Level 8.4L, Aspartate Amino Transf (AST/SGOT) 30, Alanine Aminotransferase (ALT/SGPT) 12, Alkaline Phosphatase 108 , Total Bilirubin 0.5, Total Protein 7.1, Albumin 2.5L, Albumin/Globulin Ratio 0.54L 10/29/16 08:01: Bedside Glucose (Misc Panel) 137H 10/29/16 11:40: Bedside Glucose (Misc Panel) 197H CBC/BMP Laboratory Tests 10/29/16 02:50 Red Blood Count 3.43 L, Mean Corpuscular Volume 90.7, Mean Corpuscular Hemoglobin 28.6, Mean Corpuscular Hemoglobin Concent 31.6 L, Red Cell Distribution Width 15.5 H, Calcium Level 8.4 L, Aspartate Amino Transf (AST/SGOT ) 30, Alanine Aminotransferase (ALT/SGPT) 12, Alkaline Phosphatase 108, Total Bilirubin 0.5, Total Protein 7.1, Albumin 2.5 L Microbiology Microbiology 10/28/16 Blood Culture - Preliminary, Resulted No growth after 24 hours . All specim... 10/28/16 Blood Culture - Preliminary, Resulted No growth after 24 hours . All specim... 10/28/16 Urine Culture, Received Pending RAQUEL MEEKS MD Oct 29, 2016 15:04
[2016-10-29 16:00] VITALS: BP 127/59
[2016-10-29 20:00] VITALS: BP 102/58
[2016-10-29] MEDS: ATORVASTATIN 20 MG TAB PO SCH (21:35)
[2016-10-29] MEDS: GABAPENTIN 100 MG CAP PO SCH (21:35)
[2016-10-29 23:59] VITALS: BP 99/57
[2016-10-30 05:29] LABS: MEAN CORPUSCULAR HEMOGLOBIN 29.1 pg (27.0-33.0); MEAN CORPUSCULAR HGB CONC 31.8 g/dl (32.0-36.5); MEAN CORPUSCULAR VOLUME 91.4 fl (80.0-96.0); RED CELL DISTRIBUTION WIDTH 15.4 % (11.5-14.5); WHITE BLOOD COUNT 4.9 K/mm3 (4.0-10.0)
[2016-10-30 05:44] LABS: ALBUMIN 2.4 GM/DL (3.2-5.2); ALBUMIN/GLOBULIN RATIO 0.52 (1.00-1.93); BILIRUBIN,TOTAL 0.4 MG/DL (0.2-1.0); CALCIUM LEVEL 8.6 MG/DL (8.8-10.2); CREATININE FOR GFR 1.13 MG/DL (0.55-1.02); GLOMERULAR FILTRATION RATE 49.3 (>32); POTASSIUM SERUM 3.3 MEQ/L (3.5-5.1)
[2016-10-30] MEDS: GABAPENTIN 300 MG CAP PO SCH ×2 (06:12→12:29)
[2016-10-30] MEDS: PERCOCET 5MG/325MG TAB PO SCH ×3 (06:12→21:06)
[2016-10-30 06:26] VITALS: BP 102/57
--- NOTE | 2016-10-30 07:14 | ECGEPIP ---
Stationary ECG Study [facility] - ED Test Date: 2016-10-28 Pat Name: CECIL CASPER Department: Room: - Gender: F Quality Control Director: adela : 1935 Requested By: RANDI MILLER Order Number: [id number] Reading MD: Shaylee De Measurements Intervals [place] Rate: 52 P: 61 NE: 185 QRS: -22 QRSD: 80 T: -26 QT: 427 QTc: 400 Interpretive Statements SINUS BRADYCARDIA MODERATE VOLTAGE CRITERIA FOR LVH, CONSIDER NORMAL VARIANT STT CHANGES MORE PROMINENT COMPARED 05/12/16 - CLINICAL CORRELATION Electronically Signed On 10-30-2016 7:14:44 EDT by Shaylee De
[2016-10-30] MEDS: HumaLOG INSULIN (NovoLOG) PER UNIT SC SCH ×4 (07:30→20:57)
[2016-10-30 08:00] VITALS: BP 106/55
[2016-10-30] MEDS: cefTRIAXone SOD 2 GM in D5W MINI-BAG PLUS 50 ML IV SCH (08:52)
[2016-10-30] MEDS: ENOXAPARIN 40 MG/0.4 ML SYRINGE (J1650) SC SCH (08:53)
[2016-10-30] MEDS: SENOKOT S TAB PO SCH ×2 (08:54→21:06)
[2016-10-30] MEDS: DULoxetine 30 MG CAP (CYMBALTA) PO SCH ×2 (08:54→21:06)
[2016-10-30] MEDS: DOCUSATE SODIUM 100 MG CAP PO SCH ×2 (08:54→21:07)
[2016-10-30] MEDS: ZONISAMIDE 50 MG CAP (ZONEGRAN) PO SCH ×2 (08:54→21:06)
[2016-10-30] MEDS: POTASSIUM CHLORIDE 10 MEQ SR TABLET PO SCH (08:54)
[2016-10-30] MEDS: predniSONE 5 MG TAB PO SCH (08:55)
[2016-10-30] MEDS: VITAMIN D 1,000 INTERNATIONAL UNITS TABLET PO SCH (08:55)
[2016-10-30] MEDS: ARIPiprazole 2 MG TAB PO SCH (08:55)
[2016-10-30] MEDS: metOLazone 2.5 MG TAB PO SCH (08:55)
[2016-10-30] MEDS: MAGNESIUM OXIDE 400 MG TAB (MAG-OX) PO SCH ×2 (08:55→21:07)
[2016-10-30] MEDS: MEMANTINE 5MG TABLET (NAMENDA) PO SCH ×2 (08:55→21:07)
--- NOTE | 2016-10-30 11:12 | IPNPDOC ---
Subjective Date Seen The patient was seen on 10/30/16. Subjective Chief Complaint/HPI Patient a lot more awake, alert, and oriented at the bedside today (She is able to tell me her name, date, place, situation, and president). She offers no acute complaints General: Denies: Chills, Night Sweats Constitutional: Denies: Chills, Fever Eyes: Denies: Pain, Vision change ENT: Denies: Head Aches, Ear Pain Skin: Denies: Rash, Lesions Pulmonary: Reports: Cough, Denies: Dyspnea Cardiovascular: Denies: Chest Pain, Palpitations Gastrointestinal: Denies: Nausea, Vomiting Objective Physical Examination General Exam: Positive: Alert, Cooperative, No Acute Distress ENT Exam: Positive: Atraumatic, Mucous membr. moist/pink Neck Exam: Negative: JVD Chest Exam: Positive: Diminished Heart Exam: Positive: Bradycardic Telemetry: Positive: Atrial fibrillation Abdomen Exam: Positive: Soft, Negative: Tenderness Extremity Exam: Negative: Tenderness, Swelling Assessment /Plan Plan/VTE VTE Prophylaxis Ordered?: Yes Plan Metabolic encephalopathy 2/2 UTI vs Progression of Underlying Dementia/Parkinson 's Dz CT Head with no acute changes UA suggestive of possible UTI--however may possibly be colonization? Urine Culture noted We will continue to treat the patient with Rocephin The patient's mentation has significantly improved today following IVF hydration and Abx administration. I do believe that the patient is likely back to her baseline mentation. Elevated Troponin level EKG with slight increase in ST depression compared to previous tracing Peak Troponin 0.22 and downtrending Possibly 2/2 underlying demand ischemia from acute infection Patient denies any complaints of any chest pain/palpitations/SOB Patient did have an N-STEMI in 05/2016 here and was seen by Cardiology--given the patient's overall clinical condition, it was decided that the patient be treated medically 2D ECHO pending We will continue to monitor on telemetry here History of Atrial fibrillation, Embolic CVA Patient off of Aspirin and Xarelto following a fall from [employer] lift 6 days ago, and acute anemia on 10/25 requiring 2 Units of PRBC's on 10/26 Stool occult study pending--If negative we will consider restarting ASA, Xarelto here EKG, Telemonitor reveals A-Fib with bradycardia (HR in 50s)--consistent with last hospitalization in May 2016 We will hold Atenolol for now Cont Statin Chronic kidney disease Serum creatinine appears to be at baseline Chronic hypoxic respiratory failure Patient on her baseline 2 L of oxygen History of depression/fibromyalgia Cont Cymbalta, Abilify History of SLE Continue on prednisone Neuropathy Cont Gabapentin Dyslipidemia Cont Statin Hx of Parkinson's Disease DVT Prophylaxis Lovenox SC Disposition-we will continue to monitor the patient's progress at this time, her mentation appears to be improving. VS, I&O, 24H, Fishbone Vital Signs/I&O Vital Signs Date Time Temp Pulse Resp B/P (MAP) Pulse Ox O2 Delivery O2 Flow Rate FiO2 10/30/16 08:00 97.5 56 20 106/55 (72) 96 Nasal Cannula 2.0 I&O- Last 24 Hours up to 6 AM 10/30/16 06:00 Intake Total 770 ml Output Total 0 ml Balance 770 ml Laboratory Data 24H LABS Laboratory Tests 2 10/29/16 11:40: Bedside Glucose (Misc Panel) 197H 10/29/16 16:55: Bedside Glucose (Misc Panel) 184H 10/29/16 20:42: Bedside Glucose (Misc Panel) 143H 10/30/16 04:34: Anion Gap 5L, Glomerular Filtration Rate 49.3, Blood Urea Nitrogen 39H, Creatinine 1.13H, Sodium Level 138, Potassium Level 3.3L, Chloride Level 88L, Carbon Dioxide Level 45H, Calcium Level 8.6L, Aspartate Amino Transf (AST/SGOT) 28, Alanine Aminotransferase (ALT/SGPT) 12, Alkaline Phosphatase 111, Total Bilirubin 0.4, Total Protein 7.0, Albumin 2.4L, Albumin/Globulin Ratio 0.52L CBC/BMP Laboratory Tests 10/30/16 04:34 Red Blood Count 3.20 L, Mean Corpuscular Volume 91.4, Mean Corpuscular Hemoglobin 29.1, Mean Corpuscular Hemoglobin Concent 31.8 L, Red Cell Distribution Width 15.4 H, Calcium Level 8.6 L, Aspartate Amino Transf (AST/SGOT ) 28, Alanine Aminotransferase (ALT/SGPT) 12, Alkaline Phosphatase 111, Total Bilirubin 0.4, Total Protein 7.0, Albumin 2.4 L Microbiology Microbiology 10/28/16 Blood Culture - Preliminary, Resulted No growth after 24 hours . All specim... 10/28/16 Blood Culture - Preliminary, Resulted No growth after 24 hours . All specim... 10/28/16 Urine Culture - Final, Complete Enterococcus Faecalis RAQUEL MEEKS MD Oct 30, 2016 11:12
[2016-10-30 12:00] VITALS: BP 110/55
[2016-10-30 14:26] VITALS: BP 150/67
[2016-10-30 18:00] VITALS: BP 145/68
[2016-10-30] MEDS: ATORVASTATIN 20 MG TAB PO SCH (21:06)
[2016-10-30] MEDS: GABAPENTIN 100 MG CAP PO SCH (21:06)
[2016-10-30 22:00] VITALS: BP 136/67
[2016-10-31 02:00] VITALS: BP 114/63
[2016-10-31 06:00] VITALS: BP 111/59
[2016-10-31 06:15] LABS: MEAN CORPUSCULAR HEMOGLOBIN 28.4 pg (27.0-33.0); MEAN CORPUSCULAR HGB CONC 31.2 g/dl (32.0-36.5); RED CELL DISTRIBUTION WIDTH 15.3 % (11.5-14.5); WHITE BLOOD COUNT 5.3 K/mm3 (4.0-10.0)
[2016-10-31 06:37] LABS: ALBUMIN 2.5 GM/DL (3.2-5.2); ALBUMIN/GLOBULIN RATIO 0.56 (1.00-1.93); BILIRUBIN,TOTAL 0.4 MG/DL (0.2-1.0); CALCIUM LEVEL 8.8 MG/DL (8.8-10.2); CREATININE FOR GFR 1.1 MG/DL (0.55-1.02); GLOMERULAR FILTRATION RATE 50.9 (>32)
[2016-10-31] MEDS: GABAPENTIN 300 MG CAP PO SCH ×2 (06:41→12:56)
[2016-10-31] MEDS: PERCOCET 5MG/325MG TAB PO SCH (06:42)
[2016-10-31] MEDS: HumaLOG INSULIN (NovoLOG) PER UNIT SC SCH ×3 (07:30→12:00)
[2016-10-31 08:57] VITALS: BP 120/58
[2016-10-31] MEDS: MAGNESIUM OXIDE 400 MG TAB (MAG-OX) PO SCH (09:24)
[2016-10-31] MEDS: predniSONE 5 MG TAB PO SCH (09:24)
[2016-10-31] MEDS: ARIPiprazole 2 MG TAB PO SCH (09:24)
[2016-10-31] MEDS: DULoxetine 30 MG CAP (CYMBALTA) PO SCH (09:25)
[2016-10-31] MEDS: metOLazone 2.5 MG TAB PO SCH (09:25)
[2016-10-31] MEDS: SENOKOT S TAB PO SCH (09:25)
[2016-10-31] MEDS: ZONISAMIDE 50 MG CAP (ZONEGRAN) PO SCH (09:25)
[2016-10-31] MEDS: VITAMIN D 1,000 INTERNATIONAL UNITS TABLET PO SCH (09:25)
[2016-10-31] MEDS: POTASSIUM CHLORIDE 10 MEQ SR TABLET PO SCH (09:26)
[2016-10-31] MEDS: DOCUSATE SODIUM 100 MG CAP PO SCH (09:26)
[2016-10-31] MEDS: MEMANTINE 5MG TABLET (NAMENDA) PO SCH (09:26)
[2016-10-31] MEDS: cefTRIAXone SOD 2 GM in D5W MINI-BAG PLUS 50 ML IV SCH (09:26)
[2016-10-31] MEDS: ENOXAPARIN 40 MG/0.4 ML SYRINGE (J1650) SC SCH (09:26)
--- NOTE | 2016-10-31 10:08 | IPNPDOC ---
Subjective Date Seen The patient was seen on 10/31/16. Subjective Chief Complaint/HPI The patient is a 81-year-old female admitted with a reason for visit of Encephalopathy. General: Denies: Chills, Night Sweats Constitutional: Denies: Chills, Fever Eyes: Denies: Pain, Vision change ENT: Denies: Head Aches, Ear Pain Skin: Denies: Rash, Lesions Pulmonary: Denies: Dyspnea, Cough Cardiovascular: Denies: Chest Pain, Palpitations Gastrointestinal: Denies: Nausea, Vomiting, Abdominal Pain Genitourinary: Denies: Dysuria, Frequency Objective Physical Examination General Exam: Positive: Alert, Cooperative, No Acute Distress ENT Exam: Positive: Atraumatic, Mucous membr. moist/pink Neck Exam: Negative: JVD Chest Exam: Positive: Diminished Heart Exam: Positive: Bradycardic Telemetry: Positive: Atrial fibrillation Abdomen Exam: Positive: Soft, Negative: Tenderness Extremity Exam: Negative: Tenderness, Swelling Assessment /Plan Plan/VTE VTE Prophylaxis Ordered?: Yes Plan Metabolic encephalopathy 2/2 UTI vs Progression of Underlying Dementia/Parkinson 's Dz CT Head with no acute changes UA suggestive of possible UTI--however may possibly be colonization? Urine Culture noted We will continue to treat the patient with Rocephin The patient's mentation has significantly improved following IVF hydration and Abx administration. I do believe that the patient is likely back to her baseline mentation. Elevated Troponin level EKG with slight increase in ST depression compared to previous tracing Peak Troponin 0.22 and downtrending Possibly 2/2 underlying demand ischemia from acute infection Patient denies any complaints of any chest pain/palpitations/SOB Patient did have an N-STEMI in 05/2016 here and was seen by Cardiology--given the patient's overall clinical condition, it was decided that the patient be treated medically 2D ECHO pending We will continue to monitor on telemetry here History of Atrial fibrillation, Embolic CVA Patient off of Aspirin and Xarelto following a fall from [place] lift 6 days ago, and acute anemia on 10/25 requiring 2 Units of PRBC's on 10/26 No overt source of bleeding noted here, and the patient's hgb has been stable here I did discuss resumption of AC and Antiplatelet therapy with Dr. Newby--We will continue the patient's Xarelto at this time and discontinue the ASA EKG, Telemonitor reveals A-Fib with bradycardia (HR in 50s)--consistent with last hospitalization in May 2016 We will hold Atenolol for now Cont Statin Chronic kidney disease Serum creatinine appears to be at baseline Chronic hypoxic respiratory failure Patient on her baseline 2 L of oxygen History of depression/fibromyalgia Cont Cymbalta, Abilify History of SLE Continue on prednisone Neuropathy Cont Gabapentin Dyslipidemia Cont Statin Hx of Parkinson's Disease DVT Prophylaxis On AC Disposition-we will continue to monitor the patient's progress at this time, her mentation appears to be improving. VS, I&O, 24H, Fishbone Vital Signs/I&O Vital Signs Date Time Temp Pulse Resp B/P (MAP) Pulse Ox O2 Delivery O2 Flow Rate FiO2 10/31/16 08:57 96.7 50 13 120/58 (78) 98 Nasal Cannula 2.0 I&O- Last 24 Hours up to 6 AM 10/31/16 06:00 Intake Total 1020 ml Output Total 0 ml Balance 1020 ml Laboratory Data 24H LABS Laboratory Tests 2 10/30/16 12:06: Bedside Glucose (Misc Panel) 164H 10/30/16 16:28: Bedside Glucose (Misc Panel) 193H 10/30/16 20:32: Bedside Glucose (Misc Panel) 159H 10/31/16 05:41: Anion Gap 6L, Glomerular Filtration Rate 50.9, Blood Urea Nitrogen 34H, Creatinine 1.10H, Sodium Level 137, Potassium Level 3.0L, Chloride Level 89L, Carbon Dioxide Level 42H, Calcium Level 8.8, Aspartate Amino Transf (AST/SGOT) 25, Alanine Aminotransferase (ALT/SGPT) 11L, Alkaline Phosphatase 112, Total Bilirubin 0.4, Total Protein 7.0, Albumin 2.5L, Albumin/Globulin Ratio 0.56L CBC/BMP Laboratory Tests 10/31/16 05:41 Red Blood Count 3.27 L, Mean Corpuscular Volume 91.0, Mean Corpuscular Hemoglobin 28.4, Mean Corpuscular Hemoglobin Concent 31.2 L, Red Cell Distribution Width 15.3 H, Calcium Level 8.8, Aspartate Amino Transf (AST/SGOT) 25, Alanine Aminotransferase (ALT/SGPT) 11 L, Alkaline Phosphatase 112, Total Bilirubin 0.4, Total Protein 7.0, Albumin 2.5 L Microbiology Microbiology 6/29/17 Blood Culture - Preliminary, Resulted No Growth after 48 hours. All Specime... 10/28/16 Blood Culture - Preliminary, Resulted No Growth after 48 hours. All Specime... 10/28/16 Urine Culture - Final, Complete Enterococcus Faecalis RAQUEL MEEKS MD Oct 31, 2016 10:08
[2016-10-31] MEDS ORDERED: LEVA1TAB2 PO (11:18)
[2016-10-31] MEDS ORDERED: XARE15TA PO (11:18)
--- NOTE | 2016-10-31 12:43 | DS.PDOC ---
Discharge Summary General Date of Admission Oct 28, 2016 at 17:05 Date of Discharge 10/31/16 Discharge Summary PROCEDURES PERFORMED DURING STAY: None. ADMITTING DIAGNOSES: 1. .Alteration in Mental Status 2/2 UTI 2. Elevated Troponin 2/2 Demand Ischemia DISCHARGE DIAGNOSES: 1. .Alteration in Mental Status 2/2 UTI 2. Elevated Troponin 2/2 Demand Ischemia COMPLICATIONS/CHIEF COMPLAINT: Encephalopathy. HISTORY OF PRESENT ILLNESS: . 81-year-old female with past medical history of nonsustained ventricular tachycardia, atrial fibrillation on Xarelto, embolic CVA, history of recurrent urinary tract infections, Parkinson's disease, dementia, SLE, chronic kidney disease, diastolic congestive heart failure, NSTEMI 05/2016, and chronic hypoxic respiratory failure on supplemental oxygen presented to the ER from [facility] with a chief complaint of altered mental status. The patient's history of present illness was limited given her baseline dementia. However, according to reports from [facility] the patient remained more altered and lethargic compared to her baseline and was subsequently sent to the ER for further evaluation and management. In the ER, a CT scan of the head revealed no acute findings. The patient's lab work was suggestive of underlying urinary tract infection. The patient was admitted to the hospitalist service for further evaluation and management. During hospitalization, the patient was treated for her urinary tract infection with Rocephin. The patient's urinary cultures were noted, and she was subsequently transitioned to by mouth Levaquin for completion of antibiotic trial. In addition, the patient was noted to have an elevated troponin level which peaked at 0.22 during admission. An EKG showed a slight increase in ST depression in the lateral leads. However, patient denied any acute complaints of chest pain, shortness of breath, palpitations, or any abdominal pain. The elevation troponin levels is likely secondary to demand ischemia from underlying acute infection. Of note, it appears that the patient did have an NSTEMI in 05/2016 during admission here, and the patient was recommended to be treated medically only given her poor overall condition. In addition, I discussed the patient's antiplatelet and anticoagulation therapy with Dr. Newby of cardiology given her history of atrial fibrillation and embolic CVA with a recent drop in her hemoglobin requiring 2 units of packed red blood cell transfusion on 10/26. During hospitalization here, the patient did not have any active sources of bleeding and her hemoglobin remained stable. It was decided that the patient continue on Xarelto 15mg daily, and that the aspirin be discontinued. At this time, the patient's mentation has returned back to her baseline, and she is eager to return back to [facility]. She denies any acute complaints at this time. The patient will be transferred back to [facility]. The patient will need a follow-up BMP to check for serum potassium levels in the morning as her serum K was noted to be 3.0 this morning. She did receive supplementation today which will need to be followed up with corresponding lab work in the morning. DISCHARGE MEDICATIONS: Please see below. ALLERGIES: Please see below. PHYSICAL EXAMINATION ON DISCHARGE: VITAL SIGNS: Please see below. General Exam: Positive: Alert, Cooperative, No Acute Distress ENT Exam: Positive: Atraumatic, Mucous membr. moist/pink Neck Exam: Negative: JVD Chest Exam: Positive: Diminished Heart Exam: Positive: Bradycardic Telemetry: Positive: Atrial fibrillation Abdomen Exam: Positive: Soft, Negative: Tenderness Extremity Exam: Negative: Tenderness, Swelling LABORATORY DATA: Please see below. IMAGING: CT BRAIN WITHOUT CONTRAST: HISTORY: Altered mental status. Comparison brain CT study is from May 12, 2016. CT FINDINGS: Bone window settings show no bony calvarial lesion. There is heavy vascular calcification in the distal carotid and distal vertebral arteries bilaterally. Digital lateral manufacturing technology analyst radiograph is unremarkable. On soft tissue window settings, there is multifocal parenchymal dystrophic calcification involving the basal ganglia and cerebellar hemispheres bilaterally. This is unchanged from the comparison CT study of May 12, 2016. 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 This is unchanged from July 17, 2015 study. There is no evidence of intracranial hemorrhage. No infarct, extra-axial fluid collection, mass, or midline shift is seen. IMPRESSION: Vascular calcification, diffuse atrophy, and basal ganglia and bilateral cerebellar dystrophic calcification pattern unchanged. No acute intracranial lesion. PROGNOSIS: Medically stable ACTIVITY: As tolerated. DIET: . 2 g low sodium diet DISCHARGE PLAN: DISPOSITION: . [facility] DISCHARGE INSTRUCTIONS: 1. . Follow-up with primary care physician within one 2. . Follow-up serum potassium level in the morning DISCHARGE CONDITION: Stable. TIME SPENT ON DISCHARGE: Greater than 30 minutes. Vital Signs/I&Os Vital Signs Date Time Temp Pulse Resp B/P (MAP) Pulse Ox O2 Delivery O2 Flow Rate FiO2 10/31/16 08:57 96.7 50 13 120/58 (78) 98 Nasal Cannula 2.0 I&O- Last 24 Hours up to 6 AM 10/31/16 06:00 Intake Total 1020 ml Output Total 0 ml Balance 1020 ml Laboratory Data Labs 24H Laboratory Tests 2 10/30/16 16:28: Bedside Glucose (Misc Panel) 193H 10/30/16 20:32: Bedside Glucose (Misc Panel) 159H 10/31/16 05:41: Anion Gap 6L, Glomerular Filtration Rate 50.9, Blood Urea Nitrogen 34H, Creatinine 1.10H, Sodium Level 137, Potassium Level 3.0L, Chloride Level 89L, Carbon Dioxide Level 42H, Calcium Level 8.8, Aspartate Amino Transf (AST/SGOT) 25, Alanine Aminotransferase (ALT/SGPT) 11L, Alkaline Phosphatase 112, Total Bilirubin 0.4, Total Protein 7.0, Albumin 2.5L, Albumin/Globulin Ratio 0.56L 10/31/16 11:19: Bedside Glucose (Misc Panel) 162H CBC/BMP Laboratory Tests 10/31/16 05:41 Red Blood Count 3.27 L, Mean Corpuscular Volume 91.0, Mean Corpuscular Hemoglobin 28.4, Mean Corpuscular Hemoglobin Concent 31.2 L, Red Cell Distribution Width 15.3 H, Calcium Level 8.8, Aspartate Amino Transf (AST/SGOT) 25, Alanine Aminotransferase (ALT/SGPT) 11 L, Alkaline Phosphatase 112, Total Bilirubin 0.4, Total Protein 7.0, Albumin 2.5 L FSBS Laboratory Tests Test 10/30/16 16:28 10/30/16 20:32 10/31/16 11:19 Range/Units Bedside Glucose (Misc Panel) 193 159 162 83-110 MG/DL Microbiology Microbiology 10/28/16 Blood Culture - Preliminary, Resulted No Growth after 48 hours. All Specime... 10/28/16 Blood Culture - Preliminary, Resulted No Growth after 72 hours. All specime... 10/28/16 Urine Culture - Final, Complete Enterococcus Faecalis Discharge Medications Scheduled (Aspercreme Lidocaine Max) 4 % Pad, 1 DOSE TOP TID, (Reported) LOWER BACK Acetaminophen (Tylenol) 325 Mg Tab, 650 MG PO DAILY, (Reported) 1300 Aripiprazole (Abilify) 2 Mg Tab, 2 MG PO QAM, (Reported) Atorvastatin Calcium (Atorvastatin Calcium) 80 Mg Tab, 80 MG PO QHS, (Reported) Cholecalciferol (Vitamin D) 2,000 Unit Tab, 2,000 UNIT PO QAM, (Reported) Docusate Sod/Senna (Senna S 8.6-50 mg) 1 Tab Tab, 2 TAB PO BID, (Reported) Docusate Sodium (Colace) 100 Mg Cap, 100 MG PO BID, (Reported) Duloxetine Hcl (Duloxetine HCl) 30 Mg Cap, 30 MG PO QHS, (Reported) Duloxetine Hcl (Cymbalta) 60 Mg Cap, 60 MG PO QAM, (Reported) Furosemide (Furosemide) 20 Mg Tab, 60 MG PO BID, (Reported) 0800, 1300 Gabapentin (Gabapentin) 300 Mg Cap, 300 MG PO BID, (Reported) 0600, 1200 Gabapentin (Gabapentin) 100 Mg Cap, 200 MG PO QHS, (Reported) Levofloxacin Hemihydrate (Levaquin) 500 Mg Tab, 500 MG PO DAILY Magnesium Oxide (Magnesium Oxide 400) 400 Mg Tab, 400 MG PO BID, (Reported) Memantine Hydrochloride (Namenda) 10 Mg Tab, 10 MG PO BID, (Reported) Metolazone (Metolazone) 2.5 Mg Tab, 2.5 MG PO QAM, (Reported) Potassium Chloride (Klor-Con M10) 10 Meq Tabcr, 40 MEQ PO QAM, (Reported) Prednisone (Prednisone) 5 Mg Tab, 5 MG PO QAM, (Reported) Rivaroxaban (Xarelto) 15 Mg Tab, 15 MG PO DAILY@18 Zonisamide (Zonisamide) 50 Mg Cap, 50 MG PO QAM, (Reported) Zonisamide (Zonisamide) 100 Mg Cap, 100 MG PO QHS, (Reported) Scheduled PRN (Enema) 1 Isaura Isaura, 1 ISAURA DC DAILY PRN for CONSTIPATION, (Reported) Albuterol Sulfate (Albuterol Sulfate) 2.5 Mg/3 Ml Nebu, 2.5 MG INH Q2H PRN for SHORTNESS OF BREATH, (Reported) Bisacodyl (Bisacodyl) 10 Mg Sup, 10 MG DC DAILY PRN for CONSTIPATION, (Reported) Milk Of Magnesia (Milk of Magnesia) 1,200 Mg/15 Ml Diana, 30 ML PO DAILY PRN for CONSTIPATION, (Reported) Nitroglycerin (Nitrostat) 0.4 Mg Subl, 0.4 MG SL Q5MP PRN for CHEST PAIN, ( Reported) Oxycodone/Acetaminophen (Oxycodone/Acetaminophen 5-325 mg) 1 Tab Tab, 0.5 TAB PO Q4H PRN for FOR PAIN 5-10, (Reported) Allergies Coded Allergies: Ibuprofen (Unverified Adverse Reaction, Unknown, NAUSEA, 10/28/16) RAQUEL MEEKS MD Oct 31, 2016 12:43
--- NOTE | 2016-10-31 14:08 | ECHO ---
DATE OF PROCEDURE: 10/30/2016 Indication: abnormal ECG Patient measures 68 inches and weighs 205 pounds. DIMENSIONS: IV: 1.3 LV: 4.0 LVPW: 1.1 LA: 5.6 Aorta: 3.2 Ascending aorta: 3.4 RV: 2.9 FINDINGS: The study is of fair technical quality. The patient was in sinus rhythm. Left ventricle is of normal size. There is mild left ventricular hypertrophy and hyperdynamic LV systolic function with estimated ejection fraction of 65-70%. Right ventricle does not appear grossly enlarged. Left atrium is severely enlarged. Right atrium is at least mildly enlarged. Aortic valve has calcifications and there is some restriction of leaflet mobility, but the visualization was limited. Mitral valve also exhibits degenerative changes with thickening of mitral leaflets and prominent mitral annular calcifications. Tricuspid valve appears normal. Pulmonic valve also appears normal. No pericardial effusion is noted. Inferior vena cava was not seen. Aortic root appears normal. Aortic arch and abdominal aorta were not visualized. Doppler interrogation of aortic valve reveals mild stenosis (mean gradient 16 mmHg) and trace insufficiency. There is mild mitral insufficiency and trace tricuspid insufficiency. Calculated pulmonary artery pressure is within normal limits, assuming normal central venous pressure. Pulmonic valve exhibits trace insufficiency. Mitral inflow pattern and tissue Doppler imaging of mitral annulus reveal grade 2 diastolic dysfunction (normal mitral inflow pattern, tissue Doppler velocities of mitral annulus were 6.3 and 10 cm/sec for septal and lateral mitral annulus, respectively). CONCLUSIONS: 1. Study is of fair technical quality. 2. Normal LV size with mild LVH and hyperdynamic LV systolic function. Grade 2 diastolic dysfunction. 3. 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 4. Mild mitral insufficiency. 5. Unable to estimate central venous pressure but probably normal or mildly elevated pulmonary artery pressure. COMMENT: SBE prophylaxis is not recommended. MTDD
[2016-10-31] MEDS ORDERED: POTASSIUM CHLORIDE 10 MEQ SR TABLET PO ONE (16:00)
[2016-10-31] MEDS ORDERED: RIVAROXABAN 15 MG TAB (XARELTO) PO SCH (18:00)
[2016-10-31] MEDS ORDERED: PERCOCET 5MG/325MG TAB PO PRN (19:00)
== END 2016-10-31 13:53 | DRG 689 ==
LOC: EDBD 11:21 → M ED 11:21 → M ED INP 17:05 → M PCU 18:21 → M MSPAV 10-30 14:22
PROVIDERS: ADMIT Hospitalist; ATTEND Internal Medicine
DX: N39.0 Urinary tract infection, site not specified (principal); G93.41 Metabolic encephalopathy; E87.1 Hypo-osmolality and hyponatremia; I50.30 Unspecified diastolic (congestive) heart failure; J96.11 Chronic respiratory failure with hypoxia; I24.8 Other forms of acute ischemic heart disease; N17.9 Acute kidney failure, unspecified; Z88.8 Allergy status to other drugs, medicaments and biological substances; Z79.01 Long term (current) use of anticoagulants; I48.91 Unspecified atrial fibrillation; Z66 Do not resuscitate; G20 Parkinson's disease; I25.2 Old myocardial infarction; Z86.73 Personal history of transient ischemic attack (TIA), and cerebral infarction without residual deficits; Z79.899 Other long term (current) drug therapy; Z88.6 Allergy status to analgesic agent; M79.7 Fibromyalgia; N18.3 Chronic kidney disease, stage 3 (moderate); E86.0 Dehydration; E87.6 Hypokalemia; G60.9 Hereditary and idiopathic neuropathy, unspecified; E78.5 Hyperlipidemia, unspecified; B97.19 Other enterovirus as the cause of diseases classified elsewhere

== ENCOUNTER → 2016-10-28 | Outpatient (REF) | payer MEDICARE, MEDICAID ==
[~2016-10-28] MED LIST changes: +ASPE4PAD TOP; +ATOR80TA59 PO; +ENEM1ENE4 PR; +LEVA1TAB2 PO; +MOM30SS PO; +PERC5TAB12 PO; +POTA10CA PO; +XARE15TA PO; +ZONI100C2 PO
[2016-10-28 14:16] LABS: MEAN CORPUSCULAR HEMOGLOBIN 29.2 pg (27.0-33.0); MEAN CORPUSCULAR HGB CONC 31.8 g/dl (32.0-36.5); MEAN CORPUSCULAR VOLUME 91.9 fl (80.0-96.0); RED CELL DISTRIBUTION WIDTH 15.4 % (11.5-14.5); WHITE BLOOD COUNT 6.4 K/mm3 (4.0-10.0)
== END ==
PROVIDERS: ATTEND Internal Medicine
DX: D64.9 Anemia, unspecified (principal)

== ENCOUNTER → 2016-11-01 | Outpatient (REF) | payer MEDICARE, MEDICAID ==
[~2016-11-01] MED LIST changes: +ASPE4PAD TOP; +ATOR80TA59 PO; +ENEM1ENE4 PR; +LEVA1TAB2 PO; +MOM30SS PO; +PERC5TAB12 PO; +POTA10CA PO; +XARE15TA PO; +ZONI100C2 PO
[2016-11-01 09:52] LABS: CALCIUM LEVEL 8.6 MG/DL (8.8-10.2); CREATININE FOR GFR 1.02 MG/DL (0.55-1.02); GLOMERULAR FILTRATION RATE 55.5 (>32); POTASSIUM SERUM 3.6 MEQ/L (3.5-5.1)
== END ==
PROVIDERS: ATTEND Internal Medicine
DX: E87.6 Hypokalemia (principal)

== ENCOUNTER → 2016-11-04 | Outpatient (CLI) | payer MEDICARE, MEDICAID ==
[~2016-11-04] MED LIST changes: +BUPIVACAINE HCL 0.25% 30 ML VIAL As Ordered ONE; +ISOVUE-M 300 61% 15ML VIAL (Q9967) As Ordered ONE; +LIDOCAINE 1% SDV INJ 30 ML VIAL As Ordered ONE; +TRIAMCINOLONE ACETONIDE SUSP 40 MG/ML VIAL (J3301) As Ordered ONE
--- NOTE | 2016-11-04 15:37 | REP ---
Partial lumbar spine series: Six views. History: Bilateral facet block for pain. 35 seconds of fluoroscopy time is reported. Findings: A sequence of six fluoroscopically obtained intraprocedural spot radiographs document various needle positions and contrast injections during injection procedure. Signed by Albino Grijalva MD 11/04/2016 05:15 P
--- NOTE | 2016-11-14 23:52 | ECWPNPC ---
PATIENT NAME: CECIL CASPER : 1935 GENDER: FEMALE VISIT DATE: 11/04/2016 DISCHARGE DATE: 11/04/16 1309 VISIT LOCKED DATE TIME: PHYSICIAN: JOSE FLORES RESOURCE: JOSE FLORES REASON FOR APPOINTMENT 1. LFBT HISTORY OF PRESENT ILLNESS HISTORY OF PRESENT ILLNESS: PAIN THE PATIENT DESCRIBES THE PAIN... FALL RISK SCREENING: SCREENING :NO FALLS IN THE PAST YEAR CURRENT MEDICATIONS TAKING NAMENDA 10 MG TABLET 1 TABLET ORALLY TWICE A DAY, NOTES: 11-03-16 100 TAKING DULOXETINE HCL 60 MG CAPSULE DELAYED RELEASE PARTICLES 1 CAPSULE ORALLY ONCE A DAY, NOTES: 11-03-16 100 TAKING ACETAMINOPHEN EXTRA STRENGTH 500 MG TABLET 1 TABLET NEEDED ORALLY EVERY 6 HRS, NOTES: 11-03-16 100 TAKING SENNA-DOCUSATE SODIUM 8.6-50 MG TABLET 1 TABLET IN THE EVENING NEEDED ORALLY ONCE A DAY, NOTES: 11-03-16 100 TAKING MAGNESIUM OXIDE 400 MG CAPSULE 1 CAPSULE ORALLY TWICE A DAY, NOTES: 10-31-16 1000 TAKING PREDNISONE 5 MG TABLET 1 TABLET ORALLY ONCE A DAY, NOTES: 11-03-16 1020 TAKING ZONISAMIDE 50 MG CAPSULE 1 CAPSULE ORALLY TWICE A DAY, NOTES: 11-03-16 103 TAKING VITAMIN D3 1000 UNIT CAPSULE 1 CAPSULE ORALLY ONCE A DAY, NOTES: 11-03-16 1020 TAKING ALBUTEROL SULFATE HFA 108 (90 BASE) MCG/ACT AEROSOL SOLUTION 2 PUFFS NEEDED INHALATION EVERY 4 HRS TAKING LASIX 60 MG TABLET 1 TABLET ORALLY BID, NOTES: 11-03-16 1230 TAKING GABAPENTIN 100 MG CAPSULE 2 TABS ORALLY ONCE DAILY TAKING ENSURE - LIQUID ORALLY DIRECTED TAKING POTASSIUM CHLORIDE 20 MEQ PACKET 1 PACKET WITH FOOD ORALLY ONCE A DAY, NOTES: 08/29/16 100 TAKING NITROQUICK SUBLINGUALLY TAKING BISACODYL 10 MG SUPPOSITORY 1 SUPPOSITORY NEEDED RECTAL ONCE A DAY TAKING ENEMA - ENEMA RECTAL , NOTES: 10-30-16 TAKING MILK OF MAGNESIA 1200 MG/15ML SUSPENSION 5 ML NEEDED ORALLY FOUR TIMES A DAY, NOTES: 11-03-16 103 TAKING ABILIFY 2 MG TABLET 1 TABLET ORALLY ONCE A DAY, NOTES: 11-03-16 103 TAKING ASPERCREME 10 % LOTION EXTERNALLY , NOTES: 08/29/16 TAKING SALINE NASAL SPRAY 0.65 % SOLUTION NASALLY , NOTES: 08/29/16 1002 TAKING ATORVASTATIN CALCIUM 20 MG TABLET 1 TABLET ORALLY ONCE A DAY TAKING XARELTO 20 MG TABLET 1 TABLET WITH FOOD ORALLY ONCE A DAY, NOTES: 10-31-16 0900 TAKING LEVAQUIN 500 MG TABLET 150 ML ORALLY EVERY 24 HRS, NOTES: 11-03-16 1030 NOT-TAKING ASPIR-81 81 MG TABLET DELAYED RELEASE 1 TABLET ORALLY ONCE A DAY NOT-TAKING COLACE 100 MG CAPSULE 1 CAPSULE NEEDED ORALLY BID NOT-TAKING ATENOLOL 100 MG TABLET 1 TABLET ORALLY ONCE A DAY, NOTES: 08/29/16 1003 NOT-TAKING PERCOCET 5-325 MG TABLET 1/2 TABLET NEEDED ORALLY 1/2 TABLET TID, NOTES: 7- NOT-TAKING HYDROCODONE-ACETAMINOPHEN 5-325 MG TABLET 1 TAB ORALLY EVERY 6 HRS NEEDED FOR PAIN NOT-TAKING TRAMADOL HCL 50 MG TABLET ORALLY DIRECTED NOT-TAKING CELEXA 20 MG TABLET 1 TABLET ORALLY ONCE A DAY NOT-TAKING PENNSAID 2 % SOLUTION 2 APPLICATIONS TO AFFECTED AREA TRANSDERMAL TWICE A DAY FOR LEFT KNEE PAIN NOT-TAKING MIRALAX _ POWDER 17 GRAMS/LARGE TEASPOON ORALLY ONCE A DAY NOT-TAKING FLUDROCORTISONE ACETATE 0.1 MG TABLET 1 TABLET ORALLY ONCE A DAY NOT-TAKING FERROUS GLUCONATE 324 (38 FE) MG TABLET 1 TABLET ORALLY TWICE A DAY NOT-TAKING MULTIVITAMIN TABLET CHEWABLE ORALLY ONCE DAILY NOT-TAKING LIDODERM 5 % PATCH 1 PATCH TO INTACT SKIN REMOVE AFTER 12 HOURS EXTERNALLY ONCE A DAY NOT-TAKING FUROSEMIDE 40 MG TABLET 1 TABLET ORALLY ONCE A DAY NOT-TAKING VOLTAREN 1 % GEL 2 GRAMS TO LOW BACK TRANSDERMAL THREE TIMES DAILY NOT-TAKING LYRICA 50 MG CAPSULE 1 CAPSULE ORALLY THREE TIMES A DAY NOT-TAKING OCCUVITE _ TABLET 1 TAB(S) ORAL DAILY NOT-TAKING HYDROXYZINE HCL 25 MG TABLET 1 TABLET NEEDED ORALLY EVERY 8 HRS NOT-TAKING BENZONATATE 200 MG CAPSULE 1 CAPSULE NEEDED ORALLY THREE TIMES A DAY NOT-TAKING OMEPRAZOLE 20 MG TABLET DELAYED RELEASE 1 TABLET ORALLY ONCE A DAY NOT-TAKING LOPERAMIDE HCL 2 MG CAPSULE 1 CAPSULE ORALLY 8 TIME(S) A DAY/PRN PAST MEDICAL HISTORY DEPRESSION GERD ALLERGIES LUPUS ANEMIA CVA 11/2010 PARKINSON'S DISEASE MILD RENAL INSUFFICIENCY IMPAIRED FASTING GLUCOSE SEIZURE DISORDER ORTHOSTATIC HYPOTENSION ALLERGIES MOTRIN: N/V MYCOPHENOLATE MOFETIL HCL: DIZZINESS REVIEW OF SYSTEMS REVIEWED BY: PROVIDER: . CONSTITUTIONAL: ANY CHANGE IN YOUR MEDICAL CONDITION? NO . CHILLS NO . FEVER NO . INFECTION: DO YOU HAVE NEW INFECTIONS? NO . DO YOU HAVE HISTORY OF MRSA? NO . MUSCULOSKELETAL: ANY NEW PATTERNS OF PAIN OR NUMBNESS? NO . GASTROENTEROLOGY: ANY NEW CHANGE IN BOWEL CONTROL? NO . GENITOURINARY: ANY NEW CHANGE IN BLADDER CONTROL? NO . IS THERE A CHANCE YOU COULD BE ? NO . HEMATOLOGY/LYMPH: DO YOU TAKE ANY BLOOD THINNERS? (FOR EXAMPLE- COUMADIN, PLAVIX, AGGRENOX, PLATEL, PRADAXA, OR XARELTO) NO . WHEN WAS YOUR LAST DOSE? DATE: TIME: . NEUROLOGY: HAVE YOU FALLEN IN THE PAST 6 MONTHS? NO . ANY NEW EXTREMITY NUMBNESS OR WEAKNESS? NO . CARDIOLOGY: DO YOU HAVE A PACEMAKER OR DEFIBRILLATOR? NO . RESPIRATORY: HAVE YOU BEEN SICK IN THE PAST WEEK? NO . FEVER NO . FLU LIKE SYMPTOMS? NO . COUGH NO . INTEGUMENTARY: DO YOU HAVE ANY RASHES OR OPEN SORES? NO . ALLERGIC/IMMUNO: ARE YOU ALLERGIC TO SHELLFISH OR IV DYE? NO . ANY NEW ALLERGIES? NO . PSYCHIATRIC: DO YOU HAVE THOUGHTS OF HURTING YOURSELF OR SOMEONE ELSE? NO . ARE YOU ABUSED, NEGLECTED, OR IN AN UNSAFE ENVIRONMENT? NO . ENDOCRINOLOGY: ARE YOU DIABETIC? NO . OTHER: DO YOU NEED ANY PRESCRIPTIONS? NO . IF YES, PLEASE LIST: ____ . ANY NEW PROBLEMS WITH YOUR MEDICATIONS? NO . WHEN DID YOU LAST EAT? ____ . WHEN DID YOU LAST DRINK? ____LAST NIGHT WATER 2100 . WHAT DID YOU LAST DRINK? WATER____ . NAME OF PERSON DRIVING YOU HOME? [facility] . DO YOU HAVE ANY OTHER QUESTIONS OR CONCERNS NO . VITAL SIGNS WT 209.6 LBS, HT 5'3", BMI 37.12 INDEX, BP 120/65 MM HG, HR 57 /MIN, RR 18 /MIN, TEMP 96.7 F, OXYGEN SAT % 2L/96%, NA INITIALS TL 1027, REVIEWED BY: KG. ASSESSMENTS SPONDYLOSIS WITHOUT MYELOPATHY OR RADICULOPATHY, LUMBAR REGION - M47.816 (PRIMARY) SPONDYLOSIS WITHOUT MYELOPATHY OR RADICULOPATHY, LUMBOSACRAL REGION - M47.817 PROCEDURES PN LUMBAR FACET BLOCK THERAPEUTIC PRE PROCEDURE DIAGNOSIS LUMBAR SPONDYLOSIS, LUMBOSACRAL SPONDYLOSIS POST PROCEDURE DIAGNOSIS LUMBAR SPONDYLOSIS, LUMBOSACRAL SPONDYLOSIS PROCEDURE BILATERAL L4-L5 AND BILATERAL L5-S1 LUMBAR FACET THERAPEUTIC BLOCK SURGEON DR. JOSE FLORES CAKE WINDER NONE ANESTHESIA LOCAL PRE PROCEDURE NOTE THE PATIENT HAS A HISTORY OF CHRONIC LOW BACK PAIN. I EVALUATE THE PATIENT AND REVIEWED THE CHART. I WENT OVER THE RISKS, ALTERNATIVES, AND BENEFITS ASSOCIATED WITH THIS PROCEDURE. THE PATIENT WOULD LIKE TO PROCEED AND GIVE CONSENT TO PERFORMED THE PROCEDURE. THE PATIENT DENIES UNEXPLAINABLE WEIGHT LOSS, FEVER, CHILLS, OR NEW CHANGES IN URINARY OR BOWEL CONTROL DESCRIPTION OF PROCEDURE THE PATIENT WAS BROUGHT TO THE PROCEDURE ROOM AND PLACED IN THE PRONE POSITION. THE LUMBOSACRAL AREA WAS CLEANED WITH CHLORAPREP SOLUTION AND DRAPED ASEPTICALLY. THE PROCEDURE WAS DONE UNDER STERILE CONDITIONS. I CHECKED LATERALITY AND THE LEVEL WHERE THE PROCEDURE WAS GOING TO BE PERFORMED WITH THE PATIENT AND THE SUPPORTING STAFF AT THE MOMENT OF THE TIME OUT IN THE PROCEDURE ROOM. UNDER FLUOROSCOPIC GUIDANCE, THE TARGET POINT WAS SELECTED AT THE RIGHT AND LEFT L4-L5 AND RIGHT AND LEFT L5-S1 FACET JOINT. TARGET POINT WAS SELECTED AFTER LATERAL ROTATION AND TILT OF THE MAGNIFIER OF THE C-ARM. LIDOCAINE 0.5% WAS USED TO NUMB THE SKIN AND THE SUBCUTANEOUS TISSUE BELOW IT. SPINAL NEEDLES, 22-GAUGE, WERE ADVANCED UNDER FLUOROSCOPIC GUIDANCE AND FOLLOWING PATIENT FEEDBACK UNTIL THE TARGETS WERE TOUCHED. THE POSITION OF THE NEEDLES WAS VERIFIED WITH AP AND LATERAL VIEWS. AFTER PROPER POSITION OF THE NEEDLES WAS ACHIEVED, ISOVUE-M DYE 30% 0.1 ML WAS INJECTED SHOWING ADEQUATE SPREAD OF THE DYE. THEN A SOLUTION OF 1.9 ML OF BUPIVACAINE 0.125% OF KENALOG 10 MG WAS INJECTED AT EACH SITE. THERE WAS NO EVIDENCE OF BLOOD, PARESTHESIA OR CEREBROSPINAL FLUID DURING THE PROCEDURE. THE PATIENT WAS SENT TO THE RECOVERY ROOM. THE PATIENT WAS MOVING THE EXTREMITIES AND DOING WELL. THERE WAS NO COMPLICATION DURING THE PROCEDURE. FLUOROSCOPY TIME WAS 39 SECONDS POST PROCEDURE NOTE THE PATIENT WILL BE SEEN IN A FOLLOW UP IN THE NEXT FEW WEEKS. INSTRUCTIONS WERE GIVEN, QUESTIONS WERE ANSWERED, AND THE PATIENT EXPRESSED UNDERSTANDING AND AGREES WITH THE PLAN. I, DONALD GUZMÁN, DOCUMENTED THE ABOVE INFORMATION ACTING A SCRIBE FOR DR. FLORES. I HAVE REVIEWED THE ABOVE DOCUMENT, WRITTEN BY DONALD MCKENZIE AND I VERIFY THAT IT IS [facility] FACET BLOCK (PAIN)[id number] PROCEDURE CODES 6045F RADXPS IN END [id number] PXD [id number] INJ PARAVERT F JNT L/S 1 LEV 03041 INJ PARAVERT F JNT L/S 2 LEV DISPOSITION & COMMUNICATION FOLLOW UP 3 WEEKS ELECTRONICALLY SIGNED BY JOSE FLORES MD ON 11/14/2016 AT 09:17 PM EDT DISCLAIMER : THIS IS A VISIT SUMMARY EXTRACTED FROM THE [employer] CHART. IT IS NOT A COPY OF THE [employer] PROGRESS NOTE. MTDD
== END ==
LOC: M PAIN 10:20
PROVIDERS: ATTEND Anesthesiology
DX: G89.29 Other chronic pain (principal); M47.816 Spondylosis without myelopathy or radiculopathy, lumbar region; M47.817 Spondylosis without myelopathy or radiculopathy, lumbosacral region; F32.9 Major depressive disorder, single episode, unspecified; K21.9 Gastro-esophageal reflux disease without esophagitis; J30.9 Allergic rhinitis, unspecified; M32.9 Systemic lupus erythematosus, unspecified; G20 Parkinson's disease; G40.909 Epilepsy, unspecified, not intractable, without status epilepticus; Z88.6 Allergy status to analgesic agent; Z88.8 Allergy status to other drugs, medicaments and biological substances; Z79.52 Long term (current) use of systemic steroids; Z79.899 Other long term (current) drug therapy
CPT/HCPCS: 64493; 64494; J3301; Q9967

== ENCOUNTER → 2016-11-08 | Outpatient (REF) ==
[~2016-11-08] MED LIST changes: -BUPIVACAINE HCL 0.25% 30 ML VIAL As Ordered ONE; -ISOVUE-M 300 61% 15ML VIAL (Q9967) As Ordered ONE; -LIDOCAINE 1% SDV INJ 30 ML VIAL As Ordered ONE; -TRIAMCINOLONE ACETONIDE SUSP 40 MG/ML VIAL (J3301) As Ordered ONE
[2016-11-08 12:18] LABS: MEAN CORPUSCULAR HEMOGLOBIN 28.8 pg (27.0-33.0); MEAN CORPUSCULAR HGB CONC 31.2 g/dl (32.0-36.5); MEAN CORPUSCULAR VOLUME 92.5 fl (80.0-96.0); RED CELL DISTRIBUTION WIDTH 15.2 % (11.5-14.5); WHITE BLOOD COUNT 8.8 K/mm3 (4.0-10.0)
== END ==
PROVIDERS: ATTEND Internal Medicine
DX: D64.9 Anemia, unspecified (principal)

== ENCOUNTER → 2016-11-17 | Outpatient (REF) | PROVIDERS: ATTEND Internal Medicine | DX: R30.0 Dysuria (principal) ==

== ENCOUNTER → 2016-11-19 | Outpatient (REF) | PROVIDERS: ATTEND Internal Medicine | DX: R30.9 Painful micturition, unspecified (principal) ==

== ENCOUNTER → 2016-11-24 | Outpatient (CLI) | payer MEDICARE, MEDICAID ==
--- NOTE | 2016-12-17 01:32 | ECWPNPC ---
PATIENT NAME: CECIL CASPER : 1935 GENDER: FEMALE VISIT DATE: 11/24/2016 DISCHARGE DATE: 11/24/16 1122 VISIT LOCKED DATE TIME: PHYSICIAN: ELVIRA GARCIA RESOURCE: ELVIRA GARCIA REASON FOR APPOINTMENT 1. POST THERA FACET BLOC HISTORY OF PRESENT ILLNESS HISTORY OF PRESENT ILLNESS: HERE FOR POST PROCEDURE F/U.HAD BILAT. L4/5-L5/S1 LUMBAR THERAPEUTIC FACET BLOCK ON 11-04-16.REPORTS IMPROVEMENT IN LOW BACK PAIN.RATING PAIN VAS 2/10.DESCRIBES PAIN ACHING.DENIES RADICULAR SYMPTOMS.REPORTING NORMAL BOWEL AND BLADDER FUNCTION.NO RECENT FEVER,ILLNESS OR WEIGHT LOSS. PAIN THE PATIENT DESCRIBES THE PAIN... FALL RISK SCREENING: SCREENING :NO FALLS IN THE PAST YEAR CURRENT MEDICATIONS TAKING NAMENDA 10 MG TABLET 1 TABLET ORALLY TWICE A DAY TAKING DULOXETINE HCL 60 MG CAPSULE DELAYED RELEASE PARTICLES 1 CAPSULE ORALLY ONCE A DAY TAKING ACETAMINOPHEN EXTRA STRENGTH 500 MG TABLET 1 TABLET NEEDED ORALLY EVERY 6 HRS TAKING SENNA-DOCUSATE SODIUM 8.6-50 MG TABLET 1 TABLET IN THE EVENING NEEDED ORALLY ONCE A DAY TAKING MAGNESIUM OXIDE 400 MG CAPSULE 1 CAPSULE ORALLY TWICE A DAY TAKING PREDNISONE 5 MG TABLET 1 TABLET ORALLY ONCE A DAY TAKING ZONISAMIDE 50 MG CAPSULE 1 CAPSULE ORALLY TWICE A DAY TAKING VITAMIN D3 1000 UNIT CAPSULE 1 CAPSULE ORALLY ONCE A DAY TAKING ALBUTEROL SULFATE HFA 108 (90 BASE) MCG/ACT AEROSOL SOLUTION 2 PUFFS NEEDED INHALATION EVERY 4 HRS TAKING LASIX 60 MG TABLET 1 TABLET ORALLY BID TAKING GABAPENTIN 100 MG CAPSULE 2 TABS ORALLY ONCE DAILY TAKING ENSURE - LIQUID ORALLY DIRECTED TAKING POTASSIUM CHLORIDE 20 MEQ PACKET 1 PACKET WITH FOOD ORALLY ONCE A DAY TAKING NITROQUICK SUBLINGUALLY TAKING BISACODYL 10 MG SUPPOSITORY 1 SUPPOSITORY NEEDED RECTAL ONCE A DAY TAKING ENEMA - ENEMA RECTAL TAKING MILK OF MAGNESIA 1200 MG/15ML SUSPENSION 5 ML NEEDED ORALLY FOUR TIMES A DAY TAKING ABILIFY 2 MG TABLET 1 TABLET ORALLY ONCE A DAY TAKING ASPERCREME 10 % LOTION EXTERNALLY TAKING SALINE NASAL SPRAY 0.65 % SOLUTION NASALLY TAKING ATORVASTATIN CALCIUM 20 MG TABLET 1 TABLET ORALLY ONCE A DAY TAKING XARELTO 20 MG TABLET 1 TABLET WITH FOOD ORALLY ONCE A DAY NOT-TAKING LEVAQUIN 500 MG TABLET 150 ML ORALLY EVERY 24 HRS NOT-TAKING ASPIR-81 81 MG TABLET DELAYED RELEASE 1 TABLET ORALLY ONCE A DAY NOT-TAKING COLACE 100 MG CAPSULE 1 CAPSULE NEEDED ORALLY BID NOT-TAKING ATENOLOL 100 MG TABLET 1 TABLET ORALLY ONCE A DAY, NOTES: 08/29/16 1003 NOT-TAKING PERCOCET 5-325 MG TABLET 1/2 TABLET NEEDED ORALLY 1/2 TABLET TID, NOTES: 7- NOT-TAKING HYDROCODONE-ACETAMINOPHEN 5-325 MG TABLET 1 TAB ORALLY EVERY 6 HRS NEEDED FOR PAIN NOT-TAKING TRAMADOL HCL 50 MG TABLET ORALLY DIRECTED NOT-TAKING CELEXA 20 MG TABLET 1 TABLET ORALLY ONCE A DAY NOT-TAKING PENNSAID 2 % SOLUTION 2 APPLICATIONS TO AFFECTED AREA TRANSDERMAL TWICE A DAY FOR LEFT KNEE PAIN NOT-TAKING MIRALAX _ POWDER 17 GRAMS/LARGE TEASPOON ORALLY ONCE A DAY NOT-TAKING FLUDROCORTISONE ACETATE 0.1 MG TABLET 1 TABLET ORALLY ONCE A DAY NOT-TAKING FERROUS GLUCONATE 324 (38 FE) MG TABLET 1 TABLET ORALLY TWICE A DAY NOT-TAKING MULTIVITAMIN TABLET CHEWABLE ORALLY ONCE DAILY NOT-TAKING LIDODERM 5 % PATCH 1 PATCH TO INTACT SKIN REMOVE AFTER 12 HOURS EXTERNALLY ONCE A DAY NOT-TAKING FUROSEMIDE 40 MG TABLET 1 TABLET ORALLY ONCE A DAY NOT-TAKING VOLTAREN 1 % GEL 2 GRAMS TO LOW BACK TRANSDERMAL THREE TIMES DAILY NOT-TAKING LYRICA 50 MG CAPSULE 1 CAPSULE ORALLY THREE TIMES A DAY NOT-TAKING OCCUVITE _ TABLET 1 TAB(S) ORAL DAILY NOT-TAKING HYDROXYZINE HCL 25 MG TABLET 1 TABLET NEEDED ORALLY EVERY 8 HRS NOT-TAKING BENZONATATE 200 MG CAPSULE 1 CAPSULE NEEDED ORALLY THREE TIMES A DAY NOT-TAKING OMEPRAZOLE 20 MG TABLET DELAYED RELEASE 1 TABLET ORALLY ONCE A DAY NOT-TAKING LOPERAMIDE HCL 2 MG CAPSULE 1 CAPSULE ORALLY 8 TIME(S) A DAY/PRN MEDICATION LIST REVIEWED AND RECONCILED WITH THE PATIENT PAST MEDICAL HISTORY DEPRESSION GERD ALLERGIES LUPUS ANEMIA CVA 11/2010 PARKINSON'S DISEASE MILD RENAL INSUFFICIENCY IMPAIRED FASTING GLUCOSE SEIZURE DISORDER ORTHOSTATIC HYPOTENSION ALLERGIES MOTRIN: N/V MYCOPHENOLATE MOFETIL HCL: DIZZINESS SURGICAL HISTORY HYSTEREC JESSIKA CHOLECYSTECTOMY HOSPITALIZATION/MAJOR DIAGNOSTIC PROCEDURE SURGERY RELATED REVIEW OF SYSTEMS REVIEWED BY: PROVIDER: ELVIRA PORTILLO . CONSTITUTIONAL: ANY CHANGE IN YOUR MEDICAL CONDITION? NO . CHILLS NO . FEVER NO . INFECTION: DO YOU HAVE NEW INFECTIONS? NO . DO YOU HAVE HISTORY OF MRSA? NO . MUSCULOSKELETAL: ANY NEW PATTERNS OF PAIN OR NUMBNESS? NO . GASTROENTEROLOGY: ANY NEW CHANGE IN BOWEL CONTROL? NO . GENITOURINARY: ANY NEW CHANGE IN BLADDER CONTROL? NO . IS THERE A CHANCE YOU COULD BE ? NO . HEMATOLOGY/LYMPH: DO YOU TAKE ANY BLOOD THINNERS? (FOR EXAMPLE- COUMADIN, PLAVIX, AGGRENOX, PLATEL, PRADAXA, OR XARELTO) YES, XARELTO . WHEN WAS YOUR LAST DOSE? DATE: TIME: . NEUROLOGY: HAVE YOU FALLEN IN THE PAST 6 MONTHS? YES, FELL GETTING OFF TOILET . ANY NEW EXTREMITY NUMBNESS OR WEAKNESS? NO . CARDIOLOGY: DO YOU HAVE A PACEMAKER OR DEFIBRILLATOR? NO . RESPIRATORY: HAVE YOU BEEN SICK IN THE PAST WEEK? NO . FEVER NO . FLU LIKE SYMPTOMS? NO . COUGH NO . INTEGUMENTARY: DO YOU HAVE ANY RASHES OR OPEN SORES? NO . ALLERGIC/IMMUNO: ARE YOU ALLERGIC TO SHELLFISH OR IV DYE? NO . ANY NEW ALLERGIES? NO . PSYCHIATRIC: DO YOU HAVE THOUGHTS OF HURTING YOURSELF OR SOMEONE ELSE? NO . ARE YOU ABUSED, NEGLECTED, OR IN AN UNSAFE ENVIRONMENT? NO . ENDOCRINOLOGY: ARE YOU DIABETIC? NO . OTHER: DO YOU NEED ANY PRESCRIPTIONS? NO . IF YES, PLEASE LIST: ____ . ANY NEW PROBLEMS WITH YOUR MEDICATIONS? NO . WHEN DID YOU LAST EAT? ____ . WHEN DID YOU LAST DRINK? ____ . WHAT DID YOU LAST DRINK? ____ . NAME OF PERSON DRIVING YOU HOME? ____ . DO YOU HAVE ANY OTHER QUESTIONS OR CONCERNS NO . VITAL SIGNS WT 203 LBS, HT 5'3", BMI 35.96 INDEX, BP 128/79 MM HG, HR 103 /MIN, RR 18 /MIN, TEMP 97.6 F, OXYGEN SAT % 99%, SAFE IN ENV? (Y/N) Y, NA INITIALS IA 10:57, REVIEWED BY: EM. EXAMINATION GENERAL EXAMINATION: LUNGS:LUNG SOUNDS ARE CLEAR. HEART:HEART RHYTHM SLIGHTLY IRREGULAR. MUSCULOSKELETAL:*, PALPATION: MILD DISCOMFORT OVER L/S SPINE. MILD DISCOMFORT OVER L/S PARSPINALS R>L, MUSCLE STRENGTH TESTING 5/5 BILATERAL. DIAGNOSTIC:MRI L/S SPINE 09-19-15 REVIEWED . ASSESSMENTS SPONDYLOSIS WITHOUT MYELOPATHY OR RADICULOPATHY, LUMBAR REGION - M47.816 (PRIMARY) TREATMENT SPONDYLOSIS WITHOUT MYELOPATHY OR RADICULOPATHY, LUMBAR REGION NOTES: CONTINUE WITH CONSERVATIVE CARE. PROCEDURE CODES FA211 ESTABILISHED PATIENT [facility] FACILITY CHARGE G8730 PAIN ASSESS POS TOOL F/U PLAN DOC G8427 DOC MEDS VERIFIED W/PT OR RE DISPOSITION & COMMUNICATION FOLLOW UP 2 MONTHS ELECTRONICALLY SIGNED BY LINDSEY FAIRCHILD ON 12/16/2016 AT 08:30 AM EDT DISCLAIMER : THIS IS A VISIT SUMMARY EXTRACTED FROM THE [employer] CHART. IT IS NOT A COPY OF THE [employer] PROGRESS NOTE. BOUCHRA
== END ==
LOC: M PAIN 10:40
PROVIDERS: ATTEND Nurse Practitioner Family
DX: M47.816 Spondylosis without myelopathy or radiculopathy, lumbar region (principal); Z79.899 Other long term (current) drug therapy; Z88.6 Allergy status to analgesic agent; Z88.8 Allergy status to other drugs, medicaments and biological substances

== ENCOUNTER → 2016-11-24 | Outpatient (REF) | payer MEDICAID, MEDICARE ==
[2016-11-24 10:26] LABS: MEAN CORPUSCULAR HEMOGLOBIN 29.3 pg (27.0-33.0); MEAN CORPUSCULAR HGB CONC 31.9 g/dl (32.0-36.5); MEAN CORPUSCULAR VOLUME 91.7 fl (80.0-96.0); RED CELL DISTRIBUTION WIDTH 15.2 % (11.5-14.5)
== END ==
PROVIDERS: ATTEND Internal Medicine
DX: D64.9 Anemia, unspecified (principal)

== ENCOUNTER → 2016-12-21 | Outpatient (REF) | payer MEDICARE, MEDICAID ==
[2016-12-21 14:03] LABS: MEAN CORPUSCULAR HEMOGLOBIN 28.8 pg (27.0-33.0); MEAN CORPUSCULAR HGB CONC 30.7 g/dl (32.0-36.5); MEAN CORPUSCULAR VOLUME 93.7 fl (80.0-96.0); RED CELL DISTRIBUTION WIDTH 15.6 % (11.5-14.5); WHITE BLOOD COUNT 7.5 K/mm3 (4.0-10.0)
[2016-12-21 15:23] LABS: ALBUMIN 2.7 GM/DL (3.2-5.2); ALBUMIN/GLOBULIN RATIO 0.69 (1.00-1.93); BILIRUBIN,TOTAL 0.4 MG/DL (0.2-1.0); CALCIUM LEVEL 8.6 MG/DL (8.8-10.2); CREATININE FOR GFR 1.54 MG/DL (0.55-1.02); GLOMERULAR FILTRATION RATE 34.5 (>32); POTASSIUM SERUM 3.8 MEQ/L (3.5-5.1); TOTAL PROTEIN 6.6 GM/DL (6.4-8.2)
== END ==
PROVIDERS: ATTEND Internal Medicine
DX: I50.9 Heart failure, unspecified (principal)

== ENCOUNTER → 2017-01-04 | Outpatient (REF) | payer MEDICARE, MEDICAID ==
[2017-01-04 14:31] LABS: MEAN CORPUSCULAR HEMOGLOBIN 28.6 pg (27.0-33.0); MEAN CORPUSCULAR HGB CONC 31.7 g/dl (32.0-36.5); MEAN CORPUSCULAR VOLUME 90.1 fl (80.0-96.0); RED CELL DISTRIBUTION WIDTH 15.7 % (11.5-14.5); WHITE BLOOD COUNT 5.9 K/mm3 (4.0-10.0)
[2017-01-04 14:42] LABS: CREATININE FOR GFR 1.24 MG/DL (0.55-1.02); GLOMERULAR FILTRATION RATE 44.3 (>32); POTASSIUM SERUM 3.5 MEQ/L (3.5-5.1)
== END ==
PROVIDERS: ATTEND Internal Medicine
DX: R41.82 Altered mental status, unspecified (principal); Z79.899 Other long term (current) drug therapy

== ENCOUNTER → 2017-01-21 | Outpatient (REF) | payer MEDICARE, MEDICAID ==
[2017-01-21 14:50] LABS: BASO % 0.1 % (0.0-1.0); EOS # 0.1 K/mm3 (0.0-0.50); EOS % 1.8 % (0.0-3.0); LARGE UNSTAINED CELL # 0.1 K/mm3 (0.0-0.4); LARGE UNSTAINED CELL % 1.5 % (0.0-4.0); LYMPH # 0.7 K/mm3 (1.5-4.5); MEAN CORPUSCULAR HEMOGLOBIN 29.3 pg (27.0-33.0); MEAN CORPUSCULAR HGB CONC 32.4 g/dl (32.0-36.5); MEAN CORPUSCULAR VOLUME 90.4 fl (80.0-96.0); MONO # 0.3 K/mm3 (0.0-0.8); MONO % 4.2 % (0.0-5.0); NEUTROPHILS # 4.8 K/mm3 (1.8-7.7); NEUTROPHILS % 80.4 % (36.0-66.0); PLATELET COUNT, AUTOMATED 186 k/mm3 (150-450); RED CELL DISTRIBUTION WIDTH 15.9 % (11.5-14.5)
[2017-01-21 15:28] LABS: ALBUMIN 2.6 GM/DL (3.2-5.2); ALBUMIN/GLOBULIN RATIO 0.63 (1.00-1.93); BILIRUBIN,TOTAL 0.6 MG/DL (0.2-1.0); CALCIUM LEVEL 7.7 MG/DL (8.8-10.2); CREATININE FOR GFR 1.63 MG/DL (0.55-1.02); GLOMERULAR FILTRATION RATE 32.3 (>32); TOTAL PROTEIN 6.7 GM/DL (6.4-8.2)
== END ==
PROVIDERS: ATTEND Internal Medicine
DX: R53.83 Other fatigue (principal); R06.02 Shortness of breath

== ENCOUNTER → 2017-01-21 | Outpatient (REF) | payer MEDICARE, MEDICAID | PROVIDERS: ATTEND Internal Medicine | DX: R53.83 Other fatigue (principal); R06.02 Shortness of breath ==

== ENCOUNTER → 2017-01-23 | Outpatient (REF) | payer MEDICARE | PROVIDERS: ATTEND Internal Medicine | DX: N39.0 Urinary tract infection, site not specified (principal) ==

== ENCOUNTER → 2017-02-07 | Outpatient (CLI) | payer MEDICARE, MEDICAID ==
--- NOTE | 2017-02-23 01:05 | ECWPNPC ---
PATIENT NAME: CECIL CASPER : 1935 GENDER: FEMALE VISIT DATE: 02/07/2017 DISCHARGE DATE: 02/07/17 1216 VISIT LOCKED DATE TIME: PHYSICIAN: ELVIRA GARCIA RESOURCE: ELVIRA GARCIA REASON FOR APPOINTMENT 1. LBP HISTORY OF PRESENT ILLNESS HISTORY OF PRESENT ILLNESS: HERE FOR F/U OF CHRONIC LOW BACK PAIN.REPORTS IMPROVEMENT IN LOW BACK PAIN.RATING PAIN VAS 2/10.DESCRIBES PAIN ACHING.DENIES RADICULAR SYMPTOMS.REPORTING NORMAL BOWEL AND BLADDER FUNCTION.NO RECENT FEVER,ILLNESS OR WEIGHT LOSS. PAIN THE PATIENT DESCRIBES THE PAIN... THE PATIENT DESCRIBES THE PAIN... FALL RISK SCREENING: SCREENING :NO FALLS IN THE PAST YEAR CURRENT MEDICATIONS TAKING NAMENDA 10 MG TABLET 1 TABLET ORALLY TWICE A DAY TAKING DULOXETINE HCL 60 MG CAPSULE DELAYED RELEASE PARTICLES 1 CAPSULE ORALLY ONCE A DAY TAKING ACETAMINOPHEN EXTRA STRENGTH 500 MG TABLET 1 TABLET NEEDED ORALLY EVERY 6 HRS TAKING SENNA-DOCUSATE SODIUM 8.6-50 MG TABLET 1 TABLET IN THE EVENING NEEDED ORALLY ONCE A DAY TAKING MAGNESIUM OXIDE 400 MG CAPSULE 1 CAPSULE ORALLY TWICE A DAY TAKING PREDNISONE 5 MG TABLET 1 TABLET ORALLY ONCE A DAY TAKING ZONISAMIDE 50 MG CAPSULE 1 CAPSULE ORALLY TWICE A DAY TAKING VITAMIN D3 1000 UNIT CAPSULE 1 CAPSULE ORALLY ONCE A DAY TAKING LASIX 60 MG TABLET 1 TABLET ORALLY BID TAKING GABAPENTIN 300 MG CAPSULE 1 CAP ORALLY ONCE DAILY TAKING POTASSIUM CHLORIDE 20 MEQ PACKET 1 PACKET WITH FOOD ORALLY ONCE A DAY TAKING NITROQUICK SUBLINGUALLY TAKING BISACODYL 10 MG SUPPOSITORY 1 SUPPOSITORY NEEDED RECTAL ONCE A DAY TAKING ENEMA - ENEMA RECTAL TAKING MILK OF MAGNESIA 1200 MG/15ML SUSPENSION 5 ML NEEDED ORALLY FOUR TIMES A DAY TAKING ASPERCREME 10 % LOTION EXTERNALLY TAKING SALINE NASAL SPRAY 0.65 % SOLUTION NASALLY TAKING ATORVASTATIN CALCIUM 20 MG TABLET 1 TABLET ORALLY ONCE A DAY TAKING XARELTO 20 MG TABLET 1 TABLET WITH FOOD ORALLY ONCE A DAY NOT-TAKING ALBUTEROL SULFATE HFA 108 (90 BASE) MCG/ACT AEROSOL SOLUTION 2 PUFFS NEEDED INHALATION EVERY 4 HRS NOT-TAKING ENSURE - LIQUID ORALLY DIRECTED NOT-TAKING ABILIFY 2 MG TABLET 1 TABLET ORALLY ONCE A DAY UNKNOWN LEVAQUIN 500 MG TABLET 150 ML ORALLY EVERY 24 HRS UNKNOWN ASPIR-81 81 MG TABLET DELAYED RELEASE 1 TABLET ORALLY ONCE A DAY UNKNOWN COLACE 100 MG CAPSULE 1 CAPSULE NEEDED ORALLY BID UNKNOWN ATENOLOL 100 MG TABLET 1 TABLET ORALLY ONCE A DAY, NOTES: 08/29/16 1003 UNKNOWN PERCOCET 5-325 MG TABLET 1/2 TABLET NEEDED ORALLY 1/2 TABLET TID, NOTES: 7- UNKNOWN HYDROCODONE-ACETAMINOPHEN 5-325 MG TABLET 1 TAB ORALLY EVERY 6 HRS NEEDED FOR PAIN UNKNOWN TRAMADOL HCL 50 MG TABLET ORALLY DIRECTED UNKNOWN CELEXA 20 MG TABLET 1 TABLET ORALLY ONCE A DAY UNKNOWN PENNSAID 2 % SOLUTION 2 APPLICATIONS TO AFFECTED AREA TRANSDERMAL TWICE A DAY FOR LEFT KNEE PAIN UNKNOWN MIRALAX _ POWDER 17 GRAMS/LARGE TEASPOON ORALLY ONCE A DAY UNKNOWN FLUDROCORTISONE ACETATE 0.1 MG TABLET 1 TABLET ORALLY ONCE A DAY UNKNOWN FERROUS GLUCONATE 324 (38 FE) MG TABLET 1 TABLET ORALLY TWICE A DAY UNKNOWN MULTIVITAMIN TABLET CHEWABLE ORALLY ONCE DAILY UNKNOWN LIDODERM 5 % PATCH 1 PATCH TO INTACT SKIN REMOVE AFTER 12 HOURS EXTERNALLY ONCE A DAY UNKNOWN FUROSEMIDE 40 MG TABLET 1 TABLET ORALLY ONCE A DAY UNKNOWN VOLTAREN 1 % GEL 2 GRAMS TO LOW BACK TRANSDERMAL THREE TIMES DAILY UNKNOWN LYRICA 50 MG CAPSULE 1 CAPSULE ORALLY THREE TIMES A DAY UNKNOWN OCCUVITE _ TABLET 1 TAB(S) ORAL DAILY UNKNOWN HYDROXYZINE HCL 25 MG TABLET 1 TABLET NEEDED ORALLY EVERY 8 HRS UNKNOWN BENZONATATE 200 MG CAPSULE 1 CAPSULE NEEDED ORALLY THREE TIMES A DAY UNKNOWN OMEPRAZOLE 20 MG TABLET DELAYED RELEASE 1 TABLET ORALLY ONCE A DAY UNKNOWN LOPERAMIDE HCL 2 MG CAPSULE 1 CAPSULE ORALLY 8 TIME(S) A DAY/PRN MEDICATION LIST REVIEWED AND RECONCILED WITH THE PATIENT PAST MEDICAL HISTORY DEPRESSION GERD ALLERGIES LUPUS ANEMIA CVA 11/2010 PARKINSON'S DISEASE MILD RENAL INSUFFICIENCY IMPAIRED FASTING GLUCOSE SEIZURE DISORDER ORTHOSTATIC HYPOTENSION ALLERGIES MOTRIN: N/V MYCOPHENOLATE MOFETIL HCL: DIZZINESS SURGICAL HISTORY HYSTEREC JESSIKA CHOLECYSTECTOMY SOCIAL HISTORY GENERAL: TOBACCO USE ARE YOU A:NONSMOKER LEARNING BARRIERS / SPECIAL NEEDS ORIENTED TO PLAN OF CARE: PATIENT, PAIN MANAGEMENT PATIENT, ORIENTED TO PLAN OF CARE: PATIENT, PAIN MANAGEMENT PATIENT. NEW PATIENT PAIN DIARY TODAY'S VISITNOTES FROM 0-10, WHAT LEVEL IS YOUR PAIN TODAY?0 PAIN CLINIC PFS, CLERGY, PUBLIC HEALTH REFERRALS PFS REFERRAL NEEDED?NO CLERGY REFERRAL NEEDED?NO PUBLIC HEALTH REFERRAL NEEDED?NO WAS THE PROVIDER NOTIFIED OF ANY PERTINENT INFO?NO HAS THE PATIENT BEEN EDUCATED REGARDING HIS/HER PLAN OF CARE?YES HAS THE PATIENT BEEN EDUCATED REGARDING PAIN, THE RISK FOR PAIN, THE IMPORTANCE OF EFFECTIVE PAIN MANAGEMENT, AND THE PAIN ASSESSMENT PROCESS?YES HOSPITALIZATION/MAJOR DIAGNOSTIC PROCEDURE SURGERY RELATED REVIEW OF SYSTEMS REVIEWED BY: PROVIDER: ELVIRA PORTILLO . CONSTITUTIONAL: ANY CHANGE IN YOUR MEDICAL CONDITION? NO . CHILLS NO . FEVER NO . INFECTION: DO YOU HAVE NEW INFECTIONS? NO . DO YOU HAVE HISTORY OF MRSA? NO . MUSCULOSKELETAL: ANY NEW PATTERNS OF PAIN OR NUMBNESS? NO . GASTROENTEROLOGY: ANY NEW CHANGE IN BOWEL CONTROL? NO . GENITOURINARY: ANY NEW CHANGE IN BLADDER CONTROL? NO . IS THERE A CHANCE YOU COULD BE ? NO . HEMATOLOGY/LYMPH: DO YOU TAKE ANY BLOOD THINNERS? (FOR EXAMPLE- COUMADIN, PLAVIX, AGGRENOX, PLATEL, PRADAXA, OR XARELTO) YES, XARELTO . WHEN WAS YOUR LAST DOSE? DATE: TIME: . NEUROLOGY: HAVE YOU FALLEN IN THE PAST 6 MONTHS? NO . ANY NEW EXTREMITY NUMBNESS OR WEAKNESS? NO . CARDIOLOGY: DO YOU HAVE A PACEMAKER OR DEFIBRILLATOR? NO . RESPIRATORY: HAVE YOU BEEN SICK IN THE PAST WEEK? NO . FEVER NO . FLU LIKE SYMPTOMS? NO . COUGH NO . INTEGUMENTARY: DO YOU HAVE ANY RASHES OR OPEN SORES? NO . ALLERGIC/IMMUNO: ARE YOU ALLERGIC TO SHELLFISH OR IV DYE? NO . ANY NEW ALLERGIES? NO . PSYCHIATRIC: DO YOU HAVE THOUGHTS OF HURTING YOURSELF OR SOMEONE ELSE? NO . ARE YOU ABUSED, NEGLECTED, OR IN AN UNSAFE ENVIRONMENT? NO . ENDOCRINOLOGY: ARE YOU DIABETIC? YES . OTHER: DO YOU NEED ANY PRESCRIPTIONS? NO . IF YES, PLEASE LIST: ____ . ANY NEW PROBLEMS WITH YOUR MEDICATIONS? NO . WHEN DID YOU LAST EAT? ____ . WHEN DID YOU LAST DRINK? ____ . WHAT DID YOU LAST DRINK? ____ . NAME OF PERSON DRIVING YOU HOME? ____ . DO YOU HAVE ANY OTHER QUESTIONS OR CONCERNS NO . VITAL SIGNS WT 203 LBS, HT 5'3", BMI 35.96 INDEX, BP 142/63 MM HG, HR 68 /MIN, RR 18 /MIN, TEMP 96.8 F, OXYGEN SAT % 97, REVIEWED BY: EM. EXAMINATION GENERAL EXAMINATION: LUNGS:LUNG SOUNDS ARE CLEAR. HEART:HEART RHYTHM SLIGHTLY IRREGULAR. MUSCULOSKELETAL:*, PALPATION: MILD DISCOMFORT OVER L/S SPINE. MILD DISCOMFORT OVER L/S PARSPINALS R>L, MUSCLE STRENGTH TESTING 5/5 BILATERAL. DIAGNOSTIC:MRI L/S SPINE 09-19-15 REVIEWED . ASSESSMENTS SPONDYLOSIS WITHOUT MYELOPATHY OR RADICULOPATHY, LUMBAR REGION - M47.816 (PRIMARY) TREATMENT SPONDYLOSIS WITHOUT MYELOPATHY OR RADICULOPATHY, LUMBAR REGION NOTES: CONSERVATIVE CARE FOR ARTHRITIC FLARE-UP PAIN. PROCEDURE CODES FA211 ESTABILISHED PATIENT [facility] CHARGE [id number] PAIN ASSESS POS TOOL F/U PLAN DOC G8427 DOC MEDS VERIFIED W/PT OR RE DISPOSITION & COMMUNICATION FOLLOW UP NO F/U NECESSARY ELECTRONICALLY SIGNED BY LINDSEY FAIRCHILD ON 02/22/2017 AT 08:35 AM EDT DISCLAIMER : THIS IS A VISIT SUMMARY EXTRACTED FROM THE [employer] CHART. IT IS NOT A COPY OF THE [employer] PROGRESS NOTE. BOUCH[place]
== END ==
LOC: M PAIN 11:30
PROVIDERS: ATTEND Nurse Practitioner Family
DX: G89.29 Other chronic pain (principal); M47.816 Spondylosis without myelopathy or radiculopathy, lumbar region; E11.9 Type 2 diabetes mellitus without complications; F32.9 Major depressive disorder, single episode, unspecified; M32.9 Systemic lupus erythematosus, unspecified; I25.2 Old myocardial infarction; G20 Parkinson's disease; G43.909 Migraine, unspecified, not intractable, without status migrainosus; N18.9 Chronic kidney disease, unspecified; Z88.6 Allergy status to analgesic agent; Z88.8 Allergy status to other drugs, medicaments and biological substances; Z79.01 Long term (current) use of anticoagulants; Z79.52 Long term (current) use of systemic steroids; Z79.899 Other long term (current) drug therapy

== ENCOUNTER → 2017-03-16 | Outpatient (REF) ==
[2017-03-16 17:23] LABS: MEAN CORPUSCULAR HEMOGLOBIN 27.8 pg (27.0-33.0); MEAN CORPUSCULAR HGB CONC 29.7 g/dl (32.0-36.5); MEAN CORPUSCULAR VOLUME 93.6 fl (80.0-96.0); PLATELET COUNT, AUTOMATED 201 10^3/uL (150-450); RED CELL DISTRIBUTION WIDTH 16.1 % (11.5-14.5); WHITE BLOOD COUNT 7.1 10^3/uL (4.0-10.0)
[2017-03-16 18:11] LABS: CREATININE FOR GFR 1.53 MG/DL (0.55-1.02); GLOMERULAR FILTRATION RATE 34.8 (>32); POTASSIUM SERUM 4.1 MEQ/L (3.5-5.1)
[2017-03-16 18:12] LABS: ALBUMIN 2.4 GM/DL (3.2-5.2); ALBUMIN/GLOBULIN RATIO 0.53 (1.00-1.93); BILIRUBIN,TOTAL 0.5 MG/DL (0.2-1.0); CALCIUM LEVEL 8.5 MG/DL (8.8-10.2); TOTAL PROTEIN 6.9 GM/DL (6.4-8.2)
== END ==
PROVIDERS: ATTEND Internal Medicine
DX: R41.82 Altered mental status, unspecified (principal); M62.81 Muscle weakness (generalized)

== ENCOUNTER → 2017-03-18 | Outpatient (REF) | PROVIDERS: ATTEND Internal Medicine | DX: R71.0 Precipitous drop in hematocrit (principal) ==

== ENCOUNTER → 2017-03-22 | Outpatient (REF) ==
[2017-03-22 10:38] LABS: MEAN CORPUSCULAR HGB CONC 29.6 g/dl (32.0-36.5); MEAN CORPUSCULAR VOLUME 94.5 fl (80.0-96.0); PLATELET COUNT, AUTOMATED 214 10^3/uL (150-450); RED CELL DISTRIBUTION WIDTH 16.4 % (11.5-14.5); WHITE BLOOD COUNT 6.8 10^3/uL (4.0-10.0)
[2017-03-22 11:09] LABS: FOLATE 9.1 NG/ML (>5.4)
[2017-03-22 11:14] LABS: CALCIUM LEVEL 8.7 MG/DL (8.8-10.2); CREATININE FOR GFR 1.92 MG/DL (0.55-1.02); GLOMERULAR FILTRATION RATE 26.8 (>32); POTASSIUM SERUM 3.4 MEQ/L (3.5-5.1)
== END ==
PROVIDERS: ATTEND Internal Medicine
DX: D64.9 Anemia, unspecified (principal)

== ENCOUNTER → 2017-03-27 | Outpatient (REF) | payer MEDICARE, MEDICAID | LOC: M LAB REF 09:56 | PROVIDERS: ATTEND Internal Medicine | DX: K92.1 Melena (principal) ==

== ENCOUNTER → 2017-03-30 | Outpatient (REF) | PROVIDERS: ATTEND Internal Medicine | DX: D64.9 Anemia, unspecified (principal) ==

== ENCOUNTER → 2017-05-13 | Outpatient (REF) | payer MEDICARE, MEDICAID ==
[2017-05-13 10:08] LABS: BASO % 0.4 % (0.0-1.0); EOS # 0.5 10^3/uL (0.0-0.50); HEMATOCRIT 32.6 % (36.0-47.0); HEMOGLOBIN 9.8 g/dl (12.0-16.0); IMMATURE GRANULOCYTE % 0.4 % (0-0); LYMPH # 1.9 10^3/uL (1.5-4.5); LYMPH % 25.1 % (24.0-44.0); MEAN CORPUSCULAR HEMOGLOBIN 27.9 pg (27.0-33.0); MEAN CORPUSCULAR HGB CONC 30.1 g/dl (32.0-36.5); MEAN CORPUSCULAR VOLUME 92.9 fl (80.0-96.0); MONO # 0.6 10^3/uL (0.0-0.8); MONO % 7.3 % (0.0-5.0); NEUTROPHILS # 4.6 10^3/uL (1.8-7.7); NEUTROPHILS % 60.8 % (36.0-66.0); PLATELET COUNT, AUTOMATED 226 10^3/uL (150-450); RED BLOOD COUNT 3.51 10^6/uL (4.00-5.40); RED CELL DISTRIBUTION WIDTH 18.3 % (11.5-14.5); WHITE BLOOD COUNT 7.6 10^3/uL (4.0-10.0)
[2017-05-13 10:31] LABS: ALBUMIN 2.8 GM/DL (3.2-5.2); ALBUMIN/GLOBULIN RATIO 0.54 (1.00-1.93); ALKALINE PHOSPHATASE 107 U/L (45-117); ALT/SGPT 20 U/L (12-78); AST/SGOT 50 U/L (7-37); BILIRUBIN,TOTAL 0.4 MG/DL (0.2-1.0); BLOOD UREA NITROGEN 42 MG/DL (7-18); CALCIUM LEVEL 8.7 MG/DL (8.8-10.2); CHLORIDE LEVEL 85 MEQ/L (98-107); CREATININE FOR GFR 1.95 MG/DL (0.55-1.02); GLOMERULAR FILTRATION RATE 26.2 (>32); GLUCOSE, FASTING 168 MG/DL (83-110); POTASSIUM SERUM 3.8 MEQ/L (3.5-5.1); SODIUM LEVEL 135 MEQ/L (136-145)
[2017-05-13 10:51] LABS: ANION GAP 4 MEQ/L (8-16); CARBON DIOXIDE LEVEL 46 MEQ/L (21-32)
[2017-05-13 13:58] LABS: APPEARANCE, URINE TURBID (CLEAR); BACTERIA, URINE AUTO NEGATIVE (NEGATIVE); BILIRUBIN, URINE AUTO NEGATIVE (NEGATIVE); BLOOD, URINE BLOOD 1+ (NEGATIVE); COLOR, URINE YELLOW (YELLOW); GLUCOSE, URINE (UA) AUTO NEGATIVE (NEGATIVE); KETONE, URINE AUTO NEGATIVE (NEGATIVE); LEUKOCYTE ESTERASE, URINE AUTO 3+ (NEGATIVE); NITRITE, URINE AUTO NEGATIVE (NEGATIVE); PROTEIN, URINE AUTO 2+ mg/dL (NEGATIVE); RBC, URINE AUTO 45 /HPF (0-3); SPECIFIC GRAVITY URINE AUTO 1.014 (1.002-1.035); SQUAMOUS EPITHELIAL CELL UR AU 0 /HPF (0-6); UROBILINOGEN, URINE AUTO 0.2 mg/dL (0.0-2.0); WBC, URINE AUTO TNTC /HPF (0-3)
== END ==
DX: R41.0 Disorientation, unspecified (principal)
CPT/HCPCS: 80053

== ENCOUNTER → 2017-05-17 | Outpatient (REF) | payer MEDICARE, MEDICAID ==
[2017-05-17 11:57] LABS: APPEARANCE, URINE CLEAR (CLEAR); BACTERIA, URINE AUTO NEGATIVE (NEGATIVE); BILIRUBIN, URINE AUTO NEGATIVE (NEGATIVE); BLOOD, URINE BLOOD NEGATIVE (NEGATIVE); COLOR, URINE YELLOW (YELLOW); GLUCOSE, URINE (UA) AUTO NEGATIVE (NEGATIVE); KETONE, URINE AUTO NEGATIVE (NEGATIVE); LEUKOCYTE ESTERASE, URINE AUTO NEGATIVE (NEGATIVE); MUCUS, URINE SMALL (NEGATIVE); NITRITE, URINE AUTO NEGATIVE (NEGATIVE); PROTEIN, URINE AUTO NEGATIVE (NEGATIVE); RBC, URINE AUTO 2 /HPF (0-3); SPECIFIC GRAVITY URINE AUTO 1.011 (1.002-1.035); SQUAMOUS EPITHELIAL CELL UR AU 0 /HPF (0-6); UROBILINOGEN, URINE AUTO 0.2 mg/dL (0.0-2.0); WBC, URINE AUTO 0 /HPF (0-3)
== END ==
DX: R39.9 Unspecified symptoms and signs involving the genitourinary system (principal)
CPT/HCPCS: 81001

== ENCOUNTER → 2017-05-25 | Outpatient (REF) | payer MEDICARE, MEDICAID ==
[2017-05-25 11:05] LABS: IRON (FE) 56 UG/DL (50-170); PERCENT SATURATION 20.6 % (13.2-45.0); TOTAL IRON BINDING CAPACITY 272 UG/DL (250-450)
== END ==
DX: D64.9 Anemia, unspecified (principal)
CPT/HCPCS: 83550

== ENCOUNTER → 2017-05-31 | Outpatient (REF) | payer MEDICARE, MEDICAID ==
[2017-05-31 13:48] LABS: ANION GAP 9 MEQ/L (8-16); BLOOD UREA NITROGEN 38 MG/DL (7-18); CALCIUM LEVEL 8.2 MG/DL (8.8-10.2); CARBON DIOXIDE LEVEL 41 MEQ/L (21-32); CHLORIDE LEVEL 87 MEQ/L (98-107); CREATININE FOR GFR 1.93 MG/DL (0.55-1.30); GLOMERULAR FILTRATION RATE 26.5 (>32); GLUCOSE, FASTING 179 MG/DL (70-100); POTASSIUM SERUM 3.7 MEQ/L (3.5-5.1); SODIUM LEVEL 137 MEQ/L (136-145)
== END ==
DX: R53.83 Other fatigue (principal); E11.9 Type 2 diabetes mellitus without complications; N18.9 Chronic kidney disease, unspecified
CPT/HCPCS: 84443

== ENCOUNTER → 2017-06-28 | Outpatient (REF) | payer MEDICARE, MEDICAID ==
[2017-06-28 10:28] LABS: HEMATOCRIT 31.2 % (36.0-47.0); HEMOGLOBIN 9.5 g/dl (12.0-16.0); MEAN CORPUSCULAR HEMOGLOBIN 29.2 pg (27.0-33.0); MEAN CORPUSCULAR HGB CONC 30.4 g/dl (32.0-36.5); PLATELET COUNT, AUTOMATED 227 10^3/uL (150-450); RED BLOOD COUNT 3.25 10^6/uL (4.00-5.40); RED CELL DISTRIBUTION WIDTH 18.6 % (11.5-14.5); WHITE BLOOD COUNT 6.4 10^3/uL (4.0-10.0)
[2017-06-28 11:07] LABS: ANION GAP 8 MEQ/L (8-16); BLOOD UREA NITROGEN 51 MG/DL (7-18); CALCIUM LEVEL 8.6 MG/DL (8.8-10.2); CARBON DIOXIDE LEVEL 43 MEQ/L (21-32); CHLORIDE LEVEL 87 MEQ/L (98-107); GLOMERULAR FILTRATION RATE 20.6 (>32); GLUCOSE, FASTING 108 MG/DL (70-100); SODIUM LEVEL 138 MEQ/L (136-145)
== END ==
DX: E03.9 Hypothyroidism, unspecified (principal); I50.9 Heart failure, unspecified
CPT/HCPCS: 84443

== ENCOUNTER → 2017-07-05 | Outpatient (REF) | payer MEDICARE, MEDICAID ==
[2017-07-05 11:02] LABS: ANION GAP 7 MEQ/L (8-16); BLOOD UREA NITROGEN 41 MG/DL (7-18); CALCIUM LEVEL 8.2 MG/DL (8.8-10.2); CARBON DIOXIDE LEVEL 44 MEQ/L (21-32); CHLORIDE LEVEL 84 MEQ/L (98-107); CREATININE FOR GFR 1.94 MG/DL (0.55-1.30); GLOMERULAR FILTRATION RATE 26.4 (>32); GLUCOSE, FASTING 161 MG/DL (70-100); POTASSIUM SERUM 3.4 MEQ/L (3.5-5.1); SODIUM LEVEL 135 MEQ/L (136-145)
== END ==
DX: I50.9 Heart failure, unspecified (principal)
CPT/HCPCS: 80048

== ENCOUNTER → 2017-07-12 | Outpatient (REF) | payer MEDICARE, MEDICAID ==
[2017-07-12 10:23] LABS: ANION GAP 5 MEQ/L (8-16); BLOOD UREA NITROGEN 40 MG/DL (7-18); CALCIUM LEVEL 8.5 MG/DL (8.8-10.2); CARBON DIOXIDE LEVEL 44 MEQ/L (21-32); CHLORIDE LEVEL 87 MEQ/L (98-107); CREATININE FOR GFR 1.66 MG/DL (0.55-1.30); GLOMERULAR FILTRATION RATE 31.6 (>32); GLUCOSE, FASTING 108 MG/DL (70-100); POTASSIUM SERUM 3.4 MEQ/L (3.5-5.1); SODIUM LEVEL 136 MEQ/L (136-145)
== END ==
DX: I50.9 Heart failure, unspecified (principal)
CPT/HCPCS: 80048

== ENCOUNTER → 2017-07-26 | Outpatient (REF) | payer MEDICARE, MEDICAID | DX: E03.9 Hypothyroidism, unspecified (principal) | CPT/HCPCS: 84443 ==

== ENCOUNTER → 2017-07-29 | Outpatient (REF) | payer MEDICARE, MEDICAID | DX: N89.8 Other specified noninflammatory disorders of vagina (principal) | CPT/HCPCS: 87186 ==

== ENCOUNTER → 2017-08-15 | Outpatient (REF) | payer MEDICARE, MEDICAID | DX: D64.9 Anemia, unspecified (principal); Z79.899 Other long term (current) drug therapy | CPT/HCPCS: 82270 ==

== ENCOUNTER → 2017-08-23 | Outpatient (REF) | payer MEDICARE, MEDICAID ==
[2017-08-23 10:45] LABS: HEMATOCRIT 28.7 % (36.0-47.0); HEMOGLOBIN 8.8 g/dl (12.0-15.5); MEAN CORPUSCULAR HEMOGLOBIN 30.8 pg (27.0-33.0); MEAN CORPUSCULAR HGB CONC 30.7 g/dl (32.0-36.5); MEAN CORPUSCULAR VOLUME 100.3 fl (80.0-96.0); PLATELET COUNT, AUTOMATED 223 10^3/uL (150-450); RED BLOOD COUNT 2.86 10^6/uL (4.00-5.40); RED CELL DISTRIBUTION WIDTH 17.2 % (11.5-14.5); WHITE BLOOD COUNT 6.4 10^3/uL (4.0-10.0)
[2017-08-23 11:37] LABS: ANION GAP 8 MEQ/L (8-16); BLOOD UREA NITROGEN 31 MG/DL (7-18); CALCIUM LEVEL 8.2 MG/DL (8.8-10.2); CARBON DIOXIDE LEVEL 34 MEQ/L (21-32); CHLORIDE LEVEL 98 MEQ/L (98-107); CREATININE FOR GFR 1.69 MG/DL (0.55-1.30); GLOMERULAR FILTRATION RATE 30.9 (>32); GLUCOSE, FASTING 158 MG/DL (70-100); SODIUM LEVEL 140 MEQ/L (136-145)
== END ==
DX: E03.9 Hypothyroidism, unspecified (principal); D64.9 Anemia, unspecified; N18.9 Chronic kidney disease, unspecified
CPT/HCPCS: 84443